=== PATIENT | male | born 1950 ===

== ENCOUNTER → 2020-07-03 10:21 | Outpatient (BNVA) | payer OTHER, SELFPAY | PROVIDERS: PCP Internal Medicine; Visit Provider Nurse Practitioner Gerontology | DX: E11.65 Type 2 diabetes mellitus with hyperglycemia (principal); I10 Essential (primary) hypertension | CPT/HCPCS: 82947; 99212 ==

== ENCOUNTER → 2020-07-17 09:11 | Outpatient (BNVA) | payer OTHER, SELFPAY | PROVIDERS: PCP Internal Medicine; Referring Provider Internal Medicine; Visit Provider Internal Medicine Endocrinology, Diabetes & Metabolism | DX: E11.65 Type 2 diabetes mellitus with hyperglycemia (principal); E11.42 Type 2 diabetes mellitus with diabetic polyneuropathy; E11.21 Type 2 diabetes mellitus with diabetic nephropathy; E11.3599 Type 2 diabetes mellitus with proliferative diabetic retinopathy without macular edema, unspecified eye; Z79.4 Long term (current) use of insulin; I10 Essential (primary) hypertension; E78.5 Hyperlipidemia, unspecified | CPT/HCPCS: 82947; 99212 ==

== ENCOUNTER 2021-03-12 10:03 | Outpatient (REF) | payer MEDICARE, SELFPAY ==
--- NOTE | ~2021-03-12 | XR_ITS ---
EXAMINATION: XR FOOT, LEFT CLINICAL INFORMATION: Pain in left foot. COMPARISON: None TECHNIQUE: AP, lateral, and oblique views of the left foot. FINDINGS: The ankle mortise and subtalar joints are normal. No acute fracture or dislocation seen. There is a moderate-sized retrocalcaneal enthesophyte. The soft tissues are normal. XR/XR foot LT min 3V IMPRESSION: Moderate-sized retrocalcaneal enthesophyte. No visible acute fracture or dislocation seen.
--- NOTE | ~2021-03-12 | XR_ITS ---
EXAMINATION: XR FOOT, RIGHT CLINICAL INFORMATION: Pain COMPARISON: None TECHNIQUE: AP, lateral, and oblique views of the right foot. FINDINGS: Bone alignment is normal. No fracture or dislocation is seen. There is mild arthritis at the IP joint of the great toe. There is flattening of the head of the second metatarsal bone. There is cortical thickening of the shaft of the second metatarsal bone and increased sclerosis. 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 There are large calcaneal spurs. There is soft tissue arterial calcification. XR/XR foot RT min 3V IMPRESSION: Mild arthritis at the IP joint of the great toe. 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 Large calcaneal spurs.
== END 2021-03-12 10:04 | disposition home or self-care (01) ==
LOC: HO.XRAY 10:03
PROVIDERS: PCP Internal Medicine; Referring Provider Internal Medicine; Visit Provider Nurse Practitioner Family
DX: M79.671 Pain in right foot (principal); M79.672 Pain in left foot
CPT/HCPCS: 73630

== ENCOUNTER → 2021-10-27 08:17 | Outpatient (BNVA) | payer MEDICARE, SELFPAY | PROVIDERS: PCP Internal Medicine; Visit Provider Internal Medicine Endocrinology, Diabetes & Metabolism | DX: E11.65 Type 2 diabetes mellitus with hyperglycemia (principal); Z79.4 Long term (current) use of insulin | CPT/HCPCS: 82947; 99212 ==

== ENCOUNTER 2021-10-27 09:07 | Outpatient (REF) | payer MEDICARE, SELFPAY ==
[2021-10-27 10:53] LABS: Anion Gap 13 (12-20); Blood Urea Nitrogen 16 mg/dL (9-16); Calcium 9.8 mg/dL (8.4-10.2); Carbon Dioxide 30 mmol/L (22-29); Chloride 102 mmol/L (96-108); Cholesterol 133 mg/dL; Estimated Glomerular Filt Rate > 60; Glucose Random 135 mg/dL (60-115); HDL Cholesterol 40 mg/dL; LDL Cholesterol Calculated 68 mg/dl; Potassium 4.9 mmol/L (3.3-5.1); Sodium 140 mmol/L (135-145); Triglycerides 125 mg/dL
== END 2021-10-27 09:08 | disposition home or self-care (01) ==
LOC: HO.10HDL 09:07
PROVIDERS: Visit Provider Internal Medicine Endocrinology, Diabetes & Metabolism
DX: E11.65 Type 2 diabetes mellitus with hyperglycemia (principal); Z79.4 Long term (current) use of insulin
CPT/HCPCS: 36415; 80048; 80061; 82043

== ENCOUNTER → 2021-11-11 08:18 | Outpatient (BNVA) | payer OTHER, SELFPAY | PROVIDERS: PCP Internal Medicine; Visit Provider Registered Nurse Diabetes Educator | DX: E11.3599 Type 2 diabetes mellitus with proliferative diabetic retinopathy without macular edema, unspecified eye (principal); Z71.89 Other specified counseling; Z71.3 Dietary counseling and surveillance | CPT/HCPCS: 99211 ==

== ENCOUNTER → 2021-11-19 09:11 | Outpatient (BNVA) | payer MEDICARE, SELFPAY | PROVIDERS: PCP Internal Medicine; Visit Provider Dietitian, Registered | DX: E11.42 Type 2 diabetes mellitus with diabetic polyneuropathy (principal); E11.21 Type 2 diabetes mellitus with diabetic nephropathy; E11.3599 Type 2 diabetes mellitus with proliferative diabetic retinopathy without macular edema, unspecified eye; Z71.3 Dietary counseling and surveillance | CPT/HCPCS: 97802 ==

== ENCOUNTER → 2021-12-01 10:15 | Outpatient (BNVA) | payer OTHER, SELFPAY | PROVIDERS: PCP Internal Medicine; Visit Provider Registered Nurse Diabetes Educator | DX: E11.65 Type 2 diabetes mellitus with hyperglycemia (principal); Z79.4 Long term (current) use of insulin | CPT/HCPCS: 99211 ==

== ENCOUNTER → 2022-03-02 09:49 | Outpatient (BNVA) | payer OTHER, SELFPAY | PROVIDERS: PCP Internal Medicine; Visit Provider Internal Medicine Endocrinology, Diabetes & Metabolism | DX: E11.65 Type 2 diabetes mellitus with hyperglycemia (principal); E11.21 Type 2 diabetes mellitus with diabetic nephropathy; E11.40 Type 2 diabetes mellitus with diabetic neuropathy, unspecified; E11.319 Type 2 diabetes mellitus with unspecified diabetic retinopathy without macular edema; Z79.4 Long term (current) use of insulin | CPT/HCPCS: 82947; 83036; 99212 ==

== ENCOUNTER → 2022-04-11 10:02 | Outpatient (BNVA) | payer OTHER, SELFPAY | PROVIDERS: PCP Internal Medicine; Visit Provider Dietitian, Registered | DX: E11.42 Type 2 diabetes mellitus with diabetic polyneuropathy (principal); K59.00 Constipation, unspecified; Z71.3 Dietary counseling and surveillance | CPT/HCPCS: 97803 ==

== ENCOUNTER → 2022-04-29 10:10 | Outpatient (BNVA) | payer OTHER, SELFPAY | PROVIDERS: PCP Internal Medicine; Visit Provider Registered Nurse Diabetes Educator | DX: E11.3599 Type 2 diabetes mellitus with proliferative diabetic retinopathy without macular edema, unspecified eye (principal) | CPT/HCPCS: 99211 ==

== ENCOUNTER 2022-05-04 10:12 | Outpatient (REF) | payer OTHER, SELFPAY ==
[2022-05-04 12:51] LABS: Free T4 (Free Thyroxine) 0.92 ng/dL (0.71-1.85); Thyroid Stimulating Hormone 3.55 uIU/mL (0.32-4.0)
[2022-05-05 20:51] LABS: Thyroid Peroxidase Antibodies 10 IU/mL (<9)
== END 2022-05-04 10:13 | disposition home or self-care (01) ==
LOC: HO.LAB 10:12
PROVIDERS: PCP Internal Medicine; Visit Provider Internal Medicine Endocrinology, Diabetes & Metabolism
DX: E03.9 Hypothyroidism, unspecified (principal)
CPT/HCPCS: 36415; 84439; 84443; 86376

== ENCOUNTER → 2022-05-26 10:38 | Outpatient (BNVA) | payer OTHER, SELFPAY | PROVIDERS: PCP Internal Medicine; Referring Provider Internal Medicine; Visit Provider Surgery | DX: Z12.11 Encounter for screening for malignant neoplasm of colon (principal) | CPT/HCPCS: 99202 ==

== ENCOUNTER → 2022-05-27 09:44 | Outpatient (BNVA) | payer OTHER, SELFPAY | PROVIDERS: PCP Internal Medicine; Visit Provider Registered Nurse Diabetes Educator | DX: E11.65 Type 2 diabetes mellitus with hyperglycemia (principal); Z79.4 Long term (current) use of insulin | CPT/HCPCS: 95250; 99211 ==

== ENCOUNTER → 2022-06-10 11:20 | Outpatient (BNVA) | payer OTHER, SELFPAY | PROVIDERS: PCP Internal Medicine; Visit Provider Registered Nurse Diabetes Educator | DX: E11.3599 Type 2 diabetes mellitus with proliferative diabetic retinopathy without macular edema, unspecified eye (principal) | CPT/HCPCS: 99211 ==

== ENCOUNTER → 2022-07-05 08:41 | Outpatient (REF) | payer OTHER, SELFPAY ==
--- NOTE | 2022-07-05 08:44 | CA_ITS ---
Transthoracic Echocardiogram Patient (Last, First, Middle): Matthew Teixeira A Gender: Male Date of : 1950 Age: 72 Procedure Date: 07/05/2022 Procedure Type: Transthoracic Echocardiogram Location: OP Height: 167.64 cm Weight: 76.2 kg BSA: 1.86 m2 Heart Rate: 54 bpm BP: 120 / 60 mmHg Hyperion Administrator: APRYL Eddy MD: Jeanine Jimenez MD Stylist Assistant: Fiil Allen MD Symptoms: HYPOTENSION UNSPECIFIED Study Quality: Fair/Contrast ECG Rhythm: Sinus bradycardia Conclusions: - 1. Lchn-ty-srrjdskb LV systolic dysfunction with impaired relaxation filling pattern 2. Normal cardiac valvular Doppler 3. Normal RV systolic pressure 4. No gross pericardial effusion Findings Procedure Information Contrast agent, definity, is being given per protocol without apparent complications. Left Ventricle Normal left ventricular cavity size. There is normal left ventricular wall thickness. The left ventricular systolic function is mild to moderately decreased. The visually estimated ejection fraction is between 40-45%. Spectral Doppler is indicative of an impaired relaxation filling pattern. E/E prime ratio is between 8 and 15 consistent with indeterminate filling pressures. Right Ventricle Normal right ventricular cavity size and systolic function. Atria The left atrium is normal in size. There is lipomatous hypertrophy of the interatrial septum. There is no evidence of interatrial shunt. The right atrium was not well visualized. Aortic Valve Normal aortic valve structure and function. There is no aortic valve stenosis. There is no aortic valve regurgitation. Mitral Valve Normal mitral valve structure and function. There is trace mitral valve regurgitation. There is no mitral valve stenosis. Pulmonic Valve The pulmonic valve was not well visualized. Tricuspid Valve Likely normal tricuspid valve structure and function. There is trace tricuspid valve regurgitation. The right ventricular systolic pressure is normal. The right ventricular systolic pressure is 22 mmHg. Normal right atrial pressure. There is no evidence of pulmonary hypertension. Great Vessels All visible segments of the aorta are normal in size. The pulmonary artery was not well visualized. Venous The inferior vena cava is normal in size and collapses greater than 50% with inspiration. Pericardium/Pleural There is no evidence of pericardial effusion. Prior Study Comparison No prior study available for comparison. Measurements 2D Linear Measurements IVSd: 0.90 0.6-0.9/0.6-1.0 cm LVIDd: 4.13 3.9-5.3/4.2-5.9 cm LVIDd Index: 2.22 2.4-3.2/2.2-3.1 cm/m2 LVIDs: 3.13 2.0-3.6 cm LVPWd: 0.90 0.7-1.1 cm LA Diam: 3.50 2.7-3.8/3.0-4.0 cm LAIDs Index: 1.88 1.5-2.3 cm/m2 LV Mass: 142.51 67-162/88-224 g LV Mass Index: 76.62 43-95/49-115 g/m2 LVOT Diam: 2.00 3.0+(-)1.3 cm 2D Systolic Function EF 4C: 47.70 >55% EF 2C: 43.40 >55% EF BiP: 43.30 >55% Mitral Valve MV Pk E: 0.76 MV PK A: 0.81 MV Decel Time: 248.00 E/A: 0.90 E'Lateral: 8.92 E'Medial: 5.98 E/E' Med: 12.80 E/E' Lat: 8.60 PHT: 73.00 MVA PHT: 3.01 Decel Marin: 3.08 Aortic Valve AoV Pk Kuldeep: 0.98 AoV Mn Kuldeep: 0.74 AoV VTI: 0.26 AoV Pk Grad: 4.00 Aov Mn Grad: 2.00 KODAK Cont.VTI: 3.00 LVOT LVOT Pk Kuldeep: 0.98 LVOT Mn Kuldeep: 0.65 LVOT VTI: 0.25 LVOT Pk Grad: 4.00 LVOT Mn Grad: 2.00 LVOT Diam: 2.00 LVOT Area: 3.14 Diastolic Function MV Pk E: 0.76 MV Pk A: 0.81 E/A: 0.90 E'Medial: 5.98 E/E' Med: 12.80 E' Laterial: 8.92 E/E' Lat: 8.60 Right Ventricle TAPSE (mm): 20.80 TVS' Kuldeep: 10.10 Tricuspid Valve TR Pk Kuldeep: 2.19 TR Pk Grad: 19.00 RA Press: 3.00 RVSP: 22.00 Great Vessels Aorta Sinus of Valsalva: 3.80 2.0-3.5 cm Ao Asc: 3.30 2.1-3.4 cm Pulmonary Valve PV Pk Kuldeep: 0.92 Peak PV Grad: 3.00 Updated in Other Vendor System with Status of Final Fili Allen MD electronically signed on 07/06/2022 4:01:26 PM with status of Final
== END ==
LOC: HO.CARD 08:41
PROVIDERS: PCP Internal Medicine; Visit Provider Family Medicine
DX: I95.9 Hypotension, unspecified (principal); R09.89 Other specified symptoms and signs involving the circulatory and respiratory systems; R42 Dizziness and giddiness; E11.65 Type 2 diabetes mellitus with hyperglycemia; Z79.4 Long term (current) use of insulin
CPT/HCPCS: 82947; 83036; 93306; 99212; Q9957

== ENCOUNTER 2022-08-17 13:31 | Outpatient (REF) | payer OTHER, SELFPAY ==
--- NOTE | 2022-08-17 | EMG_ITS ---
Please see scanned EMG / Nerve Conduction Report. MTDD
== END 2022-08-17 13:32 | disposition home or self-care (01) ==
LOC: HO.NEURO 13:31
PROVIDERS: PCP Internal Medicine; Visit Provider Family Medicine
DX: R20.0 Anesthesia of skin (principal); E11.42 Type 2 diabetes mellitus with diabetic polyneuropathy
CPT/HCPCS: 95885; 95913

== ENCOUNTER → 2022-08-19 09:29 | Outpatient (BNVA) | payer OTHER, SELFPAY | PROVIDERS: PCP Internal Medicine; Visit Provider Registered Nurse Diabetes Educator | DX: E11.65 Type 2 diabetes mellitus with hyperglycemia (principal); E11.42 Type 2 diabetes mellitus with diabetic polyneuropathy; E11.21 Type 2 diabetes mellitus with diabetic nephropathy; E11.3599 Type 2 diabetes mellitus with proliferative diabetic retinopathy without macular edema, unspecified eye; G62.89 Other specified polyneuropathies; N52.1 Erectile dysfunction due to diseases classified elsewhere; I10 Essential (primary) hypertension; Z79.4 Long term (current) use of insulin | CPT/HCPCS: 99211 ==

== ENCOUNTER → 2022-10-12 10:00 | Outpatient (BNVA) | payer OTHER, SELFPAY | PROVIDERS: PCP Internal Medicine; Visit Provider Dietitian, Registered | DX: E11.65 Type 2 diabetes mellitus with hyperglycemia (principal); E11.42 Type 2 diabetes mellitus with diabetic polyneuropathy; E11.21 Type 2 diabetes mellitus with diabetic nephropathy; E11.3599 Type 2 diabetes mellitus with proliferative diabetic retinopathy without macular edema, unspecified eye; I10 Essential (primary) hypertension; Z79.4 Long term (current) use of insulin; E78.5 Hyperlipidemia, unspecified; Z71.3 Dietary counseling and surveillance | CPT/HCPCS: 97803 ==

== ENCOUNTER → 2022-12-27 10:00 | Outpatient (BNVA) | payer OTHER, SELFPAY | PROVIDERS: PCP Internal Medicine; Visit Provider Registered Nurse Diabetes Educator | DX: E11.65 Type 2 diabetes mellitus with hyperglycemia (principal); Z79.4 Long term (current) use of insulin | CPT/HCPCS: 99211 ==

== ENCOUNTER 2022-12-28 10:22 | Outpatient (REF) | payer OTHER, SELFPAY ==
[2022-12-28 11:55] LABS: Cholesterol 129 mg/dL; HDL Cholesterol 39 mg/dL; LDL Cholesterol Calculated 74 mg/dl; Triglycerides 81 mg/dL
[2022-12-28 12:16] LABS: Creatinine Urine 73.18 mg/dL; Microalbum/Creatinine Ratio Ur 13.6 ug/mg cr
== END 2022-12-28 10:23 | disposition home or self-care (01) ==
LOC: HO.LAB 10:22
PROVIDERS: PCP Internal Medicine; Visit Provider Internal Medicine Endocrinology, Diabetes & Metabolism
DX: E11.65 Type 2 diabetes mellitus with hyperglycemia (principal); Z79.4 Long term (current) use of insulin
CPT/HCPCS: 36415; 80061; 82043

== ENCOUNTER → 2023-01-04 09:42 | Outpatient (BNVA) | payer OTHER, SELFPAY | PROVIDERS: PCP Internal Medicine; Visit Provider Internal Medicine Endocrinology, Diabetes & Metabolism | DX: E11.65 Type 2 diabetes mellitus with hyperglycemia (principal); Z79.4 Long term (current) use of insulin | CPT/HCPCS: 82947; 83036; 99212 ==

== ENCOUNTER → 2023-02-02 11:05 | Outpatient (BNVA) | payer OTHER, SELFPAY | PROVIDERS: PCP Internal Medicine; Visit Provider Registered Nurse Diabetes Educator | DX: E11.65 Type 2 diabetes mellitus with hyperglycemia (principal); Z79.4 Long term (current) use of insulin | CPT/HCPCS: 99211 ==

== ENCOUNTER → 2023-03-01 14:31 | Outpatient (BNVA) | payer OTHER, SELFPAY | PROVIDERS: PCP Internal Medicine; Visit Provider Registered Nurse Diabetes Educator | DX: E11.3599 Type 2 diabetes mellitus with proliferative diabetic retinopathy without macular edema, unspecified eye (principal) | CPT/HCPCS: 99211 ==

== ENCOUNTER 2023-04-12 09:37 | Outpatient (AMB) | payer OTHER, SELFPAY ==
--- NOTE | 2023-04-12 09:46 | A.OFFVIS_ITS ---
Intake VS Expanded 04/12/23 09:49 Height 5 ft 5 in Weight 161 lb 2.526 oz BMI 26.8 Intake Visit Reasons: T2DM Allergies No Known Allergies Allergy (Verified 01/04/23 09:57) HPI Nutrition Presentation Details Pt presents for MNT for T2DM. Pt reports eating well. He presents with his TURNING MACHINE SET UP OPERATOR Reports meals as follow: B: coffee with diet sugar with oatmeal with milk/cinnamon/diet daily 9-10snack ham/cheese /eggs sandw on white or wheat bread and milk 3pm: soup shrimp with rice/potato/noodles or rice/hager/porkchop , water 6-7 pm: same as 3 pm meal or sand 8-9 pm : cheese/crackers, piece of cake or corn muffin non starchy vegetables: not including fruits: 0-1/d dairy> 3 serving/d protein foods: 10-15 oz/d starches > 15 serving/d fluids: water, juice light /diet, coffee 2 times/d physical activity: sedentary Most Recent Diabetes Results: Microalb/Creat Ratio 13.6 ug/mg cr 12/28/22 Cholesterol 129 mg/dL 12/28/22 HDL Cholesterol 39 mg/dL 12/28/22 Triglycerides 81 mg/dL 12/28/22 Creatinine 0.98 mg/dL (0.5-1.4) 11/04/22 Blood Urea Nitrogen 22 mg/dL (9-16) H 11/04/22 Sodium 141 mmol/L (135-145) 11/04/22 Potassium 4.4 mmol/L (3.3-5.1) 11/04/22 Chloride 104 mmol/L (96-108) 11/04/22 Carbon Dioxide 29 mmol/L (22-29) 11/04/22 Calcium 9.2 mg/dL (8.4-10.2) 11/04/22 AST 18 U/L (5-37) 11/04/22 ALT 17 U/L (0-40) 11/04/22 Total Protein 6.9 g/dL (6.5-8.0) 11/04/22 Albumin 4.2 g/dL (3.5-5.0) 11/04/22 [facility] Medical History Colon cancer screening Diabetic nephropathy associated with type 2 diabetes mellitus Diabetic polyneuropathy associated with type 2 diabetes mellitus Dyslipidemia Erectile dysfunction Essential hypertension Hx of lymphoma Hypothyroidism Peripheral axonal neuropathy Proliferative diabetic retinopathy associated with type 2 diabetes mellitus Type 2 diabetes mellitus with hyperglycemia, with long-term current use of insulin Surgical History Hx of colonoscopy Hx of local excision of skin lesion Family History Father Cancer Mother Diabetes Social History Household Members: None Housing: Apartment Housing Other:: Has TURNING MACHINE SET UP OPERATOR: Mabel Nelsonoa Are you a primary care services manager to a significant other at home: No Do you presently have visiting nurse or other home services: Yes (set o type operator) Alcohol intake: never Patient Tobacco Use Status: Never used Tobacco service: No Current occupational status: disabled Assessment & Plan Assessment & Plan (1) Diabetic polyneuropathy associated with type 2 diabetes mellitus: Code(s): E11.42 - Type 2 diabetes mellitus with diabetic polyneuropathy Plan: Review healthy plate method, reinforce including a variety of nutrient n diet from non starchy vegs , reinforcing including protein sources of foods Used wt : 73 kg (04/12/23) Est kcal as per 25 kcal/kg bw: 1775 (40% carb, 30% fat/prot) Est fluid needs: 1775 ml/d (25 ml/kg bw) Rec fiber: increase to 8-10 g per day and gradually increase to 35 g as tolerated Rec Na: < 1500 mg /d Educate patient on: (R= Reviewed, V = verbalizes understanding N/R= Needs review N/A= not applicable) * Food sources of carbohydrates and serving adequate serving sizes : R V * Difference between complex carbohydrates and simple carbohydrates, role of fiber: R * Differences between fats (MUFA/PUFA/saturated fats, trans fats) and food sources of various fats: R * Food sources of sodium and salt and healthy modifications for heart health and kidney health: R, V * Vitamins and minerals: R * How to interpret food labels: N/R * Healthy Plate method concept: R V * Physical activity: benefits and precaution: R,V * Prevention and treatment of hypoglycemia : R, Pt verbalized Patient Instructions: Include spinach or green beans or asparagus in your sandwiches or soups HAve a bedtime snack consisting of fruit or 1/2 sandwich Continue including a variety of protein foods /lean protein food sin your meals 3-4 oz Keep physically active as able Have 1/2 cup of juice if developing low blood sugar ,re test 15 minutes after , repeat treatment if sugar continues below 70 Coding Level of Care Code Nutr Indiv Subseq (18022) Diagnoses Diabetic polyneuropathy associated with type 2 diabetes mellitus E11.42
[2023-04-12 09:49] VITALS: BMI 26.8
== END 2023-04-12 10:27 | disposition home or self-care (01) ==
PROVIDERS: PCP Internal Medicine; Visit Provider Dietitian, Registered
DX: E11.42 Type 2 diabetes mellitus with diabetic polyneuropathy (principal)

== ENCOUNTER → 2023-04-12 09:37 | Outpatient (BNVA) | payer OTHER, SELFPAY | PROVIDERS: Visit Provider Dietitian, Registered | DX: E11.42 Type 2 diabetes mellitus with diabetic polyneuropathy (principal) | CPT/HCPCS: 97803 ==

== ENCOUNTER 2023-05-11 14:01 | Outpatient (AMB) | payer OTHER, SELFPAY ==
[2023-05-11 14:03] VITALS: BP 124/46; PULSE 68; BMI 26.7
--- NOTE | 2023-05-11 14:03 | MHC.OFFVIS ---
Intake Vital Signs 05/11/23 14:03 Height 5 ft 5 in Weight 160 lb 7.944 oz BMI 26.7 BP 124/46 L Blood Pressure Location Rt brachial Position Sitting Pulse 68 Pulse Source Pulse Oximeter Intake Visit Reasons: f/u Type 2 DM/Confirmed Intake Note: Patient presents today to follow up on Type 2 Diabetes Mellitus. Patient receives DME supplies through: Last Diabetic Eye exam: 2021 Last Podiatry Visit: 01/2023 Random Glucose: 181 mg/dl HgA1C: 7.9% Slate Cutter Operator Required: Yes Slate Cutter Operator Language: Setswana Accompanied by: Other Relationship Allergies No Known Allergies Allergy (Verified 05/11/23 14:09) Medication List - Last Reconciled 05/11/23 by Chemo Hernandez MD alcohol swabs 0 pad topical NEEDED aspirin 81 mg PO BEDTIME atorvastatin 40 mg PO DAILY 30 days blood sugar diagnostic (FreeStyle Lite Strips) 4 times a day blood-glucose meter (FreeStyle [place] Lite kit) As directed cetirizine 10 mg PO DAILY cyanocobalamin (vitamin B-12) 1,000 mcg PO QAM 90 days dulaglutide (Trulicity) 3 mg (0.5 mL) subcut QWEEK empagliflozin-metformin 12.5-1,000 mg ER (Synjardy XR) 1 tab PO BID famotidine 20 mg PO BID gabapentin 600 mg PO BEDTIME 30 days insulin glargine (Lantus Solostar U-100 Insulin) 20 units subcut DAILY lancets (TRUEplus Lancets) TEST BLOOD SUGAR FOUR TIMES DAILY lisinopril 10 mg PO DAILY multivitamin 1 tab PO DAILY omeprazole 20 mg PO BEDTIME pen needle, diabetic As directed twice daily repaglinide 0.5 mg PO TID trazodone 100 mg PO BEDTIME HPI HPI Comments History of Present Illness Details 73 yo male , today for follow-up visit, for diabetes management . . Dexcom download shows he is using the sensor 100% of the time per average glucose is 184 with standard deviation of 70 and G mi of 7.7%. 59% range with 41% hyperglycemia and no hypoglycemia. Patent shows elevation and post-breakfast hyperglycemia He has with DM type 2 diagnosed 01/17/2003. He has past medical history of GERD, hypertension, hyperlipidemia. He has nephropathy, neuropathy and diabetic retinopathy. The patient does not have macrovascular disease. He sees a musical instrument maker or repairer on a regular basis and has diabetic shoes He is currently on 16 units of Lantus, Synjardy 12.12/999 mg BID , and Trulicity 3 mg weekly,Prandin 0.5 mg mg before each meal. He is tolerating medication well. Reports rare hypoglycemia . Does not feel hypoglycemia Last ophthalmology evaluation 1 yr ago :, he has proliferative retinopathy, he reports he had laser treatment. Denies nocturia , positive polydipsia, + numbness, tingling, denies polyuria. He reports his losing weight. Laboratory Tests 09/11/18 09/11/18 09/11/18 00:00 12:00 12:00 Hgb Hct Sodium Potassium Creatinine Estimated Creat Cl ear POC Glucose Hgb A1c (Clinic) Hgb A1c Fingerstic k Calcium AST ALT Alkaline Phosphata se Albumin Triglycerides 80 Cholesterol 117 LDL Cholesterol Di rect 64 LDL Cholesterol, C alc 64 HDL Cholesterol 37 25-OH Vitamin D To champ 32.5 TSH 3rd Generation Microalb/Creat Rat io 8.4 09/28/18 05/14/19 04/14/20 10:00 10:23 08:56 Hgb Hct Sodium Potassium Creatinine Estimated Creat Cl ear POC Glucose 159 H Hgb A1c (Clinic) Hgb A1c Fingerstic k 7.3 Calcium AST ALT Alkaline Phosphata se Albumin Triglycerides Cholesterol LDL Cholesterol Di rect LDL Cholesterol, C alc HDL Cholesterol 25-OH Vitamin D To champ TSH 3rd Generation 3.87 Microalb/Creat Rat io 04/14/20 04/14/20 07/03/20 09:40 09:40 11:13 Hgb 11.7 L Hct 35.1 L Sodium 139 Potassium 3.8 Creatinine 0.79 Estimated Creat Cl ear 77.3 POC Glucose Hgb A1c (Clinic) 7.3 H Hgb A1c Fingerstic k Calcium 9.3 AST 21 ALT 25 Alkaline Phosphata se 49 D Albumin 4.5 Triglycerides Cholesterol LDL Cholesterol Di rect LDL Cholesterol, C alc HDL Cholesterol 25-OH Vitamin D To champ TSH 3rd Generation Microalb/Creat Rat io PFSH Medical History Colon cancer screening Diabetic nephropathy associated with type 2 diabetes mellitus Diabetic polyneuropathy associated with type 2 diabetes mellitus Dyslipidemia Erectile dysfunction Essential hypertension Hx of lymphoma Hypothyroidism Peripheral axonal neuropathy Proliferative diabetic retinopathy associated with type 2 diabetes mellitus Type 2 diabetes mellitus with hyperglycemia, with long-term current use of insulin Surgical History Hx of local excision of skin lesion Hx of colonoscopy Family History Father Cancer Mother Diabetes Social History Household Members: None Housing: Apartment Housing Other:: Has MANAGER BRAND: Mabel Nelsonoa Are you a primary respiratory care specialist to a significant other at home: No Do you presently have visiting nurse or other home services: Yes (facilities maintenance assistant) Alcohol intake: never Patient Tobacco Use Status: Never used Tobacco service: No Current occupational status: disabled Physical Exam Vital Signs: Last Vital Signs Pulse 68 05/11/23 14:03 BP 124/46 L 05/11/23 14:03 BMI result Body Mass Index 26.7 Absence of Cushingoid features. Absence of acromegalic features. Neck exam reveals nl size thyroid about 15 gms. No thyroid nodules palpable. No carotid bruits present. Lungs CTA. Heart S1 S2, Reg R/R. No M/R/ G. Skin exam reveals absence of vitiligo or acanthosis nigricans. Abdominal exam reveals Soft NT/ND with NA BS. No organomegaly present. Neck Other: . Extrem Other: Visual exam of foot performed. No ulcerations or open lesions. onchomycosis 1st toe R foot , R foot callous.Pulses 2 + distally Sensation decreased to monofilament exam. Vibratory sensation is decreased with 128 Hz tuning fork Results AMB Hemoglobin A1c AMB Hemoglobin A1c 7.9 % Last Edit by Maria T Lacy on 05/11/23 14:41 Results Reviewed Results Reviewed: 05/11/23 14:12 Glucose, Whole Blood Routine Laboratory Last Values Glucose (Clinic) 181 mg/dL (60-115) H 05/11/23 14:12 Hgb A1c (Clinic) 7.9 % (4.0-6.0) H 05/11/23 14:25 Assessment & Plan Assessment & Plan (1) Type 2 diabetes mellitus with hyperglycemia, with long-term current use of insulin: Code(s): E11.65 - Type 2 diabetes mellitus with hyperglycemia; Z79.4 - keno terminal operator (current) use of insulin Plan: This is a 72-year-old male with a history of type 2 diabetes being treated with metformin, Jardiance, Trulicity and basal insulin with good glycemic control and known microvascular complications namely retinopathy, nephropathy and neuropathy. Plan is to stop the Prandin and to initiate 6 units of NovoLog insulin prior to breakfast and titrate to keep point care < 180 after breakfast. Patient should follow up with certified lactation educator Orders: Orders AMB Hemoglobin A1c Today E11.65 - Type 2 diabetes mellitus with hyperglycemia, Z79.4 - shelter (current) use of insulin Medications: New insulin aspart U-100 (Novolog FlexPen U-100 Insulin aspart) 6 units (0.06 mL) subcut QAM 15 mL 5RF Discontinued repaglinide Discontinued Reason: Doctor's Order 0.5 mg PO TID 90 tabs 6RF E11.65 - Type 2 diabetes mellitus with hyperglycemia, Z79.4 - shelter (current) use of insulin Coding Level of Care Code Est Pt Level 4 (90487) Diagnoses Type 2 diabetes mellitus with hyperglycemia, with long-term current use of insulin E11.65; Z79.4
[2023-05-11 14:17] LABS: Glucose, Whole Blood 181 mg/dL (60-115)
--- NOTE | 2023-05-11 14:41 | AM.OFFVISNUR ---
Intake Vital Signs 05/11/23 14:03 Height 5 ft 5 in Weight 160 lb 7.944 oz BMI 26.7 BP 124/46 L Blood Pressure Location Rt brachial Position Sitting Pulse 68 Pulse Source Pulse Oximeter Intake Visit Reasons: f/u Type 2 DM/Confirmed Allergies No Known Allergies Allergy (Verified 05/11/23 14:09) Medication List - Last Reconciled 05/11/23 by Chemo Hernandez MD alcohol swabs 0 pad topical NEEDED aspirin 81 mg PO BEDTIME atorvastatin 40 mg PO DAILY 30 days blood sugar diagnostic (FreeStyle Lite Strips) 4 times a day blood-glucose meter (FreeStyle [place] Lite kit) As directed cetirizine 10 mg PO DAILY cyanocobalamin (vitamin B-12) 1,000 mcg PO QAM 90 days dulaglutide (Trulicity) 3 mg (0.5 mL) subcut QWEEK empagliflozin-metformin 12.5-1,000 mg ER (Synjardy XR) 1 tab PO BID famotidine 20 mg PO BID gabapentin 600 mg PO BEDTIME 30 days insulin glargine (Lantus Solostar U-100 Insulin) 20 units subcut DAILY lancets (TRUEplus Lancets) TEST BLOOD SUGAR FOUR TIMES DAILY lisinopril 10 mg PO DAILY multivitamin 1 tab PO DAILY omeprazole 20 mg PO BEDTIME pen needle, diabetic As directed twice daily repaglinide 0.5 mg PO TID trazodone 100 mg PO BEDTIME Nursing Note Explained to the patient, with the help of his aide for interpretation, how to use a Novolog pen injection. I demonstrated cleansing of the skin with an alcohol prep pad, how to attach the pen needle, how to dial the pen to the correct dose, and administration. I also discussed the proper disposal of sharps. Patient verbalizes understanding. Results AMB Hemoglobin A1c AMB Hemoglobin A1c 7.9 % Last Edit by Maria T Lacy on 05/11/23 14:41 Coding Diagnoses Type 2 diabetes mellitus with hyperglycemia, with long-term current use of insulin E11.65; Z79.4 Assessment & Plan Assessment & Plan (1) Type 2 diabetes mellitus with hyperglycemia, with long-term current use of insulin: Code(s): E11.65 - Type 2 diabetes mellitus with hyperglycemia; Z79.4 - retirement (current) use of insulin Orders: Orders AMB Hemoglobin A1c Today E11.65 - Type 2 diabetes mellitus with hyperglycemia, Z79.4 - retirement (current) use of insulin Medications: New insulin aspart U-100 (Novolog FlexPen U-100 Insulin aspart) 6 units (0.06 mL) subcut QAM 15 mL 5RF Discontinued repaglinide Discontinued Reason: Doctor's Order 0.5 mg PO TID 90 tabs 6RF E11.65 - Type 2 diabetes mellitus with hyperglycemia, Z79.4 - retirement (current) use of insulin
== END 2023-05-11 14:41 | disposition home or self-care (01) ==
PROVIDERS: PCP Internal Medicine; Visit Provider Internal Medicine Endocrinology, Diabetes & Metabolism
DX: E11.65 Type 2 diabetes mellitus with hyperglycemia (principal); Z79.4 Long term (current) use of insulin
CPT/HCPCS: 99214

== ENCOUNTER → 2023-05-11 14:01 | Outpatient (BNVA) | payer OTHER, SELFPAY | PROVIDERS: PCP Internal Medicine; Visit Provider Internal Medicine Endocrinology, Diabetes & Metabolism | DX: E11.65 Type 2 diabetes mellitus with hyperglycemia (principal); Z79.4 Long term (current) use of insulin | CPT/HCPCS: 82947; 83036; 99212 ==

== ENCOUNTER → 2023-05-30 09:38 | Outpatient (BNVA) | payer OTHER, SELFPAY | PROVIDERS: PCP Internal Medicine; Visit Provider Registered Nurse Diabetes Educator ==

== ENCOUNTER 2023-07-12 13:50 | Outpatient (REF) | payer OTHER, SELFPAY | END 2023-07-12 13:51 | disposition home or self-care (01) | LOC: HO.HHCL 13:50 | PROVIDERS: Visit Provider Nurse Practitioner Primary Care | DX: R10.13 Epigastric pain (principal) | CPT/HCPCS: 87338; 87507 ==

== ENCOUNTER 2023-09-19 11:04 | Outpatient (REF) | payer OTHER, SELFPAY ==
[2023-09-19 13:34] LABS: MANUAL DIFF FLAG NO
[2023-09-19 13:39] LABS: Basophils Percent Auto 0.5 % (0-2); Eosinophils Absolute Auto 0.4 X10*3/uL (0.0-0.4); Eosinophils Percent Auto 9.4 % (0-4); Hematocrit 37.5 % (42.0-52.0); Hemoglobin 12.1 g/dl (14.0-18.0); Imm Gran Abs Auto 0.04 X10*3/uL (0.00-0.03); Imm Gran Pct Auto 0.9 % (0.0-0.4); Lymphocytes Absolute Auto 1.4 X10*3/uL (1.2-4.9); Lymphocytes Percent Auto 32.1 % (20-40); Mean Corpuscular HGB Conc 32.3 g/dl (31.0-36.0); Mean Corpuscular Hemoglobin 29.3 pg (27.0-33.0); Mean Corpuscular Volume 90.8 fL (80.0-98.0); Mean Platelet Volume 12.2 fL (9.4-12.4); Monocytes Absolute Auto 0.4 X10*3/uL (0.1-1.2); Monocytes Percent Auto 9.1 % (2-11); Neutrophils Absolute Auto 2.1 x10*3/uL (2.0-8.3); Platelet Count 153 X10*3/uL (160-400); Red Blood Count 4.13 X10*6/uL (4.60-5.80); Red Cell Distribution Width 14.7 % (11.0-16.0); White Blood Count 4.3 X10*3/uL (4.8-10.8)
[2023-09-19 14:00] LABS: Appearance Urine Clear; Color Urine Yellow; Glucose Urine UA >=1000 mg/dL (Negative); Leukocyte Esterase Urine Negative (Negative); Nitrite Urine Negative (Negative); PH 5.5 (5.0-9.0); Specific Gravity - Urine >= 1.030 (1.005-1.025); UMIC TRIGGER UACC YES; Urine Blood Negative (Negative); Urine Ketones Trace mg/dL (Negative); Urine Protein Negative (Neg-Trace)
[2023-09-19 14:10] LABS: Bacteria Urine None Seen (None Seen); Hyaline Casts Urine 0-2 /LPF (0-2); RBC Urine 0-2 /HPF (0-2); Squamous Epithelial Cell Urine 0-2 /HPF (0-2); WBC Urine 0-5 /HPF (0-5)
[2023-09-19 14:48] LABS: Prostate Specific Antigen 0.31 ng/mL (<0.05-4.0)
[2023-09-19 15:01] LABS: Alanine Aminotransferase 29 U/L (0-40); Albumin Level 4.2 g/dL (3.5-5.0); Alkaline Phosphatase 72 U/L (39-117); Anion Gap 17 (12-20); Aspartate Amino Transferase 19 U/L (5-37); Bilirubin Direct < 0.2 mg/dL (0.0-0.5); Bilirubin Total 0.2 mg/dL (0.0-1.0); Blood Urea Nitrogen 24 mg/dL (9-16); Calcium 9.9 mg/dL (8.4-10.2); Carbon Dioxide 27 mmol/L (22-29); Chloride 99 mmol/L (96-108); Cholesterol 133 mg/dL (<200); Estimated Glomerular Filt Rate > 60; Glucose Random 280 mg/dL (60-115); HDL Cholesterol 40 mg/dL (>40); LDL Cholesterol Calculated 43 mg/dL (<100); Potassium 4.9 mmol/L (3.3-5.1); Sodium 138 mmol/L (135-145); TSH reflex Free T4 5.16 uIU/mL (0.32-4.0); Total Protein 7.8 g/dL (6.5-8.0); Triglycerides 253 mg/dL (<150)
[2023-09-19 16:05] LABS: Reflex LDLD? No
[2023-09-19 16:09] LABS: Free T4 (Free Thyroxine) 0.75 ng/dL (0.71-1.85)
[2023-09-20 09:02] LABS: HIV AB/AG Nonreactive (Nonreactive); HIV Num 1 0.09 S/CO (0.00-0.99)
== END 2023-09-19 11:05 | disposition home or self-care (01) ==
LOC: HO.HHCL 11:04
PROVIDERS: Visit Provider Internal Medicine
DX: Z00.00 Encounter for general adult medical examination without abnormal findings (principal); E11.42 Type 2 diabetes mellitus with diabetic polyneuropathy; I10 Essential (primary) hypertension; E78.2 Mixed hyperlipidemia; Z12.5 Encounter for screening for malignant neoplasm of prostate
CPT/HCPCS: 36415; 80048; 80061; 80076; 81001; 81003; 84153; 84439; 84443; 85025; 87389

== ENCOUNTER 2023-10-26 08:25 | Outpatient (AMB) | payer OTHER, SELFPAY ==
--- NOTE | 2023-10-26 08:26 | A.OFFVIS_ITS ---
Intake Vital Signs 10/26/23 08:27 Height 5 ft 5 in Weight 152 lb 12.485 oz BMI 25.4 BP 136/60 Blood Pressure Location Lt brachial Position Sitting Pulse 69 Pulse Source Pulse Oximeter Intake Visit Reasons: DM-confirmed Intake Note: Patient presents today to follow up on D2MT. Last Diabetic Eye exam:09/2022 Last Podiatry Visit: 06/2023 Random Glucose: 161 mg/dl HgA1c: 9.7% Data Systems Manager Required: Yes Data Systems Manager Language: Granulating Blender Name: Mabel ROMAN Information Interpreted: non-clinical & clinical Accompanied by: Other Relationship Allergies No Known Allergies Allergy (Verified 10/26/23 08:43) Medication List - Last Reconciled 10/26/23 by Chemo Hernandez MD alcohol swabs 0 pad topical NEEDED aspirin 81 mg PO BEDTIME atorvastatin 40 mg PO DAILY 30 days blood sugar diagnostic (FreeStyle Lite Strips) 4 times a day blood-glucose meter (FreeStyle [place] Lite kit) As directed cetirizine 10 mg PO DAILY cyanocobalamin (vitamin B-12) 1,000 mcg PO QAM 90 days dulaglutide (Trulicity) 3 mg (0.5 mL) subcut QWEEK empagliflozin-metformin 12.5-1,000 mg ER (Synjardy XR) 1 tab PO BID famotidine 20 mg PO BID gabapentin 600 mg PO BEDTIME 30 days insulin aspart U-100 (Novolog FlexPen U-100 Insulin aspart) 6 units (0.06 mL) subcut QAM lancets (TRUEplus Lancets) TEST BLOOD SUGAR FOUR TIMES DAILY Lantus Solostar U-100 Insulin (insulin glargine) 20 units (0.2 mL) subcut DAILY NS lisinopril 10 mg PO DAILY multivitamin 1 tab PO DAILY omeprazole 20 mg PO BEDTIME pen needle, diabetic As directed twice daily trazodone 100 mg PO BEDTIME HPI HPI Comments History of Present Illness Details 73 yo male , today for follow-up visit, for diabetes management . . . He has using a glucometer and chec ga his point of cares once a day. Average glucose is 154 with range 125-193. 86% range with 14% hyperglycemia no hypoglycemia He has with DM type 2 diagnosed 01/17/2003. He has past medical history of GERD, hypertension, hyperlipidemia. He has nephropathy, neuropathy and diabetic retinopathy. The patient does not have macrovascular disease. He sees a steno typist on a regular basis and has diabetic shoes He is currently on 10 units of Lantus was not taking , Humalog 6 units premeals. Takes only before meals Synjardy 12.12/999 mg BID , and Trulicity 3 mg weekly, He is tolerating medication well. Reports rare hypoglycemia . Does not feel hypoglycemia Last ophthalmology evaluation needs to make appt :, he has proliferative retinopathy, he reports he had laser treatment. Denies nocturia , positive polydipsia, + numbness, tingling, denies polyuria. He reports his losing weight. Laboratory Tests 09/11/18 09/11/18 09/11/18 00:00 12:00 12:00 Hgb Hct Sodium Potassium Creatinine Estimated Creat Cl ear POC Glucose Hgb A1c (Clinic) Hgb A1c Fingerstic k Calcium AST ALT Alkaline Phosphata se Albumin Triglycerides 80 Cholesterol 117 LDL Cholesterol Di rect 64 LDL Cholesterol, C alc 64 HDL Cholesterol 37 25-OH Vitamin D To champ 32.5 TSH 3rd Generation Microalb/Creat Rat io 8.4 09/28/18 05/14/19 04/14/20 10:00 10:23 08:56 Hgb Hct Sodium Potassium Creatinine Estimated Creat Cl ear POC Glucose 159 H Hgb A1c (Clinic) Hgb A1c Fingerstic k 7.3 Calcium AST ALT Alkaline Phosphata se Albumin Triglycerides Cholesterol LDL Cholesterol Di rect LDL Cholesterol, C alc HDL Cholesterol 25-OH Vitamin D To champ TSH 3rd Generation 3.87 Microalb/Creat Rat io 04/14/20 04/14/20 07/03/20 09:40 09:40 11:13 Hgb 11.7 L Hct 35.1 L Sodium 139 Potassium 3.8 Creatinine 0.79 Estimated Creat Cl ear 77.3 POC Glucose Hgb A1c (Clinic) 7.3 H Hgb A1c Fingerstic k Calcium 9.3 AST 21 ALT 25 Alkaline Phosphata se 49 D Albumin 4.5 Triglycerides Cholesterol LDL Cholesterol Di rect LDL Cholesterol, C alc HDL Cholesterol 25-OH Vitamin D To champ TSH 3rd Generation Microalb/Creat Rat io [facility] Medical History Colon cancer screening Diabetic nephropathy associated with type 2 diabetes mellitus Diabetic polyneuropathy associated with type 2 diabetes mellitus Dyslipidemia Erectile dysfunction Essential hypertension Hx of lymphoma Hypothyroidism Peripheral axonal neuropathy Proliferative diabetic retinopathy associated with type 2 diabetes mellitus Type 2 diabetes mellitus with hyperglycemia, with long-term current use of insulin Surgical History Hx of local excision of skin lesion Hx of colonoscopy Family History Father Cancer Mother Diabetes Social History Household Members: None Housing: Apartment Housing Other:: Has WATER PLANT OPERATOR: Mabel Peres Are you a primary home health care physician to a significant other at home: No Do you presently have visiting nurse or other home services: Yes (pilates coordinator) Alcohol intake: never Patient Tobacco Use Status: Never used Tobacco service: No Current occupational status: disabled Physical Exam Vital Signs: Last Vital Signs Pulse 69 10/26/23 08:27 BP 136/60 10/26/23 08:27 BMI result Body Mass Index 25.4 Absence of Cushingoid features. Absence of acromegalic features. Neck exam reveals nl size thyroid about 15 gms. No thyroid nodules palpable. No carotid bruits present. Lungs CTA. Heart S1 S2, Reg R/R. No M/R/ G. Skin exam reveals absence of vitiligo or acanthosis nigricans. Abdominal exam reveals Soft NT/ND with NA BS. No organomegaly present. Neck Other: . Extrem Other: Visual exam of foot performed. No ulcerations or open lesions. onchomycosis 1st toe R foot , R foot callous.Pulses 2 + distally Sensation decreased to monofilament exam. Vibratory sensation is decreased with 128 Hz tuning fork Results AMB Hemoglobin A1c AMB Hemoglobin A1c 9.7 % Last Edit by CRISTOBAL Jason on 10/26/23 08:53 Results Reviewed Results Reviewed: Laboratory Last Values Glucose (Clinic) 161 mg/dL (60-115) H 10/26/23 08:41 Assessment & Plan Assessment & Plan (1) Type 2 diabetes mellitus with hyperglycemia, with long-term current use of insulin: Code(s): E11.65 - Type 2 diabetes mellitus with hyperglycemia; Z79.4 - half-way (curren t) use of insulin Plan: This is a 73-year-old male with a history of type 2 diabetes being treated with metformin, Jardiance, Trulicity and basal insulin with poor deteriorated glycemic control and known microvascular complications namely retinopathy, nephropathy and neuropathy. Plan is reinitiate the Lantus and Humalog as well as a Dexcom. Could not make any changes to the insulin regimen because of lack of data today for Patient should follow up with senior health educator Orders: Orders AMB Hemoglobin A1c Today E11.65 - Type 2 diabetes mellitus with hyperglycemia, Z13.9 - Encounter for screening, unspecified, Z79.4 - terminal superintendent (current) use of insulin Coding Level of Care Code Est Pt Level 4 (17605) Diagnoses Type 2 diabetes mellitus with hyperglycemia, with long-term current use of insulin E11.65; Z79.4
[2023-10-26 08:27] VITALS: BP 136/60; PULSE 69; BMI 25.4
[2023-10-26 08:45] LABS: Glucose, Whole Blood 161 mg/dL (60-115)
== END 2023-10-26 09:06 | disposition home or self-care (01) ==
PROVIDERS: PCP Internal Medicine; Visit Provider Internal Medicine Endocrinology, Diabetes & Metabolism
DX: E11.65 Type 2 diabetes mellitus with hyperglycemia (principal); Z79.4 Long term (current) use of insulin
CPT/HCPCS: 99214

== ENCOUNTER → 2023-10-26 08:25 | Outpatient (BNVA) | payer OTHER, SELFPAY | PROVIDERS: PCP Internal Medicine; Visit Provider Internal Medicine Endocrinology, Diabetes & Metabolism | DX: E11.65 Type 2 diabetes mellitus with hyperglycemia (principal); Z79.4 Long term (current) use of insulin | CPT/HCPCS: 82947; 83036; 99212 ==

== ENCOUNTER 2023-10-30 08:13 | Outpatient (AMB) | payer OTHER, SELFPAY ==
--- NOTE | 2023-10-30 08:30 | MHC.AMDMED ---
Intake Intake Visit Reasons: f/u Type 2 DM-lvm Snow Removal Supervisor Required: Yes Snow Removal Supervisor Language: Developer Support Engineer Name: Pt's TRAFFIC INCIDENT MANAGEMENT MANAGER Information Interpreted: non-clinical & clinical Accompanied by: Other Relationship Allergies No Known Allergies Allergy (Verified 10/26/23 08:43) HPI Comprehensive Diabetes Asmnt Most Recent Diabetes Results: Microalb/Creat Ratio 13.6 ug/mg cr 12/28/22 Cholesterol 133 mg/dL (<200) 09/19/23 HDL Cholesterol 40 mg/dL (>40) L 09/19/23 Triglycerides 253 mg/dL (<150) H 09/19/23 Creatinine 1.04 mg/dL (0.5-1.4) 09/19/23 Blood Urea Nitrogen 24 mg/dL (9-16) H 09/19/23 Sodium 138 mmol/L (135-145) 09/19/23 Potassium 4.9 mmol/L (3.3-5.1) 09/19/23 Chloride 99 mmol/L (96-108) 09/19/23 Carbon Dioxide 27 mmol/L (22-29) 09/19/23 Calcium 9.9 mg/dL (8.4-10.2) 09/19/23 AST 19 U/L (5-37) 09/19/23 ALT 29 U/L (0-40) 09/19/23 Total Protein 7.8 g/dL (6.5-8.0) 09/19/23 Albumin 4.2 g/dL (3.5-5.0) 09/19/23 [facility] Medical History Colon cancer screening Diabetic nephropathy associated with type 2 diabetes mellitus Diabetic polyneuropathy associated with type 2 diabetes mellitus Dyslipidemia Erectile dysfunction Essential hypertension Hx of lymphoma Hypothyroidism Peripheral axonal neuropathy Proliferative diabetic retinopathy associated with type 2 diabetes mellitus Type 2 diabetes mellitus with hyperglycemia, with long-term current use of insulin Surgical History Hx of local excision of skin lesion Hx of colonoscopy Family History Father Cancer Mother Diabetes Social History Household Members: None Housing: Apartment Housing Other:: Has TRAFFIC INCIDENT MANAGEMENT MANAGER: Mabel Peres Are you a primary geriatric personal care aide to a significant other at home: No Do you presently have visiting nurse or other home services: Yes (vacuum cleaner operator) Alcohol intake: never Patient Tobacco Use Status: Never used Tobacco service: No Current occupational status: disabled Assessment & Plan Assessment & Plan (1) Type 2 diabetes mellitus with hyperglycemia, with long-term current use of insulin: Code(s): E11.65 - Type 2 diabetes mellitus with hyperglycemia; Z79.4 - prison (current) use of insulin Plan: Personal Continuous Glucose Monitor: Patients CGM information reviewed Reviewed patient's sensor data: Hypoglycemia: ?0% Hyperglycemia:? 50% Time in Range:? 50% Average glucose for the last 2 weeks? mg/dL Patient restarted Lantus 10 units, and NovoLog 6 units before each meal Patient having postprandial hyperglycemia after lunch, recommended to increase NovoLog dose before lunch to 8 units. Reviewed with patient he should be carrying glucose tabs with to treat any episodes of hypoglycemia or glucose under 75 mg/dL Also recommended patient increase Trulicity dose from 3 mg to 4.5 mg, message sent to Dr. Hernandez to increase Trulicity dose if appropriate and requested prescription for glucose tabs Patient has been switched from [employer] to [employer] for Dexcom CGM supplies, patient given additional CGM sample sensor Reviewed how to interpret trend arrows Reminded patient that to check finger sticks if symptoms do not match sensor reading. Discussed lag time between finger stick and sensor data.? Patient able to insert sensor independently at home without issue.? Patient Instructions: Instrucciones para el paciente: CGM proporciona informaci?n sobre el control de la glucosa en dianne a lo carmella del d?a, incluidas la hiperglucemia y la hipoglucemia. Contin?e controlando la glucosa en dianne seg?n las instrucciones. Siga las pautas de nutrici?n proporcionadas. Informe cualquier molestia de inmediato al proveedor de atenci?n m?dica. Mantente wandy hidratado. Puede ba?arse, ducharse, nadar y hacer ejercicio mientras usa el sensor de glucosa. No sumerja el sensor de glucosa en agua cinthia m?s de 30 minutos. Retire el sensor para scotty resonancia magn?kenneth o scotty tomograf?a computarizada. Evite la m?quina de teresa X en los aeropuertos: retire el sensor o solicite la varita Aumente Novolog en el almuerzo a 8 unidades. Aumente Trulicity a 4,5 mg Lleve consigo pastillas de glucosa para tratar cualquier nivel de glucosa inferior a 70 mg/dL. Informar m?ltiples eventos de niveles bajos de glucosa al m?dico o a la enfermera DM Seguimiento con Educador en Diabetes en 2 meses Coding Level of Care Code Est Pt Level 1 (50209) Diagnoses Type 2 diabetes mellitus with hyperglycemia, with long-term current use of insulin E11.65; Z79.4
== END 2023-10-30 08:40 | disposition home or self-care (01) ==
PROVIDERS: PCP Internal Medicine; Visit Provider Registered Nurse Diabetes Educator
DX: E11.65 Type 2 diabetes mellitus with hyperglycemia (principal); Z79.4 Long term (current) use of insulin

== ENCOUNTER → 2023-10-30 08:13 | Outpatient (BNVA) | payer OTHER, SELFPAY | PROVIDERS: PCP Internal Medicine; Visit Provider Registered Nurse Diabetes Educator | DX: E11.65 Type 2 diabetes mellitus with hyperglycemia (principal); Z79.4 Long term (current) use of insulin | CPT/HCPCS: 99211 ==

== ENCOUNTER 2024-01-10 09:11 | Outpatient (AMB) | payer OTHER, SELFPAY ==
--- NOTE | 2024-01-10 09:32 | MHC.AMDMED ---
Intake Intake Visit Reasons: T2DM Manufacturing Team Leader Required: Yes Manufacturing Team Leader Language: Apprentice Instrument Technician Name: Mabel- Pt's FAIRING MAN Information Interpreted: non-clinical & clinical Accompanied by: Other Relationship Allergies No Known Allergies Allergy (Verified 10/26/23 08:43) HPI Comprehensive Diabetes Asmnt Most Recent Diabetes Results: Microalb/Creat Ratio 13.6 ug/mg cr 12/28/22 Cholesterol 133 mg/dL (<200) 09/19/23 HDL Cholesterol 40 mg/dL (>40) L 09/19/23 Triglycerides 253 mg/dL (<150) H 09/19/23 Creatinine 1.04 mg/dL (0.5-1.4) 09/19/23 Blood Urea Nitrogen 24 mg/dL (9-16) H 09/19/23 Sodium 138 mmol/L (135-145) 09/19/23 Potassium 4.9 mmol/L (3.3-5.1) 09/19/23 Chloride 99 mmol/L (96-108) 09/19/23 Carbon Dioxide 27 mmol/L (22-29) 09/19/23 Calcium 9.9 mg/dL (8.4-10.2) 09/19/23 AST 19 U/L (5-37) 09/19/23 ALT 29 U/L (0-40) 09/19/23 Total Protein 7.8 g/dL (6.5-8.0) 09/19/23 Albumin 4.2 g/dL (3.5-5.0) 09/19/23 PFSH Medical History Colon cancer screening Diabetic nephropathy associated with type 2 diabetes mellitus Diabetic polyneuropathy associated with type 2 diabetes mellitus Dyslipidemia Erectile dysfunction Essential hypertension Hx of lymphoma Hypothyroidism Peripheral axonal neuropathy Proliferative diabetic retinopathy associated with type 2 diabetes mellitus Type 2 diabetes mellitus with hyperglycemia, with long-term current use of insulin Surgical History Hx of local excision of skin lesion Hx of colonoscopy Family History Father Cancer Mother Diabetes Social History Household Members: None Housing: Apartment Housing Other:: Has FAIRING MAN: Mabel Peres Are you a primary health care / medical job titles to a significant other at home: No Do you presently have visiting nurse or other home services: Yes (technical support specialist) Alcohol intake: never Patient Tobacco Use Status: Never used Tobacco service: No Current occupational status: disabled Assessment & Plan Assessment & Plan (1) Type 2 diabetes mellitus with hyperglycemia, with long-term current use of insulin: Code(s): E11.65 - Type 2 diabetes mellitus with hyperglycemia; Z79.4 - alf (current) use of insulin Plan: Personal Continuous Glucose Monitor: Patients CGM information reviewed Reviewed patient's sensor data: Hypoglycemia: ? 0% Hyperglycemia:? 31% Time in Range:?69% Average glucose for the last 2 weeks 162? mg/dL Patient's glucose have improved, since last visit October 2023 Patient's FAIRING MAN reports that they have been unable to get Trulicity 4.5 mg, for the past week. Discussed with FAIRING MAN if they do not have it by next week to contact clinic for alternative medications such as Ozempic. Although patient has some postprandial hyperglycemia in the a.m., because he spends his afternoons walking around [place], I do not feel comfortable increasing insulin dose at this time. Reinforced the importance of carrying glucose tabs at all times, in the event of hypoglycemia Reminded patient that to check finger sticks if symptoms do not match sensor reading. Discussed lag time between finger stick and sensor data.? Patient's FAIRING MAN able to insert sensor independently at home without issue.? Patient Instructions: Patient will follow-up with Diabetes Education nurse 3 months Coding Level of Care Code Est Pt Level 1 (12712) Diagnoses Type 2 diabetes mellitus with hyperglycemia, with long-term current use of insulin E11.65; Z79.4
== END 2024-01-10 09:38 | disposition home or self-care (01) ==
PROVIDERS: PCP Internal Medicine; Visit Provider Registered Nurse Diabetes Educator
DX: E11.65 Type 2 diabetes mellitus with hyperglycemia (principal); Z79.4 Long term (current) use of insulin

== ENCOUNTER → 2024-01-10 09:11 | Outpatient (BNVA) | payer OTHER, SELFPAY | PROVIDERS: PCP Internal Medicine; Visit Provider Registered Nurse Diabetes Educator | DX: E11.65 Type 2 diabetes mellitus with hyperglycemia (principal); Z79.4 Long term (current) use of insulin | CPT/HCPCS: 99211 ==

== ENCOUNTER 2024-02-27 09:00 | Outpatient (AMB) | payer OTHER, SELFPAY ==
--- NOTE | 2024-02-27 09:04 | A.OFFVIS_ITS ---
Vital Signs 02/27/24 09:07 02/27/24 09:58 Height 5 ft 5 in Weight 149 lb 14.629 oz BMI 24.9 BP 132/42 L 102/62 Blood Pressure Location Rt brachial Position Sitting Standing Pulse 76 Pulse Source Pulse Oximeter Intake Visit Reasons: Type 2 DM-confirmed Intake Note: Patient present today to follow up on Type 2 Diabetes Mellitus. Last seen by Dr. Hernandez 10/26/2023. Patient receives DME supplies through: [employer] Last Diabetic Eye exam: 02/26/2024 Last Podiatry Visit: DUE Random Glucose: 172 mg/dL, Today HgA1C: 6.7% 02/26/2024 Behavioral Science Chair Required: Yes Behavioral Science Chair Language: Management Associate Services: Behavioral Science Chair Present Behavioral Science Chair Name: CRISTOBAL Tyson/LUCINA MUÑOZ Information Interpreted: non-clinical & clinical Accompanied by: Other Relationship Allergies No Known Allergies Allergy (Verified 10/26/23 08:43) HPI Comments Details: 73 yo male , today for follow-up visit for diabetes management. He was last seen by 10/26/2023 and by Susan HILTON 10/30/23. A1C in the office today is 6.7% with no recent lows. He has with DM type 2 diagnosed 01/17/2003. He has past medical history of GERD, hypertension, hyperlipidemia. He has nephropathy, neuropathy and diabetic retinopathy. The patient does not have macrovascular disease. He was seeing a drapery supervisor on a regular basis and has diabetic shoes. He stopped because the drapery supervisor was cutting his nails too short. He is tolerating medication well. He was recently changed from Trulicity to Mounjaro. He reports some itching on his flanks which has been going on for q uite some time. He was hospitalized in [facility] for feeling weak. According to family member he was not started on new medications or given any new diagnoses. Current meds Lantus 10 units daily Humalog 8 units before breakfast Synjardy 12.12/999 mg b.i.d. Mounjaro 2.5 mg weekly No recent hypoglycemia, he does not carry sugar tablets Glucometer: average glucose: [ 159] TIme in range: [ 6] % very high (above 250) [ 20] % high (181-250) [ 73] % in range (70-180] [ less than 1] % low (69-55) [ 0] % very low (below 54) Details [ Last week numbers in good range. ] Last ophthalmology evaluation 02/26/24 , he has proliferative retinopathy, he reports he had laser treatment. Denies nocturia , - polydipsia, + numbness, tingling, denies polyuria. He reports decreased appetite on Mounjaro (baseline weight 160->149. He feels well. [facility] Medical History Colon cancer screening Hypothyroidism Proliferative diabetic retinopathy associated with type 2 diabetes mellitus Hx of lymphoma Peripheral axonal neuropathy Erectile dysfunction Type 2 diabetes mellitus with hyperglycemia, with long-term current use of insulin Dyslipidemia Essential hypertension Diabetic nephropathy associated with type 2 diabetes mellitus Diabetic polyneuropathy associated with type 2 diabetes mellitus Surgical History Hx of local excision of skin lesion Hx of colonoscopy Family History Father Cancer Mother Diabetes Social History Household Members: None Housing: Apartment Housing Other:: Has LIGHTER: Mable Nelsonoa Are you a primary rn acute care to a significant other at home: No Do you presently have visiting nurse or other home services: Yes (stock controller) Alcohol intake: never Patient Tobacco Use Status: Never used Tobacco service: No Current occupational status: disabled Physical Exam Vital Signs: Last Vital Signs Pulse 76 02/27/24 09:07 BP 102/62 02/27/24 09:58 BMI result Body Mass Index 24.9 Const General: cooperative, healthy appearing and no acute distress Nutritional Appearance: average body habitus Orientation/consciousness: oriented to person Limitations: no limitations Neck Neck: Yes normal visual inspection Thyroid: Thyroid normal Resp Effort & Inspection: normal respiratory effort and able to speak in complete sentences Auscultation: clear to auscultation bilaterally Cardio Jugular venous distension: no JVD Rate: regular rate Rhythm: regular rhythm Heart sounds: S1 normal heart sound present and S2 normal heart sound present Skin General skin exam: no rashes or lesions noted Neuro General: oriented to person Extrem Other: Visual exam of foot performed. No ulcerations or open lesions. No onchomycosis, no callouses. Sensation intact to monofilament exam. Vibratory sensation is normal with 128 Hz tuning fork. 1mm scabbed area on toe no redness Results AMB Hemoglobin A1c AMB Hemoglobin A1c 6.7 % Last Edit by CRISTOBAL Tyson on 02/27/24 09:24 Results Reviewed Results Reviewed: Laboratory Last Values Glucose (Clinic) 172 mg/dL (60-115) H 02/27/24 09:15 Hgb A1c (Clinic) 6.7 % (4.0-6.0) H 02/27/24 09:06 Laboratory Tests 05/04/22 12/28/22 05/11/23 10:20 10:40 14:25 BUN Creatinine Estimated GFR Hgb A1c (Clinic) 7.9 H AST ALT Triglycerides Cholesterol LDL Cholesterol, Calc HDL Cholesterol TSH 3.55 Free T4 0.92 Urine Creatinine 73.18 Urine Microalbumin 10.0 Microalb/Creat Ratio 13.6 09/19/23 10/26/23 11:16 08:44 BUN 24 H Creatinine 1.04 Estimated GFR > 60 Hgb A1c (Clinic) 9.7 H AST 19 ALT 29 Triglycerides 253 H Cholesterol 133 LDL Cholesterol, Calc 43 HDL Cholesterol 40 L TSH 5.16 H Free T4 Urine Creatinine Urine Microalbumin Microalb/Creat Ratio Assessment & Plan Assessment & Plan (1) Type 2 diabetes mellitus with hyperglycemia, with long-term current use of insulin: Code(s): E11.65 - Type 2 diabetes mellitus with hyperglycemia; Z79.4 - vermin exterminator (current) use of insulin Category: Medical Plan: Continue current diabetes medications Lantus 10 units daily Humalog 8 units before breakfast Synjardy 12.12/999 mg b.i.d. Mounjaro 2.5 mg weekly The patient was counseled to always carry a source of sugar and on the rule of 15's: Take 3 glucose tablets and repeat again in 15 minutes if blood sugar is not in normal range. Continue to repeat every 15 minutes until blood sugar is normal. He has glucose tablets at home. The patient was counseled to regularly space meals and snacks. We will refer to new drapery supervisor. (2) Essential hypertension: Code(s): I10 - Essential (primary) hypertension Category: Medical Plan: Blood pressure low in the office. He is not orthostatic. In reviewing his chart he tends to run a low blood pressure. We will have the patient hold his lisinopril 10 mg until he is able to have a BP check next Monday with Susan HILTON. A prescription for lisinopril to 5 mg will be sent. I will arrange to schedule f.u DM appt after review of his MR from [facility]. (3) Chronic pruritus: Code(s): L29.9 - Pruritus, unspecified Category: Medical Plan: He has had some itching on his flanks for quite some time. It started well before starting Mounjaro. I do not see any new medications that he is taking. Was advised to continue to use a gentle soap (uses dove) and to not rub or scratch as this can perpetuate itching. I suggested we test liver blood work which he declined. He had a full workup last month at [facility]. And I will request those medical records. Plan Will review records from [facility] in particular would like to look at lft's. He was advised to stop rubbing area as this may be perpetuating. Orders: Orders AMB Hemoglobin A1c Today E11.9 - Type 2 diabetes mellitus without complications Medications: New lisinopril 5 mg PO DAILY 30 tabs 0RF 30 days E11.65 - Type 2 diabetes mellitus with hyperglycemia, Z79.4 - vermin exterminator (current) use of insulin Coding Level of Care Code Est Pt Level 5 (40016) Complex EM visit Add On G2211 Diagnoses Type 2 diabetes mellitus with hyperglycemia, with long-term current use of i nsulin E11.65; Z79.4 Essential hypertension I10 Chronic pruritus L29.9
[2024-02-27 09:07] VITALS: BP 132/42; PULSE 76; BMI 24.9
[2024-02-27 09:20] LABS: Glucose, Whole Blood 172 mg/dL (60-115)
[2024-02-27 09:58] VITALS: BP 102/62
== END 2024-02-27 09:50 | disposition home or self-care (01) ==
PROVIDERS: PCP Internal Medicine; Visit Provider Nurse Practitioner Adult Health
DX: E11.65 Type 2 diabetes mellitus with hyperglycemia (principal); Z79.4 Long term (current) use of insulin; I10 Essential (primary) hypertension; L29.9 Pruritus, unspecified
CPT/HCPCS: 99214; G2211

== ENCOUNTER → 2024-02-27 09:00 | Outpatient (BNVA) | payer OTHER, SELFPAY | PROVIDERS: PCP Internal Medicine; Visit Provider Nurse Practitioner Adult Health | DX: E11.65 Type 2 diabetes mellitus with hyperglycemia (principal); I10 Essential (primary) hypertension; L29.9 Pruritus, unspecified; Z79.4 Long term (current) use of insulin | CPT/HCPCS: 82947; 83036; 99212 ==

== ENCOUNTER → 2024-03-04 07:59 | Outpatient (BNVA) | payer OTHER, SELFPAY | PROVIDERS: PCP Internal Medicine; Visit Provider Nurse Practitioner Adult Health | DX: Z01.30 Encounter for examination of blood pressure without abnormal findings (principal); E11.65 Type 2 diabetes mellitus with hyperglycemia; Z79.4 Long term (current) use of insulin | CPT/HCPCS: 99211 ==

== ENCOUNTER 2024-04-11 09:12 | Outpatient (AMB) | payer OTHER, SELFPAY ==
--- NOTE | 2024-04-11 10:31 | MHC.AMDMED ---
Intake Intake Visit Reasons: 60 min, CGM review/CONFIRMED Almond Blancher Hand Required: Yes Almond Blancher Hand Language: Fitness Supervisor Name: Bernardo LETTY/ Mabel ROMAN Accompanied by: Other Relationship Allergies No Known Allergies Allergy (Verified 10/26/23 08:43) HPI Comprehensive Diabetes Asmnt Most Recent Diabetes Results: Microalb/Creat Ratio 13.6 ug/mg cr 12/28/22 Cholesterol 133 mg/dL (<200) 09/19/23 HDL Cholesterol 40 mg/dL (>40) L 09/19/23 Triglycerides 253 mg/dL (<150) H 09/19/23 Creatinine 1.04 mg/dL (0.5-1.4) 09/19/23 Blood Urea Nitrogen 24 mg/dL (9-16) H 09/19/23 Sodium 138 mmol/L (135-145) 09/19/23 Potassium 4.9 mmol/L (3.3-5.1) 09/19/23 Chloride 99 mmol/L (96-108) 09/19/23 Carbon Dioxide 27 mmol/L (22-29) 09/19/23 Calcium 9.9 mg/dL (8.4-10.2) 09/19/23 AST 19 U/L (5-37) 09/19/23 ALT 29 U/L (0-40) 09/19/23 Total Protein 7.8 g/dL (6.5-8.0) 09/19/23 Albumin 4.2 g/dL (3.5-5.0) 09/19/23 PFSH Medical History Colon cancer screening Hypothyroidism Proliferative diabetic retinopathy associated with type 2 diabetes mellitus Hx of lymphoma Peripheral axonal neuropathy Erectile dysfunction Type 2 diabetes mellitus with hyperglycemia, with long-term current use of insulin Dyslipidemia Essential hypertension Diabetic nephropathy associated with type 2 diabetes mellitus Diabetic polyneuropathy associated with type 2 diabetes mellitus Surgical History Hx of local excision of skin lesion Hx of colonoscopy Family History Father Cancer Mother Diabetes Social History Household Members: None Housing: Apartment Housing Other:: Has CART ATTENDANT: Mabel Peres Are you a primary child day care teacher to a significant other at home: No Do you presently have visiting nurse or other home services: Yes (rivet thrower) Alcohol intake: never Patient Tobacco Use Status: Never used Tobacco service: No Current occupational status: disabled Assessment & Plan Assessment & Plan (1) Type 2 diabetes mellitus with hyperglycemia, with long-term current use of insulin: Code(s): E11.65 - Type 2 diabetes mellitus with hyperglycemia; Z79.4 - local intermodal truck driver (current) use of insulin Plan: Personal Continuous Glucose Monitor: Patients CGM information reviewed Reviewed patient's sensor data: Hypoglycemia: ? 0% Hyperglycemia:34%? Time in Range:? 65% Average glucose for the last 2 weeks?177 mg/dL Patient's last A1c on 02/27/2024 6.7% Reviewed with patient how to treat hypoglycemia with rule of 15s instructed patient to carry glucose tabs when he leaves the house in the event of any glucose under 75 mg/dL Changed patient low alert to 75 mg/dL in Dexcom G7 sterile technician Also discussed with patient how to treat hyperglycemia, with non carbohydrate fluids in physical activity, if he is not sick Patient will follow-up chief arson division in 4 months Patient's CART ATTENDANT able to insert sensor independently at home without issue.? Portions of this note were created using voice recognition software, please excuse any words or phrases that may have been misinterpreted. Patient Instructions: Cuando la glucosa sea 75, tome 4 tabletas Cuando la glucosa sea mas 200, tati agua. Coding Level of Care Code Est Pt Level 1 (47016) Diagnoses Type 2 diabetes mellitus with hyperglycemia, with long-term current use of insulin E11.65; Z79.4
== END 2024-04-11 10:39 | disposition home or self-care (01) ==
PROVIDERS: PCP Internal Medicine; Visit Provider Registered Nurse Diabetes Educator
DX: E11.65 Type 2 diabetes mellitus with hyperglycemia (principal); Z79.4 Long term (current) use of insulin

== ENCOUNTER → 2024-04-11 09:12 | Outpatient (BNVA) | payer OTHER, SELFPAY | PROVIDERS: PCP Internal Medicine; Visit Provider Registered Nurse Diabetes Educator | DX: E11.65 Type 2 diabetes mellitus with hyperglycemia (principal); Z79.4 Long term (current) use of insulin | CPT/HCPCS: 99211 ==

== ENCOUNTER 2024-05-28 09:57 | Outpatient (AMB) | payer OTHER, SELFPAY ==
--- NOTE | 2024-05-28 09:58 | A.OFFVIS_ITS ---
Vital Signs 05/28/24 09:59 Height 5 ft 5 in Weight 154 lb 5.177 oz BMI 25.7 BP 118/60 Blood Pressure Location Rt brachial Position Sitting Pulse 72 Pulse Source Pulse Oximeter Intake Visit Reasons: T2DM/CONFIRMED Intake Note: Patient present today to follow up on Type 2 Diabetes Mellitus. Patient receives DME supplies through: [facility] Last Diabetic Eye exam: 02/26/2024 Last Podiatry Visit: DUE HgA1C: 7.7%, 05/28/2024 Random Glucose: 179 mg/dL, Today Rn Radiology Required: Yes Rn Radiology Language: Produce Service Team Member Services: Rn Radiology Offered & Declined Information Interpreted: non-clinical & clinical Accompanied by: Other Relationship Allergies No Known Allergies Allergy (Verified 05/28/24 09:59) HPI Comments Details: 73 yo male , today for follow-up visit for diabetes management. He was last seen by myself 02/27/24 and by Susan HILTON 04/11/24. A1C 7.7% 05/29/24, 02/27/24 was 6.7% He has DM type 2 diagnosed 01/17/2003. He has past medical history of GERD, hypertension, hyperlipidemia. He has nephropathy, neuropathy and diabetic retinopathy. The patient does not have macrovascular disease. He was seeing a medical insurance coder on a regular basis and has diabetic shoes. He is tolerating medication well. He was recently changed from Trulicity to Mounjaro. Current meds Lantus 10 units daily Humalog 6 units before breakfast Synjardy 12.12/999 mg b.i.d. Mounjaro 2.5 mg weekly No recent hypoglycemia,he has been instructed to carry glucose tablets Last ophthalmology evaluation 02/26/24 , he has proliferative retinopathy, he reports he had laser treatment. Denies nocturia , - polydipsia, + numbness, tingling, denies polyuria. He reports decreased appetite on Mounjaro (baseline weight 160->149. He feels well. [facility] Medical History Colon cancer screening Hypothyroidism Proliferative diabetic retinopathy associated with type 2 diabetes mellitus Hx of lymphoma Peripheral axonal neuropathy Erectile dysfunction Type 2 diabetes mellitus with hyperglycemia, with long-term current use of insulin Dyslipidemia Essential hypertension Diabetic nephropathy associated with type 2 diabetes mellitus Diabetic polyneuropathy associated with type 2 diabetes mellitus Surgical History Hx of local excision of skin lesion Hx of colonoscopy Family History Father Cancer Mother Diabetes Social History Household Members: None Housing: Apartment Housing Other:: Has EQUAL OPPORTUNITY ASSISTANT: Mabel Peres Are you a primary workforce investment act career manager to a significant other at home: No Do you presently have visiting nurse or other home services: Yes (communications department chairperson) Alcohol intake: never Patient Tobacco Use Status: Never used Tobacco service: No Current occupational status: disabled Physical Exam Vital Signs: Last Vital Signs Pulse 72 05/28/24 09:59 BP 118/60 05/28/24 09:59 BMI result Body Mass Index 25.7 Const Other: Absence of Cushingoid features. Absence of acromegalic features. Neck exam r eveals nl size thyroid about 15 gms. No thyroid nodules palpable. No carotid bruits present. Lungs CTA. Heart S1 S2, Reg R/R. No M/R G. Skin exam reveals absence of vitiligo or acanthosis nigricans. No edema Results AMB Hemoglobin A1c AMB Hemoglobin A1c 7.7 % Last Edit by CRISTOBAL Tyson on 05/28/24 10:18 Results Reviewed Results Reviewed: Laboratory Last Values Glucose (Clinic) 279 mg/dL (60-115) H 05/28/24 10:06 Hgb A1c (Clinic) 7.7 % (4.0-6.0) H 05/28/24 10:09 Assessment & Plan Assessment & Plan (1) Type 2 diabetes mellitus with hyperglycemia, with long-term current use of insulin: Code(s): E11.65 - Type 2 diabetes mellitus with hyperglycemia; Z79.4 - intermodal customer service (current) use of insulin Category: Medical Plan: See below Plan 74-year-old type 2 diabetic with increasing A1c. We will increase Mounjaro to 5 mg The patient had an opportunity to ask questions regarding treatment plan. The patient expressed understanding and agreement with the above treatment plan. The patient is aware they should contact our office by phone for worsening glucose readings or for any low blood sugars which may warrant a change in diabetes medication. Compliance is encouraged with medications and any followup testing/consults which may have been ordered. Orders: Orders AMB Hemoglobin A1c 05/28/24 E11.21 - Type 2 diabetes mellitus with diabetic nephropathy Medications: New insulin aspart U-100 (Novolog FlexPen U-100 Insulin aspart) 8 units (0.08 mL) subcut DAILY 3 mL 11RF 30 days E11.65 - Type 2 diabetes mellitus with hyperglycemia, Z79.4 - intermodal customer service (current) use of insulin tirzepatide (Mounjaro) 5 mg (0.5 mL) subcut QWEEK 2 mL 6RF 28 days E11.65 - Type 2 diabetes mellitus with hyperglycemia, Z79.4 - intermodal customer service (current) use of insulin Patient Instructions: The patient was counseled to achieve a target A1C of 7% (154 avg). Fasting blood sugars should be 90-130 in the morning and less than 180 two hours after meals. Reviewed the relationship between poor diabetic control and the development of complications. Coding Level of Care Code Est Pt Level 4 (92455) Complex EM visit Add On G2211 Diagnoses Type 2 diabetes mellitus with hyperglycemia, with long-term current use of insulin E11.65; Z79.4 Time Spent (min) 30 Comment Time spent reviewing labs/provider notes, face to face, chart doc
[2024-05-28 09:59] VITALS: BP 118/60; PULSE 72; BMI 25.7
[2024-05-28 10:10] LABS: Glucose, Whole Blood 279 mg/dL (60-115)
== END 2024-05-28 10:33 | disposition home or self-care (01) ==
PROVIDERS: PCP Internal Medicine; Visit Provider Nurse Practitioner Adult Health
DX: E11.65 Type 2 diabetes mellitus with hyperglycemia (principal); Z79.4 Long term (current) use of insulin
CPT/HCPCS: 99214; G2211

== ENCOUNTER → 2024-05-28 09:57 | Outpatient (BNVA) | payer OTHER, SELFPAY | PROVIDERS: PCP Internal Medicine; Visit Provider Nurse Practitioner Adult Health | DX: E11.65 Type 2 diabetes mellitus with hyperglycemia (principal); E11.3599 Type 2 diabetes mellitus with proliferative diabetic retinopathy without macular edema, unspecified eye; E11.21 Type 2 diabetes mellitus with diabetic nephropathy; E11.42 Type 2 diabetes mellitus with diabetic polyneuropathy; Z79.4 Long term (current) use of insulin | CPT/HCPCS: 82947; 83036; 99212 ==

== ENCOUNTER 2024-07-05 12:28 | Outpatient (AMB) | payer OTHER, SELFPAY ==
--- NOTE | 2024-07-05 12:34 | A.OFFVIS_ITS ---
Vital Signs 07/05/24 12:37 Height 5 ft 5 in Weight 152 lb 1.903 oz BMI 25.3 BP 124/76 Blood Pressure Location Rt brachial Position Sitting Pulse 65 Pulse Source Pulse Oximeter Intake Visit Reasons: T2DM/CONFIRMED Intake Note: Patient present today to follow up on Type 2 Diabetes Mellitus. Patient receives DME supplies through: [facility] Last Diabetic Eye exam: 02/26/2024 Last Podiatry Visit: DUE HgA1C: 7.7%, 05/28/2024 Random Glucose: 135 mg/dL, Today Deep Fryer Assembler Required: Yes Deep Fryer Assembler Language: Wet Crown Blocking Operator Services: Deep Fryer Assembler Offered & Declined Information Interpreted: non-clinical & clinical Accompanied by: Other Relationship Allergies No Known Allergies Allergy (Verified 05/28/24 09:59) HPI Comments Details: 73 yo male , today for follow-up visit for diabetes management. He was last seen by myself 02/27/24 at which time Mounjaro was increased to 5mg weekly and by Susan HILTON 04/11/24. A1C 7.7% 05/29/24, 02/27/24 was 6.7% He has DM type 2 diagnosed 01/17/2003. He has nephropathy, neuropathy and diabetic retinopathy. T He was seeing a obstetrician and gynaecologist on a regular basis and has diabetic shoes. He is tolerating medication well. He was changed from Trulicity to Mounjaro. Current meds Lantus 10 units daily Humalog 6 units before breakfast, lunch and dinner 15 min before food Synjardy 12.12/999 mg b.i.d. Mounjaro 5.0 mg weekly No recent hypoglycemia,he has been instructed to carry glucose tablets Freestyle harmeet sensor 3 average glucose: 194 14 day continuous glucose sensor report reviewed Glucose Management indicator 7.9 % Time CGM active 80.8 % TIme in ranges: 17 % very high (above 250) 34 % high (181-250) 49 % in range (70-180] 0 % low (69-55) 0 % very low (below 54) Interpretation of CGMS: Glucose readings overall about 35 points higher than desired with some post prandial with lunch and supper I Last ophthalmology evaluation 02/26/24, April 2024 he has proliferative retinopathy, he reports he had laser treatment. Denies nocturia , - polydipsia, + numbness, tingling, denies polyuria. He reports decreased appetite on Mounjaro (baseline weight 160->149. He feels well. [facility] Medical History Colon cancer screening Hypothyroidism Proliferative diabetic retinopathy associated with type 2 diabetes mellitus Hx of lymphoma Peripheral axonal neuropathy Erectile dysfunction Type 2 diabetes mellitus with hyperglycemia, with long-term current use of insulin Dyslipidemia Essential hypertension Diabetic nephropathy associated with type 2 diabetes mellitus Diabetic polyneuropathy associated with type 2 diabetes mellitus Surgical History Hx of local excision of skin lesion Hx of colonoscopy Family History Father Cancer Mother Diabetes Social History Household Members: None Housing: Apartment Housing Other:: Has SPRAY DRY OPERATOR: Mabel Peres Are you a primary skin care therapist to a significant other at home: No Do you presently have visiting nurse or other home services: Yes (rn med surg) Alcohol intake: never Patient Tobacco Use Status: Never used Tobacco service: No Current occupational status: disabled Physical Exam Const Other: Absence of Cushingoid features. Absence of acromegalic features. Neck exam reveals nl size thyroid about 15 gms. No thyroid nodules palpable. No carotid bruits present. Lungs CTA. Heart S1 S2, Reg R/R. No M/R G. Skin exam reveals absence of vitiligo or acanthosis nigricans. No edema Assessment & Plan Assessment & Plan (1) Type 2 diabetes mellitus with hyperglycemia, with long-term current use of insulin: Code(s): E11.65 - Type 2 diabetes mellitus with hyperglycemia; Z79.4 - detention (current) use of insulin Category: Medical Plan 74-year-old type 2 diabetic with retinopathy, nephropathy and neuropathy with improving glucose numbers with most recent A1c of 7.7% 05/28/24 with improving numbers however still about 30-35 points higher than target. We will continue current doses of insulin and increase Mounjaro to 7.5 mg. We will also check C-peptide, rosana antibodies and insulin antibodies to rule out MARIANNE The patient had an opportunity to ask questions regarding treatment plan. The patient expressed understanding and agreement with the above treatment plan. The patient is aware they should contact our office by phone for worsening glucose readings or for any low blood sugars which may warrant a change in diabetes medication. Compliance is encouraged with medications and any followup testing/consults which may have been ordered. Orders: Orders Free T4 (Free Thyroxine) Today E11.65 - Type 2 diabetes mellitus with hyperglycemia, Z79.4 - detention (current) use of insulin Complete Blood Count Auto Diff Today E11.65 - Type 2 diabetes mellitus with hyperglycemia, Z79.4 - rodent exterminator (current) use of insulin Comprehensive Met. Panel Today E11.65 - Type 2 diabetes mellitus with hyperglycemia, Z79.4 - rodent exterminator (current) use of insulin Islet Cell Antibody Scrn/Titer Today E11.65 - Type 2 diabetes mellitus with hyperglycemia, Z79.4 - detention (current) use of insulin Lipid Panel Today E11.65 - Type 2 diabetes mellitus with hyperglycemia, Z79.4 - detention (current) use of insulin Microalbumin, Random (w Creat) Today E11.65 - Type 2 diabetes mellitus with hyperglycemia, Z79.4 - rodent exterminator (current) use of insulin C Peptide Today E11.65 - Type 2 diabetes mellitus with hyperglycemia, Z79.4 - detention (current) use of insulin Glutamic acid decarboxylase Ab Today E11.65 - Type 2 diabetes mellitus with hyperglycemia, Z79.4 - rodent exterminator (current) use of insulin TSH reflex Free T4 Today E11.65 - Type 2 diabetes mellitus with hyperglycemia, Z79.4 - rodent exterminator (current) use of insulin Patient Instructions: The patient was counseled to achieve a target A1C of 7% (154 avg). Fasting blood sugars should be 90-130 in the morning and less than 180 two hours after meals. Reviewed the relationship between poor diabetic control and the development of complications. The patient was counseled to always carry a source of sugar and on the rule of 15's: Take 3 glucose tablets and repeat again in 15 minutes if blood sugar is not in normal range. Continue to repeat every 15 minutes until blood sugar is normal. Wear closed toe shoes, never walk barefooted and inspect the feet daily. For any signs of infection or open wound patient you should notify your PCP or go to urgent care/ER. Coding Level of Care Code Est Pt Level 4 (10448) Complex EM visit Add On G2211 Diagnoses Type 2 diabetes mellitus with hyperglycemia, with long-term current use of insulin E11.65; Z79.4 Time Spent (min) 30 Comment Time spent reviewing labs/provider notes, face to face, chart doc
[2024-07-05 12:37] VITALS: BP 124/76; PULSE 65; BMI 25.3
[2024-07-05 12:45] LABS: Glucose, Whole Blood 135 mg/dL (60-115)
== END 2024-07-05 13:07 | disposition home or self-care (01) ==
PROVIDERS: PCP Internal Medicine; Visit Provider Nurse Practitioner Adult Health
DX: E11.65 Type 2 diabetes mellitus with hyperglycemia (principal); Z79.4 Long term (current) use of insulin
CPT/HCPCS: 99214; G2211

== ENCOUNTER → 2024-07-05 12:28 | Outpatient (BNVA) | payer OTHER, SELFPAY | PROVIDERS: PCP Internal Medicine; Visit Provider Nurse Practitioner Adult Health | DX: E11.65 Type 2 diabetes mellitus with hyperglycemia (principal); Z79.4 Long term (current) use of insulin | CPT/HCPCS: 82947; 99212 ==

== ENCOUNTER 2024-08-12 10:52 | Outpatient (AMB) | payer OTHER, SELFPAY ==
--- NOTE | 2024-08-12 11:14 | MHC.AMDMED ---
Intake Intake Visit Reasons: 60 min Berry Planter Required: Yes Berry Planter Language: Bi Data Modeler Services: Berry Planter Offered & Declined Berry Planter Name: Pt's AUTOMOTIVE INTERNET SALES CONSULTANT Information Interpreted: non-clinical & clinical Accompanied by: Other Relationship Allergies No Known Allergies Allergy (Verified 05/28/24 09:59) HPI Comprehensive Diabetes Asmnt Most Recent Diabetes Results: No Data to Display PFS Medical History Colon cancer screening Hypothyroidism Proliferative diabetic retinopathy associated with type 2 diabetes mellitus Hx of lymphoma Peripheral axonal neuropathy Erectile dysfunction Type 2 diabetes mellitus with hyperglycemia, with long-term current use of insulin Dyslipidemia Essential hypertension Diabetic nephropathy associated with type 2 diabetes mellitus Diabetic polyneuropathy associated with type 2 diabetes mellitus Surgical History Hx of local excision of skin lesion Hx of colonoscopy Family History Father Cancer Mother Diabetes Social History Household Members: None Housing: Apartment Housing Other:: Has AUTOMOTIVE INTERNET SALES CONSULTANT: Mabel Nelsonoa Are you a primary daycare director to a significant other at home: No Do you presently have visiting nurse or other home services: Yes (server programmer) Alcohol intake: never Patient Tobacco Use Status: Never used Tobacco service: No Current occupational status: disabled Assessment & Plan Assessment & Plan (1) Diabetic polyneuropathy associated with type 2 diabetes mellitus: Code(s): E11.42 - Type 2 diabetes mellitus with diabetic polyneuropathy Plan: Personal Continuous Glucose Monitor: Patients CGM information reviewed, Pt uses Dexcom G7, with content strategist Sensor data: Hypoglycemia: ? 0% Hyperglycemia:? 36% Time in Range:? 64% Average glucose for the last 2 weeks?172 mg/dL Patient's last A1c on 05/28/2024 7.7% Patient had no episodes of hypoglycemia on last 2 weeks' worth of Dexcom data. There were some mid morning drops in glucose, this could be related to patient taking NovoLog up to an hour before he eats breakfast, at today's visit we discussed the importance of taking mealtime insulin 15 minutes before meals, patient agreed to wait until senior network administrator cooking, then he will take his 1st dose of NovoLog Reviewed with patient how to use the rule of 15s to treat hypoglycemia. Patient is spends his day collecting cans, instructed patient and AUTOMOTIVE INTERNET SALES CONSULTANT to put glucose tabs in small bag and have patient carry in his pocket in case he needs to treat hypoglycemia while not at home. Patient's AUTOMOTIVE INTERNET SALES CONSULTANT able to insert sensor independently at home without issue.? Patient has upcoming appointment on 09/04/2024 with WAREHOUSER. Patient will follow-up with primary special educator in 4 months Portions of this note were created using voice recognition software, please excuse any words or phrases that may have been misinterpreted. Patient Instructions: Gomez 4 pastillas de glucosa en scotty bolsa para s?ndwiches y gu?rdalas en el bolsillo de tu abrigo. ?selo para tratar la glucosa inferior a 75 mg/dL Seguimiento con enfermera de Educaci?n en Diabetes en 4 meses. Instrucciones para el paciente: CGM proporciona informaci?n sobre el control de la glucosa en dianne a lo carmella del d?a, incluidas la hiperglucemia y la hipoglucemia. Contin?e controlando la glucosa en dianne seg?n las instrucciones. Siga las pautas de nutrici?n proporcionadas. Informe cualquier molestia de inmediato al proveedor de atenci?n m?dica. Mantente wandy hidratado. Puede ba?arse, ducharse, nadar y hacer ejercicio mientras usa el sensor de glucosa. No sumerja el sensor de glucosa en agua cinthia m?s de 30 minutos. Retire el sensor para scotty resonancia magn?kenneth o scotty tomograf?a computarizada. Evite la m?quina de teresa X en los aeropuertos: retire el sensor o solicite la varita Coding Level of Care Code Est Pt Level 1 (82125) Diagnoses Diabetic polyneuropathy associated with type 2 diabetes mellitus E11.42
== END 2024-08-12 11:25 | disposition home or self-care (01) ==
LOC: HO.ENCR 10:52
PROVIDERS: PCP Internal Medicine; Visit Provider Registered Nurse Diabetes Educator
DX: E11.42 Type 2 diabetes mellitus with diabetic polyneuropathy (principal)

== ENCOUNTER → 2024-08-12 10:52 | Outpatient (BNVA) | payer OTHER, SELFPAY | PROVIDERS: PCP Internal Medicine; Visit Provider Registered Nurse Diabetes Educator | DX: E11.42 Type 2 diabetes mellitus with diabetic polyneuropathy (principal) | CPT/HCPCS: 99211 ==

== ENCOUNTER 2024-09-04 09:58 | Outpatient (AMB) | payer OTHER, SELFPAY ==
--- NOTE | 2024-09-04 07:30 | A.OFFVIS_ITS ---
Vital Signs 09/04/24 10:16 Height 5 ft 5 in Weight 147 lb 11.355 oz BMI 24.6 BP 118/58 L Blood Pressure Location Rt brachial Position Sitting Pulse 58 Pulse Source Pulse Oximeter Intake Visit Reasons: T2DM Intake Note: Patient present today to follow up on Type 2 Diabetes Mellitus. Patient receives DME supplies through: [employer] Last Diabetic Eye exam: 02/26/2024 Last Podiatry Visit: DUE Most Recent HgA1C: 7.6%, 09/04/2024 Random Glucose: 251 mg/dL, Today Research Environmental Engineer Required: Yes Research Environmental Engineer Language: Lumber Piler Services: Research Environmental Engineer Offered & Declined Information Interpreted: non-clinical & clinical Accompanied by: Other Relationship Allergies No Known Allergies Allergy (Verified 05/28/24 09:59) HPI Comments Details: 74 yo male , today for follow-up visit for diabetes management. He was last seen by myself 07/05/24 and by Susan HILTON 08/12/24. A1C 09/04/24: % 7.7% 05/29/24, 02/27/24 was 6.7% He has DM type 2 diagnosed 01/17/2003. He has nephropathy, neuropathy and diabetic retinopathy. T He is seeing a move coordinator on a regular basis and has diabetic shoes. He is tolerating medication well. He was changed from Trulicity to Mounjaro. Current meds Lantus 10 units daily Humalog 6 units before breakfast, lunch and dinner 15 min before food Synjardy 12.12/999 mg b.i.d. Mounjaro 5.0 mg weekly No recent hypoglycemia,he has been instructed to carry glucose tablets Freestyle harmeet sensor 3 average glucose: [167 ] 14 day continuous glucose sensor report reviewed Glucose Management indicator 7.3 % Time CGM active 88.7 % TIme in ranges: 7 % very high (above 250) 27 % high (181-250) 66 % in range (70-180] 0 % low (69-55) 0 % very low (below 54) 30% Glucose variability (target <36%) Interpretation of CGMS readings in good control with slight elevation postprandial lunch which return to baseline Last ophthalmology evaluation 02/26/24, 2023 he has proliferative retinopathy, he reports he had laser treatment in the past, no recet laser Denies nocturia , - polydipsia, + numbness, tingling, denies polyuria. He reports decreased appetite on Mounjaro (baseline weight 160->149. He feels well. [facility] Medical History Colon cancer screening Hypothyroidism Proliferative diabetic retinopathy associated with type 2 diabetes mellitus Hx of lymphoma Peripheral axonal neuropathy Erectile dysfunction Type 2 diabetes mellitus with hyperglycemia, with long-term current use of insulin Dyslipidemia Essential hypertension Diabetic nephropathy associated with type 2 diabetes mellitus Diabetic polyneuropathy associated with type 2 diabetes mellitus Surgical History Hx of local excision of skin lesion Hx of colonoscopy Family History Father Cancer Mother Diabetes Social History Household Members: None Housing: Apartment Housing Other:: Has COMPRESSOR OPERATOR PORTABLE: Mabel Peres Are you a primary primary care sales representative to a significant other at home: No Do you presently have visiting nurse or other home services: Yes (caustics loader) Alcohol intake: never Patient Tobacco Use Status: Never used Tobacco service: No Current occupational status: disabled Physical Exam Vital Signs: Last Vital Signs Pulse 58 09/04/24 10:16 BP 118/58 L 09/04/24 10:16 BMI result Body Mass Index 24.6 Const Other: Absence of Cushingoid features. Absence of acromegalic features. Neck exam reveals nl size thyroid about 15 gms. No thyroid nodules palpable. Heart S1 S2, Reg R/R. No M/R G. Skin exam reveals absence of vitiligo or acanthosis nigricans. Visual exam of foot performed. No ulcerations or open lesions. No inter digit maceration or fissuring. No onychomycosis, no callouses. Sensation intact to monofilament exam. Vibratory sensation is normal with 128 Hz tuning fork. Office Procedures Glucose Monitoring Details 89846 - Glucose monitoring, continuous-physician I&R Procedure code (CPT) selection complete Results AMB Hemoglobin A1c AMB Hemoglobin A1c 7.6 % Last Edit by CRISTOBAL Tyson on 09/04/24 10:33 Results Reviewed Results Reviewed: Laboratory Last Values Glucose (Clinic) 251 mg/dL (60-115) H 09/04/24 10:23 Hgb A1c (Clinic) 7.6 % (4.0-6.0) H 09/04/24 10:28 Assessment & Plan Assessment & Plan (1) Type 2 diabetes mellitus with hyperglycemia, with long-term current use of insulin: Code(s): E11.65 - Type 2 diabetes mellitus with hyperglycemia; Z79.4 - assisted (current) use of insulin Category: Medical Plan: 74-year-old type 2 diabetic with retinopathy, nephropathy and neuropathy with most recent A1C of 7.6% on 09/04/24. Given patient's age will continue current treatment without adjustment The patient had an opportunity to ask questions regarding treatment plan. The patient expressed understanding and agreement with the above treatment plan. The patient is aware they should contact our office by phone for worsening glucose readings or for any low blood sugars which may warrant a change in diabetes medication. Compliance is encouraged with medications and any followup testing/consults which may have been ordered. SATHISH ordered lab slip for [facility] to be mailed to patient per request recommended COVID and RSV immunization has had flu Orders: Orders AMB Hemoglobin A1c Today E11.65 - Type 2 diabetes mellitus with hyperglycemia, Z79.4 - assisted (current) use of insulin Lipid Panel Today E11.42 - Type 2 diabetes mellitus with diabetic polyneuropathy Creatinine Urine Today E11.42 - Type 2 diabetes mellitus with diabetic polyneuropathy AMB Glucose Monitoring Today E11.65 - Type 2 diabetes mellitus with hyperglycemia, Z79.4 - assisted (current) use of insulin Comprehensive Met. Panel Today E11.42 - Type 2 diabetes mellitus with diabetic polyneuropathy Microalbumin, Random (w Creat) Today E11.42 - Type 2 diabetes mellitus with diabetic polyneuropathy Thyroid Stimulating Hormone Today E11.42 - Type 2 diabetes mellitus with diabetic polyneuropathy Patient Instructions: The patient was counseled to always carry a source of sugar and on the rule of 15's: Take 3 glucose tablets and repeat again in 15 minutes if blood sugar is not in normal range. Continue to repeat every 15 minutes until blood sugar is normal. Check your feet daily looking for any signs of infection, ulceration and seek medical attention if this occurs. Break in shoes gradually and do not wear open-toed shoes or walk barefooted. The patient was counseled to achieve a target A1C of 7% (154 avg). Fasting blood sugars should be 90-130 in the morning and less than 180 two hours after meals. Reviewed the relationship between poor diabetic control and the development of complications. Coding Level of Care Code Est Pt Level 4 (20826) Diagnoses Type 2 diabetes mellitus with hyperglycemia, with long-term current use of insulin E11.65; Z79.4 CPT Codes Details - CPT: 67272 - Glucose monitoring, continuous-physician I&R ([id number]) Time Spent (min) 35 Comment Time spent reviewing labs/provider notes, glucose,sensor reports, face to face, chart doc
[2024-09-04 10:16] VITALS: BP 118/58; PULSE 58; BMI 24.6
[2024-09-04 10:27] LABS: Glucose, Whole Blood 251 mg/dL (60-115)
== END 2024-09-04 10:57 | disposition home or self-care (01) ==
PROVIDERS: PCP Internal Medicine; Visit Provider Nurse Practitioner Adult Health
DX: E11.65 Type 2 diabetes mellitus with hyperglycemia (principal); Z79.4 Long term (current) use of insulin
CPT/HCPCS: 95251; 99214

== ENCOUNTER → 2024-09-04 09:58 | Outpatient (BNVA) | payer OTHER, SELFPAY | PROVIDERS: PCP Internal Medicine; Visit Provider Nurse Practitioner Adult Health | DX: E11.65 Type 2 diabetes mellitus with hyperglycemia (principal); Z79.4 Long term (current) use of insulin | CPT/HCPCS: 82947; 83036; 99212 ==

== ENCOUNTER 2024-12-04 10:19 | Outpatient (AMB) | payer OTHER, SELFPAY ==
--- NOTE | 2024-12-04 08:10 | A.OFFVIS_ITS ---
Vital Signs 12/04/24 10:23 Height 5 ft 5 in Weight 149 lb 14.629 oz BMI 24.9 BP 116/60 Blood Pressure Location Rt brachial Position Sitting Pulse 64 Pulse Source Pulse Oximeter Pulse Oximetry (%) 99 Oxygen Delivery Method Room Air Intake Visit Reasons: T2DM Intake Note: Patient present today to follow up on Type 2 Diabetes Mellitus. Patient receives DME supplies through: [employer] Last Diabetic Eye exam: 02/26/2024 Last Podiatry Visit: DUE Most Recent HgA1C: 7.5%, 12/04/2024 Random Glucose: 173 mg/dL, Today He declined plate gauger. His MVA OPERATOR provided interpretation. Veterinary Bacteriologist Required: Yes Veterinary Bacteriologist Language: Automobile Leasing Supervisor Services: Veterinary Bacteriologist Offered & Declined Information Interpreted: non-clinical & clinical Accompanied by: Other Relationship Allergies No Known Allergies Allergy (Verified 12/04/24 10:24) Medication List - Last Reconciled 12/04/24 by Osiris Mcfarland NP alcohol swabs 0 pad topical NEEDED aspirin 81 mg PO BEDTIME atorvastatin 40 mg PO DAILY 30 days blood sugar diagnostic (FreeStyle Lite Strips) 4 times a day blood-glucose meter (FreeStyle [place] Lite kit) As directed cetirizine 10 mg PO DAILY cyanocobalamin (vitamin B-12) 1,000 mcg PO QAM 90 days empagliflozin-metformin 12.5-1,000 mg ER (Synjardy XR) 1 tab PO DAILY famotidine 20 mg PO BID gabapentin 600 mg PO BEDTIME 30 days glucose (Dex4 Glucose) 4 grams PO Q15M PRN glucose (Dex4 Glucose) 16 grams (4 x 4 gram) PO Q15M PRN 30 days MDD 16 tablets insulin aspart U-100 (Novolog FlexPen U-100 Insulin aspart) 8 units (0.08 mL) subcut DAILY 30 days lancets (TRUEplus Lancets) TEST BLOOD SUGAR FOUR TIMES DAILY Lantus Solostar U-100 Insulin (insulin glargine) 20 units (0.2 mL) subcut DAILY NS lisinopril 5 mg PO DAILY 30 days multivitamin 1 tab PO DAILY omeprazole 20 mg PO BEDTIME pen needle, diabetic As directed twice daily tirzepatide (Mounjaro) 5 mg (0.5 mL) subcut QWEEK 28 days trazodone 100 mg PO BEDTIME HPI Comments Details: He has DM type 2 diagnosed 01/17/2003. He is tolerating medication well. He was changed from Trulicity to Mounjaro due to ineffectiveness Current meds Lantus 10 units daily Humalog 6 units before breakfast, lunch and dinner 15 min before food Synjardy 12.12/999 mg b.i.d. Mounjaro 5.0 mg weekly No recent hypoglycemia,he has been instructed to carry glucose tablets Freestyle harmeet sensor 3 average glucose: 163 14 day continuous glucose sensor report reviewed Glucose Management indicator 7.2 % TIme in ranges: 4 % very high (above 250) 24 % high (181-250) 72 % in range (70-180] 0 % low (69-55) 0 % very low (below 54) Interpretation of CGMS: Glucose in good range with no lows or postprandial increases. Has retinopathy: Last ophthalmology evaluation 10/2024 has stable retinopathy, sees opth every 6 monhs, he has proliferative retinopathy, he reports he had laser treatment in the past, no recent laser Has neuropathy: He sees a manager creative regularly and has diabetic shoes, he has a podiatry appointment scheduled Has nephropathy: We have no recent labs and he was asked to go to the lab to have fasting blood work. He has had chest pain once weekly substernal without radiation to jaw or arm lasting a few minutes. This is happened when he has been walking. Relieved after sitting down for 2-3 minutes. Started 3 weeks ago and he has had a weekly episode. Last occurred 1 week ago No dyspnea Denies nocturia , - polydipsia, + numbness, tingling, denies polyuria. He reports decreased appetite on Mounjaro (baseline weight 160->149. He feels well. [facility] Medical History Colon cancer screening Hypothyroidism Proliferative diabetic retinopathy associated with type 2 diabetes mellitus Hx of lymphoma Peripheral axonal neuropathy Erectile dysfunction Type 2 diabetes mellitus with hyperglycemia, with long-term current use of insulin Dyslipidemia Essential hypertension Diabetic nephropathy associated with type 2 diabetes mellitus Diabetic polyneuropathy associated with type 2 diabetes mellitus Surgical History Hx of local excision of skin lesion Hx of colonoscopy Family History Father Cancer Mother Diabetes Social History Household Members: None Housing: Apartment Housing Other:: Has MVA OPERATOR: Mabel Nelsonoa Are you a primary medical care evaluation specialist to a significant other at home: No Do you presently have visiting nurse or other home services: Yes (psychiatrist) Alcohol intake: never Patient Tobacco Use Status: Never used Tobacco service: No Current occupational status: disabled Physical Exam Vital Signs: Last Vital Signs Pulse 64 12/04/24 10:23 BP 116/60 12/04/24 10:23 Pulse Ox 99 12/04/24 10:23 Oxygen Delivery Method Room Air 12/04/24 10:23 BMI result Body Mass Index 24.9 Const Other: Absence of Cushingoid features. Absence of acromegalic features. Neck exam reveals nl size thyroid about 15 gms. No thyroid nodules palpable. No carotid bruits present. Lungs CTA. Normal respiratory effort. Heart S1 S2, Reg R/R. No M/R G. No JVD. Skin exam reveals absence of vitiligo or acanthosis nigricans. No edema Visual exam of foot performed. No ulcerations or open lesions. No inter digit maceration or fissuring. No onychomycosis, no callouses. Sensation diminished to monofilament exam. Vibratory sensation is normal with 128 Hz tuning fork. Results AMB Hemoglobin A1c AMB Hemoglobin A1c 7.5 % Last Edit by RCISTOBAL Tyson on 12/04/24 10:41 Results Reviewed Results Reviewed: Laboratory Last Values Glucose (Clinic) 173 mg/dL (60-115) H 12/04/24 10:31 Hgb A1c (Clinic) 7.5 % (4.0-6.0) H 12/04/24 10:33 Assessment & Plan Assessment & Plan (1) Type 2 diabetes mellitus with hyperglycemia, with long-term current use of insulin: Code(s): E11.65 - Type 2 diabetes mellitus with hyperglycemia; Z79.4 - snf (current) use of insulin Category: Medical Plan: 74-year-old type 2 diabetic with nephropathy, retinopathy and neuropathy with the an A1c of 7.5%. Continue current medication. The patient's MVA OPERATOR we will bring him to the lab for fasting blood work He will keep his scheduled podiatry appointment. JOSEPH was ordered. He will follow up in 3 months. The patient had an opportunity to ask questions regarding treatment plan. The patient expressed understanding and agreement with the above treatment plan. The patient is aware they should contact our office by phone for worsening glucose readings or for any low blood sugars which may warrant a change in diabetes medication. Compliance is encouraged with medications and any followup testing/consults which may have been ordered. (2) Chest pain: Code(s): R07.9 - Chest pain, unspecified Category: Medical Plan: The patient today reports he has had chest pain once per week substernal without radiation to jaw or arm while he has been walking. He sits down in his relieved within 3 minutes. This has occurred weekly the last 3 weeks the last occurring 1 week ago. I contacted [facility] through the abnormal lab phone number and this information was taken down and they advised me they would communicate this to the patient's PCP. The patient's MVA OPERATOR was in clinic with him today and she was going to call the clinic for an appointment this week for evaluation. The patient was advised if he has a recurrence of the chest pain to sit down if it does not go away within 3 minutes to call 911. (3) Peripheral Vascular Disease: Code(s): I73.9 - Peripheral vascular disease, unspecified Plan joseph ordered Orders: Orders AMB Hemoglobin A1c Today E11.65 - Type 2 diabetes mellitus with hyperglycemia, Z79.4 - exterminator helper termite (current) use of insulin US JOSEPH complete Today I73.9 - Peripheral vascular disease, unspecified Medications: New glucose (Dex4 Glucose) every 15 minutes until symptoms of low blood sugar are controlled 16 grams (4 x 4 gram) PO Q15M 30 days PRN 30 tabs 3RF hypoglycemia MDD 16 tablets E11.65 - Type 2 diabetes mellitus with hyperglycemia, Z79.4 - exterminator helper termite (current) use of insulin Patient Instructions: Take 15 carb carbohydrate grams to treat a low sugar (3-4 glucose tablets, half a glass of juice or 15 carbohydrate grams of soft candy such as gummie snacks). Recheck your sugar in 15 minutes and re-treat again with 15 carbohydrate grams if low or still with symptoms. Do not drive a car or operate machinery if you do not know what your blood sugar is, if it is low or in excess of 300. Check your feet daily looking for any signs of infection, drainage, redness, ulceration and seek medical attention if this occurs. Break in shoes gradually and do not wear open-toed shoes or walk stocking footed or barefooted. . Coding Level of Care Code Est Pt Level 4 (60513) Complex EM visit Add On G2211 Diagnoses Type 2 diabetes mellitus with hyperglycemia, with long-term current use of insulin E11.65; Z79.4 Chest pain R07.9 Peripheral Vascular Disease I73.9 Time Spent (min) 30 Comment Time spent reviewing labs/provider notes, face to face, chart doc
[2024-12-04 10:23] VITALS: BP 116/60; PULSE 64; O2SAT 99; BMI 24.9
[2024-12-04 10:36] LABS: Glucose, Whole Blood 173 mg/dL (60-115)
--- OUTSIDE RECORDS SUMMARY | 2024-12-04 11:40 | XMS_ITS | Encounter Summary ---
Author Organization [employer] [facility] Address [address] [place] [address] Care Team Providers Care Client Relations Representative Name Role Phone Marv Ramirez MD Primary Care Provide r Reason for Visit * Reason Comments Med Refill Encounter Details Date Type Department Care Team ([facility] st Contact Info) Description 08/01/2024 Refill [facility] MEDICINE [address] [place], [place] [phone] Marv Ramirez MD [address] [place], [place] [phone] Social History Tobacco Use Types Packs/Day Years Used Date Smoking Tobacco: Never Passive Smoke Exposure: Never Smokeless Tobacco: Never Alcohol Use Standard Drinks/Week Comments Never 0 (1 standard drink = 0.6 oz pur e alcohol) Depression Answer Date Recorded Patient Health Questionnaire-9 Score 0 11/24/2022 Housing Stability Answer Date Recorded What is your housing situation today? I have housing today, but I am worried about losing housing in the future 06/12/[address] you li ve. Do you have problems with any of the following? None of the above 06/12/2023 Food Insecurity Answer Date Recorded Within the past 12 months, y ou worried that your food would run out before you got money to buy more: Never True 06/12/2023 Within the past 12 months,th e food you bought just didn't last and you didn't have enough money to get more: Never True Transportation Answer Date Recorded In the past 12 months, has l ack of transportation kept you from medical appts, meetings, work or from getting things needed for daily living? No 06/12/2023 Utilities Answer Date Recorded In the past 12 months, has t he electric, gas, oil or water company threatened to shut off services in your home? No 06/12/2023 Depression Answer Date Recorded Patient Health Questionnaire-2 Score 0 02/23/2024 Sex and Gender Information Value Date Recorded Sex Assigned at Male 06/27/2022 10:16 AM EDT Legal Sex Male 10:16 AM EDT Gender Identity Male 06/27/2022 10:16 AM EDT Sexual Orientation Straight 06/27/2022 10 :16 AM EDT documented as of this encounter Plan of Treatment Not on file documented as of this encounter Visit Diagnoses Not on filedocumented in this encounter Additional Health Concerns Assessment Noted Time PHQ-9 Depression Total Score: 0 11/25/19 23 10:31 AM EDT documented as of this encounter Care Teams Client Relations Representative Relationship Specialty Start Date End Date Marv Ramirez MD [address] [place] [id number] PCP - General Internal Medicine 04/09/14 documented as of this encounter
--- OUTSIDE RECORDS SUMMARY | 2024-12-04 11:40 | XMS_ITS | Encounter Summary ---
Author Organization [employer] [facility] Address [address] [place] [address] Care Team Providers Care It Service Manager Name Role Phone Marv Ramirez MD Primary Care Provide r Reason for Visit * Reason Comments Med Refill Encounter Details Date Type Department Care Team ([facility] st Contact Info) Description 02/01/2024 Refill [facility] MEDICINE [address] [place], [place] [phone] Marv Ramirez MD [address] [place], [place] [phone] Social History Tobacco Use Types Packs/Day Years [...] Date Recorded Patient Health Questionnaire-2 Score 0 11/24/2022 Sex and Gender Information Value Date Recorded [...] documented as of this encounter Care Teams It Service Manager Relationship Specialty Start Date End Date Marv Ramirez MD [address] [place] [id number] PCP - General Internal Medicine 04/09/14 documented as of this encounter
--- OUTSIDE RECORDS SUMMARY | 2024-12-04 11:40 | XMS_ITS | Encounter Summary ---
Author Organization [employer] [facility] Address [address] [place] [address] Care Team Providers Care Animal Control Supervisor Name Role Phone Marv Ramirez MD Primary Care Provide r Encounter Details Date Type Department Care Team (Late st Contact Info) Description 04/24/2023 Orders Only [facility] [address] [place], [place] [phone] Lulu Escobar LPN Social History Tobacco Use Types Packs/Day Years Used Date Smoking Tobacco: Never Smokeless Tobacco: Never Depression Answer Date Recorded Patient Health Questionnaire-9 Score 0 11/24/2022 Depression Answer Date Recorded Patient Health Questionnaire-2 [...] documented as of this encounter Care Teams Animal Control Supervisor Relationship Specialty Start Date End Date Marv Ramirez MD [address] [place] [id number] PCP - General Internal Medicine 04/09/14 documented as of this encounter
--- OUTSIDE RECORDS SUMMARY | 2024-12-04 11:40 | XMS_ITS | Encounter Summary ---
Author Organization [employer] [facility] Address [address] [place] [address] Care Team Providers Care Publicist Name Role Phone Marv Ramirez MD Primary Care Provide r Encounter Details Date Type Department Care Team (Late st Contact Info) Description 12/04/2024 Orders Only GENERIC EXTERNAL DATA DEPARTMENT Provider, Generic External Data Social History Tobacco Use Types Packs/Day Years Used Date Smoking Tobacco: Never Passive Smoke Exposure: Never Smokeless Tobacco: Never Alcohol Use Standard Drinks/Week Comments Never 0 (1 standard drink = 0.6 oz pur e alcohol) Depression Answer Date Recorded Patient Health Questionnaire-9 Score 0 11/24/2022 Housing Stability Answer Date Recorded What is your housing situation today? I have duane turcios 09/19/[address] you li ve. Do you have problems with any of the following? None of the above 09/19/2024 Food Insecurity Answer Date Recorded Within the past 12 months, y ou worried that your food would run out before you got money to buy more: Never True 09/19/2024 Within the past 12 months,th e food you bought just didn't last and you didn't have enough money to get more: Never True Transportation Answer Date Recorded In the past 12 months, has l ack of transportation kept you from medical appts, meetings, work or from getting things needed for daily living? No 09/19/2024 Utilities Answer Date Recorded In the past 12 months, has t he electric, gas, oil or water company threatened to shut off services in your home? No 09/19/2024 Depression Answer Date Recorded Patient Health Questionnaire-2 Score 0 02/23/2024 Internet Access Answer Date Recorded Internet Access Q1 Yes 09/19/2024 Internet Access Q2 Not on file 09/19/2024 Sex and Gender Information Value Date Recorded Sex Assigned at Male 06/27/2022 10:16 AM EDT Legal Sex Male 10:16 AM EDT Gender Identity Male 06/27/2022 10:16 AM EDT Sexual Orientation Straight 06/27/2022 10 :16 AM EDT documented as of this encounter Plan of Treatment Not on file documented as of this encounter Procedures Procedure Name Priority Date/Time Associated Diagnosis Comments GLUCOSE, WHOLE BLOOD Routine 12/04/2024 10:31 AM EDT documented in this encounter Results * (ABNORMAL) Glucose, Whole Blood (12/04/2024 10:31 AM EDT) Glucose, Whole Blood 173(H) 60 - 115 mg/dL [facility] Comment:METER #: [id number] Testing performed in the Endocrinology Department [address] , [address], [facility]. 12/04/2024 10:3 1 AM EDT 12/04/2024 10:35 AM EDT us Generic External Data Provider LAB BLOOD ORDERAB LES Final Result [facility] [address] [place] [address] [phone] documented in this encounter Visit Diagnoses Not on filedocumented in this encounter Additional Health Concerns Assessment Noted Time PHQ-9 Depression Total Score: 0 11/25/19 23 10:31 AM EDT documented as of this encounter Care Teams Publicist Relationship Specialty Start Date End Date Marv Ramirez MD [address] [place] [phone] PCP - General Internal Medicine 04/09/14 documented as of this encounter
--- OUTSIDE RECORDS SUMMARY | 2024-12-04 11:40 | XMS_ITS | Encounter Summary ---
Author Organization [employer] Address [address] [facility] 7t [place] [address] Care Team Providers Care Airframe Technician Name Role Phone Marv Ramirez MD Primary Care Provide r Reason for Visit * Reason Comments Med Refill Encounter Details Date Type Department Care Team ([facility] st Contact Info) Description 07/16/2023 Refill [facility] MEDICINE [address] [place], [place] [phone] Bonita Yousif MD [address] [place], [place] [phone] Social History Tobacco Use Types Packs/Day Years Used Date Smoking Tobacco: Never Passive Smoke Exposure: Never Smokeless Tobacco: Never Depression Answer Date [...] documented as of this encounter Care Teams Airframe Technician Relationship Specialty Start Date End Date Marv Ramirez MD [address] [place] [address] PCP - General Internal Medicine 04/09/14 documented as of this encounter
--- OUTSIDE RECORDS SUMMARY | 2024-12-04 11:40 | XMS_ITS | Clinical Summary ---
Author Organization [address] [place] [address] Address [address] [place] [address] Phone Care Team Providers Care Bushing And Broach Operator Name Role Phone Marv Pérez MD Primary Care Provi ben Allergies No known active allergies Medications clotrimazole (LOTRIMIN) 1 % cream Apply to skin and toenails daily for 12 weeks Active empagliflozin-m etformin 12.5-1,000 mg tablet Take 12.5 mg by mouth 2 times daily. - Oral Active insulin glargine (LANTUS) 100 unit/mL injection Inject into the skin at bedtime. - Subcutaneous Active insulin lispro (HUMALOG U-100 INSULIN SUBQ) Inject into the skin. - Subcutaneous Active lisinopriL (PRINIVIL,ZESTR IL) 5 mg tablet Take 1 Tablet by mouth daily. - Oral Active tirzepatide (MOUNJARO) 2.5 mg/0.5 mL injection Inject 2.5 mg into the skin once a week. 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 T2DM (type 2 diabetes mellitus) 07/05/2024 Social History Tobacco Use Types Packs/Day Years Used Date Smoking Tobacco: Never Tobacco Cessation:Counseling Given: Not Answered Alcohol Use Standard Drinks/Week Comments Not Currently 0 (1 standard drink = 0.6 oz pur e alcohol) Sex and Gender Information Value Date Recorded Sex Assigned at Not on file Legal Sex Male 4:47 AM EST Gender Identity Not on file Sexual Orientation Not on file Obstetrics History Last Filed Vital Signs Vital Sign Reading Time Taken Comments Blood Pressure 149/66 08/08/2024 2:04 PM EST Pulse 65 08/08/2024 2:04 PM EST Temperature 36.5 ??C (97.7 ??F) 08/08/2024 2:04 PM ES T Respiratory Rate - - Oxygen Saturation - - Inhaled Oxygen Concentration - - Weight 69.2 kg (152 lb 8 oz) 08/08/2024 2:04 PM EST Height 167.6 cm (5' 6 ) 08/08/2024 2:04 PM EST Body Mass Index 24.61 08/08/2024 2:04 PM EST Plan of Treatment Upcoming Encounters Date Type Department Care Team (Late st Contact Info) Description 01/08/2025 10:00 AM EDT Office Visit Orthopedic Surgery - [place] [id number] [address] Ezequiel Mattson, DPM [address] [address] Health Maintenance Due Date Last Done Comments Diabetes: Annual GFR (Glomerular Filtration Rate) 1949 Diabetes: Annual Foot Exam 1959 Diabetes: Annual Retina Eye Exam 1959 Zoster Vaccines (1 of 2) 02/23/2015 12/29/2014 Pneumococcal Vaccine: 50+ Years (3 of 3 - PPSV23, PCV20 or PCV21) 09/02/2018 06/25/2015, 09/02/2013 Cholesterol Screening (Lipid Panel) 07/31/2022 Colorectal Cancer Screening: Colonoscopy 07/31/2022 Falls Risk Assessment 07/31/2022 Hepatitis C Screening 07/31/2022 Social Influencers of Health Screening 07/31/2022 Depression Screening 11/25/2023 11/24/2022 RSV Immunization Adult Patients (1 - 1-dose 75+ series) 2024 COVID-19 Vaccine ( season) 2024 07/26/2021, 01/01/2021, 12/04/2020 Diabetes: Annual Urine Albumin-Creatinine Ratio (uACR) 07/05/2024 Hypertension/CHF/CAD Annual BMP Blood Test 07/05/2024 Diabetes: Blood Sugar Control Test (HGBA1C) 11/20/2024 05/23/2024 DTaP,Tdap,and Td Vaccines (3 - Td or Tdap) 04/16/2034 04/16/2024, 12/05/2007 Influenza Vaccine Completed 05/23/2024, , 08/02/2018, Additional history exists HIB Vaccines Aged Out No longer eligi ble based on patient's age to complete this topic HPV Vaccines Aged Out No longer eligi ble based on patient's age to complete this topic Hepatitis A Vaccines Aged Out No long er eligible based on patient's age to complete this topic Hepatitis B Vaccines Aged Out No long er eligible based on patient's age to complete this topic IPV Vaccines Aged Out No longer eligi ble based on patient's age to complete this topic MMR Vaccines Aged Out No longer eligi ble based on patient's age to complete this topic Meningococcal ACWY Vaccine Aged Out N o longer eligible based on patient's age to complete this topic Meningococcal B Vaccine Aged Out No l onger eligible based on patient's age to complete this topic RSV Immunization Patients Under 20 months Aged Out No longer eligible based on patient's age to complete this topic Varicella Vaccines Aged Out No longer eligible based on patient's age to complete this topic [place] [address] [place] [address] Member Subscriber Plan / Payer (Ef fective 2018-Present) Name:Matthew Armstrong Relation to Subscriber:Self Name:Matthew Armstrong Payer ID:[id number] Group ID:[id number] Type:Not on file Address: [facility] [place] [address] Care Teams Bushing And Broach Operator Relationship Specialty Start Date End Date Marv Pérez MD [address] [place] [id number] PCP - General Internal Medicine 07/05/24
--- OUTSIDE RECORDS SUMMARY | 2024-12-04 11:40 | XMS_ITS | Encounter Summary ---
Author Organization [employer] [facility] Address [address] [facility] 7t [place] [address] Care Team Providers Care Museum Or Zoo Director Name Role Phone Marv Ramirez MD Primary Care Provide r Reason for Visit * Reason Comments Med Refill Encounter Details Date Type Department Care Team ([facility] st Contact Info) Description 01/31/2024 Refill [facility] MEDICINE [address] [place], [place] [phone] Marv Ramirez MD [address] [place], [place] [phone] Social History Tobacco Use Types Packs/Day Years [...] documented as of this encounter Care Teams Museum Or Zoo Director Relationship Specialty Start Date End Date Marv Ramirez MD [address] [place] [phone] PCP - General Internal Medicine 04/09/14 documented as of this encounter
--- OUTSIDE RECORDS SUMMARY | 2024-12-04 11:40 | XMS_ITS | Encounter Summary ---
Author Organization [employer] [facility] Address [address] [facility] 7t [place] [address] Care Team Providers Care [employer] Law Clerk Name Role Phone Marv Ramirez MD Primary Care Provide r Encounter Details Date Type Department Care Team (Late st Contact Info) Description 07/20/2022 Abstract [facility] MEDICINE [address] [place], [place] [phone] Marv Ramirez MD [address] [place] [address] Social History Tobacco Use Types Packs/Day Years Used Date Smoking Tobacco: Never Assessed Sex and Gender Information Value Date Recorded Sex Assigned at Male 06/27/2022 10:16 AM EDT Legal Sex Male 10:16 AM EDT Gender Identity Male 06/27/2022 10:16 AM EDT Sexual Orientation Straight 06/27/2022 10 :16 AM EDT documented as of this encounter Plan of Treatment Not on file documented as of this encounter Procedures Procedure Name Priority Date/Time Associated Diagnosis Comments COLONOSCOPY Routine 04/25/2016 documented in this encounter Results * Colonoscopy (04/25/2016) Colonoscopy Tubular Adenoma/Hem orrhoids Comment:Dr Royal Jasso us Historical Provider HEALTH MAINTENANCE Edited Result - Final documented in this encounter Visit Diagnoses Not on filedocumented in this encounter Care Teams [employer] Law Clerk Relationship Specialty Start Date End Date Marv Ramirez MD [address] [place] [address] PCP - General Internal Medicine 04/09/14 documented as of this encounter
--- OUTSIDE RECORDS SUMMARY | 2024-12-04 11:40 | XMS_ITS | Encounter Summary ---
Author Organization [employer] [facility] Address [address] [facility] 7t [place] [address] Care Team Providers Care Manager Human Resources Name Role Phone Marv Ramirez MD Primary Care Provide r Reason for Visit * Reason Onset Date Comments Nurse Triage 12/13/2023 Encounter Details Date Type Department Care Team ([facility] st Contact Info) Description 12/13/2023 Telephone [facility] MEDICINE [address] [place], [place] [phone] Marv Ramirez MD [address] [place], [place] [phone] Nurse Triage Social History Tobacco Use Types Packs/Day Years [...] AM EDT documented as of this encounter Miscellaneous Notes * Telephone Encounter - Rebeca Maldonado RN - 12/13/2023 10:51 AM EDT Triage call with [employer] Director Of Enterprise [employer] [place] [id number] Pt reports glass in the right eye. Pt was working with a glass bottle and a small shard of glass flew into right eye. Pt is able to feel the piece of glass which is painful . Pt is advised to seek evaluation in closest Ed. Pt agrees with disposition. Protocol Used: Eye - Foreign Body (Adult) Protocol-Based Disposition: Go to ED/UCC Now (or to Office with PCP Approval) Positive Triage Question: * Sharp FB (even if FB was removed) and any pain present now * All higher-acuity triage questions were negative Care Advice Discussed: * Reassurance and Education * Reasons To Call Back - Pain or blurred vision persists over 1 hour after treatment - You still feel a foreign body in your eye more than 30 minutes after treatment - You become worse * Telephone Encounter - Pablo Wayne - 12/13/2023 9:48 AM EDT Symptom: Eye Pain - Not From Injury Outcome: Transfer to a nurse or provider NOW! Reason: Chemical or something in the eye documented in this encounter Plan of Treatment Not on file documented as of this encounter Visit Diagnoses Not on filedocumented in this encounter Additional Health Concerns Assessment Noted Time PHQ-9 Depression Total Score: 0 11/25/19 23 10:31 AM EDT documented as of this encounter Care Teams Manager Human Resources Relationship Specialty Start Date End Date Marv Ramirez MD [address] [place] [address] PCP - General Internal Medicine 04/09/14 documented as of this encounter
--- OUTSIDE RECORDS SUMMARY | 2024-12-04 11:40 | XMS_ITS | Clinical Summary ---
Author Organization [employer] Address [address] [facility] [place] [address] Care Team Providers Care Flour Worker Name Role Phone Marv Ramirez MD Primary Care Provide r Allergies No known active allergies Medications glucose 4 g chewable tablet if needed. 12/30/19 15 Active insulin glargine (Lantus SoloStar) 100 UNIT/ML pen Inject 20 Units under the skin at bedtime. 10/05/19 22 Active FREESTYLE LITE test stripIndications:T ype 2 diabetes mellitus with diabetic polyneuropathy, without long-term current use of insulin ([facility]) TEST BLOOD SUGAR THREE TIMES DAILY 100 strip 11 09/19/19 23 Active Synjardy XR 12.5-1000 MG 24 hr tablet Take 1 tablet by mouth every 12 (twelve) hours. 10/04/19 24 Active aspirin 81 MG EC tablet TAKE 1 TABLET BY MOUTH EVERY MORNING 90 tablet 1 02/05/20 24 Active cetirizine (ZyrTEC) 10 MG tabletIndications: Viral URI TAKE 1 TABLET BY MOUTH EVERY MORNING 30 tablet 2 03/18/20 24 Active ciprofloxacin (Ciloxan) 0.3 % ophthalmic solution INSSTILL 1 DROP IN RIGHT EYE 4 TIMES A DAY 12/13/19 24 Active NovoLOG FLEXPEN 100 UNIT/ML pen INJECT 6 UNITS SUBCUTANEOUSLY EVERY MORNING 01/26/20 24 Active TRUEplus Lancets 33G misc 04/25/20 23 Active lisinopril 5 MG tablet Take 5 mg by mouth in the morning. 02/27/20 24 Active Mounjaro 2.5 MG/0.5ML solution pen-injector 03/22/20 24 Active omeprazole (PriLOSEC) [address] capsule TAKE 1 CAPSULE BY MOUTH EVERY MORNING 90 capsule 1 06/13/20 24 Active Sure Comfort Pen [place] 31G X 5 MM misc USE DIRECTED FOR INSULIN THREE TIMES DAILY 100 each 5 06/18/20 24 Active gabapentin (Neurontin) 600 MG tablet TAKE 1 TABLET BY MOUTH AT BEDTIME 30 tablet 6 08/06/20 24 Active atorvastatin (Lipitor) 40 MG tabletIndications: Mixed hyperlipidemia TAKE 1 TABLET BY MOUTH AT BEDTIME 90 tablet 3 08/14/20 24 Active Multiple Vitamin (Multivitamin) tabletIndications: Insomnia, unspecified type TAKE 1 TABLET BY MOUTH EVERY MORNING WITH FOOD 90 tablet 3 08/14/20 24 Active traZODone (Desyrel) 100 MG tabletIndications: Insomnia, unspecified type TAKE 1 TABLET BY MOUTH EVERY EVENING AFTER MEALS 90 tablet 1 08/14/20 24 Active Alcohol Swabs (Alcohol Prep) 70 % padsIndications:Ty pe 2 diabetes mellitus without complication, with long-term current use of insulin (CMS/HCC) USE THREE TIMES DAILY DIRECTED 100 each 11 10/01/19 25 Active Active Problems Problem Noted Date Diagnosed Date 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 Patient here for a short term follow up Previously presented with a skin lesion right upper back. Seen by Dr Connors Dermatology for biopsy, confirmed Dx of CA Who then referred to general surgeon for excision underwent excision 08/08/2024. Pt will continue to follow with Dr. Connors. Every 3 months, phone number of Dr Connors provided to his during last visit HOUSEKEEPING STAFF The stitches were removed prior to last visit I provided a triple ointment Abx for topical use Assessment & Plan (08/20/2024 11:03 AM EST): Images from the original note were not included. Patient with a skin lesion right upper back. Pt reported he had it for approximately 6 months but recently started to grow rapidly and bleed intermittently Seen by Dr Connors Dermatology for biopsy, confirmed Dx of CA Who then referred to general surgeon for excision underwent excision 08/08/2024. Pt will need to continue to follow with Dr. Connors. Every 3 months, phone number of Dr Connors provided to his HOUSEKEEPING STAFF The stitches were removed today I provided a triple ointment Abx for topical use Follow up in 1 month Assessment & Plan (05/23/2024 12:45 PM EDT): Patient with a rapidly enlarging skin lesion right upper back. Pt reports he has had it for approximately 6 months but recently started to grow rapidly and bleeds intermittently Etiology? Will refer to Dermatology for excision and pathology evaluation to rule out Skin CA Pt and senior care provider agreable with plan Cellulitis of right hand 04/26/2024 Assessment & Plan (04/26/2024 2:35 PM EDT): Resolved, S/P antibiotics. No need for additional follow up, Pt will schedule appointment with PCP in 1-2 months. Td is UTD 2023. Actinic keratoses 02/23/2024 Assessment & Plan (02/23/2024 3:22 PM EDT): Around left ear lobe, its uncomfortable for patient, prone to bleeding. Refer to dermatology Gait disturbance 02/23/2024 Assessment & Plan (02/23/2024 3:25 PM EDT): Patient has neuropathy but also has some enlargement of the ventricles of the brain + subcortical atrophy, it could be related to normal pressure hydrocephalus? Patient more clinically stable now, fu with PCP to consider neurology referral. Arm wound, right, initial encounter 01/10/2023 Overview (01/10/2023): No evidence of infection. No evidence of fracture. Keep wound clean and dry. Wound clean and dressed today. Assessment & Plan (01/10/2023 11:17 AM EDT): No evidence of infection. No evidence of fracture. Keep wound clean and dry. Wound clean and dressed today. Preventative health care 11/24/2022 Assessment & Plan (08/20/2024 10:51 AM EST): PSA 09/19/2023 Normal Colonoscopy: 04/25/2016 showed a Tubular Adenoma, Pt seen in [address] Royal Duckworth who recommended to repeat the Colonoscopy in 10 years instead of 5. So he will be due in [address] Duckworth. Vaccines: Pneumovax: 09/02/2013 Td: 12/05/2007 Zoster: 12/29/2014 Assessment & Plan (11/24/2022 9:27 AM EDT): Colonoscopy: 04/25/2016 showed a Tubular Adenoma, Pt seen in [address] Royal Duckworth who recommended to repeat the Colonoscopy in 10 years instead of 5. So he will be due in [address] Duckworth. Vaccines: Pneumovax: 09/02/2013 Td: 12/05/2007 Zoster: 12/29/2014 Primary insomnia 11/24/2022 Assessment & Plan (11/24/2022 9:27 AM EDT): On trazodone History of lymphoma 07/20/2022 Assessment & Plan (11/24/2022 9:22 AM EDT): Pt has a Hx. of lymphoma s/p completion of CHOP plus Rituxan based chemotherapy back in 2001. he was last seen by Oncology (Dr Fontaine) in 11/04/2022. She encountered no evidence of recurrence. He will continue to follow with her Assessment & Plan (08/09/2022 12:44 PM EST): Pt has a Hx. of lymphoma s/p completion of CHOP plus Rituxan based chemotherapy back in 2001. he was last seen by Oncology (Dr Fontaine) in 01/10/2007. Back then she encountered no evidence of recurrence and since he was already 5 years out from completion of his therapy and doing well, she recommended to f/u with us and return to her only on a PRN basis. Pt's Most recent CBC showed pancytopenia and eosinophilia. He is back under the care of Hematology, last seen 04/27/2021 Tubular adenoma of colon 05/19/2016 Assessment & Plan (11/24/2022 9:28 AM EDT): Colonoscopy 04/25/2016 showed that, Referred back on previous visit, I reviewed Dr Royal Duckworth note from 05/26/2022 he reviewed the pathology showing fragments of Tubular adenoma and in his professional opinion he recommended to repeat the Colonoscopy in 10 years instead of 5 years unless patient had symptoms. Will follow that recommendation Assessment & Plan (08/09/2022 11:05 AM EST): Recent Colonoscopy 04/25/2016 showed that, Referred back on previous visit, I reviewed Dr Royal Duckworth note from 05/26/2022 he reviewed the pathology showing fragments of Tubular adenoma and in his professional opinion he recommended to repeat the Colonoscopy in 10 years instead of 5 years unless patient had symptoms Type 2 diabetes mellitus 06/25/2015 Overview (03/25/2024): Pharmacotherapy: updated 03/25/24 - Mounjaro 2.5mg weekly - Lantus 20 units daily - Novolog 6 units daily - Synjardy XR 12.5-1000mg daily History: Updated 03/25/24 CDTM Dm visit on 03/25. At this time, patient is being followed by endocrinology and is at goal. - On ASA: Y - On Statin: Y atorvastatin 40mg daily - Last Eye Exam: 02/26/2024 - Last Dental Exam: Unknown Assessment & Plan (08/20/2024 10:48 AM EST): Patient is here for a f/u Back in the care of Endocrinology (Dr Hernandez) . He is back on a regimen of: Lantus 10 units sc q pm, Novolog Flex pen 6 units in AM Synyardiy XR 12.12/999 BID, and Mounjaro 2.5 mg once a week. He follows with Diabetes and [employer] Operator educator Hgb A1c 08/20/2024 : 7.8 from 7.5 from 10.3 Plan: Continue to follow with Endocrinology Follow up with me in 4 months Eye exam on record was [facility] 02/26/2024 Pt has diabetic retinopathy. Microalbumin checked on: 12/28/2022 Pt on an TRISTAN inhibitor. Foot check risk of one Pt reports compliance with Asa 81 mg po daily Assessment & Plan (05/23/2024 11:35 AM EDT): Patient is here for a f/u Back in the care of Endocrinology He is back on a regimen of: Lantus 10 units sc q pm, Novolog Flex pen 6 units in AM Synyardiy XR 12.12/999 BID, and Mounjaro 2.5 mg once a week. I contacted the Pharmacy and they confirmed he is picking up his med boxes regularly Pt isunder the care of Endocrinology (Dr Hernandez) . He follows with Diabetes and [facility] Operator educator Hgb A1c 05/23/2024 : 7.5 from 10.3 Plan: Continue to follow with Endocrinology Follow up with me in 4 months Eye exam on record was last note [facility] 08/31/2022 Pt has diabetic retinopathy. Microalbumin checked on: 12/28/2022 Pt on an TRISTAN inhibitor. Foot check risk of one Pt reports compliance with Asa 81 mg po daily Assessment & Plan (03/25/2024 5:50 PM EDT): Assessment: - At goal of A1c less than 7% or fasting BG between 70-130 mg/dL per ADA guidelines. Plan/ Recommendations: - No further follow-up in CDTM. [place] [facility] [place] - Medlist updated Monitoring: Hemoglobin A1c (% of total Hgb) Date Value 04/09/2020 8.1 (H) 04/09/2020 8.1 (H) Hemoglobin A1C (%) Date Value 02/23/2024 6.4 (A) 09/19/2023 10.2 (A) LDL Cholesterol (mg/dL (calc)) Date Value 06/14/2021 84 HDL Cholesterol (mg/dL) Date Value 06/14/2021 39 (L) No results found for: B12 Assessment & Plan (02/23/2024 3:14 PM EDT): A1c is at goal, he is more compliant with meds and uf with endocrinology. FU with PCP as scheduled, no change in meds. Check fgstk tid + prn hypoglycemia sxs, he has a CGM device Assessment & Plan (10/31/2023 11:20 AM EST): Patient is here for a f/u Glucose today down to 161 Back in the care of Endocrinology He is back on a regimen of: Lantus 10 units sc q pm, Novolog Flex pen 8 units in AM Synyardiy XR 12.12/999 BID, and Trulicity 4.5 mg once a week (recently increased by Endocrinology ) I contacted the Pharmacy and they confirmed he is picking up his med boxes regularly Pt isunder the care of Endocrinology (Dr Hernandez) . He follows with Diabetes and [facility] [employer] educator Hgb A1c 09/19/2023 : 10.3 Plan: Continue to follow with Endocrinology Follow up with me in 12 weeks with glucometer Eye exam on record was last done by [facility] 07/12/2018 Pt tells me he saw retinal specialist Dr. Song, no records available. Pt has diabetic retinopathy. Microalbumin checked on: 06/14/2021 was: 0.6 Pt on an TRISTAN inhibitor. Foot check risk of one Pt reports compliance with Asa 81 mg po daily Assessment & Plan (10/19/2023 11:23 AM EST): Patient is here for a f/u Again pt did not bring his glucometer Blood glucose today 342 He is supposed to be on a regimen of: Lantus 20 units sc q pm, ( Today his HOUSEKEEPING STAFF tells me he is not injecting Lantus anymore) Novolog Flex pen 6 units in AM Synyardiy XR 12.12/999 BID, and Trulicity 3 mg /0.5 ml once a week. I contacted the Pharmacy and they confirmed he is picking up his med boxes regularly Pt isunder the care of Endocrinology (Dr Hernandez) . He follows with Diabetes and Retread Operator educator Hgb A1c 09/19/2023 : 10.3 Plan: Restart Lantus 10 units subcutaneous q pm Continue to follow with Endocrinology Follow up with me in 2 weeks with glucometer Eye exam on record was last done by [facility] 07/12/2018 Pt tells me he saw retinal specialist Dr. Song, no records available. Pt has diabetic retinopathy. Microalbumin checked on: 06/14/2021 was: 0.6 Pt on an TRISTAN inhibitor. Foot check risk of one Pt reports compliance with Asa 81 mg po daily f/u in 2 weeks with glucometer Assessment & Plan (09/19/2023 11:18 AM EST): Patient is here for a f/u Pt did not bring his glucometer Blood glucose today 377 Pt admits that while he was away in [place] for over a month he was not adhering to a diabetic diet. He is also drinking orange juice by the [facility]. Pr counseled and educated about diabetic diet and the need to stop drinking such large amounts of orange juice right away. He is supposed to be on a regimen of: Lantus 20 units sc q pm, Novolog Flex pen 6 units in AM Synyardiy XR 12.12/999 BID, and Trulicity 3 mg /0.5 ml once a week. I contacted the Pharmacy and they confirmed he is picking up his med boxes regularly Pt was under the care of Endocrinology (Dr Hernandez) . last note from 02/2023, but it appears he has now been lost for follow up. He used to follow with Diabetes and [facility] [employer] educator Hgb A1c 09/19/2023 : 10.3 Plan: Continue to follow with Endocrinology Humalog 8 units now. Follow up with me in 1 to 2 weeks with glucometer Eye exam on record was last done by [facility] 07/12/2018 Pt tells me he saw retinal specialist Dr. Song, no records available. Pt has diabetic retinopathy. Microalbumin checked on: 06/14/2021 was: 0.6 Pt on an TRISTAN inhibitor. Foot check risk of one Pt reports compliance with Asa 81 mg po daily f/u in 2 weeks with glucometer Assessment & Plan (11/24/2022 10:37 AM EDT): Patient is here for a f/u Glucometer shows average of 121 He is on a regimen of: Lantus 20 units sc q pm , Synyardiy XR 12.12/999 BID, and Trulicity 1.5 mg /0.5 ml once a week Pt remains under the care of Endocrinology (Dr Hernandez) . last note from 07/05/2022 He also follows with Diabetes and Retread Operator educator Hgb A1c 11/24/2022: 7.0 Plan: continue to follow with Endocrinology Eye exam on record was last done by [facility] 07/12/2018 Pt tells me he saw retinal specialist Dr. Song, no records available. Pt has diabetic retinopathy. Microalbumin checked on: 06/14/2021 was: 0.6 Pt on an TRISTAN inhibitor. Foot check risk of one Pt reports compliance with Asa 81 mg po daily f/u in 4 months Assessment & Plan (08/09/2022 11:06 AM EST): pt here for a f/u Glucometer shows average of 113 He is on a regimen of: Lantus 20 units sc q pm , Synyardiy XR 12.12/999 BID, and Trulicity 1.5 mg /0.5 ml once a week Pt is under the care of Endocrinology (Dr Hernandez) . last note from 07/05/2022 He also follows with Diabetes and Retread Operator educator Hgb A1c 08/09/2022 was 7.6 today I have recommended to continue to follow Endocrinology recommendations Eye exam on record was last done by [facility] 07/12/2018 Pt tells me he saw retinal specialist Dr. Song recently, no records available. Pt had diabetic retinopathy. Microalbumin checked on: 06/14/2021 was: 0.6 Pt on an TRISTAN inhibitor. Foot check risk of one Pt reports compliance with Asa 81 mg po daily f/u in 4 months Essential hypertension 06/25/2015 Assessment & Plan (05/23/2024 11:11 AM EDT): Patient here for a follow up He is on a regimen of: Lisinopril 5 mg po daily (Off Amlodipine, pt was not taking and BP was controlled) Most recent electrolytes, Bun and Creatinine done on: 09/19/2023 were wnl. Today will repeat BP remains controlled patient advised to adhere to a low sodium diet, encouraged about medication compliance, counseled about weight loss. f/u 4 months Assessment & Plan (09/19/2023 9:55 AM EST): Patient here for a follow up He is on a regimen of: Lisinopril 10 mg po daily (Off Amlodipine, pt was not taking and BP was controlled) Most recent electrolytes, Bun and Creatinine done on: 04/28/2022 were wnl. Today will repeat BP remains controlled patient advised to adhere to a low sodium diet, encouraged about medication compliance, counseled about weight loss. f/u 4 months Assessment & Plan (11/24/2022 9:19 AM EDT): Patient here for a follow up He is on a regimen of: Lisinopril 10 mg po daily (Off Amlodipine, pt was not taking and BP was controlled) Most recent electrolytes, Bun and Creatinine done on: 04/28/2022 were wnl. BP remains controlled patient advised to adhere to a low sodium diet, encouraged about medication compliance, counseled about weight loss. f/u 4 months Assessment & Plan (08/09/2022 11:03 AM EST): Patient with Hypertension Here for a f/u, seen here 4 weeks ago Previous visit Pt's HOUSEKEEPING STAFF told me that she had been taking the Lisinopril and the mlodipine out of the boxes Not giving it to him ) Given adequate blood pressure control, I had recommended to DC Amlodipine completely And restarted Lisinopril 10 mg po daily Most recent electrolytes, Bun and Creatinine done on: 04/28/2022 were wnl. BP today controlled patient advised to adhere to a low sodium diet, encouraged about medication compliance, counseled about weight loss. f/u 4 months Hyperlipidemia 05/09/2012 Assessment & Plan (05/23/2024 11:16 AM EDT): Here for a f/u Patient with elevated lipids. Most recent lipid profile from: 01/18/2024 Lab Results Component Value Date TRIG 253 (H) 09/19/2023 TRIG 81 12/28/2022 CHOL 133 09/19/2023 CHOL 129 12/28/2022 LDLCHOLCAL 43 09/19/2023 LDLCHOLCAL 74 12/28/2022 HDL 40 (L) 09/19/2023 HDL 39 12/28/2022 Currently on a regimen of: Simvastatin 40mg po qhs . Plan: Repeat Lipid profile Continue with current regimen Assessment & Plan (09/19/2023 9:59 AM EST): Here for a f/u Patient with elevated lipids. Most recent lipid profile from: 12/28/2022 Triglycerides mg/dL 81 109 R 93 R Comment: Desirable Triglyceride: ? less than 150 mg/dLBorderline High Triglyceride ??150-199 mg/dLHigh Triglyceride: ?200-499 mg/dLVery High Triglyceride: ? greater than or equal to ?5OO mg/dL Cholesterol mg/dL 129 Comment: Desirable Cholesterol: ?less than 200 mg/dLBorderline High Cholesterol: ??200-239 mg/dLHigh Cholesterol: ? greater than 239 mg/dL LDL Cholesterol Calculated mg/dl 74 Comment: Desirable LDL: ? less than 100 mg/dLNear Optimal/Above Optimal LDL: ??110-129 mg/dLBorderline High LDL: ? 130-159 mg/dLHigh LDL: ?160-189 mg/dLVery High LDL: ? greater than or equal to ? 190 mg/dL HDL Cholesterol mg/dL 39 39??Low?? R 40 R Currently on a regimen of: Simvastatin 40mg po qhs . Plan: Repeat Lipid profile Continue with current regimen Assessment & Plan (11/24/2022 9:21 AM EDT): Here for a f/u Patient with elevated lipids. Most recent lipid profile from: 10/27/2021 showed a total cholesterol of: 133 triglycerides of: 125 HDL of: 40 and LDL of: 68 Currently on a regimen of: Simvastatin 40mg po qhs . Plan: Repeat Lipid profile Continue with current regimen Assessment & Plan (08/09/2022 9:16 AM EST): Here for a f/u Patient with elevated lipids. Most recent lipid profile from: 10/27/2021 showed a total cholesterol of: 133 triglycerides of: 125 HDL of: 40 and LDL of: 68 Currently on a regimen of: Simvastatin 40mg po qhs . 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 Continue gabapentin 600mg and fu with PCP We discussed re tight control of DM Assessment & Plan (11/24/2022 9:28 AM EDT): Due to many years of uncontrolled DM, ot has difficulty ambulating as a result, uses Gabapentin for pain relief Erectile dysfunction 05/09/2012 Encounters Date Type Department Care Team Description 12/04/2024 Orders Only GENERIC EXTERNAL DATA DEPARTMENT Provider, Generic External Data 10/11/2024 Telephone [facility] [address] [place] [address] Marv Ramirez MD November Recall 09/28/2024 Refill [facility] [address] [place] [address] Heaven Saxena FNP Type 2 diabetes mellitus without complication, with long-term current use of insulin ([facility]) 09/19/2024 10:15 AM EST Office Visit [facility] [address] [place] [address] Marv Ramirez MD Squamous cell carcinoma of back (Primary Dx); Type 2 diabetes mellitus with diabetic polyneuropathy, without long-term current use of insulin ([facility]/HCC) 09/19/2024 Travel 09/12/2024 Telephone [facility] [address] [place] [address] Marv Ramirez MD Chart Prep 09/10/2024 Telephone [facility] [address], [place] [id number] Lesly Sr, flight physician from Last 3 Months Immunizations Name Administration Dates Next Due Influenza High-dose Quadrivalent Preservative Fr ee 05/25/2021 Influenza injectable quadriv alent IIV4 with preservative 09/12/2017,05/19/2016 Influenza injectable quadrivalent preservative f ree 08/02/2018 Influenza, High Dose Seasonal, Preservative Free 05/23/2024 Influenza, IIV3, injectable 06/22/2011 Influenza, Split (incl. purified surface antigen ) 05/08/2013,05/09/2012 Moderna Covid-19 Vaccine 12+ 01/01/2021,12/05/19 21 Pneumococcal Conjugate PCV 13 06/25/2015 Pneumococcal Polysaccharide PPSV23 09/02/2013 TD (adult), 2 Lf tetanus tox oid, preservative free, adsorbed 12/05/2007 Tdap 04/16/2024 Zoster, live 12/29/2014 Social History Tobacco Use Types Packs/Day Years Used Date Smoking Tobacco: Never Passive Smoke Exposure: Never Smokeless Tobacco: Never Tobacco Cessation:Counseling Given: Not Answered Alcohol Use Standard Drinks/Week Comments Never 0 [...] Orientation Straight 06/27/2022 10 :16 AM EDT Last Filed Vital Signs Vital Sign Reading Time Taken Comments Blood Pressure 122/59 09/19/2024 10:15 AM EST Pulse 65 09/19/2024 10:15 AM EST Temperature 36.4 ??C (97.6 ??F) 09/19/2024 1 0:15 AM EST Respiratory Rate 14 09/19/2024 10:1 5 AM EST Oxygen Saturation 97% 09/19/2024 10: 15 AM EST Inhaled Oxygen Concentration - - Weight 68.9 kg (151 lb 12.8 oz) 025 10:15 AM EST Height 167.6 cm (5' 6 ) 09/19/2024 10:1 5 AM EST Body Mass Index 24.5 09/19/2024 10:15 AM EST Plan of Treatment Health Maintenance Due Date Last Done Comments CT Colonography 1949 FIT DNA/Cologuard 1949 FIT 1949 FOBT 1949 Sigmoidoscopy 1949 Derm Melanoma Skin Check 1949 Eye Exam 1959 Alcohol/Substance Use Screening 1961 Zoster Vaccines (2 of 3) 02/23/2015 12/29/2014 Pneumococcal Vaccine: 50+ Years (3 of 3 - PCV20 or PCV21) 06/25/2020 06/25/2015, 09/02/2013 Diabetes: Urine Protein Screening 12/29/2023 12/28/2022, 10/27/2021, 06/14/2021, Additional history exists RSV Patients and Patients Aged 60 years or older (1 - 1-dose 75+ series) 2024 COVID-19 Vaccine ( season) 2024 07/26/2021, 01/01/2021, 12/04/2020 Lipid Panel 09/19/2024 09/19/2023, 05/0 10/2022, 06/14/2021, Additional history exists Diabetes: Hemoglobin A1C 11/18/2024 024, 05/23/2024, 02/23/2024, Additional history exists Depression Screening 02/22/2025 02/23/2024, 11/25/19 Diabetes: Foot Exam 02/22/2025 02/23/2024, 02/23/2024, 02/23/2024, Additional history exists SDOH Screening 09/19/2025 09/19/2024 Tobacco Screening 09/19/2025 09/19/2024 Colonoscopy 04/25/2026 04/25/2016 Colorectal Cancer Screening 04/25/2026 DTaP/Tdap/Td Vaccines (2 - Td or Tdap) 04/16/2034 04/16/2024, 12/05/2007 Hepatitis C Screening Completed 02/01/2022 Influenza Vaccine Completed 05/23/2024, , 08/02/2018, Additional [...] patient's age to complete this topic Meningococcal Vaccine Aged Out No mine alexis eligible based on patient's age to complete this topic RSV under 20 months Aged Out No longe r eligible based on patient's age to complete this topic Rotavirus Vaccines Aged Out No longer eligible based on patient's age to complete this topic Procedures Procedure Name Priority Date/Time Associated Diagnosis Comments GLUCOSE, WHOLE BLOOD Routine 12/04/2024 10:31 AM EDT POCT GLUCOSE Routine 09/19/2024 10:17 AM EST Type 2 diabetes mellitus with diabetic polyneuropathy, without long-term current use of insulin (CMS/HCC) POCT GLYCATED HEMOGLOBIN, TOTAL Routine 08/20/2024 10:43 AM EST Type 2 diabetes mellitus with diabetic polyneuropathy, without long-term current use of insulin (CMS/HCC) LIPID PANEL WITH REFLEX TO DIRECT LDL Routine 09/19/2023 11:16 AM EST Mixed hyperlipidemia ALBUMIN, RANDOM URINE W/CREATININE Routine 12/28/2022 10:40 AM EDT ZZZ HISTORICAL HEPATITIS C AB W/REFL TO HCV RNA, QN, PCR Routine 02/01/2022 11:29 AM EDT HM COLONOSCOPY Routine 04/25/2016 from Last 3 Months or Most Recently Relevant to Health Maintenance Results * (ABNORMAL) Glucose, Whole Blood (12/04/2024 10:31 AM EDT) Glucose, Whole Blood 173(H) 60 - 115 mg/dL [facility] Comment:METER #: [id number] Testing performed in the Endocrinology Department [address] , [address], [facility]. 12/04/2024 10:3 1 AM EDT 12/04/2024 10:35 AM EDT us Generic External Data Provider LAB BLOOD ORDERAB LES Final Result [facility] [address] [place] [address] [phone] * (ABNORMAL) POCT Glucose (09/19/2024 10:17 AM EST) Glucose Blood, POC 285(A) 60 - 200 mg/dL QC Media Lot # [id number] Lot# Expiration Date Blood Capillary blood specimen / Unknown 09/19/2024 10:17 AM EST us Marv Lacy MD POINT OF CARE TEST EN TER/EDIT ORDERABLES Final Result * (ABNORMAL) POCT HGB A1C (08/20/2024 10:43 AM EST) Hemoglobin A1C 7.8(A) 4.0 - 6.0 % QC Media Lot # [id number] Lot# Expiration Date , Blood 08/20/2024 10:4 3 AM EST Marv Lacy MD POINT OF CARE TEST EN TER/EDIT ORDERABLES Final Result * (ABNORMAL) Lipid Panel with Reflex to Direct LDL (09/19/2023 11:16 AM EST) Triglycerides 253(H) <150 mg/dL [facility] Comment:Desirable Triglyceri de: less than 150 mg/dLBorderline High Triglyceride 150-199 mg/dLHigh Triglyceride: 200-499 mg/dLVery High Triglyceride: greater than or equal to 5OO mg/dL Cholesterol 133 <200 mg/dL [facility] Comment:Desirable Cholestero l: less than 200 mg/dLBorderline High Cholesterol: 200-239 mg/dLHigh Cholesterol: greater than 239 mg/dL LDL Cholesterol Calculated 43 <100 mg/dL [facility] Comment:Desirable LDL: less than 100 mg/dLNear Optimal/Above Optimal LDL: 110- 129 mg/dLBorderline High LDL: 130-159 mg/dLHigh LDL: 160-189 mg/dLVery High LDL: greater than or equal to 190 mg/dL HDL Cholesterol 40(L) >40 mg/dL [facility] Comment:Desirable HDL: great er than 40 mg/dL Note: This HDL assay may give artificially low results in patients with liver disease. Blood 09/19/2023 11:1 6 AM EST 09/19/2023 1:43 PM EST Marv Lacy MD LAB BLOOD ORDERABLES Final Result [facility] [address] [place], [place] [phone] * Albumin, Random Urine W/Creatinine (12/28/2022 10:40 AM EDT) Creatinine, Urine 73.18 mg/dL [facility] Microalbumin Urine 10.0 mg/L [facility] Microalbum Creatinine Ratio Ur 13.6 ug/mg cr [facility] Comment:Albumin/Creatinine R atio Reference Ranges: Normal: < 30 ug/mg creatinine Microalbuminuria: 30 - 300 ug/mg creatinineClinical Albuminuria: > 300 ug/mg creatinine 12/28/2022 10:4 0 AM EDT 12/28/2022 11:12 AM EDT [facility] External Provider LAB URI NE ORDERABLES Final Result Performing Organization Address City/[facility]/ZIP Co de Phone Number [facility] [address] [place] [address] [phone] * HEPATITIS C AB W/REFL TO HCV RNA, QN, PCR (02/01/2022 11:29 AM EDT) HEPATITIS C ANTIBODY NON-REACT [facility] NON-[facility]ACT [facility] INDEX <0.02 <1.00 [facility] Comment: ?? HCV antibody was non-reactive. There is no laboratory ?? evidence of HCV infection. ?? In most cases, no further action is required. However, if recent HCV exposure is suspected, a test for HCV RNA (test code 90966) is suggested. ?? For additional information please refer to http://education.Finomial/faq/NNO96h8 (This link is being provided for informational/ educational purposes only.) ?? 02/01/2022 11:2 9 AM EDT Marv Lacy MD HISTORICAL/NON ORDERA BLE LABS Final Result Performing Organization Address City/[facility]/ZIP Co de Phone Number [facility] [address] [place] [address], * Colonoscopy (04/25/2016) Colonoscopy Tubular Adenoma/Hem orrhoids Comment:Dr Royal Jasso Historical Provider HEALTH MAINTENANCE Edited Result - Final from Last 3 Months or Most Recently Relevant to Health Maintenance Insurance [facility] Care Teams Flour Worker Relationship Specialty Start Date End Date Marv Ramirez MD [address] [place] [phone] PCP - General Internal Medicine 04/09/14
--- OUTSIDE RECORDS SUMMARY | 2024-12-04 11:40 | XMS_ITS | Data Portability ---
Author Organization [facility] [email or web address] [facility] Address [address] [place] [phone] Care Team Providers Care Technician Support Association Name Role Phone HIM CCA OTHER DASIA MARS Primary Care Provider Assessment Encounter Date Assessment Date Assessment LastModified by Organization Details LastModified Time 05/03/2024 05/03/2024 I provided real -time medical direction via phone for this encounter, and was available for additional phone based assistance as needed. I have reviewed and agree with the Assessment and Plan as documented by the Flat Optical Element Maker. We discussed the diagnostic uncertainty of home visits and the risk associated with this. In this case the patient and I felt this to be an acceptable and reasonable amount of risk given the benefit of avoiding an ED visit. The patient given the opportunity to ask questions. Advised if develops CP/severe SOB/turning blue/uncontrolle d n/v/d /cold BLUE leg or severe redness or severe pain in the leg /hi fever unresponsive to APAP to call 911- verbalized understanding of instruction [email or web address] Not available 05/03/2024 15:29:17 Plan of Treatment Reminders Order Date Submit Date Provider Last Modified By Organization Details Last Modified Time Details Appointments None recorde d. Lab glucose , fingers tick, blood 024 05/03/20 24 [email or web address] [facility], [address] [place] [address], [phone] 15:30:30 Referral None recorde d. Procedures None recorde d. Surgeries None recorde d. Imaging None recorde d. Medication Orders None recorde d. Patient TargetsNo targets recorded. Patient InstructionsNo instructions recorded. Reason for Referral None Reported. Results Created Date Observation Date Name Description Value Unit Range Abnormal Flag Note LastModifiedBy Organization Detail LastModifiedTime 05/03/20 24 05/03/2024 gluco se, finge rstic k, blood Blood Glucose: mg/dl 249 Not Available [facility] [address] [place] [address], [phone] 05/03/2024 15:30:07 Result Notes None recorded. Medical Equipment None Reported. Allergies No known drug allergies Medications Name Sig Start Date Stop Date Status Note LastModified by Organization Details LastModified Time medbox status USE DIRECTED active Not Available Not Available No t Available multivitamin tablet TAKE 1 TABLET BY MOUTH EVERY MORNING WITH FOOD active Not Available Not Available No t Available atorvastatin 40 mg tablet TAKE 1 TABLET BY MOUTH AT BEDTIME active Not Available Not Available No t Available gabapentin 600 mg tablet TAKE 1 TABLET BY MOUTH AT BEDTIME active Not Available Not Available No t Available doxycycline hyclate 100 mg capsule TAKE 1 CAPSULE BY MOUTH TWICE A DAY active Not Available Not Available No t Available cetirizine 10 mg tablet TAKE 1 TABLET BY MOUTH EVERY MORNING active Not Available Not Available No t Available sulfamethoxa zole 800 mg-trimethop rim 160 mg tablet TAKE 1 TABLET BY MOUTH TWICE A DAY active Not Available Not Available No t Available aspirin 81 mg tablet,delay ed release TAKE 1 TABLET BY MOUTH EVERY MORNING active Not Available Not Available No t Available trazodone 100 mg tablet TAKE 1 TABLET BY MOUTH EVERY EVENING AFTER MEALS active Not Available Not Available Not Available ciprofloxaci n 0.3 % eye drops INSSTILL 1 DROP IN RIGHT EYE 4 TIMES A DAY active Not Available Not Available Not Available lisinopril 10 mg tablet TAKE 1 TABLET BY MOUTH EVERY MORNING active Not Available Not Available No t Available omeprazole 20 mg capsule,dar yed release TAKE 1 CAPSULE BY MOUTH EVERY MORNING active Not Available Not Available No t Available lisinopril 5 mg tablet TAKE 1 TABLET BY MOUTH EVERY MORNING active Not Available Not Available No t Available amoxicillin 875 mg-potassium clavulanate 125 mg tablet TAKE 1 TABLET BY MOUTH TWICE A DAY active Not Available Not Available No t Available Novolog FlexPen U-100 Insulin aspart 100 unit/mL (3 mL) subcutaneous INJECT 6 UNITS SUBCUTANEOU SLY EVERY MORNING active Not Available Not Available No t Available Alcohol Prep Pads USE THREE TIMES DAILY DIRECTED active Not Available Not Available Not Available Sure Comfort Pen Needle 31 gauge x 3/16 USE DIRECTED FOR INSULIN THREE TIMES DAILY active Not Available Not Available No t Available Lantus Solostar U-100 Insulin 100 unit/mL (3 mL) subcutaneous pen INJECT 20 UNITS SUBCUTANEOU SLY ONCE DAILY active Not Available Not Available No t Available TRUEplus Lancets 33 gauge TEST BLOOD SUGAR FOUR TIMES DAILY active Not Available Not Available Not Available Synjardy XR 12.5 mg-1,000 mg tablet, extended release TAKE 1 TABLET BY MOUTH EVERY MORNING active Not Available Not Available No t Available Trulicity 3 mg/0.5 mL subcutaneous pen injector INJECT ONE PEN (= 3MG) SUBCUTANEOU SLY ONCE A WEEK DIRECTED active Not Available Not Available No t Available Trulicity 4.5 mg/0.5 mL subcutaneous pen injector INJECT ONE PEN (= 4.5MG) SUBCUTANEOU SLY ONCE A WEEK DIRECTED active Not Available Not Available No t Available Mounjaro 2.5 mg/0.5 mL subcutaneous pen injector INJECT ONE PEN (=2.5MG) SUBCUTANEOU SLY ONCE A WEEK DIRECTED active Not Available Not Available No t Available Vitals Date Recorded Respiratory rate Body temperature Oxygen saturation Oxygen saturation in Arterial blood by Pulse oximetry Heart rate Body weight Systolic blood pressure Diastolic blood pressure Provider Name and Address Organization Details Last Updated DateTime 4 16 /min 98.1 [degF] 97 % 97 % 62 /min 74959.7 2 g 124 mm[Hg] 68 mm[Hg] Not Available [facility] - production 4 14:58:06 Social History None recorded. Functional Status None recorded. Mental Status None recorded. Family History Nothing Reported. Medical History No medical history recorded. Past Encounters Encounter ID Performer Location Encounter Start Date Encounter Closed Date Diagnosis/Indication Diagnosis SNOMED-CT Code Diagnosis ICD10 Code Diagnosis Note [id number] Deloris Borrero MD Main - [facility] [address] [place] [phone] 05/03/2024 14:58:01 05/06/2024 22:20:04 Cellulitis of right lower limb [id number] L03.115 Improving on doxycyclin e. Advised to elevate, finish the doxycyclin e, follow-up with PCP to discuss improving blood sugar control-pa tient does not monitor self well Health Concerns Section Related Observation LastModified by Organization Detai ls LastModified Time None Recorded Concern Status LastModified by Organization Details LastModified Time None Recorded [place] Directives Directive None Recorded Payers Encounter Date Sequence Insurance Name Policy Number Policy Juarez Covered Member ID Juarez Member ID Guarantor Name 05/03/2024 1 [facility] - DOS ON OR AFTER 2022 - DUAL ELIGIBLE - CARE HOME OPTIONS AND ONE CARE (MEDICARE REPLACEMENT/ADV ANTAGE - HMO) Matthew Armstrong [id number] Matthew Armstrong Notes Date Note Type Note Provider Name and Address Organization Details Recorded Time 05/03/2024 text/html [facility] Nurse Triage Notes (Jolly Muniz): Reason For Request: Patient has a leg wound, and it doesn't look good, swollen. Chief Complaints: Cellulitis PMH: Diabetes Allergies: No Known Comments: CP and CHANNEL INSTALLER on a 3-way call requesting a referral for member, member identified via name and . PMHx- DM. NKDA. Member with on/off ?cellulitis to his right ankle for about a month. Per CHANNEL INSTALLER he went to the ED 04/30 and was prescribed Doxycycline, ankle improved, but now is becoming swollen (+pitting) and discolored again, with associated pain, no open areas. Member agreeable to a visit. .................. .................. .................. .................. .................. .................. .................. ............... Flat Optical Element Maker Note From Conor Burnett: Pt co ankle pain right side interior. Pt seen in ED 04/30 and RX for doxycycline. Pt on day. Pt sts has had improvement from 3 days ago. Pt CHANNEL INSTALLER was still concerned and requested a visit. Pt denies fever , edema, weeping, cp, sob, NVD. Photo of ankle uploaded. Area not hot to touch , mild discoloration. Not painful upon palpation. No pitting edema. Afebrile. Baseline vitals assessed. Vitals WNL BG 249 . [facility] contacted and advised pt to follow up with pcp in regards to getting BS under better control. Pt advised to finish course of antibiotics. Pt education on signs indicating the ER. ................. .................. .................. .................. .................. .................. .................. ................ Disposition: Fulfilled SEGMD: As above-patient denies fever, chills, shortness of breath, calf pain. Patient is only on day 3 of the 7-day course of doxycycline. Originally had a cut over 3 weeks ago was treated then it got infected leading him to the ER on 04/30. Deloris Borrero MD [address] [facility],[address], [place], [phone], [employer] 05/03/2024 15:30:40
--- OUTSIDE RECORDS SUMMARY | 2024-12-04 11:40 | XMS_ITS | Encounter Summary ---
Author Organization [facility] Address [address] [facility] [address] 7[address] [place] [address] Care Team Providers Care System Consultant Name Role Phone Marv Ramirez MD Primary Care Provide r Reason for Visit * Reason Comments Med Refill Encounter Details Date Type Department Care Team ([facility] st Contact Info) Description 01/26/2024 Refill [facility] [address] [place], [place] [phone] Marv Ramirez MD [address] [place], [place] [phone] Social History Tobacco Use Types Packs/Day Years [...] documented as of this encounter Care Teams System Consultant Relationship Specialty Start Date End Date Marv Ramirez MD [address] [place] [phone] PCP - General Internal Medicine 04/09/14 documented as of this encounter
== END 2024-12-04 10:54 | disposition home or self-care (01) ==
LOC: HO.ENCR 10:19
PROVIDERS: PCP Internal Medicine; Visit Provider Nurse Practitioner Adult Health
DX: E11.65 Type 2 diabetes mellitus with hyperglycemia (principal); Z79.4 Long term (current) use of insulin; R07.9 Chest pain, unspecified; I73.9 Peripheral vascular disease, unspecified
CPT/HCPCS: 99214; G2211

== ENCOUNTER → 2024-12-04 10:19 | Outpatient (BNVA) | payer OTHER, SELFPAY | PROVIDERS: PCP Internal Medicine; Visit Provider Nurse Practitioner Adult Health | DX: E11.65 Type 2 diabetes mellitus with hyperglycemia (principal); E11.51 Type 2 diabetes mellitus with diabetic peripheral angiopathy without gangrene; R07.9 Chest pain, unspecified; Z79.4 Long term (current) use of insulin | CPT/HCPCS: 82947; 83036; 99212 ==

== ENCOUNTER 2024-12-09 10:48 | Outpatient (AMB) | payer OTHER, SELFPAY ==
--- NOTE | 2024-12-09 10:53 | A.OFFVIS_ITS ---
Intake Intake Visit Reasons: 60 min Register Of Wills Required: Yes Register Of Wills Language: Home Care Manager Rn Services: Register Of Wills Offered & Declined Register Of Wills Name: Pt's ORDER ENTRY SPECIALIST Accompanied by: Other Relationship Allergies No Known Allergies Allergy (Verified 12/04/24 10:24) HPI Comprehensive Diabetes Asmnt Most Recent Diabetes Results: Microalb/Creat Ratio 13.6 ug/mg cr 12/28/22 Cholesterol 133 mg/dL (<200) 09/19/23 HDL Cholesterol 40 mg/dL (>40) L 09/19/23 Triglycerides 253 mg/dL (<150) H 09/19/23 Creatinine 1.04 mg/dL (0.5-1.4) 09/19/23 Blood Urea Nitrogen 24 mg/dL (9-16) H 09/19/23 Sodium 138 mmol/L (135-145) 09/19/23 Potassium 4.9 mmol/L (3.3-5.1) 09/19/23 Chloride 99 mmol/L (96-108) 09/19/23 Carbon Dioxide 27 mmol/L (22-29) 09/19/23 Calcium 9.9 mg/dL (8.4-10.2) 09/19/23 AST 19 U/L (5-37) 09/19/23 ALT 29 U/L (0-40) 09/19/23 Total Protein 7.8 g/dL (6.5-8.0) 09/19/23 Albumin 4.2 g/dL (3.5-5.0) 09/19/23 PFSH Medical History Colon cancer screening Hypothyroidism Proliferative diabetic retinopathy associated with type 2 diabetes mellitus Hx of lymphoma Peripheral axonal neuropathy Erectile dysfunction Type 2 diabetes mellitus with hyperglycemia, with long-term current use of insulin Dyslipidemia Essential hypertension Diabetic nephropathy associated with type 2 diabetes mellitus Diabetic polyneuropathy associated with type 2 diabetes mellitus Surgical History Hx of local excision of skin lesion Hx of colonoscopy Family History Father Cancer Mother Diabetes Social History Household Members: None Housing: Apartment Housing Other:: Has ORDER ENTRY SPECIALIST: Mabel Peres Are you a primary clinical care manager to a significant other at home: No Do you presently have 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 0% Hyperglycemia:? 22% Time in Range:? 78% Average glucose for the last 2 weeks? 155 mg/dL At last visit with DITCH TENDER patient complained of chest pain Patient's ORDER ENTRY SPECIALIST reports Pt had follow-up appointment with PCP on 12/06/24 for CP Patient denies having CP since visit with DITCH TENDER on 12/04/24 Patient's last A1c on 12/04/24 7.5% No episodes of hypoglycemia reported or observed on glucose data Patient's ORDER ENTRY SPECIALIST reports they have not picked up glucose tabs from pharmacy but will follow-up pharmacy today. Reviewed how to treat hypoglycemia with rule of 15s Instructed patient to always carry 3-4 glucose tabs with him in case of hypoglycemia At today's visit patient's glucose elevated because patient reports he drank 20 oz of regular soda with a sandwich proximally 60 minutes before visit with Diabetes Education nurse Reviewed how to treat hyperglycemia How to lower your blood sugar level. ? Take medications as directed by physician. ? Drink extra water or noncaffeinated, nonsugared drinks to prevented hydration. ? Exercise if you are not sick Patient denies symptoms of hyperglycemia, hyperglycemia Romanian handout given at today's visit Patient able to insert sensor independently at home without issue.? Portions of this note were created using voice recognition software, please excuse any words or phrases that may have been misinterpreted. Coding Level of Care Code Est Pt Level 1 (70015) Diagnoses Type 2 diabetes mellitus with hyperglycemia, with long-term current use of insulin E11.65; Z79.4
--- OUTSIDE RECORDS SUMMARY | 2024-12-09 12:36 | XMS_ITS | Encounter Summary ---
Author Organization [employer] Address [address] [facility] 7t [place] [address] Care Team Providers Care Inside Steward/Stewardess Name Role Phone Marv Ramirez MD Primary Care Provide r Reason for Visit * Reason Onset Date Comments Chest Pain 12/04/2024 Encounter Details Date Type Department Care Team ([facility] st Contact Info) Description 12/04/2024 Telephone [facility] [address] [place], [place] [phone] Marv Ramirez MD [address] [place], [place] [phone] Chest Pain Social History Tobacco Use Types Packs/Day Years [...] encounter Miscellaneous Notes * Telephone Encounter - Lesly Sr RN - 12/04/2024 5:04 PM EDT Telephone call placed to main number on file. PERSONAL LINES APPRAISER Estephania on file answered. She stated sees pt daily and was at endo appt so can discuss this with me. She reports x3 weeks pt has had, thumping in chest intermittently. Has happened approx 3 times in the past 3 weeks. Not worsened with anything, doesn't notice if doing certain activity when it happens. Improves and resolves with rest after a few minutes. No recent illness, has never happened before. Unsure if related to blood pressure. Wouldn't describe as pain, it is thumping . Not happening currently and didn't happen today. She reports thatall of pt's cardiac testing in the past has been normal. Last episode a few days ago. They were advised by endo to call us for evaluation. Booked for 12/06 but advised if it happens again in the meantime, go to the ED. Estephania verbalized understanding and denied having any further questions or concerns at this time. * Telephone Encounter - Lesly Sr RN - 12/04/2024 3:08 PM EDT Telephone call placed to pt to triage as below. No answer, left v/m. Will retask. * Telephone Encounter - Mariama Agudelo RN - 12/04/2024 2:45 PM EDT TC incoming on critical line from Endo nurse. States pt expresses that he has been experiencing chest pain. No chest pain currently. Pt states that he has been having chest pain for 3 weeks. Occurs once a week, substernal chest pain, does not radiate to jaw or arm. This is new for pt, typically lasts 3-4 mins at a time and is relieved with rest. Symptoms discussed with Lesly COLEMAN, nurse to route to PCP team nurses to contact pt. documented in this encounter Plan of Treatment Upcoming Encounters Date Type Department Care Team (Late st Contact Info) Description 03/06/2025 10:00 AM EDT Office Visit [facility] [address] [place] [address] Marv Ramirez MD [address] [place] [phone] documented as of this encounter Visit Diagnoses Not on filedocumented in this encounter Additional Health Concerns Assessment Noted Time PHQ-9 Depression Total Score: 0 11/25/19 23 10:31 AM EDT documented as of this encounter Care Teams Inside Steward/Stewardess Relationship Specialty Start Date End Date Marv Ramirez MD [address] [place] [phone] PCP - General Internal Medicine 04/09/14 documented as of this encounter
--- OUTSIDE RECORDS SUMMARY | 2024-12-09 12:36 | XMS_ITS | Encounter Summary ---
Author Organization [facility] Address [address] [facility] [address] [place] [address] Care Team Providers Care Information Resources Director Name Role Phone Marv Ramirez MD Primary Care Provide r Reason for Visit * Reason Comments Med Refill Encounter Details Date Type Department Care Team ([facility] st Contact Info) Description 01/26/2024 Refill [facility] MED[facility] [address] [place], [place] [phone] Marv Ramirez MD [address] [place], [place] [phone] Social History Tobacco Use Types Packs/Day Years [...] as of this encounter Plan of Treatment Upcoming Encounters Date Type Department Care Team (Late st Contact Info) Description 03/06/2025 10:00 AM EDT Office Visit [facility] MED[facility] [address] [place] [address] Marv Ramirez MD [address] [place] [phone] documented as of this encounter Visit Diagnoses Not on filedocumented in this encounter Additional Health Concerns Assessment Noted Time PHQ-9 Depression Total Score: 0 11/25/19 23 10:31 AM EDT documented as of this encounter Care Teams Information Resources Director Relationship Specialty Start Date End Date Marv Ramirez MD [address] [place] [address] PCP - General Internal Medicine 04/09/14 documented as of this encounter
--- OUTSIDE RECORDS SUMMARY | 2024-12-09 12:36 | XMS_ITS | Encounter Summary ---
Author Organization [employer] Address [address] [place] [address] Care Team Providers Care E Business Consultant Name Role Phone Marv Ramirez MD Primary Care Provide r Encounter Details Date Type Department Care Team (Latest Contact Info) Description 12/06/2024 Travel Social History Tobacco Use Types Packs/Day Years Used Date Smoking Tobacco: Never Passive Smoke Exposure: Never Smokeless Tobacco: Never Alcohol Use Standard Drinks/Week Comments Never 0 (1 standard drink = 0.6 oz pur e alcohol) Depression Answer Date Recorded Patient Health Questionnaire-9 Score 0 11/24/2022 Housing Stability Answer Date Recorded What is your housing situation today? I have duane sing 09/19/[address] you li [...] Description 03/06/2025 10:00 AM EDT Office Visit [facility] MED[facility] [address] [place] [address] Marv Ramirez MD [address] [place] [phone] documented as of this encounter Visit Diagnoses Not on filedocumented in this encounter Additional Health Concerns Assessment Noted Time PHQ-9 Depression Total Score: 0 11/25/19 23 10:31 AM EDT documented as of this encounter Care Teams E Business Consultant Relationship Specialty Start Date End Date Marv Ramirez MD [address] [place] [address] PCP - General Internal Medicine 04/09/14 documented as of this encounter
--- OUTSIDE RECORDS SUMMARY | 2024-12-09 12:36 | XMS_ITS | Encounter Summary ---
Author Organization [employer] [facility] Address [address] [facility] 7t [place] [address] Care Team Providers Care Director Fixed Income Name Role Phone Marv Ramirez MD Primary Care Provide r Encounter Details Date Type Department Care Team (Late st Contact Info) Description 07/20/2022 Abstract [facility] [address] [place] [address] [phone] Marv Ramirez MD [address] [place] [address] [phone] Social History Tobacco Use Types Packs/Day Years [...] Description 03/06/2025 10:00 AM EDT Office Visit [facility] [address] [place] [address] [phone] Marv Ramirez MD [address] [place] [address] [phone] documented as of this encounter Procedures Procedure Name Priority Date/Time Associated Diagnosis Comments COLONOSCOPY Routine 04/25/2016 documented in this encounter Results * Colonoscopy (04/25/2016) Colonoscopy Tubular Adenoma/Hem orrhoids Comment:Dr Royal Jasso us Historical Provider [facility] Edited Result - Final documented in this encounter Visit Diagnoses Not on filedocumented in this encounter Care Teams Director Fixed Income Relationship Specialty Start Date End Date Marv Ramirez MD [address] [place] [phone] PCP - General Internal Medicine 04/09/14 documented as of this encounter
--- OUTSIDE RECORDS SUMMARY | 2024-12-09 12:36 | XMS_ITS | Encounter Summary ---
Author Organization [employer] Address [address] [facility] [address] 7t [place] [address] Care Team Providers Care House Parent Name Role Phone Marv Ramirez MD Primary Care Provide r Encounter Details Date Type Department Care Team ([facility] st Contact Info) Description 12/06/2024 9:15 AM EDT Office Visit [facility] [address] [place], [place] [phone] Lulu Fofana DO [address] [place], [place] [phone] Chest pain, unspecified type (Primary Dx); Type 2 diabetes mellitus with diabetic polyneuropathy, without long-term current use of insulin ([facility]) Social History Tobacco Use Types Packs/Day Years Used Date Smoking Tobacco: Never Passive Smoke Exposure: Never Smokeless Tobacco: Never Tobacco Cessation:Counseling Given: Not Answered Alcohol Use Standard Drinks/Week Comments Never 0 (1 standard drink = 0.6 oz pur e alcohol) Depression Answer Date Recorded Patient Health Questionnaire-9 Score 0 11/24/2022 Housing Stability Answer Date Recorded What is your housing situation today? I have duanemakayla turcios 09/19/[address] you [...] AM EDT documented as of this encounter Last Filed Vital Signs Vital Sign Reading Time Taken Comments Blood Pressure 128/60 12/06/2024 9:40 AM EDT Pulse 62 12/06/2024 9:40 AM EDT Temperature 36.3 ??C (97.3 ??F) 12/06/2024 9:40 AM ED T Respiratory Rate 20 12/06/2024 9:40 AM EDT Oxygen Saturation 98% 12/06/2024 9:40 AM EDT Inhaled Oxygen Concentration - - Weight 69 kg (152 lb 2 oz) 12/06/2024 9:40 AM ED T Height 167.6 cm (5' 6 ) 12/06/2024 9:40 AM EDT Body Mass Index 24.55 12/06/2024 9:40 AM EDT documented in this encounter Plan of Treatment Upcoming Encounters Date Type Department Care Team (Late st Contact Info) Description 03/06/2025 10:00 AM EDT Office Visit [facility] MED[facility] [address] [place] [address] Marv Ramirez MD 230 [place] [address] documented as of this encounter Procedures Procedure Name Priority Date/Time Associated Diagnosis Comments POCT GLYCATED HEMOGLOBIN, TOTAL Routine 12/06/2024 9:49 AM EDT Type 2 diabetes mellitus with diabetic polyneuropathy, without long-term current use of insulin ([facility]) POCT GLUCOSE Routine 12/06/2024 9:48 AM EDT Type 2 diabetes mellitus with diabetic polyneuropathy, without long-term current use of insulin ([facility]) documented in this encounter Results * (ABNORMAL) POCT HGB A1C (12/06/2024 9:49 AM EDT) Hemoglobin A1C 7.0(A) 4.0 - 6.0 % QC Media Lot # [id number] Lot# Expiration Date Blood 12/06/2024 9:49 AM EDT Lulu Fofana DO POINT OF CARE TEST ENTER/MARI T ORDERABLES Final Result * POCT Glucose (12/06/2024 9:48 AM EDT) Glucose Blood, POC 145 60 - 200 mg/dL QC Media Lot # [id number] Lot# Expiration Date Blood Capillary blood specimen / Unknown 12/06/2024 9:48 AM EDT Lulu Brigido DO POINT OF CARE TEST ENTER/MARI T ORDERABLES Final Result documented in this encounter Visit Diagnoses Diagnosis Chest pain, unspecified type- Primary Type 2 diabetes mellitus with diabetic polyneuropathy, without long-term current use of insulin ([facility]) documented in this encounter Additional Health Concerns Assessment Noted Time PHQ-9 Depression Total Score: 0 11/25/19 23 10:31 AM EDT documented as of this encounter Care Teams House Parent Relationship Specialty Start Date End Date Marv Ramirez MD [address] [place] [phone] PCP - General Internal Medicine 04/09/14 documented as of this encounter
--- OUTSIDE RECORDS SUMMARY | 2024-12-09 12:36 | XMS_ITS | Clinical Summary ---
Author Organization [employer] Address [address] [facility] 7t [place] [address] Care Team Providers Care Education Sales Consultant Name Role Phone Marv Ramirez MD Primary Care Provide r Allergies No known active allergies Medications glucose 4 g chewable tablet if needed. 12/30/19 15 Active insulin glargine (Lantus SoloStar) 100 UNIT/ML pen Inject 20 Units under the skin at bedtime. 10/05/19 22 Active FREESTYLE LITE test stripIndications:T ype 2 diabetes mellitus with diabetic polyneuropathy, without long-term current use of insulin ([facility]) TEST BLOOD SUGAR THREE TIMES DAILY 100 [...] 1 06/13/20 24 Active Sure Comfort Pen [place] 31G X 5 MM misc USE DIRECTED [...] Connors provided to his during last visit SECURITY SYSTEM ENGINEER The stitches were removed prior to last [...] number of Dr Connors provided to his SECURITY SYSTEM ENGINEER The stitches were removed today I provided [...] to rule out Skin CA Pt and physician assistant primary care agreable with plan Cellulitis of right hand [...] a week. He follows with Diabetes and Signals Collector/Analyst educator Hgb A1c 08/20/2024 : 7.8 from [...] Hernandez) . He follows with Diabetes and Signals Collector/Analyst educator Hgb A1c 05/23/2024 : 7.5 from [...] further follow-up in CDTM. Continue care with [facility] Endocr[facility]ology office - Medlist updated Monitoring: Hemoglobin [...] Hernandez) . He follows with Diabetes and Signals Collector/Analyst educator Hgb A1c 09/19/2023 : 10.3 Plan: [...] units sc q pm, ( Today his SECURITY SYSTEM ENGINEER tells me he is not injecting Lantus anymore) Novolog Flex pen 6 units in AM Synyardiy XR 12.12/999 BID, and Trulicity 3 mg /0.5 ml once a week. I contacted the Pharmacy and they confirmed he is picking up his med boxes regularly Pt isunder the care of Endocrinology (Dr Hernandez) . He follows with Diabetes and Signals Collector/Analyst educator Hgb A1c 09/19/2023 : 10.3 Plan: [...] admits that while he was away in [place] for over a month he was not adhering to a diabetic diet. He is also drinking orange juice by the [facility]. Pr counseled and educated about diabetic diet [...] He used to follow with Diabetes and Signals Collector/Analyst educator Hgb A1c 09/19/2023 : 10.3 Plan: [...] 07/05/2022 He also follows with Diabetes and Signals Collector/Analyst educator Hgb A1c 11/24/2022: 7.0 Plan: continue [...] 07/05/2022 He also follows with Diabetes and Signals Collector/Analyst educator Hgb A1c 08/09/2022 was 7.6 today [...] here 4 weeks ago Previous visit Pt's SECURITY SYSTEM ENGINEER told me that she had been taking [...] Encounters Date Type Department Care Team Description 12/06/2024 9:15 AM EDT Office Visit [facility] MED[facility]INE [address] [place] [phone] Lulu Fofana DO Chest pain, unspecified type (Primary Dx); Type 2 diabetes mellitus with diabetic polyneuropathy, without long-term current use of insulin ([facility]) 12/06/2024 Travel 12/04/2024 Telephone [facility] P[facility]IAT[facility] [address] [place] [phone] Marv Ramirez MD Chest Pain 12/04/2024 Orders Only GENERIC EXTERNAL DATA DEPARTMENT Provider, Generic External Data 10/11/2024 Telephone [facility] [address] [place] [phone] Marv Ramirez MD November09/28/2024 Refill [facility] [address] [place] [phone] Heaven Saxena FNP Type 2 diabetes mellitus without complication, with long-term current use of insulin (CMS/HCC) 09/19/2024 10:15 AM EST Office Visit [facility] [address] [place] [phone] Marv Ramirez MD Squamous cell carcinoma of back (Primary Dx); Type 2 diabetes mellitus with diabetic polyneuropathy, without long-term current use of insulin (CMS/HCC) 09/19/2024 Travel 09/12/2024 Telephone [facility] [address] [place], [place] [phone] Marv Ramirez MD Chart Prep 09/10/2024 Telephone [facility] [address] [place], [place] [phone] Lesly Sr, drop count associate from Last 3 Months Immunizations Name Administration [...] Mass Index 24.55 12/06/2024 9:40 AM EDT Plan of Treatment Upcoming Encounters Date Type Department Care Team (Late st Contact Info) Description 03/06/2025 10:00 AM EDT Office Visit [facility] [address] [place] [address] Marv Ramirez MD 230 [place] [address] Health Maintenance Due Date Last Done Comments [...] 1-dose 75+ series) 2024 COVID-19 Vaccine ( - season) 2024 07/26/2021, 01/01/2021, 12/04/2020 Lipid Panel 09/19/2024 09/19/2023, 05/0 10/2022, 06/14/2021, Additional history exists Depression Screening 02/22/2025 02/23/2024, 11/25/19 Diabetes: Foot Exam 02/22/2025 02/23/2024, 02/23/2024, 02/23/2024, Additional history exists Diabetes: Hemoglobin A1C 03/07/2025 025, 08/20/2024, 05/23/2024, Additional history exists SDOH Screening 09/19/2025 09/19/2024 Tobacco Screening 12/06/2025 12/06/2024 Colonoscopy 04/25/2026 04/25/2016 Colorectal Cancer Screening 04/25/2026 [...] polyneuropathy, without long-term current use of insulin ([facility]) POCT GLUCOSE Routine 12/06/2024 9:48 AM EDT Type 2 diabetes mellitus with diabetic polyneuropathy, without long-term current use of insulin ([facility]) GLUCOSE, WHOLE BLOOD Routine 12/04/2024 10:31 AM EDT POCT GLUCOSE Routine 09/19/2024 10:17 AM EST Type 2 diabetes mellitus with diabetic polyneuropathy, without long-term current use of insulin ([facility]) LIPID PANEL WITH REFLEX TO DIRECT LDL Routine 09/19/2023 11:16 AM EST Mixed hyperlipidemia ALBUMIN, RANDOM URINE W/CREATININE Routine 12/28/2022 10:40 AM EDT ZZZ HISTORICAL HEPATITIS C AB W/REFL TO HCV RNA, QN, PCR Routine 02/01/2022 11:29 AM EDT HM COLONOSCOPY Routine 04/25/2016 from Last 3 Months or Most Recently Relevant to Health Maintenance Results * (ABNORMAL) POCT HGB A1C (12/06/2024 9:49 AM EDT) Hemoglobin A1C 7.0(A) 4.0 - 6.0 % QC Media Lot # [id number] Lot# Expiration Date ,010,273 Blood 12/06/2024 9:49 AM EDT Lulu Fofana DO POINT OF CARE TEST ENTER/MARI T ORDERABLES Final Result * POCT Glucose (12/06/2024 9:48 AM EDT) Only the most recent of2 resultswithin the time period is included. Glucose Blood, POC 145 60 - 200 mg/dL QC Media Lot # [id number] Lot# Expiration Date Blood Capillary blood specimen / Unknown 12/06/2024 9:48 AM EDT Lulu Fofana DO POINT OF CARE TEST ENTER/MARI T ORDERABLES Final Result * (ABNORMAL) Glucose, Whole Blood (12/04/2024 10:31 AM EDT) Pathologist [facility] Glucose, Whole Blood 173(H) 60 - 115 mg/dL [facility] Comment:METER #: [id number] Testing performed in the Endocrinology Department [address] , [address], [facility]. 12/04/2024 10:3 1 AM EDT 12/04/2024 10:35 AM EDT us Generic External Data Provider LAB BLOOD ORDERAB LES Final Result [facility] [address] [place] [phone] * (ABNORMAL) Lipid Panel with Reflex to Direct LDL (09/19/2023 11:16 AM EST) Triglycerides 253(H) <150 mg/dL [facility] Comment:Desirable Triglyceri de: less than 150 mg/dLBorderline High Triglyceride 150-199 mg/dLHigh Triglyceride: 200-499 mg/dLVery High Triglyceride: greater than or equal to 5OO mg/dL Cholesterol 133 <200 mg/dL [facility] Comment:Desirable Cholestero l: less than 200 mg/dLBorderline High Cholesterol: 200-239 mg/dLHigh Cholesterol: greater than 239 mg/dL LDL Cholesterol Calculated 43 <100 mg/dL [facility] Comment:Desirable LDL: less than 100 mg/dLNear Optimal/Above Optimal LDL: 110- 129 mg/dLBorderline High LDL: 130-159 mg/dLHigh LDL: 160-189 mg/dLVery High LDL: greater than or equal to 190 mg/dL HDL Cholesterol 40(L) >40 mg/dL [facility] Comment:Desirable HDL: great er than 40 mg/dL Note: This HDL assay may give artificially low results in patients with liver disease. Blood 09/19/2023 11:1 6 AM EST 09/19/2023 1:43 PM EST Marv Lacy MD LAB BLOOD ORDERABLES Final Result Performing Organization Address [facility] Co de Phone Number [facility] [address] [place] [phone] * Albumin, Random Urine W/Creatinine (12/28/2022 10:40 AM EDT) Creatinine, Urine 73.18 mg/dL [facility] Microalbumin Urine 10.0 mg/L [facility] Microalbum Creatinine Ratio Ur 13.6 ug/mg cr [facility] Comment:Albumin/Creatinine R atio Reference Ranges: Normal: < 30 ug/mg creatinine Microalbuminuria: 30 - 300 ug/mg creatinineClinical Albuminuria: > 300 ug/mg creatinine 12/28/2022 10:4 0 AM EDT 12/28/2022 11:12 AM EDT us [facility] External Provider LAB URI NE ORDERABLES Final Result Performing Organization Address [facility]/ZIP Co de Phone Number [facility] [address] [place] [phone] * HEPATITIS C AB W/REFL TO HCV RNA, QN, PCR (02/01/2022 11:29 AM EDT) HEPATITIS C ANTIBODY NON-REACT ZOE NON-REACT [facility] INDEX <0.02 <1.00 [facility] Comment: ?? HCV antibody was non-reactive. There is no laboratory ?? evidence of HCV infection. ?? In most cases, no further action is required. However, if recent HCV exposure is suspected, a test for HCV RNA (test code 89532) is suggested. ?? For additional information please refer to [email or web address]/faq/XQP25g0 (This link is being provided for informational/ educational purposes only.) ?? 02/01/2022 11:2 9 AM EDT Marv Lacy MD HISTORICAL/NON ORDERA BLE LABS Final Result [facility] [address] * Colonoscopy (04/25/2016) Colonoscopy Tubular Adenoma/Hem orrhoids Comment:Dr Royal Jasso Historical Provider HEALTH MAINTENANCE Edited Result - Final from Last 3 Months or Most Recently Relevant to Health Maintenance Insurance [facility] STANDARD [facility] LONGTERM OPTIONS (HMO D-SNP) Care Teams Education Sales Consultant Relationship Specialty Start Date End Date Marv Ramirez MD [address] [place] [phone] PCP - General Internal Medicine 04/09/14
--- OUTSIDE RECORDS SUMMARY | 2024-12-09 12:36 | XMS_ITS | Encounter Summary ---
Author Organization [employer] Address [address] [facility] 7t [place] [address] Care Team Providers Care Tester Regulator Name Role Phone Marv Ramirez MD Primary Care Provide r Reason for Visit * Reason Comments Med Refill Encounter Details Date Type Department Care Team ([facility] st Contact Info) Description 07/16/2023 Refill [facility] [address] [place], [place] [phone] Bonita Yousif MD [address] [place], [place] [phone] Social History Tobacco Use Types Packs/Day Years [...] Description 03/06/2025 10:00 AM EDT Office Visit [facility] [address] [place] [address] Marv Ramirez MD [address] [place] [phone] documented as of this encounter Visit Diagnoses Not on filedocumented in this encounter Additional Health Concerns Assessment Noted Time PHQ-9 Depression Total Score: 0 11/25/19 23 10:31 AM EDT documented as of this encounter Care Teams Tester Regulator Relationship Specialty Start Date End Date Marv Ramirez MD [address] [place] [address] [phone] PCP - General Internal Medicine 04/09/14 documented as of this encounter
--- OUTSIDE RECORDS SUMMARY | 2024-12-09 12:36 | XMS_ITS | Encounter Summary ---
Author Organization [employer] [facility] Address [address] [facility] [address] 7t [place] [address] Care Team Providers Care Regional Operations Director Name Role Phone Marv Ramirez MD [...] Office Visit [facility] [address] [place] [address] Marv Ramirez MD [address] [place] [address] documented as of this encounter Procedures Procedure Name Priority Date/Time Associated Diagnosis Comments GLUCOSE, WHOLE BLOOD Routine 12/04/2024 10:31 AM EDT documented in this encounter Results * (ABNORMAL) Glucose, Whole Blood (12/04/2024 10:31 AM EDT) Glucose, Whole Blood 173(H) 60 - 115 mg/dL [facility] Comment:METER #: [id number] Testing performed in the Endocrinology Department [address] , [address], [facility]. 12/04/2024 10:3 1 AM EDT 12/04/2024 10:35 AM EDT us Generic External Data Provider LAB BLOOD ORDERAB LES Final Result [facility] [address] [place] [phone] documented in this encounter Visit Diagnoses Not on filedocumented in this encounter Additional Health Concerns Assessment Noted Time PHQ-9 Depression Total Score: 0 11/25/19 23 10:31 AM EDT documented as of this encounter Care Teams Regional Operations Director Relationship Specialty Start Date End Date Marv Ramirez MD [address] [place] [address] PCP - General Internal Medicine 04/09/14 documented as of this encounter
--- OUTSIDE RECORDS SUMMARY | 2024-12-09 12:36 | XMS_ITS | Encounter Summary ---
Author Organization [employer] [facility] Address [address] [facility] 7t [place] [address] Care Team Providers Care Lower In Supervisor Name Role Phone Marv Ramirez MD Primary Care Provide r Reason for Visit * Reason Comments Med Refill Encounter Details Date Type Department Care Team ([facility] st Contact Info) Description 08/01/2024 Refill [facility] [address] [place], [place] [phone] Marv Ramirez MD 230 [place], [place] [phone] Social History Tobacco Use Types Packs/Day Years [...] Description 03/06/2025 10:00 AM EDT Office Visit [facility] [address] [place] [address] Marv Ramirez MD [address] [place] [address] documented as of this encounter Visit Diagnoses Not on filedocumented in this encounter Additional Health Concerns Assessment Noted Time PHQ-9 Depression Total Score: 0 11/25/19 23 10:31 AM EDT documented as of this encounter Care Teams Lower In Supervisor Relationship Specialty Start Date End Date Marv Ramirez MD [address] [place] [phone] PCP - General Internal Medicine 04/09/14 documented as of this encounter
--- OUTSIDE RECORDS SUMMARY | 2024-12-09 12:36 | XMS_ITS | Encounter Summary ---
Author Organization [employer] [facility] Address [address] [facility] 7t [place] [address] Care Team Providers Care Clerical Methods Analyst Name Role Phone Marv Ramirez MD Primary Care Provide r Encounter Details Date Type Department Care Team (Late st Contact Info) Description 04/24/2023 Orders Only [facility] [address] [place], [place] [phone] Lulu Escobar LPN Social History Tobacco Use [...] Description 03/06/2025 10:00 AM EDT Office Visit [facility] [address] [place] [address] Marv Ramirez MD 230 [place], [place] [phone] documented as of this encounter Visit Diagnoses Not on filedocumented in this encounter Additional Health Concerns Assessment Noted Time PHQ-9 Depression Total Score: 0 11/25/19 23 10:31 AM EDT documented as of this encounter Care Teams Clerical Methods Analyst Relationship Specialty Start Date End Date Marv Ramirez MD [address] [place] [address] PCP - General Internal Medicine 04/09/14 documented as of this encounter
--- OUTSIDE RECORDS SUMMARY | 2024-12-09 12:36 | XMS_ITS | Clinical Summary ---
Author Organization [address] [place] [address] Address [address] [place] [phone] Phone Care Team Providers Care Digital Court Reporter Name Role Phone Marv Pérez MD Primary [...] neuropathy 07/05/2024 T2DM (type 2 diabetes mellitus) (CMS/HCC V24, CM S/HCC V28) 07/05/2024 Social History Tobacco Use Types Packs/Day [...] AM EDT Office Visit [facility] [place] [address] [phone] Ezequiel Mattson, DPM [address] [address] Health Maintenance Due Date Last Done Comments [...] patient's age to complete this topic Insurance [facility] Member Subscriber Plan / Payer (Ef fective 2018-Present) Name:Matthew Armstrong Relation to Subscriber:Self Name:Matthew Armstrong Payer ID:[id number] Group ID:[id number] Type:Not on file Address: [place] [address] [place] [phone] [address] Reporter Relationship Specialty Start Date End Date Marv Pérez MD [address] [place] [phone] PCP - General Internal Medicine 07/05/24
--- OUTSIDE RECORDS SUMMARY | 2024-12-09 12:36 | XMS_ITS | Encounter Summary ---
Author Organization [facility] Address [address] [facility] 7t [place] [address] Care Team Providers Care Hr Administrative Assistant Name Role Phone Marv Ramirez MD Primary Care Provide r Reason for Visit * Reason Comments Med Refill Encounter Details Date Type Department Care Team ([facility] st Contact Info) Description 02/01/2024 Refill [facility] [address] [place], [place] [phone] Marv Ramirez MD [address] [place], [place] [phone] Social History Tobacco Use Types Packs/Day Years [...] Description 03/06/2025 10:00 AM EDT Office Visit [facility] [address] [place] [address] Marv Ramirez MD [address] [place] [address] documented as of this encounter Visit Diagnoses Not on filedocumented in this encounter Additional Health Concerns Assessment Noted Time PHQ-9 Depression Total Score: 0 11/25/19 23 10:31 AM EDT documented as of this encounter Care Teams Hr Administrative Assistant Relationship Specialty Start Date End Date Marv Ramirez MD [address] [place] [address] PCP - General Internal Medicine 04/09/14 documented as of this encounter
--- OUTSIDE RECORDS SUMMARY | 2024-12-09 12:36 | XMS_ITS | Data Portability ---
Author Organization [place] [facility] Address [address] [place] [phone] Care Team Providers Care Airconditioning Drafting Officer Name Role Phone HIM CCA OTHER DASIA MARS Primary Care Provider Assessment Encounter Date Assessment Date Assessment LastModified by Organization Details LastModified Time 05/03/2024 05/03/2024 I provided real -time medical direction via phone for this encounter, and was available for additional phone based assistance as needed. I have reviewed and agree with the Assessment and Plan as documented by the Marking Stitcher. We discussed the diagnostic uncertainty of home [...] to call 911- verbalized understanding of instruction [email or web address] Not available 05/03/2024 15:29:17 Plan of Treatment Reminders Order Date Submit Date Provider Last Modified By Organization Details Last Modified Time Details Appointments None recorde d. Lab glucose , fingers tick, blood 024 05/03/20 24 [email or web address] [facility], [address] [place] [address], [phone] 15:30:30 Referral None recorde d. Procedures None [...] Glucose: mg/dl 249 Not Available [facility] [place] [address] [place] [address], [phone] 05/03/2024 15:30:07 Result Notes None recorded. Medical [...] [degF] 97 % 97 % 62 /min 02205.7 2 g 124 mm[Hg] 68 mm[Hg] Not Available [facility] - production 4 14:58:06 Social History None recorded. Functional Status None recorded. Mental Status None recorded. Family History Nothing Reported. Medical History No medical history recorded. Past Encounters Encounter ID Performer Location Encounter Start Date Encounter Closed Date Diagnosis/Indication Diagnosis SNOMED-CT Code Diagnosis ICD10 Code Diagnosis Note [id number] Deloris Borrero MD Main - [facility] [address] [place] [phone] 05/03/2024 14:58:01 05/06/2024 22:20:04 Cellulitis of right lower limb [id number] L03.115 Improving on doxycyclin e. Advised to [...] Juarez Member ID Guarantor Name 05/03/2024 1 [facility] - DOS ON OR AFTER 2022 - DUAL ELIGIBLE - LONG-TERM OPTIONS AND ONE CARE (MEDICARE REPLACEMENT/ADV ANTAGE - HMO) Matthew Armstrong [id number] Matthew Armstrong Notes Date Note Type Note Provider Name and Address Organization Details Recorded Time 05/03/2024 text/html CRC Nurse Triage Notes (Jolly Muniz): Reason For Request: Patient has a leg wound, and it doesn't look good, swollen. Chief Complaints: Cellulitis PMH: Diabetes Allergies: No Known Comments: CP and ENERGY CONSERVATION SPECIALIST on a 3-way call requesting a referral for member, member identified via name and . PMHx- DM. NKDA. Member with on/off ?cellulitis to his right ankle for about a month. Per ENERGY CONSERVATION SPECIALIST he went to the ED 04/30 and was prescribed Doxycycline, ankle improved, but now is becoming swollen (+pitting) and discolored again, with associated pain, no open areas. Member agreeable to a visit. .................. .................. .................. .................. .................. .................. .................. ............... Marking Stitcher Note From Conor Burnett: Pt co ankle pain right side interior. Pt seen in ED 04/30 and RX for doxycycline. Pt on day. Pt sts has had improvement from 3 days ago. Pt ENERGY CONSERVATION SPECIALIST was still concerned and requested a visit. [...] ER on 04/30. Deloris Borrero MD [address] [facility],[address], [place], [phone], opinions.h - MtoV 05/03/2024 15:30:40
--- OUTSIDE RECORDS SUMMARY | 2024-12-09 12:36 | XMS_ITS | Encounter Summary ---
Author Organization [facility] Address [address] [facility] 7t [place] [address] Care Team Providers Care Project Finance Analyst Name Role Phone Marv Ramirez MD Primary Care Provide r Reason for Visit * Reason Onset Date Comments Nurse Triage 12/13/2023 Encounter Details Date Type Department Care Team ([facility] st Contact Info) Description 12/13/2023 Telephone [facility] [address] [place], [place] [phone] Marv Ramirez MD [address] [place], [place] [phone] Nurse Triage Social History Tobacco Use Types [...] 12/13/2023 10:51 AM EDT Triage call with [employer] Research Clerk ID [id number] Pt reports glass in the right eye. [...] Upcoming Encounters Date Type Department Care Team ([facility] st Contact Info) Description 03/06/2025 10:00 AM EDT Office Visit [facility] [address] [place] [address] Marv Ramirez MD [address] [place] [address] documented as of this encounter Visit Diagnoses Not on filedocumented in this encounter Additional Health Concerns Assessment Noted Time PHQ-9 Depression Total Score: 0 11/25/19 23 10:31 AM EDT documented as of this encounter Care Teams Project Finance Analyst Relationship Specialty Start Date End Date Marv Ramirez MD [address] [facility] [place] [address] PCP - General Internal Medicine 04/09/14 documented as of this encounter
--- OUTSIDE RECORDS SUMMARY | 2024-12-09 12:36 | XMS_ITS | Encounter Summary ---
Author Organization [facility] Address [address] [facility] 7t [place] [address] Care Team Providers Care Tower Erector Name Role Phone Marv Ramirez MD Primary Care Provide r Reason for Visit * Reason Comments Med Refill Encounter Details Date Type Department Care Team ([facility] st Contact Info) Description 01/31/2024 Refill [facility] [address] [place], [place] [phone] Marv Ramirez MD [address] [place], [place] [phone] Social History Tobacco Use Types Packs/Day Years [...] Description 03/06/2025 10:00 AM EDT Office Visit [facility] [address] [place] [address] Marv Ramirez MD [address] [place] [address] documented as of this encounter Visit Diagnoses Not on filedocumented in this encounter Additional Health Concerns Assessment Noted Time PHQ-9 Depression Total Score: 0 11/25/19 23 10:31 AM EDT documented as of this encounter Care Teams Tower Erector Relationship Specialty Start Date End Date Marv Ramirez MD [address] [place] [address] PCP - General Internal Medicine 04/09/14 documented as of this encounter
== END 2024-12-09 11:10 | disposition home or self-care (01) ==
PROVIDERS: PCP Internal Medicine; Visit Provider Registered Nurse Diabetes Educator
DX: E11.65 Type 2 diabetes mellitus with hyperglycemia (principal); Z79.4 Long term (current) use of insulin

== ENCOUNTER → 2024-12-09 10:48 | Outpatient (BNVA) | payer OTHER, SELFPAY | PROVIDERS: PCP Internal Medicine; Visit Provider Registered Nurse Diabetes Educator | DX: E11.65 Type 2 diabetes mellitus with hyperglycemia (principal); E11.21 Type 2 diabetes mellitus with diabetic nephropathy; E11.42 Type 2 diabetes mellitus with diabetic polyneuropathy; Z79.4 Long term (current) use of insulin | CPT/HCPCS: 99211 ==

== ENCOUNTER 2025-01-27 09:01 | Outpatient (REF) | payer OTHER, SELFPAY ==
--- NOTE | ~2025-01-27 | US_ITS ---
CLINICAL HISTORY: I73.9 - Peripheral vascular disease, unspecified Ankle-brachial index Comparison: None Findings: Right arm: 136 mmHg Right posterior tibial: 145 mmHg Right dorsalis pedal: 150 mmHg SATHISH: 1.1 Left arm: 138 mmHg Left posterior tibial: 140 mmHg Left dorsalis pedal: 170 mmHg SATHISH: 1.2 Impression: 1. Right SATHISH normal 2. Left SATHISH normal This document has been electronically signed by: Leon Marino MD on 01/28/2025 06:46:31
--- OUTSIDE RECORDS SUMMARY | 2025-01-27 09:32 | XMS_ITS | Encounter Summary ---
Author Organization [employer] Address [address] [facility] 7t [place] [address] Care Team Providers Care Make Ready Mechanic Name Role Phone Marv Ramirez MD Primary Care Provide r Reason for Visit * Reason Onset Date Comments Nurse Triage 12/13/2023 Encounter Details Date Type Department Care Team ([facility] st Contact Info) Description 12/13/2023 Telephone [facility] [address] [place], [place] [phone] Marv Ramirez MD [address] [place], [place] [phone] Nurse Triage Social History Tobacco Use Types [...] 12/13/2023 10:51 AM EDT Triage call with [employer] Dewatering Filtering Supervisor ID [id number] Pt reports glass in the right eye. [...] Description 03/06/2025 10:00 AM EDT Office Visit [facility] [address] [place] [address] Marv Ramirez MD [address] [place] [address] documented as of this encounter Visit Diagnoses Not on filedocumented in this encounter Additional Health Concerns Assessment Noted Time PHQ-9 Depression Total Score: 0 11/25/19 23 10:31 AM EDT documented as of this encounter Care Teams Make Ready Mechanic Relationship Specialty Start Date End Date Marv Ramirez MD [address] [place] [address] PCP - General Internal Medicine 04/09/14 documented as of this encounter
== END 2025-01-27 09:02 | disposition home or self-care (01) ==
LOC: HO.US 09:01
PROVIDERS: PCP Internal Medicine; Visit Provider Nurse Practitioner Adult Health
DX: I73.9 Peripheral vascular disease, unspecified (principal)
CPT/HCPCS: 93923

== ENCOUNTER → 2025-01-27 09:03 | Outpatient (BNV) | payer OTHER, SELFPAY | PROVIDERS: PCP Internal Medicine; Visit Provider Radiology Vascular & Interventional Radiology | DX: I73.9 Peripheral vascular disease, unspecified (principal) | CPT/HCPCS: 93923 ==

== ENCOUNTER 2025-03-07 08:39 | Outpatient (REF) | payer OTHER, SELFPAY ==
--- OUTSIDE RECORDS SUMMARY | 2025-03-07 08:45 | XMS_ITS | Clinical Summary ---
Author Organization [facility] Address [address] [place] [address] Phone Care Team Providers Care Cell Operation Supervisor Name Role Phone Marv Pérez MD Primary [...] mellitus) (CMS/HCC V24, CM S/HCC V28) 07/05/2024 Encounters Date Type Department Care Team Description 01/30/2025 9:30 AM EDT Ancillary Procedure [facility] [address] [place] [address] Chest pain, unspecified type 01/08/2025 10:00 AM EDT Office Visit [facility] [place] [address] [place] [address] [place] [phone] Ezequiel Mattson, GLENNYM Primary osteoarthritis of both feet (Primary Dx); Dermatophytosis of nail; Pain in toe of right foot; Pain in toe of left foot; Corns and callosities; Metatarsalgia of both feet; Diabetic mononeuropathy simplex ([facility] V24, [facility] V28); Type II diabetes mellitus with peripheral circulatory disorder ([facility] V24, [facility] V28); Acquired hammer toe of right foot; Hammer toe of left foot from Last 3 Months Social History Tobacco Use Types Packs/Day Years [...] Sign Reading Time Taken Comments Blood Pressure 114/60 01/30/2025 9:39 AM EDT Pulse 65 08/08/2024 2:04 PM EST Temperature 36.5 C (97.7 F) 08/08/2024 2:04 PM EST Respiratory Rate - - Oxygen Saturation - - Inhaled Oxygen Concentration - - Weight 66.7 kg (147 lb) 01/30/2025 9:39 AM EDT Height 167.6 cm (5' 6 ) 01/30/2025 9:39 AM EDT Body Mass Index 23.73 01/30/2025 9:39 AM EDT Plan of Treatment Health Maintenance Due Date [...] - 1-dose 75+ series) 2024 COVID-19 Vaccine (4 - season) 2024 07/26/2021, 01/01/2021, 12/04/2020 Diabetes: Annual Urine Albumin-Creatinine Ratio (uACR) 07/05/2024 Hypertension/CHF/CAD Annual BMP Blood Test 07/05/2024 Influenza Vaccine (#1) 2025 , 05/25/2021, 08/02/2018, Additional history exists Diabetes: Blood Sugar Control Test (HGBA1C) 06/07/2025 12/06/2024, 05/23/2024 DTaP,Tdap,and Td Vaccines (3 - Td or Tdap) 04/16/2034 04/16/2024, 12/05/2007 HIB Vaccines Aged Out No longer eligi [...] Procedure Name Priority Date/Time Associated Diagnosis Comments TRANSTHORACIC ECHOCARDIOGRAM (TTE) COMPLETE W/ CONTRAST Routine 01/30/2025 10:17 AM EDT Chest pain, unspecified type from Last 3 Months Results * (ABNORMAL) TRANSTHORACIC ECHOCARDIOGRAM (TTE) COMPLETE W/ CONTRAST (01/30/2025 10:17 AM EDT) LV EDV (A2C) 138 mL CV PACS LV EDV (A4C) 117 mL CV PACS LV Diastolic Volume (BP) 132 62 - 150 mL CV PACS LV ESV (A2C) 74 mL CV PACS LV ESV (A4C) 60 mL CV PACS LV Systolic Volume (BP) 67(A) 21 - 61 mL CV PACS IVSD 0.8 0.6 - 1.0 cm CV PACS LVIDD 4.8 4.2 - 5.8 cm CV PACS LVIDS 3.5 2.5 - 4.0 cm CV PACS LVOT Diameter 2.0 cm CV PACS LVPWD 0.9 0.6 - 1.0 cm CV PACS MV E' Tissue Velocity Lateral 7 cm/s CV PACS MV E' Tissue Velocity Septal 5 cm/s CV PACS Ejection Fraction (A2C) 46 % CV PACS Ejection Fraction (A4C) 48 % CV PACS Ejection Fraction (BP) 47 % CV PACS LVOT Area 3.1 cm2 CV PACS Left Atrium Minor Johnston 5.3 cm CV PACS Left Atrium Major Johnston 5.5 cm CV PACS LA Area Sys (A2C) 21 cm2 CV PACS LA Area Sys (A4C) 16 cm2 CV PACS LA Volume (BP) 50 mL CV PACS RA Area 16.6 cm2 CV PACS RA 2D Volume 43 mL CV PACS Aortic Sinus Valsalva 4.1 cm CV PACS Ascending Aorta 4.0 cm CV PACS MV Deceleration Kittson 2.7 m/s2 CV PACS E Wave Deceleration Time 261(A) 119 - 242 ms CV PACS MV PHT 76 ms CV PACS MV Peak A Kuldeep 0.80 m/s CV PACS MV Peak E Kuldeep 0.70 m/s CV PACS MV Area PHT 2.9 cm2 CV PACS PV Acceleration Time 123 ms CV PACS RV Diastolic Basal Dimension 3.9 2.5 - 4.1 cm CV PACS RV S' 10 cm/s CV PACS TAPSE 21 mm CV PACS TR Peak Velocity 2.40 m/s CV PACS TR Peak Gradient 23 mmHg CV PACS LV ESV Index (A4C) 34 mL/m2 CV PACS LV EDV Index (A4C) 67 mL/m2 CV PACS E/E' Ratio Septal 14 CV PACS E/E' Ratio Averaged 12 CV PACS Relative Wall Thickness ratio 0.36 0.24 - 0.42 CV PACS FS 27 % CV PACS LV Mass 2D 129 96 - 200 g CV PACS Ascending Aorta Index 2.29 cm/m2 CV PACS RA 2D Volume Index 25 18 - 32 mL/m2 CV PACS LVIDD Index 2.74 cm/m2 CV PACS LVIDS Index 2.00 cm/m2 CV PACS E/A Ratio 0.9 0.8 - 2.0 CV PACS E/E' Ratio Lateral 10 CV PACS LV Systolic Volume Index (BP) 0(A) 11 - 31 mL/m2 CV PACS LV Diastolic Volume Index (BP) 0(A) 34 - 74 mL/m2 CV PACS LA Volume Index (BP) 28 mL/m2 CV PACS LV Mass Index 2D 78 50 - 102 g/m2 CV PACS LV EDV Index (A2C) 79 mL/m2 CV PACS LV ESV Index (A2C) 42 mL/m2 CV PACS BSA 1.76 m2 CV PACS Right Ventricular Peak Systolic Pressure 26 mmHg CV PACS Est. RA Pressure 3 mmHg CV PACS LA Volume (A-L) 61 mL CV PACS LA Volume Index (A-L) 35 mL/m2 CV PACS RV Free Wall Peak S' 10 cm/s CV PACS RA Major Johnston 5.2 cm CV PACS RA Major Johnston Index 3.0(A) 2.1 - 2.7 cm/m2 CV PACS LV EF MOD 2C 46 % CV PACS LV EF 4C A-L 49 % CV PACS LV EDV 4C A-L 120 mL CV PACS LV Length Sys (A4C) 7.1 cm CV PACS LV Length Sommer (A4C) 9.2 cm CV PACS Left Ventricular Stroke Volume by 2-D Biplane-MOD 65 mL CV PACS Anatomical Region Laterality Modality Ultrasound Narrative 02/21/2025 9:16 AM EDT Left ventricle cavity size is normal. There is normal left ventricular wall thickness. There is mild, global LV systolic dysfunction with ejection fraction of 45 to 50%. Right ventricle cavity is normal. Right ventricular systolic function is normal. There is grade 1 diastolic dysfunction consistent with normal left atrial pressure. There is normal pulmonary artery systolic pressure as below. There is no hemodynamically significant valve disease. 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 No prior echocardiograms in our system for comparison. Left Ventricle Left ventricle cavity size is normal. Wall thickness is normal. Systolic function is mildly decreased with an ejection fraction of 45-50%. Calculated ejection fraction by Yi's biplane method is 47%. Mild global LV hypokinesis is present with more prominence in the septum and inferior wall. There is grade I (mild) diastolic dysfunction and normal left atrial pressure. Right Ventricle Right ventricle cavity appears normal. Systolic function is normal. Left Atrium Left atrium cavity size is normal. Right Atrium Right atrium cavity is normal. IVC/SVC Inferior vena cava structure is normal. RA pressures is estimated to be 3 mmHg (IVC diameter <21 mm and decreases >50% during inspiration). Mitral Valve The leaflets are mildly thickened. There is trace regurgitation. There is no evidence of mitral valve stenosis. Tricuspid Valve The leaflets exhibit normal excursion. There is mild regurgitation. The RVSP is estimated at 26 mmHg. Aortic Valve The aortic valve is trileaflet. The leaflets are mildly thickened. There is trace regurgitation. There is no evidence of aortic valve stenosis. Pulmonic Valve Pulmonic valve structure is normal. There is no pulmonic valve regurgitation. Ascending Aorta The Sinus of Valsalva is (4.1 cm). The ascending aorta is (4.0 cm). Pericardium There is no pericardial effusion. Study Details Overall the study quality was adequate. Definity contrast was given to enhance imaging. Study was difficult due to: poor endocardial visualization. us Lulu Fofana DO CV ECHO PROCEDURES Final R esult from Last 3 Months Insurance [facility] Member Subscriber Plan / Payer (Ef fective 2018-Present) Name:Matthew Armstrong Relation to Subscriber:Self Name:Matthew Armstrong Payer ID:[id number] Group ID:[id number] Type:Not on file Address: [place] [address] [place] [address] Care Teams Cell Operation Supervisor Relationship Specialty Start Date End Date Marv Pérez MD [address] [place] [id number] PCP - General Internal Medicine 07/05/24
--- OUTSIDE RECORDS SUMMARY | 2025-03-07 08:45 | XMS_ITS | Encounter Summary ---
Author Organization [employer] Address [address] [facility] 7t [place] [address] Care Team Providers Care Proof Plate Maker Name Role Phone Marv Ramirez MD Primary Care Provide r Reason for Visit * Reason Onset Date Comments Nurse Triage 12/13/2023 Encounter Details Date Type Department Care Team ([facility] st Contact Info) Description 12/13/2023 Telephone [facility] [address] [place], [place] [phone] Marv Ramirez MD [address] [place], [place] [phone] Nurse Triage Social History Tobacco Use Types [...] 12/13/2023 10:51 AM EDT Triage call with [employer] Casino Supervisor ID [id number] Pt reports glass in the right eye. [...] Care Team (Late st Contact Info) Description 06/05/2025 9:15 AM EDT Office Visit [facility] [address] [place] [address] Marv Ramirez MD [address] [place] [address] documented as of this encounter Visit Diagnoses Not on filedocumented in this encounter Additional Health Concerns Assessment Noted Time PHQ-9 Depression Total Score: 0 11/25/19 23 10:31 AM EDT documented as of this encounter Care Teams Proof Plate Maker Relationship Specialty Start Date End Date Marv Ramirez MD [address] [place] [address] PCP - General Internal Medicine 04/09/14 documented as of this encounter
--- OUTSIDE RECORDS SUMMARY | 2025-03-07 08:45 | XMS_ITS | Data Portability ---
Author Organization [facility], [facility] Address [address] [place] [phone] Care Team Providers Care Powder Blender And Pourer Name Role Phone HIM CCA OTHER DASIA MARS Primary Care Provider Assessment Encounter Date Assessment Date Assessment LastModified by Organization Details LastModified Time 05/03/2024 05/03/2024 I provided real -time medical direction via phone for this encounter, and was available for additional phone based assistance as needed. I have reviewed and agree with the Assessment and Plan as documented by the Nuclear Plant Operator. We discussed the diagnostic uncertainty of home [...] to call 911- verbalized understanding of instruction [email or web address] Not available 05/03/2024 15:29:17 Plan of Treatment Reminders Order Date Submit Date Provider Last Modified By Organization Details Last Modified Time Details Appointments None recorde d. Lab glucose , fingers tick, blood 024 05/03/20 24 [email or web address] [facility], [address] [place] [address], [phone] 15:30:30 Referral None recorde d. Procedures None [...] Glucose: mg/dl 249 Not Available Main - [address], [phone] 05/03/2024 15:30:07 Result Notes None recorded. Medical [...] Pulse oximetry Heart rate Body weight Systolic And Diastolic Provider Name and Address Organization Details Last Updated DateTime 4 16 /min 98.1 [degF] 97 % 97 % 62 /min 48885.7 2 g 124/68 mm[Hg] Not Available [facility] - production 4 14:58:06 Social History None recorded. Functional Status None recorded. Mental Status None recorded. Family History Nothing Reported. Medical History No medical history recorded. Past Encounters Encounter ID Performer Location Encounter Start Date Encounter Closed Date Diagnosis/Indication Diagnosis SNOMED-CT Code Diagnosis ICD10 Code Diagnosis Note [id number] Deloris Borrero MD Main - [facility] [address] [place] [phone] 05/03/2024 14:58:01 05/06/2024 22:20:04 Cellulitis of right lower limb [id number] L03.115 Improving on doxycyclin e. Advised to elevate, finish the doxycyclin e, follow-up with PCP to discuss improving blood sugar control-pa tient does not monitor self well Health Concerns Section Related Observation LastModified by Organization Detai ls LastModified Time None Recorded Concern Status LastModified by Organization Details LastModified Time None Recorded Advance Directives Directive None Recorded Payers Insurance Date Sequence Insurance Name Policy Number Policy Juarez Covered Member ID Juarez Member ID Guarantor Name 05/03/2024 1 [facility] - DOS ON OR AFTER 2022 - DUAL ELIGIBLE - FPC OPTIONS AND ONE CARE (MEDICARE REPLACEMENT/ADV ANTAGE - HMO) Matthew Armstrong [id number] Matthew Armstrong Notes Date Note Type Note Provider Name and Address Organization Details Recorded Time 05/03/2024 text/html CRC Nurse Triage Notes (Jolly Muniz): Reason For Request: Patient has a leg wound, and it doesn't look good, swollen. Chief Complaints: Cellulitis PMH: Diabetes Allergies: No Known Comments: CP and MARKETING PROGRAM MANAGER on a 3-way call requesting a referral for member, member identified via name and . PMHx- DM. NKDA. Member with on/off ?cellulitis to his right ankle for about a month. Per MARKETING PROGRAM MANAGER he went to the ED 04/30 and was prescribed Doxycycline, ankle improved, but now is becoming swollen (+pitting) and discolored again, with associated pain, no open areas. Member agreeable to a visit. .................. .................. .................. .................. .................. .................. .................. ............... Nuclear Plant Operator Note From Conor Burnett: Pt co ankle pain right side interior. Pt seen in ED 04/30 and RX for doxycycline. Pt on day. Pt sts has had improvement from 3 days ago. Pt MARKETING PROGRAM MANAGER was still concerned and requested a visit. Pt denies fever , edema, weeping, cp, sob, NVD. Photo of ankle uploaded. Area not hot to touch , mild discoloration. Not painful upon palpation. No pitting edema. Afebrile. Baseline vitals assessed. Vitals WNL BG 249 . [facility] contacted and advised pt to follow up with pcp in regards to getting BS under better control. Pt advised to finish course of antibiotics. Pt education on signs indicating the ER. .................. .................. .................. .................. .................. .................. .................. ............... Disposition: Fulfilled SEGMD: As above-patient denies fever, chills, shortness of breath, calf pain. Patient is only on day 3 of the 7-day course of doxycycline. Originally had a cut over 3 weeks ago was treated then it got infected leading him to the ER on 04/30. Deloris Borrero MD [address] [place] [address],[address], [place], [phone], [employer] 05/03/2024 15:30:40
--- OUTSIDE RECORDS SUMMARY | 2025-03-07 08:45 | XMS_ITS | Patient Health Record ---
Author Organization [facility] Address [address] [place] [address] Care Team Providers Care Criminal Records Technician Name Role Phone Benedict Metz Jr Reason For Referral No Information Plan Of Treatment No Information
[2025-03-07 11:31] LABS: MANUAL DIFF FLAG NO
[2025-03-07 11:50] LABS: Hematocrit 36.0 % (42.0-52.0); Hemoglobin 11.6 g/dl (14.0-18.0); Imm Gran Abs Auto 0.02 X10*3/uL (0.00-0.03); Imm Gran Pct Auto 0.5 % (0.0-0.4); Lymphocytes Absolute Auto 1.2 X10*3/uL (1.2-4.9); Mean Corpuscular HGB Conc 32.2 g/dl (31.0-36.0); Mean Corpuscular Hemoglobin 28.2 pg (27.0-33.0); Mean Corpuscular Volume 87.6 fL (80.0-98.0); NRBC Abs Auto 0.000 X10*3/uL (0.0-0.012); NRBC Pct Auto 0.0 /100WBC (0.0-0.2); Platelet Count 118 X10*3/uL (160-400); Red Blood Count 4.11 X10*6/uL (4.60-5.80); White Blood Count 3.8 X10*3/uL (4.8-10.8)
[2025-03-07 11:55] LABS: Alanine Aminotransferase 30 U/L (0-40); Albumin Level 4.1 g/dL (3.5-5.0); Alkaline Phosphatase 79 U/L (39-117); Anion Gap 9 (12-20); Aspartate Amino Transferase 29 U/L (5-37); Blood Urea Nitrogen 19 mg/dL (9-16); Calcium 8.7 mg/dL (8.4-10.2); Carbon Dioxide 31 mmol/L (22-29); Chloride 104 mmol/L (96-108); Cholesterol 125 mg/dL (<200); Estimated Glomerular Filt Rate > 60; HDL Cholesterol 36 mg/dL (>40); Potassium 4.0 mmol/L (3.3-5.1); Sodium 140 mmol/L (135-145); Total Protein 6.8 g/dL (6.5-8.0); Triglycerides 121 mg/dL (<150)
[2025-03-07 11:59] LABS: Alanine Aminotransferase 31 U/L (0-40); Albumin Level 4.1 g/dL (3.5-5.0); Alkaline Phosphatase 81 U/L (39-117); Anion Gap 10 (12-20); Aspartate Amino Transferase 30 U/L (5-37); Blood Urea Nitrogen 19 mg/dL (9-16); Calcium 8.8 mg/dL (8.4-10.2); Carbon Dioxide 30 mmol/L (22-29); Chloride 104 mmol/L (96-108); Cholesterol 128 mg/dL (<200); Estimated Glomerular Filt Rate > 60; HDL Cholesterol 36 mg/dL (>40); Potassium 4.2 mmol/L (3.3-5.1); Sodium 140 mmol/L (135-145); Total Protein 7.1 g/dL (6.5-8.0); Triglycerides 126 mg/dL (<150)
[2025-03-07 12:08] LABS: Microalbum/Creatinine Ratio Ur 6.5 ug/mg cr (<30)
[2025-03-07 12:11] LABS: Thyroid Stimulating Hormone 6.59 uIU/mL (0.32-4.0)
[2025-03-07 12:14] LABS: Free T4 (Free Thyroxine) 0.74 ng/dL (0.71-1.85)
== END 2025-03-07 08:40 | disposition home or self-care (01) ==
LOC: HO.HHCL 08:39
PROVIDERS: Nurse Practitioner Adult Health; PCP Internal Medicine; Visit Provider Internal Medicine
DX: E11.42 Type 2 diabetes mellitus with diabetic polyneuropathy (principal); E78.2 Mixed hyperlipidemia; E11.65 Type 2 diabetes mellitus with hyperglycemia; Z79.4 Long term (current) use of insulin; E03.8 Other specified hypothyroidism; I10 Essential (primary) hypertension
CPT/HCPCS: 36415; 80053; 80061; 82043; 82570; 84439; 84443; 84681; 85025; 86341; 86376

== ENCOUNTER 2025-04-02 10:09 | Outpatient (AMB) | payer OTHER, SELFPAY ==
[2025-04-02 10:17] VITALS: BP 112/62; PULSE 72; O2SAT 98; BMI 25.3
--- NOTE | 2025-04-02 10:17 | A.OFFVIS_ITS ---
Vital Signs 04/02/25 10:17 Height 5 ft 5 in Weight 152 lb 1.903 oz BMI 25.3 BP 112/62 Blood Pressure Location Rt brachial Position Sitting Pulse 72 Pulse Source Pulse Oximeter Pulse Oximetry (%) 98 Oxygen Delivery Method Room Air Intake Visit Reasons: T2DM Intake Note: Patient present today to follow up on Type 2 Diabetes Mellitus. Last Diabetic Eye exam: 02/26/2024 Last Podiatry Visit: Patient saw the senior sales executive a few months ago, does not recall when. Most Recent HgA1C: 8.3%, 04/02/2025 Random Glucose: 261 mg/dL, Today Radio Message Router Required: Yes Radio Message Router Language: Production Underwriter Services: Radio Message Router Offered & Declined Information Interpreted: non-clinical & clinical Accompanied by: Other Relationship Allergies No Known Allergies Allergy (Verified 04/02/25 10:18) HPI Comments Details: The patient is a 75 year old male presenting for diabetic follow up He has DM type 2 diagnosed 01/17/2003. He is tolerating medication well. He was changed from Trulicity to Mounjaro due to ineffectiveness Current meds Lantus 20 units daily-he was in [place] without this medication for the past few weeks Humalog 6 units before breakfast, lunch and dinner 15 min before food Synjardy 12.12/999 mg b.i.d. Mounjaro 5.0 mg weekly No recent hypoglycemia,he has been instructed to carry glucose tablets Freestyle harmeet sensor 3 average glucose: 163 14 day continuous glucose sensor report reviewed POC A1C today 8.3 GMI 9.4% from 7.2 % TIme in ranges: 49 % very high (above 250) 42% high (181-250) 9% in range (70-180] 0 % low (69-55) 0 % very low (below 54) Has retinopathy: Last ophthalmology evaluation 10/2024 has stable retinopathy, sees opth every 6 monhs, he has proliferative retinopathy, he reports he had laser treatment in the past, no recent laser Has neuropathy: He sees a senior sales executive regularly and has diabetic shoes, he has a podiatry appointment scheduled Has nephropathy: He has had chest pain once weekly substernal without radiation to jaw or arm lasting a few minutes. This is happened when he has been walking. Relieved after sitting down for 2-3 minutes. Started 3 weeks ago and he has had a weekly episode. Last occurred 1 week ago No dyspnea Denies nocturia , - polydipsia, + numbness, tingling, denies polyuria. ROS CONSTITUTIONAL: Denies weight loss, fever and chills. HEENT: Denies changes in vision and hearing. RESPIRATORY: Denies SOB and cough. CV: Denies palpitations and CP GI: Denies abdominal pain, nausea, vomiting and diarrhea. : Denies dysuria and urinary frequency. MSK: Denies new myalgia and joint pain. SKIN: Denies rash and pruritus. NEUROLOGICAL: Denies headache PSYCHIATRIC: Denies recent changes in mood. PHYSICAL EXAM: GENERAL: Alert and oriented x 3. NAD EYES: EOMI. Anicteric. HENT: Moist mucous membranes. No scleral icterus. No cervical lymphadenopathy. LUNGS: Clear to auscultation bilaterally. CARDIOVASCULAR: Regular rate and rhythm. No murmur. No JVD. ABDOMEN: Soft, non-tender +bs EXTREMITIES: No edema. Non-tender. SKIN: No rashes or lesions. Warm. NEUROLOGIC: No focal neurological deficits. CN II-XII grossly intact PSYCHIATRIC: Cooperative. Appropriate mood and affect. [facility] Medical History (Updated 03/07/25 @ 13:13 by Osiris Mcfarland NP) TSH (thyroid-stimulating hormone deficiency) Colon cancer screening Hypothyroidism Proliferative diabetic retinopathy associated with type 2 diabetes mellitus Hx of lymphoma Peripheral axonal neuropathy Erectile dysfunction Type 2 diabetes mellitus with hyperglycemia, with long-term current use of insulin Dyslipidemia Essential hypertension Diabetic nephropathy associated with type 2 diabetes mellitus Diabetic polyneuropathy associated with type 2 diabetes mellitus Surgical History Hx of local excision of skin lesion Hx of colonoscopy Family History Father Cancer Mother Diabetes Social History Household Members: None Housing: Apartment Housing Other:: Has DISEASE CASE MANAGER: Mabel Peres Are you a primary care program director to a significant other at home: No Do you presently have visiting nurse or other home services: Yes (livery car driver) Alcohol intake: never Patient Tobacco Use Status: Never used Tobacco service: No Current occupational status: disabled Physical Exam Vital Signs: Last Vital Signs Pulse 72 04/02/25 10:17 BP 112/62 04/02/25 10:17 Pulse Ox 98 04/02/25 10:17 Oxygen Delivery Method Room Air 04/02/25 10:17 BMI result Body Mass Index 25.3 Results AMB Hemoglobin A1c AMB Hemoglobin A1c 8.3 % Last Edit by CRISTOBAL Tyson on 04/02/25 10:33 Results Reviewed Results Reviewed: Laboratory Last Values Glucose (Clinic) 261 mg/dL (60-115) H 04/02/25 10:22 Assessment & Plan Assessment & Plan (1) Type 2 diabetes mellitus with hyperglycemia, with long-term current use of insulin: Code(s): E11.65 - Type 2 diabetes mellitus with hyperglycemia; Z79.4 - senior care (current) use of insulin Category: Medical (2) Diabetic nephropathy associated with type 2 diabetes mellitus: Code(s): E11.21 - Type 2 diabetes mellitus with diabetic nephropathy Category: Medical (3) Diabetic polyneuropathy associated with type 2 diabetes mellitus: Code(s): E11.42 - Type 2 diabetes mellitus with diabetic polyneuropathy Category: Medical Plan 75 year old for diabetic follow up He has been in [place]-less dietary discretion and without Lantus for weeks. He just restarted the medication today. As such A1C is suboptimal Will have him return in one month for BG review. Advised to bring meter. Orders: Orders AMB Hemoglobin A1c Today E11.65 - Type 2 diabetes mellitus with hyperglycemia, Z79.4 - ocean transportation intermediary (current) use of insulin Coding Level of Care Code Est Pt Level 4 (72634) Diagnoses Type 2 diabetes mellitus with hyperglycemia, with long-term current use of insulin E11.65; Z79.4 Diabetic nephropathy associated with type 2 diabetes mellitus E11.21 Diabetic polyneuropathy associated with type 2 diabetes mellitus E11.42
[2025-04-02 10:29] LABS: Glucose, Whole Blood 261 mg/dL (60-115)
--- OUTSIDE RECORDS SUMMARY | 2025-04-02 10:44 | XMS_ITS | Encounter Summary ---
Author Organization [employer] Address [address] [facility] 7t [place] [address] Care Team Providers Care Block Greaser Name Role Phone Marv Ramirez MD Primary Care Provide r Reason for Visit * Reason Onset Date Comments Nurse Triage 12/13/2023 Encounter Details Date Type Department Care Team ([facility] st Contact Info) Description 12/13/2023 Telephone [facility] MEDICINE [address] [place], [place] [phone] Marv Ramirez MD [address] [place], [place] [phone] Nurse Triage Social History Tobacco Use Types [...] 12/13/2023 10:51 AM EDT Triage call with [email or web address] Environmental Conservation Officer [place] [id number] Pt reports glass in the right eye. [...] Description 06/05/2025 9:15 AM EDT Office Visit [facility] MEDICINE [address] [place] [address] Marv Ramirez MD [address] [place] [address] documented as of this encounter Visit Diagnoses Not on filedocumented in this encounter Additional Health Concerns Assessment Noted Time PHQ-9 Depression Total Score: 0 11/25/19 23 10:31 AM EDT documented as of this encounter Care Teams Block Greaser Relationship Specialty Start Date End Date Marv Ramirez MD [address] [place] [address] PCP - General Internal Medicine 04/09/14 documented as of this encounter
--- OUTSIDE RECORDS SUMMARY | 2025-04-02 10:45 | XMS_ITS | Patient Health Record ---
Author Organization [facility] Address [address] [place] [address] Care Team Providers Care Car Body Designer Name Role Phone Benedict Metz Jr Reason For Referral No Information Plan Of Treatment No Information
--- OUTSIDE RECORDS SUMMARY | 2025-04-02 10:45 | XMS_ITS | Clinical Summary ---
Author Organization [facility] Address [address] [place] [address] Phone Care Team Providers Care Separations Scientist Name Role Phone Marv Pérez MD Primary [...] Description 01/30/2025 9:30 AM EDT Ancillary Procedure [facility] [address] [place] [address] Chest pain, unspecified type 01/08/2025 10:00 AM EDT Office Visit [facility] - [place] [address] [place] [phone] Ezequiel Mattson, GLENNYM Primary osteoarthritis of both feet (Primary Dx); Dermatophytosis of nail; Pain in toe of right foot; Pain in toe of left foot; Corns and callosities; Metatarsalgia of both feet; Diabetic mononeuropathy simplex ([facility] V24, [facility] V28); Type II diabetes mellitus with peripheral circulatory disorder ([facility] V24, [facility] V28); Acquired hammer toe of right [...] - PCV20 or PCV21) 06/25/2020 06/25/2015, 09/02/2013 Cholesterol Screening (Lipid Panel) 07/31/2022 Falls Risk Assessment 07/31/2022 Hepatitis C Screening 07/31/2022 Medicare Annual Wellness Visit 07/31/2022 Social Influencers of Health Screening 07/31/2022 RSV Immunization Adult Patients (1 - 1-dose 75+ series) 2024 COVID-19 Vaccine (4 - season) 2024 07/26/2021, 01/01/2021, 12/04/2020 Diabetes: Annual Urine Albumin-Creatinine Ratio (uACR) 07/05/2024 Hypertension/CHF/CAD Annual BMP Blood Test 07/05/2024 Depression Screening 08/28/2024 Influenza Vaccine (#1) 2025 , 05/25/2021, 08/02/2018, [...] 3.1 cm2 CV PACS Left Atrium Minor Sterling 5.3 cm CV PACS Left Atrium Major Sterling 5.5 cm CV PACS LA Area Sys (A2C) 21 cm2 CV PACS LA Area Sys (A4C) 16 cm2 CV PACS LA Volume (BP) 50 mL CV PACS RA Area 16.6 cm2 CV PACS RA 2D Volume 43 mL CV PACS Aortic Sinus Valsalva 4.1 cm CV PACS Ascending Aorta 4.0 cm CV PACS MV Deceleration [place] 2.7 m/s2 CV PACS E Wave Deceleration [...] S' 10 cm/s CV PACS RA Major Sterling 5.2 cm CV PACS RA Major [place] Index 3.0(A) 2.1 - 2.7 cm/m2 CV [...] was difficult due to: poor endocardial visualization. Lulu Fofana DO CV ECHO PROCEDURES Final R esult from Last 3 Months Insurance [facility] Member Subscriber Plan / Payer (Ef fective 2018-Present) Name:[place] Armstrong Relation to Subscriber:Self Name:[place] Armstrong Payer ID:[id number] Group ID:[id number] Type:Not on file Address: [address] [place] [address] [employer] MEDICARE Member Subscriber Plan / Payer (Ef fective 2023-Present) Name:[place] Armstrong Relation to Subscriber:Self Name:Matthew Armstrong Payer ID:[id number] Group ID:Not on file Type:Not on file Address: [address] [place] [address] Care Teams Separations Scientist Relationship Specialty Start Date End Date Marv Pérez MD [address] [place] [id number] PCP - General Internal Medicine 07/05/24
== END 2025-04-02 10:42 | disposition home or self-care (01) ==
LOC: HO.ENCR 10:10
PROVIDERS: PCP Internal Medicine; Visit Provider Internal Medicine
DX: E11.65 Type 2 diabetes mellitus with hyperglycemia (principal); Z79.4 Long term (current) use of insulin; E11.21 Type 2 diabetes mellitus with diabetic nephropathy; E11.42 Type 2 diabetes mellitus with diabetic polyneuropathy

== ENCOUNTER → 2025-04-02 10:09 | Outpatient (BNVA) | payer OTHER, SELFPAY | PROVIDERS: PCP Internal Medicine; Visit Provider Internal Medicine | DX: E11.65 Type 2 diabetes mellitus with hyperglycemia (principal); E11.3559 Type 2 diabetes mellitus with stable proliferative diabetic retinopathy, unspecified eye; E11.21 Type 2 diabetes mellitus with diabetic nephropathy; E11.42 Type 2 diabetes mellitus with diabetic polyneuropathy; Z79.4 Long term (current) use of insulin | CPT/HCPCS: 82947; 83036; 99212 ==

== ENCOUNTER 2025-05-15 09:35 | Outpatient (AMB) | payer OTHER, SELFPAY ==
--- NOTE | 2025-05-15 09:37 | MHC.OFFVIS ---
Vital Signs 05/15/25 09:42 Height 5 ft 5 in Weight 151 lb 7.321 oz BMI 25.2 BP 110/60 Blood Pressure Location Rt brachial Position Sitting Pulse 57 Pulse Source Pulse Oximeter Pulse Oximetry (%) 98 Oxygen Delivery Method Room Air Intake Visit Reasons: DM Intake Note: Patient present today to follow up on Type 2 Diabetes Mellitus.? Last Diabetic Eye exam: 02/26/2024? Last Podiatry Visit: DUE? 2 months ago, at [address] [place] [address] in [place]. Most Recent HgA1C: 8.3%, 04/02/2025 Random Glucose:?276 ? mg/dL, Today Adjunct Professor Of Law Required: Yes Adjunct Professor Of Law Language: Cull Grader Services: Adjunct Professor Of Law Offered & Declined Information Interpreted: non-clinical & clinical Accompanied by: TOBACCO STRIPPER Allergies No Known Allergies Allergy (Verified 05/15/25 09:47) Medication List - Last Reconciled 05/15/25 by Deloris Busch MD alcohol swabs 0 pad topical NEEDED aspirin 81 mg PO BEDTIME atorvastatin 40 mg PO DAILY 30 days blood sugar diagnostic (FreeStyle Lite Strips) 4 times a day blood-glucose meter (FreeStyle Pavo Lite kit) As directed cetirizine 10 mg PO DAILY cyanocobalamin (vitamin B-12) 1,000 mcg PO QAM 90 days famotidine 20 mg PO BID gabapentin 600 mg PO BEDTIME 30 days glucose (Dex4 Glucose) 4 grams PO Q15M PRN glucose (Dex4 Glucose) 16 grams (4 x 4 gram) PO Q15M PRN 30 days MDD 16 tablets insulin aspart U-100 (Novolog FlexPen U-100 Insulin aspart) 6 units (0.06 mL) subcut TID 90 days lancets (TRUEplus Lancets) TEST BLOOD SUGAR FOUR TIMES DAILY Lantus Solostar U-100 Insulin (insulin glargine) 16 units (0.16 mL) subcut DAILY NS lisinopril 5 mg PO DAILY 30 days multivitamin 1 tab PO DAILY omeprazole 20 mg PO BEDTIME pen needle, diabetic As directed twice daily Synjardy XR 12.5-1,000 mg (empagliflozin-metformin) 1 tab PO BID NS tirzepatide (Mounjaro) 5 mg (0.5 mL) subcut QWEEK 28 days trazodone 100 mg PO BEDTIME HPI Comments Details: The patient is a 75 year old male presenting for diabetic follow up Medical history: lymphoma, pancytopenia, insomnia He has DM type 2 diagnosed 01/17/2003. Current meds Lantus 10 units daily Humalog 6 units before breakfast, lunch and dinner Synjardy 12.12/999 mg b.i.d. (he may only be taking this once daily) Mounjaro 5.0 mg weekly Previous cjxu-htkumbfio-ejezscapiho No recent hypoglycemia,he has been instructed to carry glucose tablets Freestyle harmeet sensor 3 average glucose: 163 14 day continuous glucose sensor report reviewed POC A1C 03/30/25 --8.3% GMI 8.9% from 7.2 % Time in ranges: 79 % high (181-250) 21 % in range (70-180] 0 % low (69-55) 0 % very low (below 54) Has retinopathy: Last ophthalmology evaluation 10/2024 has stable retinopathy, sees opth every 6 monhs, he has proliferative retinopathy, he reports he had laser treatment in the past, no recent laser Has neuropathy: He sees a world travel counselor regularly and has diabetic shoes, he has a podiatry appointment scheduled Has nephropathy: Denies nocturia , - polydipsia, + numbness, tingling, denies polyuria. ROS CONSTITUTIONAL: Denies weight loss, fever and chills. HEENT: Denies changes in vision and hearing. RESPIRATORY: Denies SOB and cough. CV: Denies palpitations and CP GI: Denies abdominal pain, nausea, vomiting and diarrhea. : Denies dysuria and urinary frequency. MSK: Denies new myalgia and joint pain. SKIN: Denies rash and pruritus. NEUROLOGICAL: Denies headache PSYCHIATRIC: Denies recent changes in mood. PHYSICAL EXAM: GENERAL: Alert and oriented x 3. NAD EYES: EOMI. Anicteric. HENT: Moist mucous membranes. No scleral icterus. No cervical lymphadenopathy. LUNGS: Clear to auscultation bilaterally. CARDIOVASCULAR: Regular rate and rhythm. No murmur. No JVD. ABDOMEN: Soft, non-tender +bs EXTREMITIES: No edema. Non-tender. SKIN: No rashes or lesions. Warm. NEUROLOGIC: No focal neurological deficits. CN II-XII grossly intact PSYCHIATRIC: Cooperative. Appropriate mood and affect. [facility] Medical History (Updated 03/07/25 @ 13:13 by Osiris Mcfarland NP) TSH (thyroid-stimulating hormone deficiency) Colon cancer screening Hypothyroidism Proliferative diabetic retinopathy associated with type 2 diabetes mellitus Hx of lymphoma Peripheral axonal neuropathy Erectile dysfunction Type 2 diabetes mellitus with hyperglycemia, with long-term current use of insulin Dyslipidemia Essential hypertension Diabetic nephropathy associated with type 2 diabetes mellitus Diabetic polyneuropathy associated with type 2 diabetes mellitus Surgical History Hx of local excision of skin lesion Hx of colonoscopy Family History Father Cancer Mother Diabetes Social History Household Members: None Housing: Apartment Housing Other:: Has TOBACCO STRIPPER: Mabel Peres Are you a primary vision care associate to a significant other at home: No Do you presently have visiting nurse or other home services: Yes (piano regulator) Alcohol intake: never Patient Tobacco Use Status: Never used Tobacco service: No Current occupational status: disabled Physical Exam Vital Signs: Last Vital Signs Pulse 57 05/15/25 09:42 BP 110/60 05/15/25 09:42 Pulse Ox 98 05/15/25 09:42 Oxygen Delivery Method Room Air 05/15/25 09:42 BMI result Body Mass Index 25.2 Assessment & Plan Assessment & Plan (1) Type 2 diabetes mellitus with hyperglycemia, with long-term current use of insulin: Code(s): E11.65 - Type 2 diabetes mellitus with hyperglycemia; Z79.4 - MCFP (current) use of insulin Category: Medical Plan Type 2 diabetes, uncontrolled Resent synjardy to ensure it is being packed for twice daily. Increase lantus to 16 units (he had only been taking 10u) Continue novolog 6units with meals Continue mounjaro Treat hypoglycemia by rules of 15s Diabetic eye exams are up to date He can return in 3 months for A1C however he is advised to call sooner if his blood glucose is running high Medications: Changed From insulin aspart U-100 (Novolog FlexPen U-100 Insulin aspart) 8 units (0.08 mL) subcut DAILY 30 days 3 mL 11RF E11.65 - Type 2 diabetes mellitus with hyperglycemia, Z79.4 - technician terminal and repeater (current) use of insulin To insulin aspart U-100 (Novolog FlexPen U-100 Insulin aspart) 15 minutes before meal 8 units (0.08 mL) subcut TID 90 days 24 mL 11RF E11.65 - Type 2 diabetes mellitus with hyperglycemia, Z79.4 - MCFP (current) use of insulin From empagliflozin-metformin 12.5-1,000 mg ER (Synjardy XR) 1 tab PO DAILY 60 tabs 6RF E11.65 - Type 2 diabetes mellitus with hyperglycemia, Z79.4 - technician terminal and repeater (current) use of insulin To Synjardy XR 12.5-1,000 mg (empagliflozin-metformin) 1 tab oral TWICE daily 1 tab PO BID 60 tabs 11RF NS E11.65 - Type 2 diabetes mellitus with hyperglycemia, Z79.4 - technician terminal and repeater (current) use of insulin From Lantus Solostar U-100 Insulin (insulin glargine) 20 units (0.2 mL) subcut DAILY 15 mL 2RF NS E11.65 - Type 2 diabetes mellitus with hyperglycemia, Z79.4 - MCFP (current) use of insulin To Lantus Solostar U-100 Insulin (insulin glargine) once daily 16 units (0.16 mL) subcut DAILY 15 mL 2RF NS E11.65 - Type 2 diabetes mellitus with hyperglycemia, Z79.4 - MCFP (current) use of insulin From insulin aspart U-100 (Novolog FlexPen U-100 Insulin aspart) 15 minutes before meal 8 units (0.08 mL) subcut TID 90 days 24 mL 11RF E11.65 - Type 2 diabetes mellitus with hyperglycemia, Z79.4 - technician terminal and repeater (current) use of insulin To insulin aspart U-100 (Novolog FlexPen U-100 Insulin aspart) 15 minutes before meal 6 units (0.06 mL) subcut TID 16.2 mL 11RF 90 days E11.65 - Type 2 diabetes mellitus with hyperglycemia, Z79.4 - technician terminal and repeater (current) use of insulin Coding Level of Care Code Est Pt Level 5 (71160) Diagnoses Type 2 diabetes mellitus with hyperglycemia, with long-term current use of insulin E11.65; Z79.4 Time Spent (min) 47
[2025-05-15 09:42] VITALS: BP 110/60; PULSE 57; O2SAT 98; BMI 25.2
[2025-05-15 10:13] LABS: Glucose, Whole Blood 276 mg/dL (60-115)
--- OUTSIDE RECORDS SUMMARY | 2025-05-15 11:14 | XMS_ITS | Encounter Summary ---
Author Organization [employer] Address [address] [facility] 7t [place] [address] Care Team Providers Care Manager Of Data Name Role Phone Marv Ramirez MD Primary Care Provide r Encounter Details Date Type Department Care Team (Late st Contact Info) Description 04/24/2023 Orders Only [facility] [address] [place], [place] [phone] Lulu Escobar LPN Social History Tobacco Use [...] Description 06/05/2025 9:15 AM EDT Office Visit [facility] MEDICINE [address] [place], [place] [phone] Marv Ramirez MD [address] [place] [address] documented as of this encounter Visit Diagnoses Not on filedocumented in this encounter Additional Health Concerns Assessment Noted Time PHQ-9 Depression Total Score: 0 11/25/19 23 10:31 AM EDT documented as of this encounter Care Teams Manager Of Data Relationship Specialty Start Date End Date Marv Ramirez MD [address] [place] [address] PCP - General Internal Medicine 04/09/14 documented as of this encounter
--- OUTSIDE RECORDS SUMMARY | 2025-05-15 11:14 | XMS_ITS | Encounter Summary ---
Author Organization [employer] Address [address] [facility] 7t [place] [address] Care Team Providers Care Felt Hanger Name Role Phone Marv Ramirez MD Primary Care Provide r Reason for Visit * Reason Comments Med Refill Encounter Details Date Type Department Care Team ([facility] Contact Info) Description 07/16/2023 Refill [facility] MEDICINE [address] [place], [place] [phone] Bonita Yousif MD [address] [place], [place] [phone] Social History Tobacco Use Types Packs/Day Years [...] Description 06/05/2025 9:15 AM EDT Office Visit [facility] [address] [place] [address] Marv Ramirez MD [address] [place] [address] documented as of this encounter Visit Diagnoses Not on filedocumented in this encounter Additional Health Concerns Assessment Noted Time PHQ-9 Depression Total Score: 0 11/25/19 23 10:31 AM EDT documented as of this encounter Care Teams Felt Hanger Relationship Specialty Start Date End Date Marv Ramirez MD [address] [place] [address] PCP - General Internal Medicine 04/09/14 documented as of this encounter
--- OUTSIDE RECORDS SUMMARY | 2025-05-15 11:14 | XMS_ITS | Encounter Summary ---
Author Organization [employer] Address [address] [facility] [address] [place] [address] Care Team Providers Care Scientific Editor Name Role Phone Marv Ramirez MD Primary Care Provide r Reason for Visit * Reason Onset Date Comments Nurse Triage 12/13/2023 Encounter Details Date Type Department Care Team ([facility] st Contact Info) Description 12/13/2023 Telephone [facility] MEDICINE [address] [place], [place] [phone] Marv Ramirez MD [address] [place], [place] [phone] Nurse Triage Social History Tobacco Use Types [...] 12/13/2023 10:51 AM EDT Triage call with [employer] [place] [id number] Pt reports glass in the right eye. [...] Description 06/05/2025 9:15 AM EDT Office Visit [facility] MEDICINE [address] [place] [address] Marv Ramirez MD [address] [place] [address] documented as of this encounter Visit Diagnoses Not on filedocumented in this encounter Additional Health Concerns Assessment Noted Time PHQ-9 Depression Total Score: 0 11/25/19 23 10:31 AM EDT documented as of this encounter Care Teams Scientific Editor Relationship Specialty Start Date End Date Marv Ramirez MD [address] [place] [address] PCP - General Internal Medicine 04/09/14 documented as of this encounter
--- OUTSIDE RECORDS SUMMARY | 2025-05-15 11:14 | XMS_ITS | Encounter Summary ---
Author Organization [employer] Address [address] [facility] [address]t [place] [address] Care Team Providers Care Associate Editor Name Role Phone Marv Ramirez MD Primary Care Provide r Encounter Details Date Type Department Care Team (Latest Contact Info) Description 03/12/2025 Results Follow-Up [facility] MEDICINE [address] [place], [place] [phone] Marv Ramirez MD [address] [place], [place] [phone] CBC auto differential, Comprehensive Metabolic Panel, Lipid Panel, Standard, Additional followed-up results: 4 Social History Tobacco Use Types Packs/Day Years Used Date Smoking Tobacco: Never Passive Smoke Exposure: Never Smokeless Tobacco: Never Alcohol Use Standard Drinks/Week Comments Never 0 (1 standard drink = 0.6 oz pur e alcohol) Depression Answer Date Recorded Patient Health Questionnaire-9 Score 0 03/06/2025 Patient Health Questionnaire-9 Score 0 03/06/2025 Last PHQ-9: Questionnaire Data Not on file 0 03/06/2025 Housing Stability Answer Date Recorded What is [...] Date Recorded Patient Health Questionnaire-2 Score 0 03/06/2025 Internet Access Answer Date Recorded Internet Access [...] Description 06/05/2025 9:15 AM EDT Office Visit [facility] [address] [place] [address] Marv Ramirez MD [address] [place] [address] documented as of this encounter Visit Diagnoses Diagnosis Hypothyroidism, unspecified type- Primary documented in this encounter Additional Health Concerns Assessment Noted Time PHQ-9 Depression Total Score: 0 03/06/20 25 10:24 AM EDT documented as of this encounter Care Teams Associate Editor Relationship Specialty Start Date End Date Marv Ramirez MD [address] [place] [address] PCP - General Internal Medicine 04/09/14 documented as of this encounter
--- OUTSIDE RECORDS SUMMARY | 2025-05-15 11:14 | XMS_ITS | Encounter Summary ---
Author Organization [employer] Address [address] [facility] 7t [place] [address] Care Team Providers Care Chief Guard Name Role Phone Marv Ramirez MD Primary Care Provide r Reason for Visit * Reason Comments Med Refill Encounter Details Date Type Department Care Team ([facility] Contact Info) Description 08/01/2024 Refill [facility] [address] [place], [place] [phone] Marv Ramirez MD [address] [place] [address] Social History Tobacco Use Types Packs/Day Years [...] Description 06/05/2025 9:15 AM EDT Office Visit [facility] [address] [place] [address] Marv Ramirez MD [address] [place] [address] documented as of this encounter Visit Diagnoses Not on filedocumented in this encounter Additional Health Concerns Assessment Noted Time PHQ-9 Depression Total Score: 0 11/25/19 23 10:31 AM EDT documented as of this encounter Care Teams Chief Guard Relationship Specialty Start Date End Date Marv Ramirez MD [address] [place] [address] PCP - General Internal Medicine 04/09/14 documented as of this encounter
--- OUTSIDE RECORDS SUMMARY | 2025-05-15 11:15 | XMS_ITS | Encounter Summary ---
Author Organization [employer] Address [address] [facility] 7t [place] [address] Care Team Providers Care Vp Global Marketing [employer] Name Role Phone Marv Ramirez MD Primary Care Provide r Encounter Details Date Type Department Care Team (Late st Contact Info) Description 05/15/2025 Orders Only GENERIC EXTERNAL DATA DEPARTMENT Provider, [...] Office Visit [facility] [address] [place] [address] Marv Ramirez MD [address] [place] [address] documented as of this encounter Procedures Procedure Name Priority Date/Time Associated Diagnosis Comments GLUCOSE, WHOLE BLOOD Routine 05/15/2025 10:05 AM EDT documented in this encounter Results * (ABNORMAL) Glucose, Whole Blood (05/15/2025 10:05 AM EDT) Glucose, Whole Blood 276(H) 60 - 115 mg/dL [facility] Comment:METER #: [id number] 0Testing performed in the Endocrinology Department [address] , [address], [facility]. 05/15/2025 10:0 5 AM EDT 05/15/2025 10:13 AM EDT us Generic External Data Provider LAB BLOOD ORDERAB LES Final Result [facility] [address] [place] [address] [phone] documented in this encounter Visit Diagnoses Not on filedocumented in this encounter Additional Health Concerns Assessment Noted Time PHQ-9 Depression Total Score: 0 03/06/20 25 10:24 AM EDT documented as of this encounter Care Teams Vp Global Marketing [employer] Relationship Specialty Start Date End Date Marv Ramirez MD [address] [place] [address] PCP - General Internal Medicine 04/09/14 documented as of this encounter
--- OUTSIDE RECORDS SUMMARY | 2025-05-15 11:15 | XMS_ITS | Encounter Summary ---
Author Organization [employer] Address [address] [facility] 7t [place] [address] Care Team Providers Care Technician Helper Instrument Name Role Phone Marv Ramirez MD Primary Care Provide r Reason for Visit * Reason Comments Med Refill Encounter Details Date Type Department Care Team ([facility] Contact Info) Description 02/01/2024 Refill [facility] [address] [place], [place] [phone] Marv Ramirez MD [address] [place] [address] Social History Tobacco Use Types Packs/Day Years [...] Office Visit [facility] [address] [place] [address] Marv Ramirez MD [address] [place] [address] documented as of this encounter Visit Diagnoses Not on filedocumented in this encounter Additional Health Concerns Assessment Noted Time PHQ-9 Depression Total Score: 0 11/25/19 23 10:31 AM EDT documented as of this encounter Care Teams Technician Helper Instrument Relationship Specialty Start Date End Date Marv Ramirez MD [address] [place] [address] PCP - General Internal Medicine 04/09/14 documented as of this encounter
--- OUTSIDE RECORDS SUMMARY | 2025-05-15 11:15 | XMS_ITS | Patient Health Record ---
Author Organization [facility] Address [address] [place] [address] Care Team Providers Care News Correspondent Name Role Phone Benedict Metz Jr Reason For Referral No Information Plan Of Treatment No Information
--- OUTSIDE RECORDS SUMMARY | 2025-05-15 11:15 | XMS_ITS | Encounter Summary ---
Author Organization [employer] Address [address] [facility] 7t [place] [address] Care Team Providers Care Neonatal Icu Coordinator Name Role Phone Marv Ramirez MD Primary Care Provide r Reason for Visit * Reason Comments Med Refill Encounter Details Date Type Department Care Team ([facility] st Contact Info) Description 03/04/2025 Refill [facility] [address] [place], [place] [phone] Marv Ramirez MD [address] [place], [place] [phone] Insomnia, unspecified type Social History Tobacco Use Types Packs/Day Years [...] AM EDT documented as of this encounter Functional Status * Over the past 2 weeks, how often have you been bothered by any of the following problems? Question Answer Date of Assessment Author Patient Health Questionnaire-2 Score 0 02/25 10:24 AM EDT Suma Hernandez MA * Little interest or pleasure in doing things Answer Date of Assessment Author Not at all 03/06/2025 10:24 AM EDT Suma Hernandez MA * Feeling down, depressed, or hopeless Answer Date of Assessment Author Not at all 03/06/2025 10:24 AM EDT Suma Hernandez MA * Trouble falling or staying asleep, or sleeping too much Answer Date of Assessment Author Not at all 03/06/2025 10:24 AM EDT Suma Hernandez MA * Feeling tired or having little energy Answer Date of Assessment Author Not at all 03/06/2025 10:24 AM EDT Suma Hernandez MA * Poor appetite or overeating Answer Date of Assessment Author Not at all 03/06/2025 10:24 AM EDT Suma Hernandez MA * Feeling bad about yourself - or that you are a failure or have let yourself or your family down Answer Date of Assessment Author Not at all 03/06/2025 10:24 AM EDT Suma Hernandez MA * Trouble concentrating on things, such as reading the newspaper or watching television Answer Date of Assessment Author Not at all 03/06/2025 10:24 AM EDT Suma Hernandez MA * Moving or speaking so slowly that other people could have noticed? Or the opposite - being so fidgety or restless that you have been moving around a lot more than usual. Answer Date of Assessment Author Not at all 03/06/2025 10:24 AM EDT Suma Hernandez MA * Thoughts that you would be better off or hurting yourself in some way Answer Date of Assessment Author Not at all 03/06/2025 10:24 AM EDT Suma Hernandez MA * Patient Health Questionnaire-9 Score Answer Date of Assessment Author 0 03/06/2025 10:24 AM EDT Suma Hernandez MA * Over the last 2 weeks, how often have you been bothered by any of the following problems? Question Answer Date of Assessment Author Feeling nervous, anxious, or on edge 0 02/25 10:24 AM EDT Suma Hernandez MA Not being able to stop or co ntrol worrying 0 03/06/2025 10:24 AM EDT Suma Hernandez MA Worrying too much about diff erent things 0 03/06/2025 10:24 AM EDT Suma Hernandez MA Trouble relaxing 0 03/06/2025 10:24 AM EDT Suma Hernandez MA Being so restless that it is hard to sit still 0 03/06/2025 10:24 AM EDT Suma Hernandez MA Becoming easily annoyed or irritable 0 02/25 10:24 AM EDT Suma Hernandez MA Feeling afraid as if somethi ng awful might happen 0 03/06/2025 10:24 AM EDT Suma Hernandez MA DANIELE-7 Total Score 0 03/06/2025 10:24 AM EDT Suma Hernandez MA documented as of this encounter Plan of Treatment Upcoming Encounters Date Type Department Care Team (Late st Contact Info) Description 06/05/2025 9:15 AM EDT Office Visit [facility] [address] [place] [address] Marv Ramirez MD [address] [place] [address] documented as of this encounter Visit Diagnoses Diagnosis Insomnia, unspecified type documented in this encounter Additional Health Concerns Assessment Noted Time PHQ-9 Depression Total Score: 0 11/25/19 23 10:31 AM EDT documented as of this encounter Care Teams Neonatal Icu Coordinator Relationship Specialty Start Date End Date Marv Ramirez MD [address] [place] [address] PCP - General Internal Medicine 04/09/14 documented as of this encounter
--- OUTSIDE RECORDS SUMMARY | 2025-05-15 11:15 | XMS_ITS | Encounter Summary ---
Author Organization [employer] [facility] Address [address] [place] [address] [address] [place] [address] Care Team Providers Care Broaching Machine Set Up Operator Name Role Phone Marv Ramirez MD Primary Care Provide r Encounter Details Date Type Department Care Team (Late st Contact Info) Description 07/20/2022 Abstract [facility]INE [address] [place] [address] [phone] Marv Ramirez MD [address] [place] [phone] Social History Tobacco Use Types Packs/Day Years [...] Description 06/05/2025 9:15 AM EDT Office Visit [facility] [address] [place] [phone] Marv Ramirez MD [address] [place] [address] [phone] documented as of this encounter Procedures Procedure Name Priority Date/Time Associated Diagnosis Comments COLONOSCOPY Routine 04/25/2016 documented in this encounter Results * Colonoscopy (04/25/2016) Colonoscopy Tubular Adenoma/Hem orrhoids Comment:Dr Royal Jasso us Historical Provider [facility] Edited Result - Final documented in this encounter Visit Diagnoses Not on filedocumented in this encounter Care Teams Broaching Machine Set Up Operator Relationship Specialty Start Date End Date Marv Ramirez MD [address] [place] [id number] PCP - General Internal Medicine 04/09/14 documented as of this encounter
--- OUTSIDE RECORDS SUMMARY | 2025-05-15 11:15 | XMS_ITS | Encounter Summary ---
Author Organization [employer] Address [address] [facility] 7t [place] [address] Care Team Providers Care Sole Molder Name Role Phone Marv Ramirez MD Primary Care Provide r Reason for Visit * Reason Comments Med Refill Encounter Details Date Type Department Care Team ([facility] Contact Info) Description 01/31/2024 Refill [facility] [address] [place], [place] [phone] Marv Ramirez MD [address] [place] [address] Social History Tobacco Use Types Packs/Day Years [...] Description 06/05/2025 9:15 AM EDT Office Visit [facility] [address] [place] [address] Marv Ramirez MD [address] [place] [address] documented as of this encounter Visit Diagnoses Not on filedocumented in this encounter Additional Health Concerns Assessment Noted Time PHQ-9 Depression Total Score: 0 11/25/19 23 10:31 AM EDT documented as of this encounter Care Teams Sole Molder Relationship Specialty Start Date End Date Marv Ramirez MD [address] [place] [address] PCP - General Internal Medicine 04/09/14 documented as of this encounter
--- OUTSIDE RECORDS SUMMARY | 2025-05-15 11:15 | XMS_ITS | Encounter Summary ---
Author Organization [employer] Address [address] [facility] 7t [place] [address] Care Team Providers Care Electrical And Radio Aircraft Mechanic Name Role Phone Marv Ramirez MD Primary Care Provide r Reason for Visit * Reason Comments Med Refill Encounter Details Date Type Department Care Team ([facility] Contact Info) Description 01/26/2024 Refill [facility] [address] [place], [place] [phone] Marv Ramirez MD [address] [place] [address] Social History Tobacco Use Types Packs/Day Years [...] 9:15 AM EDT Office Visit [facility] [address] [place] [address] Marv Ramirez MD [address] [place] [address] documented as of this encounter Visit Diagnoses Not on filedocumented in this encounter Additional Health Concerns Assessment Noted Time PHQ-9 Depression Total Score: 0 11/25/19 23 10:31 AM EDT documented as of this encounter Care Teams Electrical And Radio Aircraft Mechanic Relationship Specialty Start Date End Date Marv Ramirez MD [address] [place] [address] PCP - General Internal Medicine 04/09/14 documented as of this encounter
--- OUTSIDE RECORDS SUMMARY | 2025-05-15 11:15 | XMS_ITS | Clinical Summary ---
Author Organization [employer] Address [address] [place] [address] [address] [place] [address] Care Team Providers Care Roll Edge Stitcher Hand Name Role Phone Marv Ramirez MD Primary Care Provide r Allergies No known active allergies Medications glucose 4 g chewable tablet if needed. 12/30/19 15 Active insulin glargine (Lantus SoloStar) 100 UNIT/ML pen Inject 20 Units under the skin at bedtime. 10/05/19 22 Active FREESTYLE LITE test stripIndications:T ype 2 diabetes mellitus with diabetic polyneuropathy, without long-term current use of insulin ([facility]) TEST BLOOD SUGAR THREE TIMES DAILY 100 strip 11 09/19/19 23 Active Synjardy XR 12.5-1000 MG 24 hr tablet Take 1 tablet by mouth every 12 (twelve) hours. 10/04/19 24 Active ciprofloxacin (Ciloxan) 0.3 % ophthalmic [...] 2.5 MG/0.5ML solution pen-injector 03/22/20 24 Active atorvastatin (Lipitor) 40 MG tabletIndications: Mixed hyperlipidemia TAKE 1 TABLET BY MOUTH AT BEDTIME 90 tablet 3 08/14/20 24 Active Multiple Vitamin (Multivitamin) tabletIndications: Insomnia, unspecified type TAKE 1 TABLET BY MOUTH EVERY MORNING WITH FOOD 90 tablet 3 08/14/20 24 Active Alcohol Swabs (Alcohol Prep) 70 % padsIndications:Ty pe 2 diabetes mellitus without complication, with long-term current use of insulin ([facility]) USE THREE TIMES DAILY DIRECTED 100 each 11 10/01/19 25 Active omeprazole (PriLOSEC) [address] capsule TAKE 1 CAPSULE BY MOUTH EVERY MORNING 90 capsule 1 12/31/19 25 Active B-D UF III MINI PEN NEEDLES 31G X 5 MM miscIndications:Ty pe 2 diabetes mellitus with diabetic polyneuropathy, without long-term current use of insulin (CMS/HCC) USE DIRECTED FOR INSULIN THREE TIMES DAILY 100 each 5 01/10/20 25 Active Aspirin Low Dose 81 MG EC tablet TAKE 1 TABLET BY MOUTH EVERY MORNING 90 tablet 1 02/05/20 25 Active gabapentin (Neurontin) 600 MG tablet Take 1 tablet (600 mg) by mouth at bedtime. 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 Assessment & Plan (03/06/2025 10:42 AM EDT): Images from the original note were not [...] Connors provided to his during last visit BOT[employer] TEACHER The stitches were removed prior to last visit Here for a follow up Has a follow up with Derm Assessment & Plan (09/19/2024 10:24 AM EST): [...] Connors provided to his during last visit [employer] TE[employer]ER The stitches were removed prior to last [...] number of Dr Connors provided to his BOTANY TEACHER The stitches were removed today I provided [...] to rule out Skin CA Pt and point of care specialist agreable with plan Cellulitis of right hand [...] Last Dental Exam: Unknown Assessment & Plan (03/06/2025 10:38 AM EDT): Patient is here for a f/u Under the care of Endocrinology (Dr Hernandez) . He is back on a regimen of: Lantus 10 units sc q pm, Novolog Flex pen 6 units in AM Synyardiy XR 12.12/999 BID, and Mounjaro 2.5 mg once a week. He follows with Diabetes and [employer] educator Hgb A1c 03/06/2025: 7.5 from : 7.8 Plan: Continue to follow with Endocrinology, last seen 12/04/2024 Eye exam on record was [facility] 02/26/2024 Pt has diabetic retinopathy. Microalbumin checked on: 12/28/2022 Pt on an TRISTAN inhibitor. Foot check risk of one Pt reports compliance with Asa 81 mg po daily Follow up with me in 4 months Assessment & Plan (08/20/2024 10:48 AM EST): Patient is here for a f/u Back in the care of Endocrinology (Dr Hernandez) . He is back on a regimen of: Lantus 10 units sc q pm, Novolog Flex pen 6 units in AM Synyardiy XR 12.12/999 BID, and Mounjaro 2.5 mg once a week. He follows with Diabetes and [employer] educator Hgb A1c 08/20/2024 : 7.8 from [...] Hernandez) . He follows with Diabetes and [employer] educator Hgb A1c 05/23/2024 : 7.5 from [...] further follow-up in CDTM. Continue care with [facility] Endocrinology office - Medlist [...] Hernandez) . He follows with Diabetes and [employer] educator Hgb A1c 09/19/2023 : 10.3 Plan: [...] units sc q pm, ( Today his BOTANY TEACHER tells me he is not injecting Lantus anymore) Novolog Flex pen 6 units in AM Synyardiy XR 12.12/999 BID, and Trulicity 3 mg /0.5 ml once a week. I contacted the Pharmacy and they confirmed he is picking up his med boxes regularly Pt isunder the care of Endocrinology (Dr Hernandez) . He follows with Diabetes and [employer] educator Hgb A1c 09/19/2023 : 10.3 Plan: [...] admits that while he was away in [place] for over a month he was not adhering to a diabetic diet. He is also drinking orange juice by the [employer]. Pr counseled and educated about diabetic diet [...] He used to follow with Diabetes and [employer] educator Hgb A1c 09/19/2023 : 10.3 Plan: [...] 07/05/2022 He also follows with Diabetes and [employer] educator Hgb A1c 11/24/2022: 7.0 Plan: continue [...] 07/05/2022 He also follows with Diabetes and [employer] educator Hgb A1c 08/09/2022 was 7.6 today [...] months Essential hypertension 06/25/2015 Assessment & Plan (03/06/2025 10:19 AM EDT): Patient here for a follow up He is on a regimen of: Lisinopril 5 mg po daily (Off Amlodipine, pt was not taking and BP was controlled) Most recent electrolytes, Bun and Creatinine done on: Lab Results Component Value Date NA 138 09/19/2023 NA 140 10/27/2021 K 4.9 09/19/2023 K 4.9 10/27/2021 CL 99 09/19/2023 CL 102 10/27/2021 BUN 24 (H) 09/19/2023 BUN 22 04/28/2022 CREATININE 1.04 09/19/2023 CREATININE 0.80 10/27/2021 were wnl. Today will repeat BP remains controlled patient advised to adhere to a low sodium diet, encouraged about medication compliance, counseled about weight loss. f/u 4 months Assessment & Plan (05/23/2024 11:11 AM EDT): [...] here 4 weeks ago Previous visit Pt's BOTANY TEACHER told me that she had been taking [...] 4 months Hyperlipidemia 05/09/2012 Assessment & Plan (03/06/2025 10:19 AM EDT): Here for a f/u Patient with elevated lipids. Most recent lipid profile from: Lab Results Component Value Date TRIG 253 (H) 09/19/2023 TRIG 81 12/28/2022 CHOL 133 09/19/2023 CHOL 129 12/28/2022 LDLCHOLCAL 43 09/19/2023 LDLCHOLCAL 74 12/28/2022 HDL 40 (L) 09/19/2023 HDL 39 12/28/2022 Currently on a regimen of: Simvastatin 40mg po qhs . Plan: Repeat Lipid profile Continue with current regimen Assessment & Plan (05/23/2024 11:16 AM EDT): [...] 109 R 93 R Comment: Desirable Triglyceride: less than 150 mg/dLBorderline High Triglyceride 150-199 mg/dLHigh Triglyceride: 200-499 mg/dLVery High Triglyceride: greater than or equal to 5OO mg/dL Cholesterol mg/dL 129 Comment: Desirable Cholesterol: less than 200 mg/dLBorderline High Cholesterol: 200-239 mg/dLHigh Cholesterol: greater than 239 mg/dL LDL Cholesterol Calculated mg/dl 74 Comment: Desirable LDL: less than 100 mg/dLNear Optimal/Above Optimal LDL: 110-129 mg/dLBorderline High LDL: 130-159 mg/dLHigh LDL: 160-189 mg/dLVery High LDL: greater than or equal to 190 mg/dL HDL Cholesterol mg/dL 39 39 Low R 40 R Currently on a regimen [...] Encounters Date Type Department Care Team Description 05/15/2025 Orders Only GENERIC EXTERNAL DATA DEPARTMENT Provider, Generic External Data 04/02/2025 Orders Only GENERIC EXTERNAL DATA DEPARTMENT Provider, Generic External Data 03/27/2025 Refill [facility] [address] [place] [address] Marv Ramirez MD Viral URI 03/12/2025 Results Follow-Up [facility] [address] [place] [address] Marv Ramirez MD CBC auto differential, Comprehensive Metabolic Panel, Lipid Panel, Standard, Additional followed-up results: 4 03/07/2025 Orders Only GENERIC EXTERNAL DATA DEPARTMENT Provider, Generic External Data 03/06/2025 10:00 AM EDT Office Visit [facility] [address] [place] [address] Marv Ramirez MD Type 2 diabetes mellitus with diabetic polyneuropathy, without long-term current use of insulin ([facility]) (Primary Dx); Essential hypertension; Mixed hyperlipidemia; Precordial pain; Squamous cell carcinoma of back 03/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 Travel 03/05/2025 Telephone [facility] [address] [place] [address] Kimmy James MA chart prep 03/04/2025 Refill [facility] [address] [place] [address] Marv Ramirez MD Insomnia, unspecified type 03/04/2025 Refill [facility] [address] [place] [address] Marv Ramirez MD Insomnia, unspecified type 02/25/2025 Patient Outreach [facility] [address] [place], [place] [phone] Marv Ramirez MD Pre-visit Planning (SDOH unable to reach [facility] ) from Last 3 Months Immunizations Immunization Administration Dates Next Due Influenza High-dose Quadrivalent [...] Sign Reading Time Taken Comments Blood Pressure 130/54 03/06/2025 10:27 AM EDT Pulse 60 03/06/2025 10:27 AM EDT Temperature 36.3 C (97.4 F) 03/06/2025 10:27 AM EDT Respiratory Rate 20 03/06/2025 10:2 7 AM EDT Oxygen Saturation 98% 03/06/2025 10: 27 AM EDT Inhaled Oxygen Concentration - - Weight 68.4 kg (150 lb 12.8 oz) 025 10:27 AM EDT Height 167.6 cm (5' 6 ) 03/06/2025 10:2 7 AM EDT Body Mass Index 24.34 03/06/2025 10:27 AM EDT Plan of Treatment Upcoming Encounters Date Type Department Care Team (Late st Contact Info) Description 06/05/2025 9:15 AM EDT Office Visit [facility] [address] [place] [address] Marv Ramirez MD [address] [place] [address] Health Maintenance Due Date Last Done Comments Derm Melanoma Skin Check 1949 Eye Exam 1959 Alcohol/Substance Use Screening 1961 Zoster Vaccines (2 of 3) 02/23/2015 12/29/2014 Pneumococcal Vaccine: 50+ Years (3 of 3 - PCV20 or PCV21) 06/25/2020 06/25/2015, 09/02/2013 RSV Patients and Patients Aged 60 years or older (1 - 1-dose 75+ series) 2024 Diabetes: Foot Exam 02/22/2025 02/23/2024, 02/23/2024, 02/23/2024, Additional history exists COVID-19 Vaccine ( - season) 2025 07/26/2021, 01/01/2021, 12/04/2020 Influenza Vaccine (#1) 2025 , 05/25/2021, 08/02/2018, Additional history exists Diabetes: Hemoglobin A1C 06/06/2025 025, 12/06/2024, 08/20/2024, Additional history exists SDOH Screening 09/19/2025 09/19/2024 Depression Screening 03/06/2026 03/06/2025, 03/06/20 25 Tobacco Screening 03/06/2026 03/06/2025 Diabetes: Urine Protein Screening 03/07/2026 03/07/2025, 12/28/2022, 10/27/2021, Additional history exists Lipid Panel 03/07/2026 03/07/2025, 02/25, 09/19/2023, Additional history exists DTaP/Tdap/Td Vaccines (2 - Td or Tdap) 04/16/2034 04/16/2024, 12/05/2007 Colonoscopy Discontinued 04/25/2016 Colorectal Cancer Screening Discontinued Hepatitis C Screening Completed 02/01/2022 CT Colonography Discontinued FIT DNA/Cologuard Discontinued FIT Discontinued FOBT Discontinued HIB Vaccines Aged Out No longer eligi [...] on patient's age to complete this topic Sigmoidoscopy Discontinued Procedures Procedure Name Priority Date/Time Associated Diagnosis Comments GLUCOSE, WHOLE BLOOD Routine 05/15/2025 10:05 AM EDT GLUCOSE, WHOLE BLOOD Routine 04/02/2025 10:22 AM EDT GLUTAMIC ACID DECARBOXYLASE 65 AB Routine 03/07/2025 8:44 AM EDT ISLET CELL AB SCREEN W/REFL TITER Routine 03/07/2025 8:44 AM EDT THYROID PEROXIDASE ANTIBODIES Routine 03/07/2025 8:44 AM EDT C-PEPTIDE Routine 03/07/2025 8:44 AM EDT TSH W/REFLEX TO FT4 Routine 03/07/2025 8 :44 AM EDT T4, FREE Routine 03/07/2025 8:44 AM EDT TSH Routine 03/07/2025 8:44 AM EDT LIPID PANEL, STANDARD Routine 03/07/2025 8:44 AM EDT COMPREHENSIVE METABOLIC PANEL Routine 03/07/2025 8:44 AM EDT CBC WITH AUTO DIFFERENTIAL Routine 03/07/2025 8:44 AM EDT LIPID PANEL, STANDARD Routine 03/07/2025 8:44 AM EDT Mixed hyperlipidemia COMPREHENSIVE METABOLIC PANEL Routine 03/07/2025 8:44 AM EDT Type 2 diabetes mellitus with diabetic polyneuropathy, without long-term current use of insulin ([facility]/HCC) Essential hypertension ALBUMIN, RANDOM URINE W/CREATININE Routine 03/07/2025 8:44 AM EDT Type 2 diabetes mellitus with diabetic polyneuropathy, without long-term current use of insulin (CMS/HCC) POCT GLYCATED HEMOGLOBIN, TOTAL Routine 03/06/2025 10:38 AM EDT Type 2 diabetes mellitus with diabetic polyneuropathy, without long-term current use of insulin (CMS/HCC) POCT GLUCOSE Routine 03/06/2025 10:34 AM EDT Type 2 diabetes mellitus with diabetic polyneuropathy, without long-term current use of insulin ([facility]/HCC) ZZZ HISTORICAL HEPATITIS C AB W/REFL TO HCV RNA, QN, PCR Routine 02/01/2022 11:29 AM EDT HM COLONOSCOPY Routine 04/25/2016 from Last 3 Months or Most Recently Relevant to Health Maintenance Results * (ABNORMAL) Glucose, Whole Blood (05/15/2025 10:05 AM EDT) Only the most recent of2 resultswithin the time period is included. Glucose, Whole Blood 276(H) 60 - 115 mg/dL [facility] Comment:METER #: [id number] 0Testing performed in the Endocrinology Department [address] , [address], [facility]. 05/15/2025 10:0 5 AM EDT 05/15/2025 10:13 AM EDT us Generic External Data Provider LAB BLOOD ORDERAB LES Final Result Performing Organization Address [facility] Co de Phone Number [facility] [address] [place] [phone] * (ABNORMAL) TSH with Reflex to Free T4 (03/07/2025 8:44 AM EDT) TSH reflex Free T4 6.60(H) 0.32 - 4.0 uIU/mL [facility] 03/07/2025 8:44 AM EDT 03/07/2025 11:19 AM EDT us Generic External Data Provider LAB BLOOD ORDERAB LES Final Result Performing Organization Address [facility] Phone Number [facility] [address] [place] [phone] * Albumin, Random Urine W/Creatinine (03/07/2025 8:44 AM EDT) Creatinine, Urine 76.34 mg/dL [facility] Microalbumin Urine 5.0 mg/L [facility] Microalbum Creatinine Ratio Ur 6.5 <30 ug/mg cr [facility] Comment:Albumin/Creatinine R atio Reference Ranges: Normal: < 30 ug/mg creatinine Microalbuminuria: 30 - 300 ug/mg creatinineClinical Albuminuria: > 300 ug/mg creatinine Urine (Urine, Random) 03/07/2025 8:44 AM EDT 03/07/2025 11:11 AM EDT us Marv Lacy MD LAB URINE ORDERABLES Final Result Performing Organization Address [facility] Co de Phone Number [facility] [address] [place] [address] [phone] * (ABNORMAL) CBC auto differential (03/07/2025 8:44 AM EDT) White Blood Count 3.8(L) 4.8 - 10.8 X10*3/uL [facility] Red Blood Count 4.11(L) 4.60 - 5.80 X10*6/uL [facility] Hemoglobin 11.6(L) 14.0 - 18.0 g/dl [facility] Hematocrit 36.0(L) 42.0 - 52.0 % [facility] Mean Corpuscular Volume 87.6 80.0 - 98.0 fL [facility] Mean Corpuscular Hemoglobin 28.2 27.0 - 33.0 pg [facility] Mean Corpuscular HGB Conc 32.2 31.0 - 36.0 g/dl [facility] Red Cell Distribution Width 16.3(H) 11.0 - 16.0 % [facility] Platelet Count 118(L) 160 - 400 X10*3/uL [facility] Mean Platelet Volume 12.4 9.4 - 12.4 fL [facility] Neutrophils Percent Auto 41.6(L) 45 - 73 % [facility] Imm Gran Pct Auto 0.5(H) 0.0 - 0.4 % [facility] Lymphocytes Percent Auto 31.3 20 - 40 % [facility] Monocytes Percent Auto 10.7 2 - 11 % [facility] Eosinophils Percent Auto 15.1(H) 0 - 4 % [facility] Basophils Percent Auto 0.8 0 - 2 % [facility] NRBC Pct Auto 0.0 0.0 - 0.2 /100WBC [facility] Neutrophils Absolute Auto 1.6(L) 2.0 - 8.3 x10*3/uL [facility] Imm Gran Abs Auto 0.02 0.00 - 0.03 X10*3/uL [facility] Lymphocytes Absolute Auto 1.2 1.2 - 4.9 X10*3/uL [facility] Monocytes Absolute Auto 0.4 0.1 - 1.2 X10*3/uL [facility] Eosinophils Absolute Auto 0.6(H) 0.0 - 0.4 X10*3/uL [facility] Basophils Absolute Auto 0.0 0.0 - 0.2 X10*3/uL [facility] NRBC Abs Auto 0.000 0.0 - 0.012 X10*3/uL [facility] 03/07/2025 8:44 AM EDT 03/07/2025 11:19 AM EDT Generic External Data Provider LAB BLOOD ORDERAB LES Final Result Performing Organization Address [facility] Co de Phone Number [facility] [address] [place] [phone] * Thyroid Peroxidase Antibodies (03/07/2025 8:44 AM EDT) Thyroid Peroxidase Antibodies 8 <9 IU/mL [facility] Comment:THIS TEST WAS PERFOR MED AT:[employer] [address] [id number] BENITES MD 03/07/2025 8:44 AM EDT 03/07/2025 1:21 PM EDT Generic External Data Provider LAB BLOOD ORDERAB LES Final Result Performing Organization Address [facility] de Phone Number [facility] [address] [place] [phone] * Glutamic Acid Decarboxylase 65 Antibody (03/07/2025 8:44 AM EDT) Glutamic acid decarboxylase Ab <5 <5 IU/mL [facility] Comment:This test was perfor med using the GAD65 LIZET method,which is standardized against the Internationalreference preparation 97/550.THIS TEST WAS PERFORMED AT:[id number] [place] [address]ABJWCVNTOMÁS TRIPP MD,PHD 03/07/2025 8:44 AM EDT 03/07/2025 11:19 AM EDT us Generic External Data Provider LAB BLOOD ORDERAB LES Final Result Performing Organization Address City/[facility]/ZIP Co de Phone Number [facility] [address] [place] [phone] * C-Peptide (03/07/2025 8:44 AM EDT) C-Peptide 1.11 0.80 - 3.85 ng/mL [facility] Comment:THIS TEST WAS PERFOR MED AT:[employer] [address] [id number] BENITES MD 03/07/2025 8:44 AM EDT 03/07/2025 11:19 AM EDT us Generic External Data Provider LAB BLOOD ORDERAB LES Final Result Performing Organization Address [facility] Co de Phone Number [facility] [address] [place] [phone] * Islet Cell Antibody Screen W/Reflex to Titer (03/07/2025 8:44 AM EDT) Pathologist [facility] Islet Cell Antibody Screen NEGATIVE NEGATIVE [facility] Comment:This test was develo ped and its analytical performancecharacteristics have been determined by [employer].It has not been cleared or approved by the FDA. This assayhas been validated pursuant to the CLIA regulations and isused for clinical purposes.THIS TEST WAS PERFORMED AT:[facility]/[employer] [id number] [place] [address]CKPJWORION HALL MD,PHD,SIMON Islet Cell Antibody Titer TNP [facility] 03/07/2025 8:44 AM EDT 03/07/2025 11:19 AM EDT us Generic External Data Provider LAB BLOOD ORDERAB LES Final Result Performing Organization Address [facility]/ZIP Co de Phone Number [facility] [address] [place] [phone] * (ABNORMAL) TSH (03/07/2025 8:44 AM EDT) Pathologist [facility] Thyroid Stimulating Hormone 6.59(H) 0.32 - 4.0 uIU/mL [facility] Comment:Note: A sustained TS H level above 2.5 uIU/mL may warrant further investigation. TSH 3rd Generation ([facility]) 03/07/2025 8:44 AM EDT 03/07/2025 11:19 AM EDT Generic External Data Provider LAB BLOOD ORDERAB LES Final Result [facility] [address] [place] [phone] * T4, Free (03/07/2025 8:44 AM EDT) Pathologist [facility] Free T4 (Free Thyroxine) 0.74 0.71 - 1.85 ng/dL [facility] 03/07/2025 8:44 AM EDT 03/07/2025 11:19 AM EDT Generic External Data Provider LAB BLOOD ORDERAB LES Final Result [facility] [address] [place] [phone] * (ABNORMAL) Lipid Panel, Standard (03/07/2025 8:44 AM EDT) Only the most recent of2 resultswithin the time period is included. Triglycerides 126 <150 mg/dL [facility] Comment:Desirable Triglyceri de: less than 150 mg/dLBorderline High Triglyceride 150-199 mg/dLHigh Triglyceride: 200-499 mg/dLVery High Triglyceride: greater than or equal to 5OO mg/dL Cholesterol 128 <200 mg/dL [facility] Comment:Desirable Cholestero l: less than 200 mg/dLBorderline High Cholesterol: 200-239 mg/dLHigh Cholesterol: greater than 239 mg/dL LDL Cholesterol Calculated 67 <100 mg/dL [facility] Comment:Desirable LDL: less than 100 mg/dLNear Optimal/Above Optimal LDL: 110- 129 mg/dLBorderline High LDL: 130-159 mg/dLHigh LDL: 160-189 mg/dLVery High LDL: greater than or equal to 190 mg/dL HDL Cholesterol 36(L) >40 mg/dL [facility] Comment:Desirable HDL: great er than 40 mg/dL Note: This HDL assay may give artificially low results in patients with liver disease. 03/07/2025 8:44 AM EDT 03/07/2025 11:19 AM EDT us Generic External Data Provider LAB BLOOD ORDERAB LES Final Result [facility] [address] [place] [phone] * (ABNORMAL) Comprehensive Metabolic Panel (03/07/2025 8:44 AM EDT) Only the most recent of2 resultswithin the time period is included. Sodium 140 135 - 145 mmol/L [facility] Potassium 4.2 3.3 - 5.1 mmol/L [facility] Chloride 104 96 - 108 mmol/L [facility] Carbon Dioxide 30(H) 22 - 29 mmol/L [facility] Anion Gap 10(L) 12 - 20 [facility] Urea Nitrogen (BUN) 19(H) 9 - 16 mg/dL [facility] Creatinine, Serum 0.75 0.5 - 1.4 mg/dL [facility] Estimated Glomerular Filt Rate >60 [facility] Comment:Chronic Kidney Disea se: Estimated GFR < 60 mL/min/1.57r8Rxmgsk Kidney Disease: Estimated GFR < 15 mL/min/1.73m2 Glucose 144(H) 60 - 115 mg/dL [facility] Calcium 8.8 8.4 - 10.2 mg/dL [facility] Bilirubin, Total 0.3 0.0 - 1.0 mg/dL [facility] Aspartate Amino Transferase 30 5 - 37 U/L [facility] Alanine Aminotransferase 31 0 - 40 U/L [facility] Total Protein 7.1 6.5 - 8.0 g/dL [facility] Albumin Level 4.1 3.5 - 5.0 g/dL [facility] Alkaline Phosphatase 81 39 - 117 U/L [facility] 03/07/2025 8:44 AM EDT 03/07/2025 11:19 AM EDT Generic External Data Provider LAB BLOOD ORDERAB LES Final Result [facility] [address] [place] [phone] * (ABNORMAL) POCT HGB A1C (03/06/2025 10:38 AM EDT) Hemoglobin A1C 7.5(A) 4.0 - 5.7 % QC Media Lot # [id number] Lot# Expiration Date [id number] Blood 03/06/2025 10:3 8 AM EDT Marv Lacy MD POINT OF CARE TEST EN TER/EDIT ORDERABLES Final Result * (ABNORMAL) POCT Glucose (03/06/2025 10:34 AM EDT) Glucose Blood, POC 281(A) 60 - 200 mg/dL QC Media Lot # [id number] Lot# Expiration Date ,527 Blood Capillary blood specimen / Unknown 03/06/2025 10:34 AM EDT Marv Lacy MD POINT OF CARE TEST EN TER/EDIT ORDERABLES Final Result * HEPATITIS C AB W/REFL TO HCV RNA, QN, PCR (02/01/2022 11:29 AM EDT) HEPATITIS C ANTIBODY NON-REACT [facility] NON-REACT [facility] INDEX <0.02 <1.00 [facility] Comment: HCV antibody was non-reactive. There is no laboratory evidence of HCV infection. In most cases, no further action is required. However, if recent HCV exposure is suspected, a test for HCV RNA (test code 23993) is suggested. For additional information please refer to http://Clipcopia.Gene Solutions/faq/FZB28l5 (This link is being provided for informational/ educational purposes only.) 02/01/2022 11:2 9 AM EDT Marv Lacy MD HISTORICAL/NON ORDERA BLE LABS Final Result [facility] [address] * Colonoscopy (04/25/2016) Pathologist [facility] Colonoscopy Tubular Adenoma/Hem orrhoids Comment:Dr Royal Jasso Historical Provider HEALTH MAINTENANCE Edited Result - Final from Last 3 Months or Most Recently Relevant to Health Maintenance Insurance [facility] GROUP HOME OPTIONS (O D-SNP) [place] [phone] Care Teams Roll Edge Stitcher Hand Relationship Specialty Start Date End Date Marv Ramirez MD [address] [place] [phone] PCP - General Internal Medicine 04/09/14
--- OUTSIDE RECORDS SUMMARY | 2025-05-15 11:15 | XMS_ITS | Clinical Summary ---
Author Organization [address] [place] [address] Address [address] [place] [address] Phone Care Team Providers Care Tumbler Tender Name Role Phone Marv Pérez MD Primary [...] Patients (1 - 1-dose 75+ series) 2024 Diabetes: Annual Urine Albumin-Creatinine Ratio (uACR) 07/05/2024 Hypertension/CHF/CAD Annual BMP Blood Test 07/05/2024 Depression Screening 08/28/2024 COVID-19 Vaccine ( season) 2025 07/26/2021, 01/01/2021, 12/04/2020 Influenza Vaccine [...] patient's age to complete this topic Insurance [facility] Member Subscriber Plan / Payer (Ef fective 2018-Present) Name:Matthew Armstrong Relation to Subscriber:Self Name:Matthew Armstrong Payer ID:[id number] Group ID:[id number] Type:Not on file Address: [address] [place] [address] [employer] MEDICARE Member Subscriber Plan / Payer (Ef fective 2023-Present) Name:Matthew Armstrong Relation to Subscriber:Self Name:Matthew Armstrong Payer ID:[id number] Group ID:Not on file Type:Not on file Address: [address] [place] [address] Care Teams Tumbler Tender Relationship Specialty Start Date End Date Marv Pérez MD [address] [place] [phone] PCP - General Internal Medicine 07/05/24
== END 2025-05-15 10:21 | disposition home or self-care (01) ==
LOC: HO.ENCR 09:36
PROVIDERS: PCP Internal Medicine; Visit Provider Internal Medicine
DX: E11.65 Type 2 diabetes mellitus with hyperglycemia (principal); Z79.4 Long term (current) use of insulin

== ENCOUNTER → 2025-05-15 09:35 | Outpatient (BNVA) | payer OTHER, SELFPAY | PROVIDERS: PCP Internal Medicine; Visit Provider Internal Medicine | DX: E11.65 Type 2 diabetes mellitus with hyperglycemia (principal); E11.21 Type 2 diabetes mellitus with diabetic nephropathy; E11.42 Type 2 diabetes mellitus with diabetic polyneuropathy; E11.3599 Type 2 diabetes mellitus with proliferative diabetic retinopathy without macular edema, unspecified eye; Z79.4 Long term (current) use of insulin | CPT/HCPCS: 82947; 99212 ==

== ENCOUNTER 2025-06-10 10:03 | Outpatient (AMB) | payer OTHER, SELFPAY ==
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
--- OUTSIDE RECORDS SUMMARY | 2025-06-10 11:31 | XMS_ITS | Clinical Summary ---
Author Organization [address] [place] [address] Address [address] [place] [address] Phone Care Team Providers Care Steel Checker Name Role Phone Marv Pérez MD Primary [...] patient's age to complete this topic Insurance [facility] Member Subscriber Plan / Payer (Ef fective 2018-Present) Name:Matthew Armstrong Relation to Subscriber:Self Name:Matthew Armstrong Payer ID:[id number] Group ID:[id number] Type:Not on file Address: [address] [place] [address] [facility] [facility] [facility] MED[employer] Member Subscriber Plan / Payer (Ef fective 2023-Present) Name:Matthew Armstrong Relation to Subscriber:Self Name:Matthew Armstrong Payer ID:[id number] Group ID:Not on file Type:Not on file Address: [address] [place] [address] Care Teams Steel Checker Relationship Specialty Start Date End Date Marv Pérez MD [address] [place] [phone] PCP - General Internal Medicine 07/05/24
--- OUTSIDE RECORDS SUMMARY | 2025-06-10 11:31 | XMS_ITS | Encounter Summary ---
Author Organization [employer] Address [address] [facility] 7t [place] [address] Care Team Providers Care Planer Offbearer Name Role Phone Marv Ramirez MD Primary Care Provide r Encounter Details Date Type Department Care Team (Late st Contact Info) Description 04/24/2023 Orders Only [facility] [address] [place], [place] [phone] Lulu Escobar LPN Social History Tobacco Use [...] documented as of this encounter Care Teams Planer Offbearer Relationship Specialty Start Date End Date Marv Ramirez MD [address] [place] [phone] PCP - General Internal Medicine 04/09/14 documented as of this encounter
--- OUTSIDE RECORDS SUMMARY | 2025-06-10 11:31 | XMS_ITS | Encounter Summary ---
Author Organization [employer] Address 75 [facility] 7t [place] [address] Care Team Providers Care Saw Repairer Name Role Phone Marv Ramirez MD Primary Care Provide r Reason for Visit * Reason Comments Med Refill Encounter Details Date Type Department Care Team ([facility] Contact Info) Description 01/26/2024 Refill [facility] MEDICINE [address] [place], [place] [phone] Marv Ramirez MD [address] [place] [address] Social History Tobacco Use Types Packs/Day Years [...] documented as of this encounter Care Teams Saw Repairer Relationship Specialty Start Date End Date Marv Ramirez MD [address] [place] [phone] PCP - General Internal Medicine 04/09/14 documented as of this encounter
--- OUTSIDE RECORDS SUMMARY | 2025-06-10 11:31 | XMS_ITS | Encounter Summary ---
Author Organization [employer] Address 75 [facility] 7t [place] [address] Care Team Providers Care Band Saw Runner Name Role Phone Marv Ramirez MD Primary Care Provide r Reason for Visit * Reason Comments Med Refill Encounter Details Date Type Department Care Team ([facility] Contact Info) Description 08/01/2024 Refill [facility] MEDICINE [address] [place], [place] [phone] Marv Ramirez MD [address] [place] [address] Social History Tobacco Use Types Packs/Day Years [...] documented as of this encounter Care Teams Band Saw Runner Relationship Specialty Start Date End Date Marv Ramirez MD [address] [place] [phone] PCP - General Internal Medicine 04/09/14 documented as of this encounter
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
--- OUTSIDE RECORDS SUMMARY | 2025-06-10 11:31 | XMS_ITS | Encounter Summary ---
Author Organization [employer] Address [address] [facility] 7t [place] [address] Care Team Providers Care Rn Cardiac Rehab Name Role Phone Marv Ramirez MD Primary Care Provide r Reason for Visit * Reason Comments Med Refill Encounter Details Date Type Department Care Team ([facility] Contact Info) Description 07/16/2023 Refill [facility] MEDICINE [address] [place], [place] [phone] Bonita Yousif MD [address] [place], [place] [phone] Social History Tobacco Use Types Packs/Day Years [...] documented as of this encounter Care Teams Rn Cardiac Rehab Relationship Specialty Start Date End Date Marv Ramirez MD [address] [place] [address] PCP - General Internal Medicine 04/09/14 documented as of this encounter
--- OUTSIDE RECORDS SUMMARY | 2025-06-10 11:31 | XMS_ITS | Encounter Summary ---
Author Organization [employer] Address 75 [facility] 7t [place] [address] Care Team Providers Care Clinical Account Manager Name Role Phone Marv Ramirez MD Primary Care Provide r Reason for Visit * Reason Comments Med Refill Encounter Details Date Type Department Care Team ([facility] st Contact Info) Description 03/04/2025 Refill [facility] [address] [place], [place] [phone] Marv Ramirez MD [address] [place], [place] [phone] Insomnia, unspecified type Social History Tobacco Use [...] documented as of this encounter Care Teams Clinical Account Manager Relationship Specialty Start Date End Date Marv Ramirez MD [address] [place] [phone] PCP - General Internal Medicine 04/09/14 documented as of this encounter
--- OUTSIDE RECORDS SUMMARY | 2025-06-10 11:31 | XMS_ITS | Encounter Summary ---
Author Organization [employer] Address [address] [facility] 7t [place] [address] Care Team Providers Care Lactation Nurse Name Role Phone Marv Ramirez MD Primary Care Provide r Reason for Visit * Reason Comments Med Refill Encounter Details Date Type Department Care Team ([facility] Contact Info) Description 01/31/2024 Refill [facility] MEDICINE 230 [place], [place] [phone] Marv Ramirez MD [address] [place] [address] Social History Tobacco Use Types Packs/Day Years [...] documented as of this encounter Care Teams Lactation Nurse Relationship Specialty Start Date End Date Marv Ramirez MD [address] [place] [phone] PCP - General Internal Medicine 04/09/14 documented as of this encounter
--- OUTSIDE RECORDS SUMMARY | 2025-06-10 11:31 | XMS_ITS | Clinical Summary ---
Author Organization [employer] Address [address] [facility] 7t [place] [address] Care Team Providers Care Automotive Machinist Apprentice Name Role Phone Marv Ramirez MD Primary Care Provide r Allergies No known active allergies Medications glucose 4 g chewable tablet if needed. 12/30/19 15 Active insulin glargine (Lantus SoloStar) 100 UNIT/ML pen Inject 20 Units under the skin at bedtime. 10/05/19 22 Active FREESTYLE LITE test stripIndications:T ype 2 diabetes mellitus with diabetic polyneuropathy, without long-term current use of insulin ([facility]) TEST BLOOD SUGAR THREE TIMES DAILY 100 [...] complication, with long-term current use of insulin (HCC) USE THREE TIMES DAILY DIRECTED 100 each 11 10/01/19 25 Active omeprazole (PriLOSEC) [address] capsule TAKE 1 CAPSULE BY MOUTH EVERY MORNING 90 capsule 1 12/31/19 25 Active B-D UF III MINI PEN NEEDLES 31G X 5 MM miscIndications:Ty pe 2 diabetes mellitus with diabetic polyneuropathy, without long-term current use of insulin (HCC) USE DIRECTED FOR INSULIN THREE TIMES DAILY [...] (03/06/2025 10:21 AM EDT): Seen at our [facility] by Dr Fofana who recommended an ECHO [...] Connors provided to his during last visit QUILT MAKER The stitches were removed prior to last [...] Connors provided to his during last visit QUILT MAKER The stitches were removed prior to last [...] number of Dr Connors provided to his QUILT MAKER The stitches were removed today I provided [...] to rule out Skin CA Pt and intensive care specialist agreable with plan Cellulitis of [...] and dry. Wound clean and dressed today. [facility] care 11/24/2022 Assessment & Plan (08/20/2024 10:51 [...] a week. He follows with Diabetes and Backup Administrator educator Hgb A1c 03/06/2025: 7.5 from : [...] a week. He follows with Diabetes and Backup Administrator educator Hgb A1c 08/20/2024 : 7.8 from [...] Pt isunder the care of Endocrinology (Dr eHrnandez) . He follows with Diabetes and Backup Administrator educator Hgb A1c 05/23/2024 : 7.5 from [...] further follow-up in CDTM. Continue care with [facility] End[facility]ology office - Medlist updated Monitoring: Hemoglobin [...] Hernandez) . He follows with Diabetes and Backup Administrator educator Hgb A1c 09/19/2023 : 10.3 Plan: [...] units sc q pm, ( Today his QUILT MAKER tells me he is not injecting Lantus anymore) Novolog Flex pen 6 units in AM Synyardiy XR 12.12/999 BID, and Trulicity 3 mg /0.5 ml once a week. I contacted the Pharmacy and they confirmed he is picking up his med boxes regularly Pt isunder the care of Endocrinology (Dr Hernandez) . He follows with Diabetes and Backup Administrator educator Hgb A1c 09/19/2023 : 10.3 Plan: [...] admits that while he was away in [place] for over a month he was not adhering to a diabetic diet. He is also drinking orange juice by the [employer]. Pr counseled and educated about diabetic diet [...] He used to follow with Diabetes and Backup Administrator educator Hgb A1c 09/19/2023 : 10.3 Plan: [...] 07/05/2022 He also follows with Diabetes and Backup Administrator educator Hgb A1c 11/24/2022: 7.0 Plan: continue [...] 07/05/2022 He also follows with Diabetes and Backup Administrator educator Hgb A1c 08/09/2022 was 7.6 today [...] here 4 weeks ago Previous visit Pt's QUILT MAKER told me that she had been taking [...] Encounters Date Type Department Care Team Description 06/04/[address] [facility] [place] [address] Marv Ramirez MD chart prep 06/04/[address] [facility] [address] [place] [address] Marv Ramirez MD chartprep 05/15/2025 Orders Only GENERIC EXTERNAL DATA DEPARTMENT Provider, Generic External Data 04/02/2025 Orders Only GENERIC EXTERNAL DATA DEPARTMENT Provider, Generic External Data 03/27/[address] [facility] [address] [place] [address] Marv Ramirez MD Viral URI 03/12/2025 Results Follow-Up [facility] [address] [facility] [place] [address] Marv Ramirez MD CBC auto differential, Comprehensive Metabolic Panel, Lipid Panel, Standard, Additional followed-up results: 4 from Last 3 Months Immunizations Immunization Administration [...] 03/06/2025 10:27 AM EDT Plan of Treatment Health Maintenance [...] Additional history exists COVID-19 Vaccine ( - 2024- season) 2025 07/26/2021, 01/01/2021, 12/04/2020 Influenza Vaccine (#1) 2025 , 05/25/2021, 08/02/2018, Additional history exists Diabetes: Hemoglobin A1C 06/06/2025 025, 12/06/2024, 08/20/2024, Additional history exists SDOH Screening 09/19/2025 09/19/2024 Depression Screening 03/06/2026 03/06/2025, 03/06/20 Tobacco Screening 03/06/2026 03/06/2025 Diabetes: Urine Protein [...] WHOLE BLOOD Routine 04/02/2025 10:22 AM EDT ALBUMIN, RANDOM URINE W/CREATININE Routine 03/07/2025 8:44 AM EDT Type 2 diabetes mellitus with diabetic polyneuropathy, without long-term current use of insulin (CMS/HCC) LIPID PANEL, STANDARD Routine 03/07/2025 8:44 AM EDT Mixed hyperlipidemia POCT GLYCATED HEMOGLOBIN, TOTAL Routine 03/06/2025 10:38 AM EDT Type 2 diabetes mellitus with diabetic polyneuropathy, without long-term current use of insulin (CMS/HCC) ZZZ HISTORICAL HEPATITIS C AB W/REFL TO HCV RNA, QN, PCR Routine 02/01/2022 11:29 AM EDT HM COLONOSCOPY Routine 04/25/2016 from Last 3 Months or Most Recently Relevant to Health Maintenance Results * (ABNORMAL) Glucose, Whole Blood (05/15/2025 10:05 AM EDT) Only the most recent of2 resultswithin the time period is included. Glucose, Whole Blood 276(H) 60 - 115 mg/dL [facility] Comment:METER #: [id number] 0Testing performed in the Endocrinology Department [address] , [address], [facility]. 05/15/2025 10:0 5 AM EDT 05/15/2025 10:13 AM EDT us Generic External Data Provider LAB BLOOD ORDERAB LES Final Result [facility] [address] [place] [phone] * Albumin, Random Urine W/Creatinine (03/07/2025 8:44 AM EDT) Creatinine, Urine 76.34 mg/dL [facility] Microalbumin Urine 5.0 mg/L [facility] Microalbum Creatinine Ratio Ur 6.5 <30 ug/mg cr [facility] Comment:Albumin/Creatinine R atio Reference Ranges: Normal: < 30 ug/mg creatinine Microalbuminuria: 30 - 300 ug/mg creatinineClinical Albuminuria: > 300 ug/mg creatinine Urine (Urine, Random) 03/07/2025 8:44 AM EDT 03/07/2025 11:11 AM EDT Marv Lacy MD LAB URINE ORDERABLES Final Result Performing Organization Address City/[facility]/ZIP Co de Phone Number [facility] [address] [place] [phone] * (ABNORMAL) Lipid Panel, Standard (03/07/2025 8:44 AM EDT) Triglycerides 121 <150 mg/dL [facility] Comment:Desirable Triglyceri de: less than 150 mg/dLBorderline High Triglyceride 150-199 mg/dLHigh Triglyceride: 200-499 mg/dLVery High Triglyceride: greater than or equal to 5OO mg/dL Cholesterol 125 <200 mg/dL [facility] Comment:Desirable Cholestero l: less than 200 mg/dLBorderline High Cholesterol: 200-239 mg/dLHigh Cholesterol: greater than 239 mg/dL LDL Cholesterol Calculated 65 <100 mg/dL [facility] Comment:Desirable LDL: less than 100 mg/dLNear Optimal/Above Optimal LDL: 110- 129 mg/dLBorderline High LDL: 130-159 mg/dLHigh LDL: 160-189 mg/dLVery High LDL: greater than or equal to 190 mg/dL HDL Cholesterol 36(L) >40 mg/dL [facility] Comment:Desirable HDL: great er than 40 mg/dL Note: This HDL assay may give artificially low results in patients with liver disease. Blood Venous blood specimen / Unknown 03/07/2025 8:44 AM EDT 03/07/2025 11:19 AM EDT Marv Lacy MD LAB BLOOD ORDERABLES Final Result Performing Organization Address City/[facility]/ZIP Co de Phone Number [facility] [address] [place] [phone] * (ABNORMAL) POCT HGB A1C (03/06/2025 10:38 AM EDT) Hemoglobin A1C 7.5(A) 4.0 - 5.7 % QC Media Lot # [id number] Lot# Expiration Date 862, Blood 03/06/2025 10:3 8 AM EDT Marv Lacy MD POINT OF CARE TEST EN TER/EDIT ORDERABLES Final Result * HEPATITIS C AB W/REFL TO HCV RNA, QN, PCR (02/01/2022 11:29 AM EDT) HEPATITIS C ANTIBODY NON-REACT ZOE NON-REACT ZOE [facility] INDEX <0.02 <1.00 [facility] Comment: HCV antibody was non-reactive. There is no laboratory evidence of HCV infection. In most cases, no further action is required. However, if recent HCV exposure is suspected, a test for HCV RNA (test code 59802) is suggested. For additional information please refer to http://education.Aneumed/faq/PNQ37y1 (This link is being provided for informational/ educational purposes only.) 02/01/2022 11:2 9 AM EDT Marv Lacy MD HISTORICAL/NON ORDERA BLE LABS Final Result [facility] [address] * Colonoscopy (04/25/2016) Colonoscopy Tubular Adenoma/Hem orrhoids Comment:Dr Royal Jasso Historical Provider HEALTH MAINTENANCE Edited Result - Final from Last 3 Months or Most Recently Relevant to Health Maintenance Insurance (O D-SNP) [place] [phone] Care Teams Automotive Machinist Apprentice Relationship Specialty Start Date End Date Marv Ramirez MD [address] [place] [address] [place] [address] PCP - General Internal Medicine 04/09/14
--- OUTSIDE RECORDS SUMMARY | 2025-06-10 11:31 | XMS_ITS | Patient Health Record ---
Author Organization [facility] Address [address] [place] [address] Care Team Providers Care Telephone Clerk Name Role Phone Benedict Metz Jr Reason For Referral No Information Plan Of Treatment No Information
--- OUTSIDE RECORDS SUMMARY | 2025-06-10 11:31 | XMS_ITS | Encounter Summary ---
Author Organization [employer] Address [address] [facility] 7t [place] [address] Care Team Providers Care Administrative Manager Name Role Phone Marv Ramirez MD Primary Care Provide r Encounter Details Date Type Department Care Team ([facility] st Contact Info) Description 07/20/2022 Abstract [facility] MEDICINE [address] [place], [place] [phone] Marv Ramirez MD [address] [place] [address] Social History Tobacco Use Types Packs/Day Years [...] on filedocumented in this encounter Care Teams Administrative Manager Relationship Specialty Start Date End Date Marv Ramirez MD 230 [place] [address] PCP - General Internal Medicine 04/09/14 documented as of this encounter
--- OUTSIDE RECORDS SUMMARY | 2025-06-10 11:31 | XMS_ITS | Encounter Summary ---
Author Organization [employer] Address [address] [facility] 7t [place] [address] Care Team Providers Care Associate Store Director Name Role Phone Marv Ramirez MD Primary Care Provide r Reason for Visit * Reason Comments Med Refill Encounter Details Date Type Department Care Team ([facility] Contact Info) Description 02/01/2024 Refill [facility] MEDICINE 230 [place], [place] [phone] Marv Ramirez MD 230 [place] [address] Social History Tobacco Use Types Packs/Day Years [...] as of this encounter Care Teams Associate Store Director Relationship Specialty Start Date End Date Marv Ramirez MD [address] [place] [address] PCP - General Internal Medicine 04/09/14 documented as of this encounter
== END 2025-06-10 10:54 | disposition home or self-care (01) ==
LOC: HO.ENCR 10:04
PROVIDERS: PCP Internal Medicine; Visit Provider Registered Nurse Diabetes Educator
DX: E11.42 Type 2 diabetes mellitus with diabetic polyneuropathy (principal)

== ENCOUNTER → 2025-06-10 10:03 | Outpatient (BNVA) | payer OTHER, SELFPAY | PROVIDERS: PCP Internal Medicine; Visit Provider Registered Nurse Diabetes Educator | DX: E11.42 Type 2 diabetes mellitus with diabetic polyneuropathy (principal) | CPT/HCPCS: 99211 ==

== ENCOUNTER 2025-06-10 13:44 | Outpatient (REF) | payer OTHER, SELFPAY ==
--- NOTE | ~2025-06-10 | XR_ITS ---
EXAMINATION: XR TOES, LEFT CLINICAL INFORMATION: left toe trauma/metatarsal pain COMPARISON: 03/12/2021. TECHNIQUE: 3 views of the left toes were obtained. FINDINGS: There are no fractures or dislocations. No joint effusion is identified. No bone, joint or soft tissue abnormality is demonstrated. XR/XR toe LT min 2V IMPRESSION: No acute bony or soft tissue abnormalities. Electronically signed by: Uriel Palomino MD 06/10/2025 02:28 PM EDT
== END 2025-06-10 13:45 | disposition home or self-care (01) ==
LOC: HO.HHCX 13:44
PROVIDERS: Visit Provider Internal Medicine
DX: S99.922A Unspecified injury of left foot, initial encounter (principal)
CPT/HCPCS: 73660

== ENCOUNTER → 2025-06-10 13:44 | Outpatient (BNV) | payer OTHER, SELFPAY | PROVIDERS: Visit Provider Radiology Diagnostic Radiology | DX: M79.675 Pain in left toe(s) (principal) | CPT/HCPCS: 73660 ==

== ENCOUNTER 2025-07-07 09:21 | Outpatient (AMB) | payer OTHER, SELFPAY ==
[2025-07-07 09:28] VITALS: BP 106/60; PULSE 57; BMI 24.2
--- NOTE | 2025-07-07 09:28 | MHC.OFFVIS ---
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 Clinical Pharmacist Required: Yes Clinical Pharmacist Services: Clinical Pharmacist Offered & Declined Accompanied by: Family/Other Allergies No Known Allergies Allergy (Verified 05/15/25 09:47) Medication List - Last Reconciled 07/07/25 by Ferdinand Maravilla MD alcohol swabs 0 pad topical NEEDED aspirin 81 mg PO BEDTIME atorvastatin 40 mg PO DAILY 30 days blood sugar diagnostic (FreeStyle Lite Strips) 4 times a day blood-glucose meter (FreeStyle [place]in[place] Lite kit) As directed cetirizine 10 mg PO DAILY cyanocobalamin (vitamin B-12) 1,000 mcg PO QAM 90 days famotidine 20 mg PO BID gabapentin 600 mg PO BEDTIME 30 days glucose (Dex4 Glucose) 4 grams PO Q15M PRN glucose (Dex4 Glucose) 16 grams (4 x 4 gram) PO Q15M PRN 30 days MDD 16 tablets insulin aspart U-100 (Novolog FlexPen U-100 Insulin aspart) 6 units (0.06 mL) subcut TID 90 days lancets (TRUEplus Lancets) TEST BLOOD SUGAR FOUR TIMES DAILY Lantus Solostar U-100 Insulin (insulin glargine) 16 units (0.16 mL) subcut DAILY NS lisinopril 5 mg PO DAILY 30 days multivitamin 1 tab PO DAILY omeprazole 20 mg PO BEDTIME pen needle, diabetic As directed twice daily Synjardy XR 12.5-1,000 mg (empagliflozin-metformin) 1 tab PO BID NS tirzepatide (Mounjaro) 5 mg (0.5 mL) subcut QWEEK 28 days trazodone 100 mg PO BEDTIME HPI Comments Details: Matthew is here for cardiac consultation. Extremely vague historian. His ACQUISITIONS ANALYST is helping with interpretation. Unclear if he actually has any history of coronary disease or not. He somehow believes that every time he takes certain pill he gets chest pain. Last episode was Monday. When I questioned him regarding exertional symptoms, again somewhat vague. Specifically when I questioned him about stairs it seems he gets pain with stairs but cannot clarify any further. There is a prior echocardiogram from 2021 that had reported LV dysfunction. [facility] Medical History (Updated 07/07/25 @ 10:07 by Ferdinand Maravilla MD) TSH (thyroid-stimulating hormone deficiency) Colon cancer screening Hypothyroidism Proliferative diabetic retinopathy associated with type 2 diabetes mellitus Hx of lymphoma Peripheral axonal neuropathy Erectile dysfunction Type 2 diabetes mellitus with hyperglycemia, with long-term current use of insulin Dyslipidemia Essential hypertension Diabetic nephropathy associated with type 2 diabetes mellitus Diabetic polyneuropathy associated with type 2 diabetes mellitus Surgical History Hx of local excision of skin lesion Hx of colonoscopy Family History Father Cancer Mother Diabetes Social History Household Members: None Housing: Apartment Housing Other:: Has ACQUISITIONS ANALYST: Mabel Peres Are you a primary senior care specialist to a significant other at home: No Do you presently have visiting nurse or other home services: Yes (station agent) Alcohol intake: never Patient Tobacco Use Status: Never used Tobacco service: No Current occupational status: disabled Review of Systems Const Denies weakness ENT Reports dizziness Card Reports chest pain, Denies chest pain with activity, Denies syncope, Denies rapid heart rate, Denies pedal edema, Denies edema, Denies leg edema, Denies lightheadedness, Denies palpitations, Denies dyspnea, Denies dyspnea on exertion and Denies orthopnea Resp Denies cough, Denies dyspnea and Denies dyspnea on exertion GI Denies hematochezia and Denies change in stool character Musc Denies abnormal gait, Reports joint swelling, Denies muscle cramps, Denies muscle weakness, Denies numbness, Denies radiating pain into limb and Denies tingling Neuro Denies abnormal gait, Reports dizziness, Denies syncope, Denies numbness, Denies tingling and Denies weakness Endo Denies palpitations Physical Exam Vital Signs: Last Vital Signs Pulse 57 07/07/25 09:28 BP 106/60 07/07/25 09:28 BMI result Body Mass Index 24.2 Const General: comfortable and no acute distress Orientation/consciousness: patient oriented x3 HEENT Other: Unremarkable Head: Yes normal to inspection Neck Neck: Yes normal visual inspection Chest Chest palpation & inspection: normal inspection of the chest Resp Auscultation: clear to auscultation bilaterally Cardio Palpation: normal PMI Heart sounds: S1 normal heart sound present, S2 normal heart sound present, no gallops, no murmurs and no rubs GI Palpation (GI): Soft to palpation Back/Spine/Pelvis Other: unremarkable Skin General skin exam: no rashes or lesions noted Neuro General: patient oriented x3 Extrem General: Yes normal to inspection Psych Mental Status: mental status grossly normal Office Procedures EKG Details: EKG with underlying sinus rhythm at 57/Min; ST-elevation in lead one/aVL; ST-depression and T inversions in inferior leads [place] lateral [place] [address]-[id number], Complete Assessment & Plan Assessment & Plan (1) Precordial chest pain: Code(s): R07.2 - Precordial pain Category: Medical (2) Abnormal ambulatory electrocardiogram: Code(s): R94.31 - Abnormal electrocardiogram [ECG] [EKG] Category: Medical (3) Type 2 diabetes mellitus with hyperglycemia, with long-term current use of insulin: Code(s): E11.65 - Type 2 diabetes mellitus with hyperglycemia; Z79.4 - ocean transportation intermediary (current) use of insulin Category: Medical (4) Dyslipidemia: Code(s): E78.5 - Hyperlipidemia, unspecified Category: Medical Plan EKGs clearly abnormal, but not clear if it truly represents a STEMI. However, he does have various risk factors including age, diabetes on insulin, dyslipidemia. Echocardiogram from 202 with LVEF of 40-45%. Overall, recommend an urgent ER evaluation for possible STEMI. He is going to need appropriate labs including troponins and if unrevealing, then an echocardiogram. Based on the above findings, may need urgent ischemic evaluation, to be decided. Discussed with Dr. Garay from ER. Discussion Notes I discussed with the patient the likelihood of a myocardial infarction given the abnormal EKG and his risk factors, including diabetes, hypertension, and hyperlipidemia. I recommended immediate evaluation in the emergency room to confirm the diagnosis and initiate treatment. We also discussed the importance of managing his chronic conditions to reduce future cardiovascular risks. Patient was informed and verbally consented to the use of an ambient scribe for clinic note documentation during this visit. Patient Instructions: - Go to the emergency room immediately for evaluation of chest pain. Coding Level of Care Code New Pt Level 5 (23692) Complex EM visit Add On G2211 Diagnoses Precordial chest pain R07.2 Abnormal ambulatory electrocardiogram R94.31 Type 2 diabetes mellitus with hyperglycemia, with long-term current use of insulin E11.65; Z79.4 Dyslipidemia E78.5 CPT Codes EKG - CPT: 59803-[id number], Complete ([id number])
--- OUTSIDE RECORDS SUMMARY | 2025-07-07 10:14 | XMS_ITS | Encounter Summary ---
Author Organization [employer] Address [address] [facility] 7t [place] [address] Care Team Providers Care Special Projects Coordinator Name Role Phone Marv Ramirez MD Primary Care Provide r Encounter Details Date Type Department Care Team (Late st Contact Info) Description 04/24/2023 Orders Only [facility] MED & PEDS [address] [place], [place] [phone] Lulu Escobar LPN Social History Tobacco Use [...] documented as of this encounter Care Teams Special Projects Coordinator Relationship Specialty Start Date End Date Marv Ramirez MD [address] [place] [address] PCP - General Internal Medicine 04/09/14 documented as of this encounter
--- OUTSIDE RECORDS SUMMARY | 2025-07-07 10:14 | XMS_ITS | Clinical Summary ---
Author Organization [facility] Address [address] [place] [address] Phone Care Team Providers Care Manager Loss Prevention Name Role Phone Marv Pérez MD Primary [...] skin once a week. - Subcutaneous Active povidone-iodine (Betadine) 10 % topical solution Apply topically 1 (one) time each day. 473 mL Active Active Problems Problem Noted Date Diagnosed Date Chronic pruritus 07/05/2024 Dyslipidemia 07/05/2024 Erectile dysfunction 07/05/2024 Essential hypertension 07/05/2024 Hypothyroidism 07/05/2024 Peripheral axonal neuropathy 07/05/2024 T2DM (type 2 diabetes mellitus) (CMS/HCC V24, CM S/HCC V28) 07/05/2024 Encounters Date Type Department Care Team Description 06/26/2025 10:15 AM EDT Office Visit Orthopedic Surgery [facility] [address] [phone] Ezeqiuel Mattson DPM Blister (Primary Dx); Dermatophytosis of nail; Diabetic mononeuropathy simplex ([facility] V24, [facility] V28); Type II diabetes mellitus with peripheral circulatory disorder ([facility] V24, [facility] V28); Pain in toe of right foot; Pain in toe of left foot 06/12/2025 2:00 PM EDT Office Visit Orthopedic [place] [address] [phone] Ezequiel Mattson DPM Blanahi (Primary Dx) from Last 3 Months Social History Tobacco [...] 01/30/2025 9:39 AM EDT Plan of Treatment Upcoming Encounters Date Type Department Care Team (Late st Contact Info) Description 09/04/2025 9:15 AM EST Office Visit Orthopedic [place] [address] [phone] Ezequiel Mattson DPM [address] [phone] Health Maintenance Due Date Last Done Comments Diabetes: Annual GFR (Glomerular Filtration Rate) 1949 Diabetes: Annual Retina Eye Exam 1959 Zoster Vaccines (1 of 2) 02/23/2015 12/29/2014 Pneumococcal Vaccine: 50+ Years (3 of 3 - PCV20 or PCV21) 06/25/2020 06/25/2015, 09/02/2013 Falls Risk Assessment 07/31/2022 Hepatitis C Screening [...] exists Diabetes: Blood Sugar Control Test (HGBA1C) 09/06/2025 03/06/2025, 12/06/2024, 05/23/2024 Diabetes: Annual Foot Exam 06/11/2026 06/11/2025 Cholesterol Screening (Lipid Panel) 03/07/2030 03/07/2025 DTaP,Tdap,and Td Vaccines (3 - Td or [...] patient's age to complete this topic Insurance [facility] Member Subscriber Plan / Payer (Ef fective 2018-Present) Name:Charly Armstrongfarhat Mirza Relation to Subscriber:Self Name:Matthew Armstrong Payer ID:[id number] Group ID:[id number] Type:Not on file Address: [address] [facility] [place] [address] [employer] MEDICARE Member Subscriber Plan / Payer (Ef fective 2018-Present) Name:Charly Armstrongfarhat Mirza Relation to Subscriber:Self Name:ArmstrongMatthew parra Payer ID:[id number] Group ID:[id number] Type:Not on file Address: [address] [place] [address] Care Teams Manager Loss Prevention Relationship Specialty Start Date End Date Marv Pérez MD [address] [place] [address] PCP - General Internal Medicine 07/05/24
--- OUTSIDE RECORDS SUMMARY | 2025-07-07 10:14 | XMS_ITS | Encounter Summary ---
Author Organization [employer] Address [address] [facility] 7t [place] [address] Care Team Providers Care Charge Manager Name Role Phone Marv Ramirez MD Primary Care Provide r Reason for Visit * Reason Comments Med Refill Encounter Details Date Type Department Care Team ([facility] st Contact Info) Description 02/01/2024 Refill [facility] MEDICINE 230 [place], [place] [phone] Marv Ramirez MD 230 [place] [address] Social History Tobacco Use Types Packs/Day Years [...] documented as of this encounter Care Teams Charge Manager Relationship Specialty Start Date End Date Marv Ramirez MD [address] [place] [address] PCP - General Internal Medicine 04/09/14 documented as of this encounter
--- OUTSIDE RECORDS SUMMARY | 2025-07-07 10:14 | XMS_ITS | Encounter Summary ---
Author Organization [employer] Address [address] [facility] 7t [place] [address] Care Team Providers Care Residential Support Specialist Name Role Phone Marv Ramirez MD Primary Care Provide r Reason for Visit * Reason Comments Med Refill Encounter Details Date Type Department Care Team ([facility] st Contact Info) Description 01/31/2024 Refill [facility] MEDICINE 230 [place], [place] [phone] Marv Ramirez MD 230 [place] [address] Social History Tobacco Use Types Packs/Day Years [...] documented as of this encounter Care Teams Residential Support Specialist Relationship Specialty Start Date End Date Marv Ramirez MD [address] [place] [address] PCP - General Internal Medicine 04/09/14 documented as of this encounter
--- OUTSIDE RECORDS SUMMARY | 2025-07-07 10:14 | XMS_ITS | Encounter Summary ---
Author Organization [employer] Address [address] [facility] 7t [place] [address] Care Team Providers Care Windows Deployment Technician Name Role Phone Marv Ramirez MD Primary Care Provide r Reason for Visit * Reason Comments Med Refill Encounter Details Date Type Department Care Team ([facility] st Contact Info) Description 03/04/2025 Refill [facility] MEDICINE 230 [place], [place] [phone] Marv Ramirez MD 230 [place], [place] [phone] Insomnia, unspecified type Social History Tobacco Use [...] documented as of this encounter Care Teams Windows Deployment Technician Relationship Specialty Start Date End Date Marv Ramirez MD [address] [place] [address] PCP - General Internal Medicine 04/09/14 documented as of this encounter
--- OUTSIDE RECORDS SUMMARY | 2025-07-07 10:14 | XMS_ITS | Encounter Summary ---
Author Organization [employer] Address [address] [facility] 7t [place] [address] Care Team Providers Care Commissions Coordinator Name Role Phone Marv Ramirez MD Primary Care Provide r Reason for Visit * Reason Onset Date Comments Nurse Triage 12/13/2023 Encounter Details Date Type Department Care Team ([facility] st Contact Info) Description 12/13/2023 Telephone [facility] MEDICINE 230 [place], [place] [phone] Marv Ramirez MD 230 [place], [place] [phone] Nurse Triage Social History Tobacco Use Types [...] 12/13/2023 10:51 AM EDT Triage call with [email or web address] [place] [id number] Pt reports glass in the right eye. [...] documented as of this encounter Care Teams Commissions Coordinator Relationship Specialty Start Date End Date Marv Ramirez MD [address] [place] [address] PCP - General Internal Medicine 04/09/14 documented as of this encounter
--- OUTSIDE RECORDS SUMMARY | 2025-07-07 10:14 | XMS_ITS | Encounter Summary ---
Author Organization [email or web address] Address [address] [facility] 7t [place] [address] Care Team Providers Care [employer] Boards Name Role Phone Marv Ramirez MD Primary Care Provide r Reason for Visit * Reason Comments Med Refill Encounter Details Date Type Department Care Team ([facility] Contact Info) Description 01/26/2024 Refill [facility] MEDICINE 230 [place], [place] [phone] Marv Ramirez MD [address] [place] [address] Social History Tobacco Use Types Packs/Day Years [...] documented as of this encounter Care Teams [employer] Bo[employer] Relationship Specialty Start Date End Date Marv Ramirez MD [address] [place] [address] PCP - General Internal Medicine 04/09/14 documented as of this encounter
--- OUTSIDE RECORDS SUMMARY | 2025-07-07 10:14 | XMS_ITS | Encounter Summary ---
Author Organization [employer] Address [address] [facility] 7t [place] [address] Care Team Providers Care Credit And Loan Collections Supervisor Name Role Phone Marv Ramirez MD Primary Care Provide r Reason for Visit * Reason Onset Date Comments Durable Medical Equipment 07/04/2025 Encounter Details Date Type Department Care Team ([facility] st Contact Info) Description 07/04/2025 Telephone [facility] MEDICINE 230 [place], [place] [phone] Marv Ramirez MD [address] [place], [place] [phone] Durable Medical Equipment Social History Tobacco Use Types Packs/Day Years [...] encounter Miscellaneous Notes * Telephone Encounter - Marilia Barron RN - 07/04/2025 2:53 PM EST TC placed to the pt and a VM was left to call back the office regarding scheduling appointment for DME request * Telephone Encounter - Lanie Hopkins - 07/04/2025 2:15 PM EST Pt requesting pull ups and wipes, however after reviewing chart I was unable to find diagnosis of incontinence. Please will need appointment to be evaluated for the need. Thank you * Telephone Encounter - Zack Gregorio - 07/04/2025 10:25 AM EST Tc from [facility] with [facility] requesting DME supplies for Pull ups size M and wipes to be faxed to [employer]. Fax number is [phone] Any questions [phone] documented in this encounter Plan of Treatment Not on file documented as of this encounter Visit Diagnoses Not on filedocumented in this encounter Additional Health Concerns Assessment Noted Time PHQ-9 Depression Total Score: 0 03/06/20 25 10:24 AM EDT documented as of this encounter Care Teams Credit And Loan Collections Supervisor Relationship Specialty Start Date End Date Marv Ramirez MD [address] [place] [address] PCP - General Internal Medicine 04/09/14 documented as of this encounter
--- OUTSIDE RECORDS SUMMARY | 2025-07-07 10:14 | XMS_ITS | Encounter Summary ---
Author Organization [employer] Address [address] [facility] 7t [place] [address] Care Team Providers Care Art Therapy Specialist Name Role Phone Marv Ramirez MD Primary Care Provide r Reason for Visit * Reason Comments Med Refill Encounter Details Date Type Department Care Team ([facility] Contact Info) Description 07/16/[address] [facility] MEDICINE 230 [place], [place] [phone] Bonita Yousif MD 230 [place], [place] [phone] Social History Tobacco Use Types Packs/Day Years [...] documented as of this encounter Care Teams Art Therapy Specialist Relationship Specialty Start Date End Date Marv Ramirez MD [address] [place] [address] PCP - General Internal Medicine 04/09/14 documented as of this encounter
--- OUTSIDE RECORDS SUMMARY | 2025-07-07 10:14 | XMS_ITS | Clinical Summary ---
Author Organization [employer] Address [address] [place] [address] 7[address] [place] [address] Care Team Providers Care Hog Trader Name Role Phone Marv Ramirez MD Primary Care Provide r Allergies No known active allergies Medications glucose 4 g chewable tablet if needed. 015 Active insulin glargine (Lantus SoloStar) 100 UNIT/ML pen Inject 20 Units under the skin at bedtime. 022 Active FREESTYLE LITE test stripIndications: Type 2 diabetes mellitus with diabetic polyneuropathy, without long-term current use of insulin ([facility]) TEST BLOOD SUGAR THREE TIMES DAILY 100 strip 11 023 Active Synjardy XR 12.5-1000 MG 24 hr tablet Take 1 tablet by mouth every 12 (twelve) hours. 024 Active ciprofloxacin (Ciloxan) 0.3 % ophthalmic solution INSSTILL 1 DROP IN RIGHT EYE 4 TIMES A DAY 024 Active NovoLOG FLEXPEN 100 UNIT/ML pen INJECT 6 UNITS SUBCUTANEOUSLY EVERY MORNING 024 Active TRUEplus Lancets 33G misc 023 Active lisinopril 5 MG tablet Take 5 mg by mouth in the morning. 024 Active Mounjaro 2.5 MG/0.5ML solution pen-injector 024 Active atorvastatin (Lipitor) 40 MG tabletIndications :Mixed hyperlipidemia TAKE 1 TABLET BY MOUTH AT BEDTIME 90 tablet 3 024 Active Multiple Vitamin (Multivitamin) tabletIndications :Insomnia, unspecified type TAKE 1 TABLET BY MOUTH EVERY MORNING WITH FOOD 90 tablet 3 024 Active Alcohol Swabs (Alcohol Prep) 70 % padsIndications:T ype 2 diabetes mellitus without complication, with long-term current use of insulin (HCC) USE THREE TIMES DAILY DIRECTED 100 each 11 025 Active B-D UF III MINI PEN NEEDLES 31G X 5 MM miscIndications:T ype 2 diabetes mellitus with diabetic polyneuropathy, without long-term current use of insulin (HCC) USE DIRECTED FOR INSULIN THREE TIMES DAILY 100 each 5 025 Active Aspirin Low Dose 81 MG EC tablet TAKE 1 TABLET BY MOUTH EVERY MORNING 90 tablet 1 025 Active gabapentin (Neurontin) 600 MG tablet Take 1 tablet (600 mg) by mouth at bedtime. 30 tablet 6 025 Active traZODone (Desyrel) 100 MG tabletIndications :Insomnia, unspecified type TAKE 1 TABLET BY MOUTH EVERY EVENING AFTER MEALS 90 tablet 1 025 Active cetirizine (ZyrTEC) 10 MG tabletIndications :Viral URI TAKE 1 TABLET BY MOUTH EVERY MORNING 30 tablet 2 025 Active omeprazole (PriLOSEC) [address] capsule TAKE 1 CAPSULE BY MOUTH EVERY MORNING 90 capsule 1 025 Active omeprazole (PriLOSEC) [address] capsule TAKE 1 CAPSULE BY MOUTH EVERY MORNING 90 capsule 1 025 2024 Discontinued Active Problems Problem Noted Date Diagnosed Date Toe trauma, left, initial encounter 06/10/2025 Assessment & Plan (06/10/2025 1:44 PM EDT): Blunt trauma to lesser toe on the left foot, Tdap is up-to-date, has a tiptoe hematoma but no ulceration at this time. Order x-ray to rule out fracture, I will bree tape the toe to improve functionality and facilitate gait Red flags sxs regarding ulceration discussed with patient as above, will go immediately to the ED or come to [facility]. I called Dr. Mattson's office to set up an appointment follow-up on potentially pre ulcerative condition of the left, OV notes will be faxed at their request and they will contact patient. Patient and ORTHOPEDIC DESIGNER are aware of POC. Precordial pain 03/06/2025 Assessment & Plan (03/06/2025 10:21 AM EDT): Seen at our [facility] by Dr Fofana who recommended an ECHO [...] Connors provided to his during last visit ORTHOPEDIC DESIGNER The stitches were removed prior to last [...] Connors provided to his during last visit ORTHOPEDIC DESIGNER The stitches were removed prior to last [...] number of Dr Connors provided to his ORTHOPEDIC DESIGNER The stitches were removed today I provided [...] to rule out Skin CA Pt and pediatric critical care nurse agreable with plan Cellulitis of right hand [...] Adenoma, Pt seen in [address] Roayl Duckworth who recommended to repeat the Colonoscopy [...] Synjardy XR 12.5-1000mg daily History: Updated 03/25/24 CD Dm visit on 03/25. At this time, patient is being followed by endocrinology and is at goal. - On ASA: Y - On Statin: Y atorvastatin 40mg daily - Last Eye Exam: 02/26/2024 - Last Dental Exam: Unknown Assessment & Plan (06/10/2025 1:39 PM EDT): Patient has neuropathy on both lower extremities, we had discussed importance of checking his feet especially left toes daily, check for ulcerations, increased swelling erythema or change in sensation, he should go immediately to ED. Discussed importance of tight control of diabetes, we will try to schedule a sooner appointment with Dr. Mattson due to high risk of toe ulceration after trauma Assessment & Plan (03/06/2025 10:38 AM EDT): Patient is here for a f/u Under the care of Endocrinology (Dr Hernandez) . He is back on a regimen of: Lantus 10 units sc q pm, Novolog Flex pen 6 units in AM Synyardiy XR 12.12/999 BID, and Mounjaro 2.5 mg once a week. He follows with Diabetes and Dairy Feed Sales Consultant educator Hgb A1c 03/06/2025: 7.5 from : [...] a week. He follows with Diabetes and Dairy Feed Sales Consultant educator Hgb A1c 08/20/2024 : 7.8 from [...] Hernandez) . He follows with Diabetes and Dairy Feed Sales Consultant educator Hgb A1c 05/23/2024 : 7.5 from [...] further follow-up in CDTM. Continue care with [facility] Endocrinology office - Medlist updated Monitoring: Hemoglobin [...] Hernandez) . He follows with Diabetes and Dairy Feed Sales Consultant educator Hgb A1c 09/19/2023 : 10.3 Plan: [...] units sc q pm, ( Today his ORTHOPEDIC DESIGNER tells me he is not injecting Lantus anymore) Novolog Flex pen 6 units in AM Synyardiy XR 12.12/999 BID, and Trulicity 3 mg /0.5 ml once a week. I contacted the Pharmacy and they confirmed he is picking up his med boxes regularly Pt isunder the care of Endocrinology (Dr Hernandez) . He follows with Diabetes and Dairy Feed Sales Consultant educator Hgb A1c 09/19/2023 : 10.3 Plan: [...] admits that while he was away in [place] for over a month he was not adhering to a diabetic diet. He is also drinking orange juice by the [facility]. Pr counseled and educated about diabetic diet [...] He used to follow with Diabetes and Dairy Feed Sales Consultant educator Hgb A1c 09/19/2023 : 10.3 Plan: [...] 07/05/2022 He also follows with Diabetes and Dairy Feed Sales Consultant educator Hgb A1c 11/24/2022: 7.0 Plan: continue [...] 07/05/2022 He also follows with Diabetes and Dairy Feed Sales Consultant educator Hgb A1c 08/09/2022 was 7.6 today [...] here 4 weeks ago Previous visit Pt's ORTHOPEDIC DESIGNER told me that she had been taking [...] Encounters Date Type Department Care Team Description 07/04/2025 Telephone [facility] [address] [place] [phone] Marv Ramirez MD Durable Medical Equipment 06/18/2025 Refill [facility] [address] [place] [phone] Marv Ramirez MD 06/11/2025 Telephone [facility] [address] [place] [phone] Marv Ramirez MD Podiatry 06/10/2025 1:00 PM EDT Office Visit [facility] [address] [place] [phone] Mary Hamm MD Toe trauma, left, initial encounter (Primary Dx); Type 2 diabetes mellitus with diabetic neuropathy, with long-term current use of insulin (HCC) 06/10/2025 Travel 06/04/2025 Telephone [facility] [address] [place] [phone] Marv Ramirez MD chart prep 06/04/[address] [address] Marv Ramirez MD chartprep 05/15/2025 Orders Only GENERIC EXTERNAL DATA DEPARTMENT Provider, Generic External Data from Last 3 Months Immunizations Immunization Administration [...] Sign Reading Time Taken Comments Blood Pressure 134/65 06/10/2025 1:06 PM EDT Pulse 65 06/10/2025 1:06 PM EDT Temperature 36.6 C (97.9 F) 06/10/2025 1:06 PM EDT Respiratory Rate 24 06/10/2025 1:06 PM EDT Oxygen Saturation 98% 03/06/2025 10: 27 AM EDT Inhaled Oxygen Concentration - - Weight 68.4 kg (150 lb 12.8 oz) 06/10/2025 1:06 PM EDT Height 167.6 cm (5' 6 ) 06/10/2025 1:06 PM EDT Body Mass Index 24.34 06/10/2025 1:06 PM EDT Plan of Treatment Health Maintenance Due [...] series) 2024 COVID-19 Vaccine ( - season) 2025 07/26/2021, 01/01/2021, 12/04/2020 Influenza Vaccine (#1) 2025 4, 05/25/2021, 08/02/2018, Additional history exists Diabetes: Hemoglobin A1C 06/06/2025 025, 12/06/2024, 08/20/2024, Additional history exists SDOH Screening 09/19/2025 09/19/2024 Depression Screening 03/06/2026 03/06/2025, 03/06/20 25 Diabetes: Urine Protein Screening 03/07/2026 03/07/2025, 12/28/2022, 10/27/2021, Additional history exists Lipid Panel 03/07/2026 03/07/2025, 0708/2024, 09/19/2023, Additional history exists Tobacco Screening 06/10/2026 06/10/2025 Diabetes: Foot Exam 06/11/2026 06/11/2025, 06/10/2025, 06/10/2025, Additional history exists DTaP/Tdap/Td Vaccines (2 - [...] Procedure Name Priority Date/Time Associated Diagnosis Comments AMB REFERRAL TO PODIATRY Urgent 06/11/2025 Toe trauma, left, initial encounter Type 2 diabetes mellitus with diabetic neuropathy, with long-term current use of insulin ([facility]) XR TOES 2+ VIEWS LEFT Routine 06/10/2025 2:07 PM EDT Toe trauma, left, initial encounter GLUCOSE, WHOLE BLOOD Routine 05/15/2025 10:05 AM EDT ALBUMIN, RANDOM URINE W/CREATININE Routine 03/07/2025 8:44 AM EDT Type 2 diabetes mellitus with diabetic polyneuropathy, without long-term current use of insulin ([facility]) LIPID PANEL, STANDARD Routine 03/07/2025 8:44 AM [...] Recently Relevant to Health Maintenance Results * Referral to Podiatry (06/11/2025) Mary Hamm MD OUTPATIENT REFERRAL ANGELARaciel VELEZ Final Result * XR Toes 2+ Left (06/10/2025 2:07 PM EDT) Anatomical Region Laterality Modality Lower Extremities, Toes Left Radiogra phic Imaging 06/10/2025 2:07 PM EDT Narrative 06/10/2025 2:31 PM EDT [address] [address] XRay Report Signed Patient: Matthew Teixeira MR#: [id number] : 1950 Acct:[id number] Age/Sex: 75 / M ADM Date: 06/10/25 Loc: HO.HHCX Attending Dr: Mary Hamm MD Ordering Physician: Mary Hamm MD Date of Service: 06/10/25 Procedure(s): XR toe LT min 2V Accession Number(s): [id number] cc: Mary Hamm MD Reason for Exam: left toe trauma/metatarsal pain EXAMINATION: XR TOES, LEFT CLINICAL INFORMATION: left toe trauma/metatarsal pain COMPARISON: 03/12/2021. TECHNIQUE: 3 views of the left toes were obtained. FINDINGS: There are no fractures or dislocations. No joint effusion is identified. No bone, joint or soft tissue abnormality is demonstrated. XR/XR toe LT min 2V IMPRESSION: No acute bony or soft tissue abnormalities. Electronically signed by: Uriel Palomino MD 06/10/2025 02:28 PM EDT RP Dictated By: Uriel Palomino MD Signed By: <Electronically signed by Uriel Palomino MD in OV> 06/10/251427 DD/ 06 TD/TT: 06/10/25 141 Field Administrator: Procedure Note Donotkennedyinterpreter, Image - 06/10/[address] [address] XRay Report Signed Patient: Matthew Teixeira AMR#: [id number] : 9Acct:[id number] Age/Sex: 75 / MADM Date: 06/10/25 Loc: HO.HHCX Attending Dr: Mary Hamm MD Ordering Physician: Mary Hamm MD Date of Service: 06/10/25 Procedure(s): XR toe LT min 2V Accession Number(s): [id number] cc: Mary Hamm MD Reason for Exam: left toe trauma/metatarsal pain EXAMINATION: XR TOES, LEFT CLINICAL INFORMATION: left toe trauma/metatarsal pain COMPARISON: 03/12/2021. TECHNIQUE: 3 views of the left toes were obtained. FINDINGS: There are no fractures or dislocations. No joint effusion is identified. No bone, joint or soft tissue abnormality is demonstrated. XR/XR toe LT min 2V IMPRESSION: No acute bony or soft tissue abnormalities. Electronically signed by: Uriel Palomino MD 06/10/2025 02:28 PM EDT RP Dictated By: Uriel Palomino MD Signed By: <Electronically signed by Uriel Palomino MD in OV> 06/10/25 1428 DD/ 06 TD/TT: 06/10/25 141 Field Administrator: Mary Hamm MD IMG XR PROCEDURES Final Result * (ABNORMAL) Glucose, Whole Blood (05/15/2025 10:05 AM EDT) Glucose, Whole Blood 276(H) 60 - 115 mg/dL [facility] Comment:METER #: [id number] 0Testing performed in the Endocrinology Department [address] , [address], [facility]. 05/15/2025 10:0 5 AM EDT 05/15/2025 10:13 AM EDT us Generic External Data Provider LAB BLOOD ORDERAB LES Final Result Performing Organization Address [facility] Co de Phone Number [facility] [address] [place] [address] [phone] * Albumin, Random Urine W/Creatinine (03/07/2025 8:44 AM EDT) Creatinine, Urine 76.34 mg/dL [facility] Microalbumin Urine 5.0 mg/L [facility] Microalbum Creatinine Ratio Ur 6.5 <30 ug/mg cr [facility] Comment:Albumin/Creatinine R atio Reference Ranges: Normal: < 30 ug/mg creatinine Microalbuminuria: 30 - 300 ug/mg creatinineClinical Albuminuria: > 300 ug/mg creatinine Urine (Urine, Random) 03/07/2025 8:44 AM EDT 03/07/2025 11:11 AM EDT us Marv Lacy MD LAB URINE ORDERABLES Final Result Performing Organization Address [facility] Co de Phone Number [facility] [address] [place] [phone] [phone] * (ABNORMAL) Lipid Panel, Standard (03/07/2025 8:44 AM EDT) Triglycerides 121 <150 mg/dL [facility] Comment:Desirable Triglyceri de: less than 150 mg/dLBorderline High Triglyceride 150-199 mg/dLHigh Triglyceride: 200-499 mg/dLVery High Triglyceride: greater than or equal to 5OO mg/dL Cholesterol 125 <200 mg/dL [facility] Comment:Desirable Cholestero l: less than 200 mg/dLBorderline High Cholesterol: 200-239 mg/dLHigh Cholesterol: greater than 239 mg/dL LDL Cholesterol Calculated 65 <100 mg/dL [facility] Comment:Desirable LDL: less than 100 mg/dLNear Optimal/Above Optimal LDL: 110- 129 mg/dLBorderline High LDL: 130-159 mg/dLHigh LDL: 160-189 mg/dLVery High LDL: greater than or equal to 190 mg/dL HDL Cholesterol 36(L) >40 mg/dL [facility] Comment:Desirable HDL: great er than 40 mg/dL Note: This HDL assay may give artificially low results in patients with liver disease. Blood Venous blood specimen / Unknown 03/07/2025 8:44 AM EDT 03/07/2025 11:19 AM EDT Marv Lacy MD LAB BLOOD ORDERABLES Final Result [facility] [address] [place] [phone] * (ABNORMAL) POCT HGB A1C (03/06/2025 10:38 AM EDT) Pathologist [facility] Hemoglobin A1C 7.5(A) 4.0 - 5.7 % QC Media Lot # [id number] Lot# Expiration Date [id number] Blood 03/06/2025 10:3 8 AM EDT Marv Lacy MD POINT OF CARE TEST EN TER/EDIT ORDERABLES Final Result * HEPATITIS C AB W/REFL TO HCV RNA, QN, PCR (02/01/2022 11:29 AM EDT) HEPATITIS C ANTIBODY NON-REACT ZOE NON-REACT [facility] INDEX <0.02 <1.00 [facility] Comment: HCV antibody was non-reactive. There is no laboratory evidence of HCV infection. In most cases, no further action is required. However, if recent HCV exposure is suspected, a test for HCV RNA (test code 70499) is suggested. For additional information please refer to http://education.[employer]on[employer]highstreet/faq/VQH17v2 (This link is being provided for informational/ educational purposes only.) 02/01/2022 11:2 9 AM EDT Marv Lacy MD HISTORICAL/NON ORDERA BLE LABS Final Result [facility] [address] * Colonoscopy (04/25/2016) Colonoscopy Tubular Adenoma/Hem orrhoids Comment:Dr Royal Jasso Historical Provider HEALTH MAINTENANCE Edited Result - Final from Last 3 Months or Most Recently Relevant to Health Maintenance Insurance [facility] RETIREMENT OPTIONS (O D-SNP) [place] [id number] Care Teams Hog Trader Relationship Specialty Start Date End Date Marv Ramirez MD [address] [place] [phone] PCP - General Internal Medicine 04/09/14
--- OUTSIDE RECORDS SUMMARY | 2025-07-07 10:14 | XMS_ITS | Encounter Summary ---
Author Organization [email or web address] Address [address] [facility] [address]t [place] [address] Care Team Providers Care Coin Machine Assembler Name Role Phone Marv Ramirez MD Primary Care Provide r Reason for Visit * Reason Comments Med Refill Encounter Details Date Type Department Care Team ([facility] Contact Info) Description 08/01/2024 Refill [facility] [address] [place], [place] [phone] Marv Ramirez MD [address] [place] [address] Social History Tobacco Use Types Packs/Day Years [...] documented as of this encounter Care Teams Coin Machine Assembler Relationship Specialty Start Date End Date Marv Ramirez MD [address] [place] [phone] PCP - General Internal Medicine 04/09/14 documented as of this encounter
--- OUTSIDE RECORDS SUMMARY | 2025-07-07 10:14 | XMS_ITS | Encounter Summary ---
Author Organization [employer] Address [address] [facility] [address] [place] [address] Care Team Providers Care Family Practitioner Name Role Phone Marv Ramirez MD Primary Care Provide r Encounter Details Date Type Department Care Team ([facility] st Contact Info) Description 07/20/2022 Abstract [facility] [address] [place], [place] [phone] Marv Ramirez MD [address] [place] [address] Social History Tobacco Use Types Packs/Day Years [...] on filedocumented in this encounter Care Teams Family Practitioner Relationship Specialty Start Date End Date Marv Ramirez MD [address] [place] [address] PCP - General Internal Medicine 04/09/14 documented as of this encounter
--- OUTSIDE RECORDS SUMMARY | 2025-07-07 10:14 | XMS_ITS | Data Portability ---
Author Organization [employer] [facility], [facility] Address [address] [place] [phone] Care Team Providers Care Asian Studies Program Chair Name Role Phone HIM CCA OTHER DASIA MARS Primary Care Provider Assessment Encounter Date Assessment Date Assessment LastModified by Organization Details LastModified Time 05/03/2024 05/03/2024 I provided real -time medical direction via phone for this encounter, and was available for additional phone based assistance as needed. I have reviewed and agree with the Assessment and Plan as documented by the Hotel Front Desk Clerk. We discussed the diagnostic uncertainty of home [...] to call [phone]- verbalized understanding of instruction Not available 05/03/2024 15:29:17 Plan of Treatment Reminders Order Date Submit Date Provider Last Modified By Organization Details Last Modified Time Details Appointments None recorde d. Lab glucose , fingers tick, blood 024 05/03/20 24 [email or web address] [facility], [address] [place] [address], [phone] 15:30:30 Referral None recorde d. Procedures None [...] Glucose: mg/dl 249 Not Available Main - [address], [phone] 05/03/2024 15:30:07 Result Notes None recorded. Medical [...] [degF] 97 % 97 % 62 /min 02553.7 2 g 124/68 mm[Hg] Not Available [facility] - production 4 14:58:06 Social History None recorded. Functional Status None recorded. Mental Status None recorded. Family History Nothing Reported. Medical History No medical history recorded. Past Encounters Encounter ID Performer Location Encounter Start Date Encounter Closed Date Diagnosis/Indication Diagnosis SNOMED-CT Code Diagnosis ICD10 Code Diagnosis IMO Codes Diagnosis Note [id number] Deloris Borrero MD Main - [facility] [address] [place] [phone] 05/03/2024 14:58:01 05/06/2024 22:20:04 Cellulitis of right lower limb [id number] L03.115 Improving on doxycyclin e. Advised to [...] Juarez Member ID Guarantor Name 05/03/[address] [facility] - DOS ON OR AFTER 2022 - DUAL ELIGIBLE - [employer] OPTIONS AND ONE CARE (MEDICARE REPLACEMENT/ADV ANTAGE - HMO) Matthew Armstrong [id number] Matthew Armstrong Notes Date Note Type Note Provider Name and Address Organization Details Recorded Time 05/03/2024 text/html ROS as noted in the HPI CRC Nurse Triage Notes (Jolly Muniz): Reason For Request: Patient has a leg wound, and it doesn't look good, swollen. Chief Complaints: Cellulitis PMH: Diabetes Allergies: No Known Comments: CP and CURING PRESS OPERATOR on a 3-way call requesting a referral for member, member identified via name and . PMHx- DM. NKDA. Member with on/off ?cellulitis to his right ankle for about a month. Per CURING PRESS OPERATOR he went to the ED 04/30 and was prescribed Doxycycline, ankle improved, but now is becoming swollen (+pitting) and discolored again, with associated pain, no open areas. Member agreeable to a visit. .................. .................. .................. .................. .................. .................. .................. ............... Hotel Front Desk Clerk Note From Conor Burnett: Pt co ankle pain right side interior. Pt seen in ED 04/30 and RX for doxycycline. Pt on day. Pt sts has had improvement from 3 days ago. Pt CURING PRESS OPERATOR was still concerned and requested a visit. Pt denies fever , edema, weeping, cp, sob, NVD. Photo of ankle uploaded. Area not hot to touch , mild discoloration. Not painful upon palpation. No pitting edema. Afebrile. Baseline vitals assessed. Vitals WNL BG 249 . [facility] contacted and advised pt to follow up [...] leading him to the ER on 04/30. Deolris Borrero MD [address] [facility],[address], [place], [phone], ALBERTO - SHARON COVARRUBIAS 05/03/2024 15:30:40
== END 2025-07-07 10:01 | disposition home or self-care (01) ==
LOC: HO.HCS 09:21
PROVIDERS: PCP Internal Medicine; Visit Provider Internal Medicine
DX: I44.0 Atrioventricular block, first degree (principal); R00.1 Bradycardia, unspecified
CPT/HCPCS: 93010

== ENCOUNTER 2025-07-07 10:01 | Emergency (ER) | payer OTHER, SELFPAY ==
--- NOTE | ~2025-07-07 | XR_ITS ---
EXAMINATION: XR CHEST CLINICAL INFORMATION: chest pain COMPARISON: 04/20/2019 TECHNIQUE: Frontal view of the chest was obtained. FINDINGS: Again seen are coarse lung markings, similar to the prior. Heart size is within normal limits. There is atherosclerotic calcification in the aortic arch. There is mild blunting of left costophrenic angle. There is no pneumothorax. Moderate degenerative changes are present in the right shoulder joint and mild degenerative change in the left. XR/XR chest 1V IMPRESSION: There is mild blunting of the left costophrenic angle that could be related to a trace pleural effusion or scarring. Moderate degenerative changes are present in the right shoulder joint and mild degenerative change in the left. Electronically signed by: Amilcar Crespo MD 07/07/2025 10:35 AM [facility]ERMIN
--- NOTE | 2025-07-07 10:02 | ECG_ITS ---
Test Reason : STEMI Blood Pressure : */* mmHG Vent. Rate : 56 BPM Atrial Rate : 56 BPM P-R Int : 214 ms QRS Dur : 110 ms QT Int : 470 ms P-R-T Axes : 14 -24 -24 degrees QTcB Int : 453 ms Sinus bradycardia with 1st degree A-V block Nonspecific T wave abnormality Abnormal ECG When compared with ECG of 28-Sep-2009 10:11, No significant changes seen Referred By: Almita Garay Electronically Signed By: MG SOSA MD
[2025-07-07 10:20] VITALS: BP 112/46; PULSE 53; RESP 12; TEMP 36.7; O2SAT 96; BMI 24.6
--- NOTE | 2025-07-07 10:34 | ED.CHESTPAIN ---
HPI - Chest Pain General Chief Complaint: Chest Pain Stated Complaint: possible heart attack Time Seen by Provider: 07/07/25 10:02 Source: patient, family, old records reviewed and supervisor pipeline Mode of arrival: ambulatory Limitations: other (Poor historian) History of Present Illness ED Provider: MARLON SEARS narrative: 75-year-old male with past medical history of hypothyroidism, diabetes, pancytopenia, hypertension, hyperlipidemia here with complaint of atypical nighttime episodes where he feels chest pain started like a poking sensation on the left chest but no other associated symptoms. His MANAGER OPERATIONS AND PROCUREMENT states this has been going on for the last few months. He blames it on taking a blue pill. They both note he has been feeling well recently he did have an episode where he felt a little bit dizzy but it passed. He had no chest pain, shortness of breath, nausea, upper respiratory symptoms. He denies any pain right now at this time. I was called by Cardiology given abnormal EKG though atypical presentation. On arrival to the ED his statin EKG was very much changed from his cardiology visit and he had no ischemia noted on exam. They deny any recent travel or procedures. The patient is smiling and states he feels fine complaint: chest pain Onset (ago): month(s) (Three months) Timing of current episode: episodic Prior episodes: Yes Onset: during rest (After taking a blue pill) Pain location: substernal Pain radiation: none Severity: mild Quality: other (Poking) Relieving factors: nothing Exacerbating factors: other (Medication) Treatment prior to arrival: none Related Data Home Medications ?Medication ?Instructions ?Recorded ?Confirmed aspirin 81 mg tablet,delayed 81 mg PO BEDTIME 07/03/20 07/07/25 release multivitamin 1 tab PO DAILY 07/03/20 07/07/25 omeprazole 20 mg capsule,delayed 20 mg PO DAILY@0630 07/03/20 07/07/25 release trazodone 100 mg tablet 100 mg PO BEDTIME 07/03/20 07/07/25 blood-glucose meter (FreeStyle 07/05/22 07/07/25 Gotebo Lite kit) cetirizine 10 mg tablet 10 mg PO DAILY 01/04/23 07/07/25 tirzepatide 5 mg/0.5 mL 5 mg subcut TU 07/07/25 07/07/25 subcutaneous pen injector (Bronson) Previous Rx's ?Medication ?Instructions ?Recorded atorvastatin 40 mg tablet 40 mg PO DAILY 30 days #30 tabs 10/19/20 blood sugar diagnostic (FreeStyle #150 ea 12/02/20 Lite Strips) gabapentin 600 mg tablet 600 mg PO BEDTIME 30 days #30 tabs 03/08/21 pen needle, diabetic 31 gauge x #50 ea 11/08/21/16 lancets 33 gauge (TRUEplus Lancets) #150 ea 11/13/24 Lantus Solostar U-100 Insulin 100 16 unit (0.16 mL) subcut DAILY #15 05/15/25 unit/mL (3 mL) subcutaneous pen mL (insulin glargine) Synjardy XR 12.5 mg-1,000 mg 1 tab PO BID #60 tabs 05/15/25 tablet, extended release (empagliflozin-metformin) insulin aspart U-100 100 unit/mL 6 unit (0.06 mL) subcut TID 90 05/15/25 (3 mL) subcutaneous pen (Novolog days #16.2 mL FlexPen U-100 Insulin aspart) Allergies Allergy/AdvReac Type Severity Reaction Status Date / Time No Known Allergies Allergy Verified 07/07/25 10:23 Review of Systems Review of Systems: Constitutional : No Fever, No Chills, No Fatigue ENT/Mouth : No sore throat, No Rhinorrhea Eyes: No Eye Pain, No Swelling, No Redness Cardiovascular : No Chest Pain, No SOB, No Dyspnea on Exertion Respiratory : No Cough, No Sputum Gastrointestinal : No Nausea, No Vomiting, No Diarrhea, No abdominal Pain Genitourinary : No Dysuria, No Urinary Frequency, No Hematuria, Musculoskeletal : No joint pain, No Myalgias, No Joint Swelling Skin : No Skin Lesions, No rash Neuro : No Weakness, No Numbness, No Dizziness, no Headache Psych : No Anxiety/Panic, No Depression Heme/Lymph: No Bruising, No Bleeding,No Lymphadenopathy Endocrine : No Polyuria, No Polydipsia All other systems reviewed and are negative PMFSH Past Medical History Attestation statement: The following information was validated with the patient. Source: old records reviewed Medical History TSH (thyroid-stimulating hormone deficiency) Colon cancer screening Hypothyroidism Proliferative diabetic retinopathy associated with type 2 diabetes mellitus Hx of lymphoma Peripheral axonal neuropathy Erectile dysfunction Type 2 diabetes mellitus with hyperglycemia, with long-term current use of insulin Dyslipidemia Essential hypertension Diabetic nephropathy associated with type 2 diabetes mellitus Diabetic polyneuropathy associated with type 2 diabetes mellitus Surgical History Hx of local excision of skin lesion Hx of colonoscopy Family History Family History Father Cancer Mother Diabetes Social History Social History Household Members: None Housing: Apartment Housing Other:: Has MANAGER OPERATIONS AND PROCUREMENT: Mabel Peres Are you a primary vision care associate to a significant other at home: No Do you presently have visiting nurse or other home services: Yes (foamite mixer) Alcohol intake: never Patient Tobacco Use Status: Never used Tobacco Advance Directives: No Advance Directives Information Provided: Yes service: No Current occupational status: disabled Physical Exam Vital Signs: Vital Signs: Last Vital Signs Temp 98.1 F 07/07/25 10:20 Pulse 54 07/07/25 11:30 Resp 17 07/07/25 11:30 BP 123/73 07/07/25 11:30 Pulse Ox 96 07/07/25 11:30 O2 Del Method Room Air 07/07/25 11:30 BMI result Body Mass Index 24.6 Appearance: Alert. Oriented X3. No acute distress. He states he is hungry has no other complaints Eyes: Pupils equal, round and reactive to light. ENT: Pharynx normal. Neck: Normal inspection. Neck supple. CVS: Normal heart rate and rhythm. Pulses normal. Respiratory: No respiratory distress. Breath sounds normal. Abdomen: Soft and nontender. Skin: Skin warm and dry. Normal skin color. Normal skin turgor. Extremities: No lower extremity edema. No calf ttp Neuro: Oriented X 3. No motor deficit. No sensory deficit. CN2-12 intact Course Course Course Narrative: 1:26 PM 07/07/2025 (MARLON LOERA): At this time cardiology recommending Lovenox injection. Patient again has no symptoms in his asking to eat food, my plan was to admit to the hospitalist but waiting on further instruction from Cardiology other than one time dose of lovenox that was recommended. [facility] is close to any transfers I did call. 1:37 PM 07/07/2025 (MARLON LOERA): Cardiology Dr. Maravilla recommends transfer to Center with cardiac pharmacy laboratory technician given EKG changes the patient remains asymptomatic. We will attempt to call [facility] patient and MANAGER OPERATIONS AND PROCUREMENT aware. Daisha Adames accepted to ED. Patient and MANAGER OPERATIONS AND PROCUREMENT aware. He has no complaints. Medications Administered Discontinued Medications Generic Name Dose Route Start Last Admin Trade Name Zenobia PRN Reason Stop Dose Admin Aspirin 162 mg 07/07/25 11:17 07/07/25 11:33 Aspirin 81 Mg Tab.Chew PO 07/07/25 11:18 162 mg ONCE ONE Administration Enoxaparin Sodium 70 mg 07/07/25 13:18 07/07/25 13:36 Enoxaparin Sodium 80 Mg/0.8 Ml Syringe 1 mg/kg (70 mg) 07/07/25 13:19 70 mg SUBCUT Administration ONCE ONE Magnesium Sulfate 2 gm in 50 mls @ 25 mls/hr 07/07/25 11:08 07/07/25 13:16 Magnesium Sulfate/H2o IV 07/07/25 13:07 Infused ONCE ONE Infusion Medical Decision Making Medical Decision Making MDM Narrative: 75-year-old male with past medical history of hypothyroidism, diabetes, pancytopenia, hypertension, hyperlipidemia who presented with his MANAGER OPERATIONS AND PROCUREMENT to Cardiology this morning after having recurrent nighttime chest pain related to taking a medication that is unclear what medication he is taking. He denies any recent cough, upper respiratory infection, travel. On initial EKG was concerns for possible lateral STEMI but there was no consistent 1 mm elevation in the lateral leads and on arrival to the ED he had no chest pain and states he felt fine. I repeated an EKG on arrival and there was no signs of acute ischemia and there was dynamic changes to a new pattern in the ED at this time I am going to obtain basic labs, troponin, chest x-ray. He has no risk factors for PE and has been having these symptoms on and off for over a month, he has distal pulses intact I do not suspect dissection either. Given the dynamic EKG changes he still should be admitted for further workup Differential Diagnosis Differential Diagnoses: The differential diagnosis associated with the presentation includes Atypical chest pain, ACS, he has no signs of DVT and it is not pleuritic this seems very atypical for PE, he has distal pulses intact I doubt dissection Admission/Observation Consideration of admission/observation: Escalation of care including admission/observation considered Will admit given dynamic EKG changes I did speak to Cardiology we will hold heparin at this time given lack of chest pain but he needs to be admitted for echo Consult Healthcare Provider Management of the patient was discussed with: Hospitalist and Retort Forker Discussed with Dr. Maravilla who actually sent the patient down from his office for abnormal EKG on arrival to the ED he had return of normal EKG findings given the dynamic EKG changes will admit for further workup including echo Lab Data [facility] Lab Attestation statement: I reviewed the patient's lab results. 07/07/25 10:32 07/07/25 10:32 Labs: Lab Results 07/07/25 07/07/25 Range/Units 10:32 12:40 WBC 3.6 L (4.8-10.8) X10*3/uL RBC 3.72 L (4.60-5.80) X10*6/uL Hgb 10.7 L (14.0-18.0) g/dl Hct 32.9 L (42.0-52.0) % MCV 88.4 (80.0-98.0) fL MCH 28.8 (27.0-33.0) pg MCHC 32.5 (31.0-36.0) g/dl RDW 15.1 (11.0-16.0) % Plt Count 143 L (160-400) X10*3/uL MPV 11.1 (9.4-12.4) fL Immature Gran % (Auto) 0.3 (0.0-0.4) % Neut % (Auto) 47.9 (45-73) % Lymph % (Auto) 26.3 (20-40) % Hall % (Auto) 10.1 (2-11) % Eos % (Auto) 14.3 H (0-4) % Baso % (Auto) 1.1 (0-2) % Lymph # (Auto) 0.9 L (1.2-4.9) X10*3/uL Hall # (Auto) 0.4 (0.1-1.2) X10*3/uL Eos # (Auto) 0.5 H (0.0-0.4) X10*3/uL Baso # (Auto) 0.0 (0.0-0.2) X10*3/uL Abs Immat Gran (auto) 0.01 (0.00-0.03) X10*3/uL Absolute Neuts (auto) 1.7 L (2.0-8.3) x10*3/uL Absolute Nucleated RBC 0.000 (0.0-0.012) X10*3/uL Nucleated RBC % (auto) 0.0 (0.0-0.2) /100WBC PT 12.6 (11.2-13.5) SEC INR 1.0 (0.9-1.1) APTT 32.2 (26.7-34.1) SEC Sodium 141 (135-145) mmol/L Potassium 3.6 (3.3-5.1) mmol/L Chloride 105 (96-108) mmol/L Carbon Dioxide 27 (22-29) mmol/L Anion Gap 13 (12-20) BUN 21 H (9-16) mg/dL Creatinine 0.73 (0.5-1.4) mg/dL Estim Creat Clear Calc 77.6 Estimated GFR > 60 Random Glucose 152 H (60-115) mg/dL Calcium 9.1 (8.4-10.2) mg/dL Magnesium 1.5 L (1.6-2.6) mg/dL Total Bilirubin 0.3 (0.0-1.0) mg/dL Direct Bilirubin 0.1 (0.0-0.5) mg/dL AST 27 (5-37) U/L ALT 15 (0-40) U/L Alkaline Phosphatase 64 (39-117) U/L Troponin I High Sens 57.7 H 55.0 H (<3.5-35.0) ng/L NT-Pro-B Natriuret Pep 349.6 H (<300) pg/mL Total Protein 7.1 (6.5-8.0) g/dL Albumin 4.1 (3.5-5.0) g/dL Lipase 10 (8-78) U/L Independent Interpretation I performed an independent interpretation of an: EKG and Plain X-Ray (No acute finding) Interpretation: Rate: 56 Rhythm: Sinus bradycardia with first-degree AV block Paterson: Left axis Normal P waves. First-degree AV block Normal QRS complex. ST T wave : Flat T-waves in the lateral leads but no ST elevation, he does have an inverted T-wave in lead 3 qTC: 453 prior studies: Change from office EKG, off his EKG had deep T-wave inversions in the inferior leads as well as T-wave inversions subtle ST depressions in the lateral leads including V4 through V6, he had start of ST-elevation in 1 aVL The study has been interpreted contemporaneously by me. EKG #2 Rate: 47 Rhythm: Sinus bradycardia Paterson: Left Normal P waves. Normal CORA. Normal QRS complex. ST T wave : No ST-elevation, inverted T-waves in 3 and AVF, as well as T-wave inversions in V4 V5 V6 qTC: 442 prior studies: New T-wave inversions in lateral leads The study has been interpreted contemporaneously by me. XR/XR chest 1V IMPRESSION: There is mild blunting of the left costophrenic angle that could be related to a trace pleural effusion or scarring. Moderate degenerative changes are present in the right shoulder joint and mild degenerative change in the left. Electronically signed by: Amilcar Crespo MD 07/07/2025 10:35 AM EST Radiology Impression Discussion of test interpretation with radiology: I have reviewed the radiologist's reading. Independent Historian Clinical information obtained from an independent historian. History obtained from or confirmed by: Other External Record Review External record reviewed: Outpatient record Discharge Plan Discharge Clinical Impression: Atypical chest pain, Hypomagnesemia, Acute electrocardiogram changes Patient Disposition: [facility] Hospital Transfer Details: [facility] Prescriptions: No Action atorvastatin 40 mg tablet 40 mg PO DAILY 30 Days Qty: 30 5RF (DME) FreeStyle Lite Strips Strip See Rx Instructions .MEDSUPPLY Qty: 150 6RF Rx Instructions: 4 times a day gabapentin 600 mg tablet 600 mg PO BEDTIME 30 Days Qty: 30 4RF (DME) pen needle, diabetic 31 gauge x 3/16 needle See Rx Instructions Not Applicable BID Qty: 50 6RF Rx Instructions: As directed twice daily (DME) lancets [TRUEplus Lancets] 33 gauge misc See Rx Instructions .ROUTE .COMPLEX Qty: 150 11RF Dose Instruction: TEST BLOOD SUGAR FOUR TIMES DAILY Rx Instructions: TEST BLOOD SUGAR FOUR TIMES DAILY Mounjaro 5 mg/0.5 mL pen injector 5 mg subcut TU omeprazole 20 mg capsule,delayed release(DR/EC) 20 mg PO DAILY@0630 trazodone 100 mg tablet 100 mg PO BEDTIME multivitamin Tablet 1 tab PO DAILY aspirin 81 mg tablet,delayed release (DR/EC) 81 mg PO BEDTIME cetirizine 10 mg tablet 10 mg PO DAILY (DME) blood-glucose meter [SignalStyle Gotebo Lite] Kit See Rx Instructions .Route Rx Instructions: As directed Synjardy XR 12.5-1,000 mg tablet, IR - ER, biphasic 24hr 1 tab PO BID Qty: 60 11RF Rx Instructions: 1 tab oral TWICE daily insulin glargine [Lantus Solostar U-100 Insulin] 100 unit/mL (3 mL) insulin pen 16 unit subcut DAILY Qty: 15 2RF Rx Instructions: once daily insulin aspart U-100 [Novolog FlexPen U-100 Insulin] 100 unit/mL (3 mL) insulin pen 6 unit subcut TID 90 Days Qty: 16.2 11RF Rx Instructions: 15 minutes before meal Discharge Date/Time: 07/07/25 14:30 Print Language: Belarusian
[2025-07-07 10:39] LABS: MANUAL DIFF FLAG NO
[2025-07-07 10:41] LABS: Hematocrit 32.9 % (42.0-52.0); Hemoglobin 10.7 g/dl (14.0-18.0); Imm Gran Abs Auto 0.01 X10*3/uL (0.00-0.03); Imm Gran Pct Auto 0.3 % (0.0-0.4); Lymphocytes Absolute Auto 0.9 X10*3/uL (1.2-4.9); Mean Corpuscular HGB Conc 32.5 g/dl (31.0-36.0); Mean Corpuscular Hemoglobin 28.8 pg (27.0-33.0); Mean Corpuscular Volume 88.4 fL (80.0-98.0); NRBC Abs Auto 0.000 X10*3/uL (0.0-0.012); NRBC Pct Auto 0.0 /100WBC (0.0-0.2); Platelet Count 143 X10*3/uL (160-400); Red Blood Count 3.72 X10*6/uL (4.60-5.80); White Blood Count 3.6 X10*3/uL (4.8-10.8)
[2025-07-07 10:49] LABS: INTERNATIONAL NORM RATIO 1.0 (0.9-1.1); Prothrombin Time 12.6 SEC (11.2-13.5)
[2025-07-07 10:52] LABS: Partial Thromboplastin Time 32.2 SEC (26.7-34.1)
[2025-07-07 11:07] LABS: Alanine Aminotransferase 15 U/L (0-40); Albumin Level 4.1 g/dL (3.5-5.0); Alkaline Phosphatase 64 U/L (39-117); Anion Gap 13 (12-20); Aspartate Amino Transferase 27 U/L (5-37); Blood Urea Nitrogen 21 mg/dL (9-16); Calcium 9.1 mg/dL (8.4-10.2); Carbon Dioxide 27 mmol/L (22-29); Chloride 105 mmol/L (96-108); Creatinine Clr Calc Pharmacy 77.6; Estimated Glomerular Filt Rate > 60; Lipase 10 U/L (8-78); Magnesium 1.5 mg/dL (1.6-2.6); Potassium 3.6 mmol/L (3.3-5.1); Sodium 141 mmol/L (135-145); Total Protein 7.1 g/dL (6.5-8.0)
[2025-07-07 11:15] LABS: Troponin-I High Sensitivity 57.7 ng/L (<3.5-35.0)
[2025-07-07 11:16] LABS: NT Pro B Type Natriuretic Pept 349.6 pg/mL (<300)
[2025-07-07 11:30] VITALS: BP 123/73; PULSE 54; RESP 17; O2SAT 96
[2025-07-07] MEDS: Magnesium Sulfate/H2O 2 GM/50 ML PIGGYBACK IV (11:42)
--- NOTE | 2025-07-07 11:58 | ECG_ITS ---
Test Reason : RESOLVED CHEST PAIN Blood Pressure : */* mmHG Vent. Rate : 47 BPM Atrial Rate : 47 BPM P-R Int : 188 ms QRS Dur : 110 ms QT Int : 500 ms P-R-T Axes : 2 -13 -35 degrees QTcB Int : 442 ms Sinus bradycardia Septal infarct , age undetermined Abnormal ECG When compared with ECG of 07-Jul-2025 10:04, Septal infarct is now Present Referred By: Almita Garay Electronically Signed By: MG SOSA MD
--- OUTSIDE RECORDS SUMMARY | 2025-07-07 12:56 | XMS_ITS | Patient Health Record ---
Author Organization [facility] Address [address] [place] [address] Care Team Providers Care Shark Biologist Name Role Phone Benedict Metz Jr Reason For Referral No Information Plan Of Treatment No Information
[2025-07-07 13:04] LABS: Troponin-I High Sensitivity 55.0 ng/L (<3.5-35.0)
--- NOTE | 2025-07-07 13:42 | PC.NURSE ---
[facility] contacted for meal tray, PO status approved by Dr. Garay.
--- NOTE | 2025-07-07 13:56 | PC.NURSE ---
Please keep pt's ANIMAL SCIENCE INSTRUCTOR aMbel updated with any updates, 2 cell numbers provided. [phone]
--- NOTE | 2025-07-07 14:23 | PC.NURSE ---
Report given to Verenice COLEMAN at [facility], questions answered. EMS given report, pt transferred via stretcher.
--- NOTE | 2025-07-07 14:38 | PHA.MEDREC ---
Addendum entered by Daniel Abdul, PharmNancy 07/07/25 15:02: MED REC CHECKED BY [facility] Original Note: Pharmacy Consult ? Medication Reconciliation Pharmacy has completed the medication reconciliation. Spoke to Patients TANKER SERVICE ATTENDANT at bedside. TANKER SERVICE ATTENDANT didn't have a list of medications. Patient Gets medBox list from [facility] pharmacy. Patient TANKER SERVICE ATTENDANT was able to confirm insulin aspart 6 units TID, Lantus SoloStar 16 units daily , and Mounjaro 5 mg every Monday, last dose 07/01/25. Lisinopril 5 mg was on med list, however last fill date was 09/15/21. took off med rec.
== END 2025-07-07 14:30 | disposition short-term general hospital (02) ==
PROVIDERS: Emergency Provider Emergency Medicine
DX: R07.89 Other chest pain (principal); I10 Essential (primary) hypertension; E83.42 Hypomagnesemia; R94.31 Abnormal electrocardiogram [ECG] [EKG]; E11.9 Type 2 diabetes mellitus without complications; Z79.899 Other long term (current) drug therapy
CPT/HCPCS: 36415; 71045; 80048; 80076; 83690; 83735; 83880; 84484; 85025; 85610; 85730; 93005; 96365; 96366; 96372; 99202; 99285; J1650; J3475; Q9957

== ENCOUNTER → 2025-07-07 10:03 | Outpatient (BNV) | payer OTHER, SELFPAY | PROVIDERS: Emergency Provider Emergency Medicine; Visit Provider Radiology Diagnostic Radiology | DX: R07.9 Chest pain, unspecified (principal) | CPT/HCPCS: 71045 ==

== ENCOUNTER 2025-08-14 09:18 | Outpatient (AMB) | payer OTHER, SELFPAY ==
--- OUTSIDE RECORDS SUMMARY | 2025-08-11 10:00 | XMS_ITS | Encounter Summary ---
Author Organization Formerly [facility] Address [address] [place] [address] Care Team Providers Care Lcac Radar Operator/Navigator Name Role Phone Marv Beltran MD Primary Care Provider Chemo Hernandez MD Unavailable Estee Fontaine MD Unavailable [phone] Arturo Copeland MD Unavailable [phone] Ferdinand Maravilla MD Unavailable [phone] Encounter Details Date Type Department Care Team (Latest Contact Info) Description 08/11/2025 10:00 AM EST Office Visit [facility] Cardiothoracic Surgery [address] [id number] Shyanne Davis, NEUROLOGY PHYSICIAN [address] [address] S/P CABG (coronary artery bypass graft) Social History Tobacco Use Types Packs/Day Years Used Date Smoking Tobacco: Never Assessed Passive Smoke Exposure: Never Smokeless Tobacco: Never Tobacco Cessation:Counseling Given: Yes Alcohol Use Standard Drinks/Week Comments Never 0 (1 standard drink = 0.6 oz pur e alcohol) AUDIT-C Answer Date Recorded Q1: How often do you have a drink containing alcohol? Never 07/08/2025 Q2: How many drinks containi ng alcohol do you have on a typical day when you are drinking? Patient does not drink Q3: How often do you have si x or more drinks on one occasion? Never 07/08/2025 Overall Financial Resource Strain (CARDIA) Answe r Date Recorded How hard is it for you to pa y for the very basics like food, housing, medical care, and heating? Not very hard 07/08/2025 Hunger Vital Sign Answer Date Recorded Within the past 12 months, y ou worried that your food would run out before you got the money to buy more. Never true 07/08/20 25 Within the past 12 months, t he food you bought just didn't last and you didn't have money to get more. Never true 07/08/2025 PRAPARE - Transportation Answer Date Re corded In the past 12 months, has l ack of transportation kept you from medical appointments or from getting medications? No 06/28 In the past 12 months, has l ack of transportation kept you from meetings, work, or from getting things needed for daily living? No 07/08/2025 Housing Stability Vital Sign Answer Evert e Recorded In the last 12 months, was t here a time when you were not able to pay the mortgage or rent on time? No 07/08/2025 In the past 12 months, how m any times have you moved where you were living? 0 07/08/2025 At any time in the past 12 m [facility], were you homeless or living in a penitentiary (including now)? No 07/08/2025 [facility] Utilities Answer Date Recorded In the past 12 months has th e electric, gas, oil, or water company threatened to shut off services in your home? No 07/08/2025 Sex and Gender Information Value Date Recorded Sex Assigned at Male 07/07/2025 5:27 PM EST Legal Sex Male 4:17 PM EDT Gender Identity Male 07/07/2025 3:54 PM EST Sexual Orientation Heterosexual (straight) 07/07 5:27 PM EST documented as of this encounter Last Filed Vital Signs Vital Sign Reading Time Taken Comments Blood Pressure 120/56 08/11/2025 10:18 AM EST Pulse 71 08/11/2025 10:18 AM EST Temperature - - Respiratory Rate 13 08/11/2025 10:18 AM EST Oxygen Saturation 98% 08/11/2025 10:18 AM EST Inhaled Oxygen Concentration - - Weight 67.4 kg (148 lb 9.6 oz) 08/11/2025 10:18 AM EST Height 172.7 cm (5' 8 ) 08/11/2025 10:18 AM EST Body Mass Index 22.59 08/11/2025 10:18 AM EST documented in this encounter Progress Notes * Shyanne Davis, VALE - 08/11/2025 10:00 AM EST Images from the original note were not included. Postoperative Visit Assessment & Plan 75-year-old male with history of hypertension, hyperlipidemia, insulin- dependent diabetes.Returns for postoperative visit status post CABG x 4. Overall doing well in his recovery from surgery. Surgical incisions are healing nicely. He is euvolemic on exam. He has transitioned out of [facility] and is now home with home care services. His aide Lorraine who knows him well from preoperative standpoint is coordinating his follow-up appointments. She reports he does have appointment with PCP this . During the visit we coordinatedwith the [facility] cardiology group to schedule his cardiology follow-up visit in August. PLAN: -Increase activity as tolerated (unlimited stairs, unlimited walking) -No lifting more than 10 lbs for 6 weeks after surgery -No dental procedures for 3 months s/p CABG -Cardiac rehab - patient can start 6 weeks postoperatively (08/12/2025); patient prefers [facility]; Referral to be placed by cardiology -Medications reviewed: - He did not receive prescriptions from rehab for clopidogrel 75 mg daily (NSTEMI) or metoprolol 12.5 mg twice daily. Prescriptions were sent to his [facility] pharmacy to be added to his prepackaged medications per Lorraine. -Remains on aspirin and high intensity statin -Pathology: n/a -Clinical filing clerk scheduled follow-up today for August 2025. -PCP Marv Beltran MD follow-up appointment scheduled for this -Return to Work: n/a Patient does not need further follow-up in this office. Patient is encouraged to call our office with any further questions or concerns. Subjective HPI: 75-year-old male with history of hypertension hyperlipidemia and type 2 diabetes presented to his cardiology office with reports of chest pain over the past month. He was referred to [facility] emergency department and ruled in for NSTEMI. He was initiated on heparin infusion and aspirinand transferred to [facility] for further care. Cardiac catheterization demonstrated multivessel CAD, TTE showed LVEF was 44% with moderately dilated RV. On July 15 he underwent CABG x 4 with ERNANDEZ to LAD, radial artery to OM, SVG to diagonal SVG to right PDA by . Postprocedure SAJI on epinephrine and norepinephrine showed normal LV function with EF of 60% normalRV function without significant valvulopathy no pericardial effusion. Hospital course was notable for agitation and delirium geriatrics consulted for suspected acute encephalopathy he was treated for acute delirium syndrome. Was diuresed with Lasix. Postoperative ECG with progressive ST elevation in precordial and lateral leads most prominent V2 V3 inferior ST depression. He was asymptomatic. Repeat ECG improving. PT OT evaluated for postoperative debility and physical medicine also evaluated deemed a good candidate for rehab. He was discharged on postoperative day 7. Actimize Architect ID Louis Magana and Xiao Peters present Overall he seems to be doing well in his recovery. He has [facility] is home with home care. Denies any lightheadedness dizziness presyncope or syncope. No chest pain or chest pressure. He is not short of breath or dyspneic with exertion. He denies fluid retentionor edema. Overall he reports feeling much better since his operation. Home Medications: Current Medications[1] Review of Systems: Review of Systems Objective Vitals: 08/11/25 1018 BP: (!) 120/56 BP Location: Right arm Patient Position: Sitting Cuff Size: Medium (Standard) Pulse: 71 Resp: 13 SpO2: 98% Weight: 67.4 kg (148 lb 9.6 oz) Height: 1.727 m (5' 8 ) Physical Exam Constitutional: General: He is not in acute distress. Appearance: Normal appearance. He is well-developed. Eyes: Pupils: Pupils are equal, round, and reactive to light. Neck: Vascular: No JVD. Cardiovascular: Rate and Rhythm: Normal rate and regular rhythm. Pulses: Radial pulses are 2+ on the right side and 0 on the left side. Dorsalis pedis pulses are 2+ on the right side and 2+ on the left side. Heart sounds: S1 normal and S2 normal. No murmur heard. No friction rub. No gallop. Pulmonary: Effort: No respiratory distress. Breath sounds: No decreased breath sounds, wheezing, rhonchi or rales. Abdominal: General: Bowel sounds are normal. Palpations: Abdomen is soft. Tenderness: There is no abdominal tenderness. Musculoskeletal: Cervical back: Neck supple. Right lower leg: No edema. Left lower leg: No edema. Skin: General: Skin is warm and dry. Capillary Refill: Capillary refill takes less than 2 seconds. Comments: MSI: Well approximated, no evidence of cellulitis or drainage. No sternal click. Distal Chest tube sites are healing well, no evidence of cellulitis or drainage. saphenous vein graft site is well approximated no evidence of cellulitis or drainage. Radial artery harvest site is well approximated with no evidence of cellulitis or drainage. Positive ulnar pulse, brisk capillary refill. Neurological: Mental Status: He is alert and oriented to person, place, and time. Psychiatric: Mood and Affect: Mood normal. [1] Current Outpatient Medications: aspirin enteric coated 81 MG EC tablet, Take 1 tablet (81 mg total) by mouth daily., Disp: , Rfl: atorvastatin (LIPITOR) 40 MG tablet, Take 1 tablet (40 mg total) by mouth daily., Disp: , Rfl: empagliflozin-metFORMIN (Synjardy) 12.5-1000 MG per tablet, Take 1 tablet by mouth 2 (two) times a day with breakfast and dinner., Disp: , Rfl: gabapentin (NEURONTIN) 300 MG capsule, Take 2 capsules (600 mg total) by mouth nightly., Disp: , Rfl: insulin aspart (NovoLOG FlexPen) 100 UNIT/ML prefilled pen injection, Inject 6 Units under the skin3 (three) times a day before meals., Disp: , Rfl: insulin glargine (LANtus/SEMGLEE SOLOSTAR) 100 units/mL prefilled pen injection, Inject 16 Units under the skin daily., Disp: , Rfl: multivitamin Tab tablet, Take 1 tablet by mouth daily., Disp: , Rfl: OMEprazole (PriLOSEC) 20 MG capsule, Take 1 capsule (20 mg total) by mouth every morning before breakfast., Disp: , Rfl: PANTOprazole (PROTONIX) 40 MG EC tablet, Take 1 tablet (40 mg total) by mouth daily., Disp: , Rfl: tirzepatide (Mounjaro) 2.5 mg/0.5 mL pen-injector, Inject 1 Pen (2.5 mg total) under the skin once a week., Disp: , Rfl: traZODone (DESYREL) 100 MG tablet, Take 1 tablet (100 mg total) by mouth nightly., Disp: , Rfl: acetaminophen (TYLENOL) 325 MG tablet, Take 2 tablets (650 mg total) by mouth 4 times daily (every 6 hours) as needed for moderate pain., Disp: 90 tablet, Rfl: 3 clopidogrel (PLAVIX) 75 MG tablet, Take 1 tablet (75 mg total) by mouth daily., Disp: 90 tablet, Rfl: 3 [Paused] lisinopril (PRINIVIL,ZeSTRIL) 5 MG tablet, Take 1 tablet (5 mg total) by mouth daily., Disp: , Rfl: metoPROLOL TARTRATE (LOPRESSOR) 25 MG tablet, Take 0.5 tablets (12.5 mg total) by mouth every 12 (twelve) hours around the clock., Disp: 90 tablet, Rfl: 3 senna (SENOKOT) 8.6 MG Tab tablet, Take 2 tablets by mouth nightly., Disp: , Rfl: documented in this encounter Plan of Treatment Not on file documented as of this encounter Visit Diagnoses Diagnosis S/P CABG (coronary artery bypass graft) Postsurgical aortocoronary bypass status documented in this encounter Care Teams Lcac Radar Operator/Navigator Relationship Specialty Start Date End Date Marv Beltran MD [address] [place] [address] [place] [address] PCP - General 07/08/25 Chemo Hernandez MD [address] [facility] [address] [place] [address] Endocrinology 07/08/25 Estee Fontaine MD [address] [place] [address] Medical Oncology 07/08/25 Arturo Copeland MD [address] [place] [phone] Consulting Provider Surgery, Cardiac 07/25/25 Ferdinand Maravilla MD [address] [address] Website Project Manager Cardiovascular Disease 07/31/25 documented as of this encounter
[2025-08-14 09:24] VITALS: BP 122/40; PULSE 89; O2SAT 98; BMI 23.8
--- NOTE | 2025-08-14 09:24 | A.OFFVIS_ITS ---
Vital Signs 08/14/25 09:24 Height 5 ft 6 in Weight 147 lb 11.355 oz BMI 23.8 BP 122/40 L Blood Pressure Location Rt brachial Position Sitting Pulse 89 Pulse Source Pulse Oximeter Pulse Oximetry (%) 98 Oxygen Delivery Method Room Air Intake Visit Reasons: DM Intake Note: Patient present today to follow up on Type 2 Diabetes Mellitus. Last Diabetic Eye exam: a few months ago, next appt next 2025 Last Podiatry Visit: Patient stated on the last appt that he had an appt at [facility] in February, Most Recent HgA1C: 6.7%, 08/14/2025 Random Glucose: 124 mg/dL, Today Paint Mixer Machine Required: Yes Paint Mixer Machine Language: Database Design Analyst Services: Paint Mixer Machine Offered & Declined Paint Mixer Machine Name: UX MANAGER Accompanied by: Self / Same As Patient Allergies No Known Allergies Allergy (Verified 08/14/25 09:43) HPI Comments Details: The patient is a 75 year old male presenting for diabetic follow up Medical history: s/p CABG x 4 06/2025, lymphoma, pancytopenia, insomnia He has DM type 2 diagnosed 01/17/2003. Current meds Lantus 16 (increased from 10 units daily) Humalog 6 units before breakfast, lunch and dinner Synjardy 12.12/999 mg b.i.d. Mounjaro 5.0 mg weekly Previous qbsc-dxlwtdaok-wksxeryohrd No recent hypoglycemia,he has been instructed to carry glucose tablets POC A1C 6.7% from 03/30/25 --8.3% Dexcom reviewed GMI 6.9% Time in ranges: 19 % high (181-250) 81 % in range (70-180] 0 % low (69-55) 0 % very low (below 54) Has retinopathy: Last ophthalmology evaluation UTD he has proliferative retinopathy, he reports he had laser treatment in the past, no recent laser Has neuropathy: He sees a staff sonographer regularly and has diabetic shoes, he has a podiatry appointment scheduled Has nephropathy: CAD: following with cardiology Denies nocturia , - polydipsia, + numbness, tingling, denies polyuria. ROS CONSTITUTIONAL: Denies weight loss, fever and chills. HEENT: Denies changes in vision and hearing. RESPIRATORY: Denies SOB and cough. CV: Denies palpitations and CP GI: Denies abdominal pain, nausea, vomiting and diarrhea. : Denies dysuria and urinary frequency. MSK: Denies new myalgia and joint pain. SKIN: Denies rash and pruritus. NEUROLOGICAL: Denies headache PSYCHIATRIC: Denies recent changes in mood. PHYSICAL EXAM: GENERAL: Alert and oriented x 3. NAD EYES: EOMI. Anicteric. HENT: Moist mucous membranes. No scleral icterus. No cervical lymphadenopathy. LUNGS: Clear to auscultation bilaterally. CARDIOVASCULAR: Regular rate and rhythm. No murmur. No JVD. ABDOMEN: Soft, non-tender +bs EXTREMITIES: No edema. Non-tender. SKIN: No rashes or lesions. Warm. NEUROLOGIC: No focal neurological deficits. CN II-XII grossly intact PSYCHIATRIC: Cooperative. Appropriate mood and affect. [facility] Medical History TSH (thyroid-stimulating hormone deficiency) Colon cancer screening Hypothyroidism Proliferative diabetic retinopathy associated with type 2 diabetes mellitus Hx of lymphoma Peripheral axonal neuropathy Erectile dysfunction Type 2 diabetes mellitus with hyperglycemia, with long-term current use of insulin Dyslipidemia Essential hypertension Diabetic nephropathy associated with type 2 diabetes mellitus Diabetic polyneuropathy associated with type 2 diabetes mellitus Surgical History (Updated 08/14/25 @ 09:36 by CRISTOBAL Tyson) Hx of heart bypass surgery Hx of local excision of skin lesion Hx of colonoscopy Family History Father Cancer Mother Diabetes Social History Household Members: None Housing: Apartment Housing Other:: Has UX MANAGER: Mabeldavon Nelsonoa Are you a primary cattle care worker to a significant other at home: No Do you presently have visiting nurse or other home services: Yes (web analyst) Alcohol intake: never Patient Tobacco Use Status: Never used Tobacco service: No Current occupational status: disabled Physical Exam Vital Signs: Last Vital Signs Pulse 89 08/14/25 09:24 BP 122/40 L 08/14/25 09:24 Pulse Ox 98 08/14/25 09:24 Oxygen Delivery Method Room Air 08/14/25 09:24 BMI result Body Mass Index 23.8 Results AMB Hemoglobin A1c AMB Hemoglobin A1c 6.7 % Last Edit by CRISTOBAL Tyson on 08/14/25 09:41 Results Reviewed Results Reviewed: Laboratory Last Values Glucose (Clinic) 124 mg/dL (60-115) H 08/14/25 09:30 Hgb A1c (Clinic) 6.7 % (4.0-6.0) H 08/14/25 09:36 Assessment & Plan Assessment & Plan (1) Type 2 diabetes mellitus with hyperglycemia, with long-term current use of insulin: Code(s): E11.65 - Type 2 diabetes mellitus with hyperglycemia; Z79.4 - USP (current) use of insulin Category: Medical Plan 75 year old for diabetic follow up Interval control on medications without hypoglycemia. Continue current dosing Med reconciliation post hospital discharge. Upcoming cardiology visit Treat hypoglycemia by rules of 15 Return in 3 months or sooner as needed Orders: Orders AMB Hemoglobin A1c Today E11.65 - Type 2 diabetes mellitus with hyperglycemia, Z79.4 - marine oil terminal superintendent (current) use of insulin Medications: New trazodone 100 mg PO BEDTIME 90 tabs 3RF On Hold lisinopril Hold Comment: Doctor's Order 5 mg PO DAILY 90 tabs 0RF Coding Level of Care Code Est Pt Level 4 (98608) Diagnoses Type 2 diabetes mellitus with hyperglycemia, with long-term current use of insulin E11.65; Z79.4
[2025-08-14 09:36] LABS: Glucose, Whole Blood 124 mg/dL (60-115)
--- OUTSIDE RECORDS SUMMARY | 2025-08-14 10:40 | XMS_ITS | Encounter Summary ---
Author Organization [employer] Address [address] [facility] 7t [place] [address] Care Team Providers Care Machine Stripper Cutter Name Role Phone Marv Ramirez MD Primary Care Provide r Encounter Details Date Type Department Care Team (Late st Contact Info) Description 04/24/2023 Orders Only [facility] MED & PEDS [address] [place], [place] [phone] Lulu Escobar LPN Social History Tobacco Use [...] documented as of this encounter Care Teams Machine Stripper Cutter Relationship Specialty Start Date End Date Marv Ramirez MD [address] [place] [id number] PCP - General Internal Medicine 04/09/14 documented as of this encounter
--- OUTSIDE RECORDS SUMMARY | 2025-08-14 10:40 | XMS_ITS | Encounter Summary ---
Author Organization [employer] Address [address] [facility] 7t [place] [address] [address] Prov[address] Care [address] Man Name Role Phone Marv Ramirez MD Primary Care Provide r Reason for Visit * Reason Onset Date Comments Nurse Triage 12/13/2023 Encounter Details Date Type Department Care Team ([facility] st Contact Info) Description 12/13/2023 Telephone [facility] [address] [place], [place] [phone] Marv Ramirez MD [address] [place], [place] [phone] Nurse Triage Social History Tobacco Use Types [...] 12/13/2023 10:51 AM EDT Triage call with [employer] Coat Examiner ID [id number] Pt reports glass in the right eye. [...] documented as of this encounter Care Teams Drive Man Relationship Specialty Start Date End Date Marv Ramirez MD [address] [place] [address] PCP - General Internal Medicine 04/09/14 documented as of this encounter
--- OUTSIDE RECORDS SUMMARY | 2025-08-14 10:40 | XMS_ITS | Encounter Summary ---
Author Organization [employer] Address [address] [facility] 7t [place] [address] Care Team Providers Care Equipment Specialist Name Role Phone Marv Ramirez MD Primary Care Provide r Reason for Visit * Reason Comments Med Refill Encounter Details Date Type Department Care Team ([facility] Contact Info) Description 07/16/2023 Refill [facility] MED[facility] [address] [place], [place] [phone] Bonita Yousif MD [address] [place], [place] [phone] Social History Tobacco Use Types Packs/Day Years [...] documented as of this encounter Care Teams Equipment Specialist Relationship Specialty Start Date End Date Marv Ramirez MD [address] [place] [address] PCP - General Internal Medicine 04/09/14 documented as of this encounter
--- OUTSIDE RECORDS SUMMARY | 2025-08-14 10:40 | XMS_ITS | Encounter Summary ---
Author Organization [employer] Address [address] [facility] 7t [place] [address] Care Team Providers Care Cigar Making Machine Supervisor Name Role Phone Marv Ramirez MD Primary Care Provide r Reason for Visit * Reason Comments Med Refill Encounter Details Date Type Department Care Team ([facility] Contact Info) Description 08/01/[address] [facility] MEDICINE [address] [place], [place] [phone] Marv Ramirez MD [address] [place] [address] Social History Tobacco Use Types Packs/Day Years [...] documented as of this encounter Care Teams Cigar Making Machine Supervisor Relationship Specialty Start Date End Date Marv Ramirez MD [address] [place] [id number] PCP - General Internal Medicine 04/09/14 documented as of this encounter
--- OUTSIDE RECORDS SUMMARY | 2025-08-14 10:40 | XMS_ITS | Encounter Summary ---
Author Organization [employer] Address [address] [facility] 7[address] [place] [address] Care Team Providers Care Leather Scrubber Name Role Phone Marv Ramirez MD Primary Care Provide r Encounter Details Date Type Department Care Team (Late st Contact Info) Description 08/14/2025 Orders Only GENERIC EXTERNAL DATA DEPARTMENT Provider, [...] on file documented as of this encounter Goals Goal Patient Goal Type Associated Problems Recent Progress Patient-Stated? Author Help patients manage their type 2 diabetes Care Plan Help patients manage their type 2 diabetes No Gregorio, Zack Weekly blood pressure task Care Plan Weekly blood pressure task No Gregorio, Zack Help patients manage their type 2 diabetes Care Plan Help patients manage their type 2 diabetes No Gregorio, Zack Patient has chronic kidney disease Care Plan Patient has chronic kidney disease No Gregorio, Zack Weekly blood pressure task Care Plan Weekly blood pressure task No Gregorio, Zack Patient has chronic kidney disease Care Plan Patient has chronic kidney disease No Gregorio, Zack Weekly blood pressure task Care Plan Weekly blood pressure task No Colon Vásquez, Senait Weekly blood pressure task Care Plan Weekly blood pressure task No Colon Vásquez, Senait Patient has chronic kidney disease Care Plan Patient has chronic kidney disease No Colon Vásquez, Senait Patient has chronic kidney disease Care Plan Patient has chronic kidney disease No Colon Vásquez, Senait documented as of this encounter Procedures Procedure Name Priority Date/Time Associated Diagnosis Comments GLUCOSE, WHOLE BLOOD Routine 08/14/2025 9:30 AM EST documented in this encounter Results * (ABNORMAL) Glucose, Whole Blood (08/14/2025 9:30 AM EST) Glucose, Whole Blood 124(H) 60 - 115 mg/dL [facility] Comment:METER #: [id number] Testing performed in the Endocrinology Department [address] , [address], [facility]. 08/14/2025 9:30 AM EST 08/14/2025 9:36 AM EST us Generic External Data Provider LAB BLOOD ORDERAB LES Final Result [facility] [address] [place] [address] [phone] documented in this encounter Visit Diagnoses Not on filedocumented in this encounter Additional Health Concerns Active Problems Noted Date Diagnosed Date Help patients manage their type 2 diabetes 08/08 Weekly blood pressure task 08/08/2025 Help patients manage their type 2 diabetes 08/08 Patient has chronic kidney disease 08/08/2025 Weekly blood pressure task 08/08/2025 Patient has chronic kidney disease 08/08/2025 Weekly blood pressure task 08/08/2025 Weekly blood pressure task 08/08/2025 Patient has chronic kidney disease 08/08/2025 Patient has chronic kidney disease 08/08/2025 Assessment Noted Time PHQ-9 Depression Total Score: 0 03/06/20 25 10:24 AM EDT documented as of this encounter Care Teams Leather Scrubber Relationship Specialty Start Date End Date Marv Ramirez MD [address] [place] [phone] PCP - General Internal Medicine 04/09/14 documented as of this encounter
--- OUTSIDE RECORDS SUMMARY | 2025-08-14 10:40 | XMS_ITS | Clinical Summary ---
Author Organization [employer] Address [address] [facility] 7t [place] [address] Care Team Providers Care Wood Machine Carver Name Role Phone Marv Ramirez MD Primary Care Provide r Allergies No known active allergies Medications glucose 4 g chewable tablet if needed. 12/30/19 15 Active insulin glargine (Lantus SoloStar) 100 UNIT/ML pen Inject 20 Units under the skin at bedtime. 10/05/19 22 Active FREESTYLE LITE test stripIndications:T ype 2 diabetes mellitus with diabetic polyneuropathy, without long-term current use of insulin ([facility]) TEST BLOOD SUGAR THREE [...] DIRECTED 100 each 11 10/01/19 25 Active B-D UF III MINI PEN NEEDLES 31G X 5 MM miscIndications:Ty pe 2 diabetes mellitus with diabetic polyneuropathy, without long-term current use of insulin (HCC) USE DIRECTED FOR INSULIN THREE TIMES DAILY 100 each 5 01/10/20 25 Active gabapentin (Neurontin) 600 MG tablet [...] MORNING 30 tablet 2 03/27/20 25 Active omeprazole (PriLOSEC) [address] capsule TAKE 1 CAPSULE BY MOUTH EVERY MORNING 90 capsule 1 06/20/20 25 Active Aspirin Low Dose 81 MG EC tablet TAKE 1 TABLET BY MOUTH EVERY MORNING 90 tablet 1 07/15/20 25 Active Active Problems Problem Noted Date [...] and they will contact patient. 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 He is back on a regimen of: Lantus 10 units sc q pm, Novolog Flex pen 6 units in AM Synyardiy XR 12.12/999 BID, and Mounjaro 2.5 mg once a week. He follows with Diabetes and Supervisor Malted Milk educator Hgb A1c 03/06/2025: 7.5 from : [...] a week. He follows with Diabetes and Supervisor Malted Milk educator Hgb A1c 08/20/2024 : 7.8 from [...] Hernandez) . He follows with Diabetes and Supervisor Malted Milk educator Hgb A1c 05/23/2024 : 7.5 from [...] further follow-up in CDTM. Continue care with [facility] Endocrinology office [...] Hernandez) . He follows with Diabetes and Supervisor Malted Milk educator Hgb A1c 09/19/2023 : 10.3 Plan: [...] units sc q pm, ( Today his PUNCHBOARD ASSEMBLER tells me he is not injecting Lantus anymore) Novolog Flex pen 6 units in AM Synyardiy XR 12.12/999 BID, and Trulicity 3 mg /0.5 ml once a week. I contacted the Pharmacy and they confirmed he is picking up his med boxes regularly Pt isunder the care of Endocrinology (Dr Hernandez) . He follows with Diabetes and Supervisor Malted Milk educator Hgb A1c 09/19/2023 : 10.3 Plan: [...] admits that while he was away in [place] for over a month he was not adhering to a diabetic diet. He is also drinking orange juice by the [facility]. Pr counseled and educated about diabetic diet [...] He used to follow with Diabetes and Supervisor Malted Milk educator Hgb A1c 09/19/2023 : 10.3 Plan: [...] 07/05/2022 He also follows with Diabetes and Supervisor Malted Milk educator Hgb A1c 11/24/2022: 7.0 Plan: continue [...] 07/05/2022 He also follows with Diabetes and Supervisor Malted Milk educator Hgb A1c 08/09/2022 was 7.6 today [...] here 4 weeks ago Previous visit Pt's PUNCHBOARD ASSEMBLER told me that she had been taking [...] Encounters Date Type Department Care Team Description 08/14/2025 Orders Only GENERIC EXTERNAL DATA DEPARTMENT Provider, Generic External Data 08/08/2025 Telephone [facility] [address] [facility] [place] [address] Marv Ramirez MD Verbal order 08/08/2025 Telephone [facility] [address] [facility] [place] [address] Marv Ramirez MD med rec 07/15/2025 Refill [facility] [address] [facility] [place] [address] Marv Ramirez MD 07/04/2025 Telephone [facility] [address] [place] [address] Marv Ramirez MD Durable Medical Equipment 06/18/2025 Refill [facility] [address] [facility] [place] [address] Marv Ramirez MD 06/11/2025 Telephone [facility] [address] [place] [address] Marv Ramirez MD Podiatry 06/10/2025 1:00 PM EDT Office Visit [facility] [address] [place] [address] Mary Hamm MD Toe trauma, left, initial encounter (Primary Dx); Type 2 diabetes mellitus with diabetic neuropathy, with long-term current use of insulin (HCC) 06/10/2025 Travel 06/04/2025 Telephone [facility] [address] [facility] [place] [address] Marv Ramirez MD chart prep 06/04/2025 Telephone [facility] [address] [facility] [place] [address] Marv Ramirez MD chartprep 05/15/2025 Orders Only [...] 09/19/2025 09/19/2024 Depression Screening 03/06/2026 03/06/2025, 03/06/20 Diabetes: Urine Protein Screening 03/07/2026 03/07/2025, 12/28/2022, 10/27/2021, Additional history exists Lipid Panel 03/07/2026 03/07/2025, 02/25, 09/19/2023, Additional history exists Tobacco Screening 06/10/2026 [...] age to complete this topic Sigmoidoscopy Discontinued Goals Goal Patient Goal Type Associated Problems Recent Progress Patient-Stated? Author Help patients manage their type 2 diabetes Care Plan Help patients manage their type 2 diabetes Zack Fu Weekly blood pressure task Care Plan Weekly blood pressure task Zack Fu Help patients manage their type 2 diabetes Care Plan Help patients manage their type 2 diabetes Zack Fu Patient has chronic kidney disease Care Plan Patient has chronic kidney disease Zack Fu Weekly blood pressure task Care Plan Weekly blood pressure task Zack Fu Patient has chronic kidney disease Care Plan Patient has chronic kidney disease No Zack Gregorio Weekly blood pressure task Care Plan Weekly blood pressure task No Vishal RegaladoqueSenait bee Weekly blood pressure task Care Plan Weekly blood pressure task No Colon VásquezSenait Patient has chronic kidney disease Care Plan Patient has chronic kidney disease No Colon Fahad Senait Patient has chronic kidney disease Care Plan Patient has chronic kidney disease No Colon Fahad Senait Procedures Procedure Name Priority Date/Time Associated Diagnosis Comments GLUCOSE, WHOLE BLOOD Routine 08/14/2025 9:30 AM EST AMB REFERRAL TO PODIATRY Urgent 06/11/2025 Toe trauma, left, initial encounter Type 2 diabetes mellitus with diabetic neuropathy, with long-term current use of insulin ([facility]) XR TOES 2+ VIEWS LEFT Routine 06/10/2025 2:07 PM EDT Toe trauma, left, initial encounter GLUCOSE, WHOLE BLOOD Routine 05/15/2025 10:05 AM EDT ALBUMIN, RANDOM URINE W/CREATININE Routine 03/07/2025 8:44 AM EDT Type 2 diabetes mellitus with diabetic polyneuropathy, without long-term current use of insulin ([facility]) LIPID PANEL, STANDARD Routine 03/07/2025 8:44 AM EDT Mixed hyperlipidemia POCT GLYCATED HEMOGLOBIN, TOTAL Routine 03/06/2025 10:38 AM EDT Type 2 diabetes mellitus with diabetic polyneuropathy, without long-term current use of insulin ([facility]) ZZZ HISTORICAL HEPATITIS C AB W/REFL TO HCV RNA, QN, PCR Routine 02/01/2022 11:29 AM EDT HM COLONOSCOPY Routine 04/25/2016 from Last 3 Months or Most Recently Relevant to Health Maintenance Results * (ABNORMAL) Glucose, Whole Blood (08/14/2025 9:30 AM EST) Only the most recent of2 resultswithin the time period is included. Glucose, Whole Blood 124(H) 60 - 115 mg/dL [facility] Comment:METER #: [id number] Testing performed in the Endocrinology Department [address] , [address], [facility]. 08/14/2025 9:30 AM EST 08/14/2025 9:36 AM EST us Generic External Data Provider LAB BLOOD ORDERAB LES Final Result [facility] [address] [place] [address] [phone] * Referral to Podiatry (06/11/2025) us Mary Hamm MD OUTPATIENT REFERRAL ORDRaciel VELEZ Final Result * XR Toes 2+ Left (06/10/2025 2:07 PM EDT) Anatomical Region Laterality Modality Lower Extremities, Toes Left Radiogra phic Imaging 06/10/2025 2:07 PM EDT Narrative 06/10/2025 2:31 PM EDT [facility] [address] [place] [address] XRay Report Signed Patient: Matthew Teixeira MR#: [id number] : 1950 Acct:[id number] Age/Sex: 75 / M ADM Date: 06/10/25 Loc: .[facility]X Attending Dr: Mary Hamm MD Ordering Physician: Mary Hamm MD Date of Service: 06/10/25 Procedure(s): XR toe LT min 2V Accession Number(s): [id number] cc: Mary Hamm MD Reason for Exam: [...] Palomino MD in OV> 06/10/25 1428 DD/ 140 TD/TT: 06/10/25 141 Community Recreation Coordinator: Procedure Note Donotuseinterpreter, Image - 06/10/[address] [address] XRay Report Signed Patient: Matthew Teixeira AMR#: [id number] : 9Acct:[id number] Age/Sex: 75 / MADM Date: 06/10/25 [facility] Dr: Mary Hamm MD Ordering Physician: Mary Hamm MD Date of Service: 06/10/25 Procedure(s): XR toe LT min 2V Accession Number(s): [id number] cc: Mary Hamm MD Reason for Exam: [...] Palomino MD in OV> 06/10/25 1428 DD/ 1407 TD/TT: 06/10/25 141 Community Recreation Coordinator: Mary Hamm MD IMG XR PROCEDURES Final Result * Albumin, Random Urine W/Creatinine (03/07/2025 8:44 AM EDT) Creatinine, Urine 76.34 mg/dL [facility] Microalbumin Urine 5.0 mg/L [facility] Microalbum Creatinine Ratio Ur 6.5 <30 ug/mg cr [facility] Comment:Albumin/Creatinine R atio Reference Ranges: Normal: < 30 ug/mg creatinine Microalbuminuria: 30 - 300 ug/mg creatinineClinical Albuminuria: > 300 ug/mg creatinine Urine (Urine, Random) 03/07/2025 8:44 AM EDT 03/07/2025 11:11 AM EDT us Marv Lacy MD LAB URINE ORDERABLES Final Result [facility] [address] [place] [phone] * (ABNORMAL) Lipid Panel, Standard (03/07/2025 8:44 AM EDT) Triglycerides 121 <150 mg/dL [facility] Comment:Desirable Triglyceri de: less than 150 mg/dLBorderline High Triglyceride 150-199 mg/dLHigh Triglyceride: 200-499 mg/dLVery High Triglyceride: greater than or equal to 5OO mg/dL Cholesterol 125 <200 mg/dL [facility] Comment:Desirable Cholestero l: less than 200 mg/dLBorderline High Cholesterol: 200-239 mg/dLHigh Cholesterol: greater than 239 mg/dL LDL Cholesterol Calculated 65 <100 mg/dL [facility] Comment:Desirable LDL: less than 100 mg/dLNear Optimal/Above Optimal LDL: 110- 129 mg/dLBorderline High LDL: 130-159 mg/dLHigh LDL: 160-189 mg/dLVery High LDL: greater than or equal to 190 mg/dL HDL Cholesterol 36(L) >40 mg/dL [facility] Comment:Desirable HDL: great er than 40 mg/dL Note: This HDL assay may give artificially low results in patients with liver disease. Blood Venous blood specimen / Unknown 03/07/2025 8:44 AM EDT 03/07/2025 11:19 AM EDT us Marv Lacy MD LAB BLOOD ORDERABLES Final Result [facility] [address] [place] [address] [phone] * (ABNORMAL) POCT HGB A1C (03/06/2025 10:38 AM EDT) Pathologist [facility] Hemoglobin A1C 7.5(A) 4.0 - 5.7 % QC Media Lot # [id number] Lot# Expiration Date Blood 03/06/2025 10:3 8 AM EDT us Marv Lacy MD POINT OF CARE TEST EN TER/EDIT ORDERABLES Final Result * HEPATITIS C AB W/REFL TO HCV RNA, QN, PCR (02/01/2022 11:29 AM EDT) Pathologist [facility] HEPATITIS C ANTIBODY NON-REACT ZOE NON-REACT ZOE [facility] INDEX <0.02 <1.00 [facility] Comment: HCV antibody was non-reactive. There is no laboratory evidence of HCV infection. In most cases, no further action is required. However, if recent HCV exposure is suspected, a test for HCV RNA (test code 72184) is suggested. For additional information please refer to http://education.[employer]/faq/XWM30t7 (This link is being provided for informational/ educational purposes only.) 02/01/2022 11:2 9 AM EDT us Marv Lacy MD HISTORICAL/NON ORDERA BLE LABS Final Result Performing Organization Address City/[facility]/ZIP Co de Phone Number [facility] [address] [place] [address], * Colonoscopy (04/25/2016) Colonoscopy Tubular Adenoma/Hem orrhoids Comment:Dr Royal Jasso us Historical Provider HEALTH MAINTENANCE Edited Result - Final from Last 3 Months or Most Recently Relevant to Health Maintenance Additional Health Concerns Active Problems Noted Date [...] 08/08/2025 Patient has chronic kidney disease 08/08/2025 Insurance [employer] (O D-SNP) Care Teams Wood Machine Carver Relationship Specialty Start Date End Date Marv Ramirez MD [address] [place] [address] PCP - General Internal Medicine 04/09/14
--- OUTSIDE RECORDS SUMMARY | 2025-08-14 10:41 | XMS_ITS | Encounter Summary ---
Author Organization [employer] Address [address] [facility] 7t [place] [address] Care Team Providers Care Heel Painter Name Role Phone Marv Ramirez MD Primary Care Provide r Reason for Visit * Reason Comments Med Refill Encounter Details Date Type Department Care Team ([facility] Contact Info) Description 01/26/2024 Refill [facility] [address] [place], [place] [phone] Marv Ramirez MD [address] [place] [address] Social History Tobacco Use Types Packs/Day Years [...] documented as of this encounter Care Teams Heel Painter Relationship Specialty Start Date End Date Marv Ramirez MD [address] [place] [phone] PCP - General Internal Medicine 04/09/14 documented as of this encounter
--- OUTSIDE RECORDS SUMMARY | 2025-08-14 10:41 | XMS_ITS | Encounter Summary ---
Author Organization [employer] Address [address] [facility] [address]t [place] [address] Care Team Providers Care Panama Hat Smearer Name Role Phone Marv Ramirez MD Primary Care Provide r Reason for Visit * Reason Comments Med Refill Encounter Details Date Type Department Care Team ([facility] Contact Info) Description 02/01/2024 Refill [facility] [address] [place], [place] [phone] Marv Ramirez MD [address] [place] [address] Social History Tobacco Use Types Packs/Day Years [...] documented as of this encounter Care Teams Panama Hat Smearer Relationship Specialty Start Date End Date Marv Ramirez MD [address] [place] [phone] PCP - General Internal Medicine 04/09/14 documented as of this encounter
--- OUTSIDE RECORDS SUMMARY | 2025-08-14 10:41 | XMS_ITS | Encounter Summary ---
Author Organization [facility] Address [address] [place] [address] Care Team Providers Care Recovery Analyst Name Role Phone Marv Pérez MD Primary Care Provi ben Encounter Details Date Type Department Care Team (Late Contact Info) Description 07/23/2025 Lab Requisition [facility] Main Lab [address] [facility] [place] [address] Sylvia Murillo MD [address] [place] [address] Essential (primary) hypertension; Type 2 diabetes mellitus without complications (CMS/HCC V24, CMS/HCC V28) Social History Tobacco Use Types Packs/Day Years Used Date Smoking Tobacco: Never Alcohol Use Standard Drinks/Week Comments Not Currently 0 (1 standard drink = 0.6 oz pur e alcohol) Sex and Gender Information Value Date Recorded Sex Assigned at Not on file Legal Sex Male 4:47 AM EST Gender Identity Not on file Sexual Orientation Not on file documented as of this encounter Plan of Treatment Upcoming Encounters Date Type Department Care Team (Late Contact Info) Description 09/04/2025 9:15 AM EST Office Visit [facility] [place] [address] [facility] [address] [place] [address] Ezequiel Mattson DPM [address] [facility] [address] [place] [address] documented as of this encounter Procedures Procedure Name Priority Date/Time Associated Diagnosis Comments COMPLETE BLOOD COUNT Routine 07/23/2025 7:45 AM EST Essential (primary) hypertension Type 2 diabetes mellitus without complications (CMS/HCC V24, CMS/HCC V28) THYROID STIMULATING HORMONE Routine 07/23/2025 7:45 AM EST Essential (primary) hypertension Type 2 diabetes mellitus without complications (CMS/HCC V24, CMS/HCC V28) BASIC METABOLIC PANEL Routine 07/23/2025 7:45 AM EST Essential (primary) hypertension Type 2 diabetes mellitus without complications (CMS/HCC V24, CMS/HCC V28) documented in this encounter Results * (ABNORMAL) Thyroid stimulating hormone (07/23/2025 7:45 AM EST) TSH 6.53(H) 0.40 - 4.00 mcIU/mL 07/23/2025 10:44 AM EST [facility] Blood Venous blood specimen / Unknown Venipuncture / Unknown 07/23/2025 7:45 AM EST 07/23/2025 9:13 AM EST us Sylvia Murillo MD LAB BLOOD ORDERABLES Final Resul t [facility] [address] [place] [address], * (ABNORMAL) Basic metabolic panel (07/23/2025 7:45 AM EST) Sodium 136 133 - 145 mmol/L 07/23/2025 10:44 AM EST [facility] Potassium 4.0 3.5 - 5.5 mmol/L 07/23/2025 10:44 AM EST [facility] Chloride 96 96 - 110 mmol/L 07/23/2025 10:44 AM EST [facility] CO2 31 21 - 32 mmol/L 07/23/2025 10:44 AM EST [facility] Anion Gap 9 3 - 11 07/23/2025 10:44 AM [facility] Glucose 112(H) 70 - 100 mg/dL 07/23/2025 10:44 AM [facility] BUN 18 5 - 25 mg/dL 07/23/2025 10:44 AM [facility] Creatinine 0.81 0.70 - 1.30 mg/dL 07/23/2025 10:44 AM [facility] eGFR 91 >=60 mL/min/1. 73m2 07/23/2025 10:44 AM [facility] Comment:Calculation based on the Chronic Kidney Disease Epidemiology Collaboration (CKD-EPI) equation refit without adjustment for race. BUN/Creatinine Ratio 22.2 07/23/2025 10:44 AM [facility] Calcium 7.7(L) 8.5 - 10.5 mg/dL 07/23/2025 10:44 AM [facility] Blood Venous blood specimen / Unknown Venipuncture / Unknown 07/23/2025 7:45 AM EST 07/23/2025 9:13 AM EST us Sylvia Murillo MD LAB BLOOD ORDERABLES Final Resul t [facility] [address] [place] [address], * (ABNORMAL) Complete blood count (07/23/2025 7:45 AM EST) WBC 5.9 4.8 - 10.8 K/mcL LAB HEMETOLOGY METHOD 07/23/2025 10:12 AM [facility] RBC 3.10(L) 4.50 - 5.50 M/mcL LAB HEMETOLOGY METHOD 07/23/2025 10:12 AM [facility] Hemoglobin 8.9(L) 13.5 - 17.5 g/dL LAB HEMETOLOGY METHOD 07/23/2025 10:12 AM [facility] Hematocrit 27.3(L) 42.0 - 54.0 % LAB HEMETOLOGY METHOD 07/23/2025 10:12 AM [facility] MCV 88.6 79.0 - 98.0 FL LAB HEMETOLOGY METHOD 07/23/2025 10:12 AM [facility] MCH 28.9 27.0 - 32.0 pcg LAB HEMETOLOGY METHOD 07/23/2025 10:12 AM [facility] MCHC 32.6 32.0 - 37.0 g/dL LAB HEMETOLOGY METHOD 07/23/2025 10:12 AM [facility] RDW 15.9(H) 11.0 - 15.0 % LAB HEMETOLOGY METHOD 07/23/2025 10:12 AM [facility] Platelets 216 130 - 400 K/mcL LAB HEMETOLOGY METHOD 07/23/2025 10:12 AM [facility] MPV 11.0 7.0 - 11.0 FL LAB HEMETOLOGY METHOD 07/23/2025 10:12 AM [facility] NRBC 0.0 <1.0 % LAB HEMETOLOGY METHOD 07/23/2025 10:12 AM EST [facility] NRBC Absolute 0.00 <0.10 K/mcL LAB HEMETOLOGY METHOD 07/23/2025 10:12 AM [facility] Blood Venous blood specimen / Unknown Venipuncture / Unknown 07/23/2025 7:45 AM EST 07/23/2025 9:13 AM EST us Sylvia Murillo MD LAB BLOOD ORDERABLES Final Resul t [facility] [address] [place] [address], documented in this encounter Visit Diagnoses Diagnosis Essential (primary) hypertension Unspecified essential hypertension Type 2 diabetes mellitus without complications (CMS/HCC V24, CMS/HCC V28) documented in this encounter Care Teams Recovery Analyst Relationship Specialty Start Date End Date Marv Pérez MD [address] [place] [address] PCP - General Internal Medicine 07/05/24 documented as of this encounter
--- OUTSIDE RECORDS SUMMARY | 2025-08-14 10:41 | XMS_ITS | Encounter Summary ---
Author Organization [employer] Address [address] [facility] 7t [place] [address] Care Team Providers Care Agricultural And Forestry Supervisor Name Role Phone Marv Ramirez MD Primary Care Provide r Reason for Visit * Reason Comments Med Refill Encounter Details Date Type Department Care Team ([facility] st Contact Info) Description 03/04/2025 Refill [facility] [address] [place], [place] [phone] Marv Raimrez MD [address] [place], [place] [phone] Insomnia, unspecified type Social History Tobacco Use [...] is your housing situation today? I have daune turcios 09/19/[address] you [...] at all 03/06/2025 10:24 AM EDT [place] Hernandze [place] * Feeling down, depressed, or hopeless [...] documented as of this encounter Care Teams Agricultural And Forestry Supervisor Relationship Specialty Start Date End Date Marv Ramirez MD [address] [place] [phone] PCP - General Internal Medicine 04/09/14 documented as of this encounter
--- OUTSIDE RECORDS SUMMARY | 2025-08-14 10:41 | XMS_ITS | Clinical Summary ---
Author Organization [facility] Address [address] [place] [address] Care Team Providers Care Waistline Joiner Overlock Name Role Phone Marv Beltran MD Primary Care Provider Chemo Hernandez MD Unavailable Estee Fontaine MD Unavailable [phone] Arturo Copeland MD Unavailable [phone] Ferdinand Maravilla MD Unavailable [phone] Allergies No known active allergies Medications aspirin enteric coated 81 MG EC tablet Take 1 tablet (81 mg total) by mouth daily. Active atorvastatin (LIPITOR) 40 MG tablet Take 1 tablet (40 mg total) by mouth daily. Active insulin glargine (LANtus/SEMGLEE SOLOSTAR) 100 units/mL prefilled pen injection Inject 16 Units under the skin daily. Active lisinopril (PRINIVIL,ZeSTR IL) 5 MG tablet Take 1 tablet (5 mg total) by mouth daily. Active tirzepatide (Mounjaro) 2.5 mg/0.5 mL pen-injector Inject 1 Pen (2.5 mg total) under the skin once a week. Active insulin aspart (NovoLOG FlexPen) 100 UNIT/ML prefilled pen injection Inject 6 Units under the skin 3 (three) times a day before meals. Active empagliflozin-m etFORMIN (Synjardy) 12.5-1000 MG per tablet Take 1 tablet by mouth 2 (two) times a day with breakfast and dinner. Active traZODone (DESYREL) 100 MG tablet Take 1 tablet (100 mg total) by mouth nightly. Active gabapentin (NEURONTIN) 300 MG capsule Take 2 capsules (600 mg total) by mouth nightly. Active senna (SENOKOT) 8.6 MG Tab tabletIndicatio ns:S/P CABG (coronary artery bypass graft) Take 2 tablets by mouth nightly. 5 08/21/20 Active PANTOprazole (PROTONIX) 40 MG EC tabletIndicatio ns:S/P CABG (coronary artery bypass graft) Take 1 tablet (40 mg total) by mouth daily. 5 08/22/20 Active multivitamin Tab tablet Take 1 tablet by mouth daily. Active OMEprazole (PriLOSEC) 20 MG capsule Take 1 capsule (20 mg total) by mouth every morning before breakfast. Active clopidogrel (PLAVIX) 75 MG tabletIndicatio ns:S/P CABG (coronary artery bypass graft) Take 1 tablet (75 mg total) by mouth daily. 90 tablet 3 5 Active metoPROLOL TARTRATE (LOPRESSOR) 25 MG tabletIndicatio ns:S/P CABG (coronary artery bypass graft) Take 0.5 tablets (12.5 mg total) by mouth every 12 (twelve) hours around the clock. 90 tablet 3 5 Active acetaminophen (TYLENOL) 325 MG tabletIndicatio ns:S/P CABG (coronary artery bypass graft) Take 2 tablets (650 mg total) by mouth 4 times daily (every 6 hours) as needed for moderate pain. 90 tablet 3 5 Active OMEprazole (PriLOSEC OTC) 20 MG tablet Take 1 tablet (20 mg total) by mouth every morning before breakfast. 07/22/20 Discontinu ed(Stop Taking at Discharge) acetaminophen (TYLENOL) 325 MG tabletIndicatio ns:S/P CABG (coronary artery bypass graft) Take 2 tablets (650 mg total) by mouth 4 times daily (every 6 hours) as needed for moderate pain. 5 08/11/20 Discontinu ed(Reorder ) metoPROLOL TARTRATE (LOPRESSOR) 25 MG tabletIndicatio ns:S/P CABG (coronary artery bypass graft) Take 0.5 tablets (12.5 mg total) by mouth every 12 (twelve) hours around the clock. 08/11/20 Discontinu ed(Reorder ) clopidogrel (PLAVIX) 75 MG tabletIndicatio ns:S/P CABG (coronary artery bypass graft) Take 1 tablet (75 mg total) by mouth daily. 08/11/20 Discontinu ed(Reorder ) Active Problems Problem Noted Date Diagnosed Date S/P CABG (coronary artery bypass graft) 08/11/20 Loose bowel movement 07/13/2025 Assessment & Plan (07/13/2025 5:43 PM EST): Likely due to bowel regimen no fever no abdominal pain no suspect infection Holding bowel regimen try one-time Imodium if persist will consider further workup Delirium 07/09/2025 Assessment & Plan (07/14/2025 1:55 PM EST): Resolved. Continue trazodone 100 mg nightly and 50 mg as needed for agitation episodes. Assessment & Plan (07/13/2025 5:43 PM EST): Resolved AAO x 3 continue monitoring mental state may change after procedure Assessment & Plan (07/12/2025 6:00 PM EST): Improving no focality no indication for head imaging at this point Assessment & Plan (07/11/2025 1:41 PM EST): Currently delirium almost resolved. Patient out of restraints. Has hernan Peters in the room. Oriented to his name and place. Appears back to baseline. --Continue trazodone 100 mg nightly. -- Trazodone 50 as needed for agitation episodes. -- Haldol as needed if patient violent versus nonredirectable. -- Discussed with aide at bedside, at baseline, patient is awake, alert and oriented and is cooperative. -- Appreciate geriatrics input. Assessment & Plan (07/10/2025 2:00 PM EST): Currently delirium much improved. Patient out of restraints. Has aide Lorraine in the room. Oriented to his name and place. --Continue trazodone 100 mg nightly. -- Trazodone 50 as needed for agitation episodes. -- Haldol as needed if patient violent versus nonredirectable. -- Discussed with aide at bedside, at baseline, patient is awake, alert and oriented and is cooperative. -- Appreciate geriatrics input. Assessment & Plan (07/09/2025 9:33 AM EST): Patient currently agitated requiring 4-point restraints. Oriented to his name only. Moving all extremities spontaneously. Presentation appears to be consistent with hyperactive delirium. --Will give IV Haldol 0.5 mg. -- Geriatrics consulted. Hypertension 07/08/2025 Assessment & Plan (07/14/2025 1:55 PM EST): Continue atorvastatin, Toprol-XL. Hold lisinopril. Assessment & Plan (07/13/2025 5:43 PM EST): Continue metoprolol monitor blood pressure and adjust accordingly Assessment & Plan (07/12/2025 5:59 PM EST): Continue to blood pressure and adjust accordingly Assessment & Plan (07/11/2025 1:41 PM EST): -- Continue atorvastatin 40 mg daily. -- Continue metoprolol succinate 25 mg daily. -- Resume lisinopril tomorrow. Will need to be held before OR as per CTS recommendations. Assessment & Plan (07/10/2025 2:00 PM EST): -- Continue atorvastatin 40 mg daily. -- Continue metoprolol succinate 25 mg daily. -- Resume TRISTAN inhibitor after cath if renal function stable. Assessment & Plan (07/09/2025 9:33 AM EST): -- Continue atorvastatin 40 mg daily. -- Continue metoprolol succinate 25 mg daily. -- Resume TRISTAN inhibitor after cath if renal function stable. 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 Will uptitrate insulin regimen and uptitrate lispro at 7 units 3 times daily with meals and intensify sliding scale insulin. --Lantus 10 units nightly. --Hold metformin. --Continue gabapentin and trazodone. Assessment & Plan (07/13/2025 5:43 PM EST): Monitor blood sugar Assessment & Plan (07/12/2025 5:59 PM EST): Continue to blood sugar and adjust insulin accordingly Assessment & Plan (07/11/2025 1:41 PM EST): -- Resume Lantus 10 units nightly.. -- Continue lispro 4 units TID with meals. -- Continue sliding-scale coverage ACHS. -- Hold metformin while inpatient. -- Continue gabapentin 600 mg nightly for neuropathy. -- Continue trazodone nightly for sleep. --Goal fingersticks less than 180. Will check ACHS. Assessment & Plan (07/10/2025 2:00 PM EST): -- Hold Lantus until patient resumes adequate oral intake post-procedure. -- Continue lispro 5 units TID with meals. -- Continue sliding-scale coverage ACHS. -- Hold metformin until post-cath renal function confirmed stable. -- Continue gabapentin 600 mg nightly for neuropathy. -- Continue trazodone nightly for sleep. Assessment & Plan (07/09/2025 9:33 AM EST): -- Hold Lantus until patient resumes adequate oral intake post-procedure. -- Continue lispro 5 units TID with meals. -- Continue sliding-scale coverage ACHS. -- Hold metformin until post-cath renal function confirmed stable. -- Continue gabapentin 600 mg nightly for neuropathy. -- Continue trazodone nightly for sleep. Assessment & Plan (07/08/2025 5:07 PM EST): Hemoglobin A1C 7.9% (07/08/2025) - Lantus 16 units Nightly (Held until eating more PO) - Lispro 5 units TID with meals - ISS for now given reduced diet through today and tomorrow - POCT glucose 114 most recently - Gabapentin 600 mg Nightly Hyperlipidemia 07/08/2025 Assessment & Plan (07/14/2025 1:55 PM EST): Continue atorvastatin, Toprol-XL. Hold lisinopril. Assessment & Plan (07/13/2025 5:43 PM EST): Continue metoprolol monitor blood pressure and adjust accordingly Assessment & Plan (07/12/2025 5:59 PM EST): Continue to blood pressure and adjust accordingly Assessment & Plan (07/11/2025 1:41 PM EST): -- Continue atorvastatin 40 mg daily. -- Continue metoprolol succinate 25 mg daily. -- Resume lisinopril tomorrow. Will need to be held before OR as per CTS recommendations. Assessment & Plan (07/10/2025 2:00 PM EST): -- Continue atorvastatin 40 mg daily. -- Continue metoprolol succinate 25 mg daily. -- Resume TRISTAN inhibitor after cath if renal function stable. Assessment & Plan (07/09/2025 9:33 AM EST): -- Continue atorvastatin 40 mg daily. -- Continue metoprolol succinate 25 mg daily. -- Resume TRISTAN inhibitor after cath if renal function stable. 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 Troponins elevated, cannot rule out type I ACS. -- Cardiac echo done 07/10 with mildly decreased left ventricular systolic function with EF 44%. Hypokinesis of the inferior and inferoseptal haddad. -- Cardiac catheter on 07/11 with multivessel CAD. -- CT surgery team consulted. Plan for CABG tomorrow 07/15. N.p.o. midnight. -- Remains on heparin drip. -- continue ASA 81 mg daily. -- Continue atorvastatin 40 mg daily. -- Continue metoprolol succinate 50 mg daily. -- Hold lisinopril for the procedure. Assessment & Plan (07/13/2025 5:43 PM EST): Will continue heparin drip pending cardiac bypass surgery on July 15 by cardiothoracic surgery patient denies chest pain keep telemetry Assessment & Plan (07/12/2025 5:59 PM EST): Will continue heparin drip for now seen by brick pitcher underwent angiogram showed multivessel disease has been seen by cardiothoracic surgery planning surgical intervention on July 15 acute telemetry continue monitoring closely due to high risk cannot be done as outpatient Assessment & Plan (07/11/2025 1:41 PM EST): Presented with chest pain and transient EKG changes concerning for possible lateral STEMI vs NSTEMI. Troponins elevated, cannot rule out type I ACS. Plan for formal ischemic evaluation with cardiac catheterization. -- Cardiac catheter on 07/11 with multivessel CAD. -- CT surgery team consulted. Plan for CABG on 07/15. -- CT surgery recommends continuing heparin drip. -- CT chest pending. -- continue ASA 81 mg daily. -- Continue atorvastatin 40 mg daily. -- Continue metoprolol succinate 50 mg daily. -- Resume lisinopril tomorrow. -- Cardiac echo done 07/10 with mildly decreased left ventricular systolic function with EF 44%. Hypokinesis of the inferior and inferoseptal haddad. Assessment & Plan (07/10/2025 2:00 PM EST): Presented with chest pain and transient EKG changes concerning for possible lateral STEMI vs NSTEMI. Troponins elevated, cannot rule out type I ACS. Plan for formal ischemic evaluation with cardiac catheterization. -- Cardiology and interventional cardiology consulted; appreciate input. -- Continue heparin drip. -- Received ASA loading dose; continue ASA 81 mg daily. -- Continue atorvastatin 40 mg daily. -- Continue metoprolol succinate 50 mg daily. -- Hold lisinopril and metformin for cardiac cath. -- Discussed with interventional cardiology team, plan for cardiac cath tomorrow given unavailable schedule today. -- Monitor on telemetry; repeat EKG for recurrent chest pain. -- Cardiac echo currently pending. Assessment & Plan (07/09/2025 9:33 AM EST): Presented with chest pain and transient EKG changes concerning for possible lateral STEMI vs NSTEMI. Troponins elevated, cannot rule out type I ACS. Plan for formal ischemic evaluation with cardiac catheterization. -- Cardiology and interventional cardiology consulted; appreciate input. -- Continue heparin drip. -- Received ASA loading dose; continue ASA 81 mg daily. -- Continue atorvastatin 40 mg daily. -- Continue metoprolol succinate 50 mg daily. -- Hold lisinopril and metformin for cardiac cath. -- Initial plans for cardiac catheter today however postponed given ongoing delirium and agitation requiring restraints. -- Monitor on telemetry; repeat EKG for recurrent chest pain. -- Cardiac echo pending. Assessment & Plan (07/08/2025 5:07 PM EST): Patient was transferred from outside hospital overnight with chest pain and EKG changes. EKG changes at outpatient office were concerning for lateral STEMI but have since resolved. Troponins elevated but relatively flat at this point. POCUS suggested reduced LVEF with collapsible IVC. -Cardiology and interventional cards consult -Patient had been on clear liquid diet through today unfortunately, no timing for cath today -Diet advanced to regular for dinner -Clear liquid diet after midnight -Cardiac cath tomorrow -Normal saline at 75 cc an hour after midnight -Patient is [place]-speaking and language line translator/interpreter should be utilized for conversations and encounters with this patient -Patient received heparin bolus today. -Continue heparin drip to therapeutic anti-1Xa per [facility] Protocol -Trazadone nightly for sleep Hypothyroid 07/08/2025 Cardiomyopathy 07/08/2025 Assessment & Plan (07/14/2025 1:55 PM EST): Presented with chest pain and transient EKG changes concerning for possible lateral STEMI vs NSTEMI. Troponins elevated, cannot rule out type I ACS. -- Cardiac echo done 07/10 with mildly decreased left ventricular systolic function with EF 44%. Hypokinesis of the inferior and inferoseptal haddad. -- Cardiac catheter on 07/11 with multivessel CAD. -- CT surgery team consulted. Plan for CABG tomorrow 07/15. N.p.o. midnight. -- Remains on heparin drip. -- continue ASA 81 mg daily. -- Continue atorvastatin 40 mg daily. -- Continue metoprolol succinate 50 mg daily. -- Hold lisinopril for the procedure. Assessment & Plan (07/13/2025 5:43 PM EST): Will continue heparin drip pending cardiac bypass surgery on July 15 by cardiothoracic surgery patient denies chest pain keep telemetry Assessment & Plan (07/12/2025 5:59 PM EST): Will continue heparin drip for now seen by brick pitcher underwent angiogram showed multivessel disease has been seen by cardiothoracic surgery planning surgical intervention on July 15 acute telemetry continue monitoring closely due to high risk cannot be done as outpatient Assessment & Plan (07/11/2025 1:41 PM EST): Presented with chest pain and transient EKG changes concerning for possible lateral STEMI vs NSTEMI. Troponins elevated, cannot rule out type I ACS. Plan for formal ischemic evaluation with cardiac catheterization. -- Cardiac catheter on 07/11 with multivessel CAD. -- CT surgery team consulted. Plan for CABG on 07/15. -- CT surgery recommends continuing heparin drip. -- CT chest pending. -- continue ASA 81 mg daily. -- Continue atorvastatin 40 mg daily. -- Continue metoprolol succinate 50 mg daily. -- Resume lisinopril tomorrow. -- Cardiac echo done 07/10 with mildly decreased left ventricular systolic function with EF 44%. Hypokinesis of the inferior and inferoseptal haddad. Assessment & Plan (07/10/2025 2:00 PM EST): Presented with chest pain and transient EKG changes concerning for possible lateral STEMI vs NSTEMI. Troponins elevated, cannot rule out type I ACS. Plan for formal ischemic evaluation with cardiac catheterization. -- Cardiology and interventional cardiology consulted; appreciate input. -- Continue heparin drip. -- Received ASA loading dose; continue ASA 81 mg daily. -- Continue atorvastatin 40 mg daily. -- Continue metoprolol succinate 50 mg daily. -- Hold lisinopril and metformin for cardiac cath. -- Discussed with interventional cardiology team, plan for cardiac cath tomorrow given unavailable schedule today. -- Monitor on telemetry; repeat EKG for recurrent chest pain. -- Cardiac echo currently pending. Assessment & Plan (07/09/2025 9:33 AM EST): Presented with chest pain and transient EKG changes concerning for possible lateral STEMI vs NSTEMI. Troponins elevated, cannot rule out type I ACS. Plan for formal ischemic evaluation with cardiac catheterization. -- Cardiology and interventional cardiology consulted; appreciate input. -- Continue heparin drip. -- Received ASA loading dose; continue ASA 81 mg daily. -- Continue atorvastatin 40 mg daily. -- Continue metoprolol succinate 50 mg daily. -- Hold lisinopril and metformin for cardiac cath. -- Initial plans for cardiac catheter today however postponed given ongoing delirium and agitation requiring restraints. -- Monitor on telemetry; repeat EKG for recurrent chest pain. -- Cardiac echo pending. Assessment & Plan (07/08/2025 5:07 PM EST): Patient was transferred from outside hospital overnight with chest pain and EKG changes. EKG changes at outpatient office were concerning for lateral STEMI but have since resolved. Troponins elevated but relatively flat at this point. POCUS suggested reduced LVEF with collapsible IVC. -Cardiology and interventional cards consult -Patient had been on clear liquid diet through today unfortunately, no timing for cath today -Diet advanced to regular for dinner -Clear liquid diet after midnight -Cardiac cath tomorrow -Normal saline at 75 cc an hour after midnight -Patient is [place]-speaking and language line translator/interpreter should be utilized for conversations and encounters with this patient -Patient received heparin bolus today. -Continue heparin drip to therapeutic anti-1Xa per [facility] Protocol -Trazadone nightly for sleep Chest pain 07/08/2025 Assessment & Plan (07/14/2025 1:55 PM EST): Presented with chest pain and transient EKG changes concerning for possible lateral STEMI vs NSTEMI. Troponins elevated, cannot rule out type I ACS. -- Cardiac echo done 07/10 with mildly decreased left ventricular systolic function with EF 44%. Hypokinesis of the inferior and inferoseptal haddad. -- Cardiac catheter on 07/11 with multivessel CAD. -- CT surgery team consulted. Plan for CABG tomorrow 07/15. N.p.o. midnight. -- Remains on heparin drip. -- continue ASA 81 mg daily. -- Continue atorvastatin 40 mg daily. -- Continue metoprolol succinate 50 mg daily. -- Hold lisinopril for the procedure. Assessment & Plan (07/13/2025 5:43 PM EST): Will continue heparin drip pending cardiac bypass surgery on July 15 by cardiothoracic surgery patient denies chest pain keep telemetry Assessment & Plan (07/12/2025 5:59 PM EST): Will continue heparin drip for now seen by brick pitcher underwent angiogram showed multivessel disease has been seen by cardiothoracic surgery planning surgical intervention on July 15 acute telemetry continue monitoring closely due to high risk cannot be done as outpatient Assessment & Plan (07/11/2025 1:41 PM EST): Presented with chest pain and transient EKG changes concerning for possible lateral STEMI vs NSTEMI. Troponins elevated, cannot rule out type I ACS. Plan for formal ischemic evaluation with cardiac catheterization. -- Cardiac catheter on 07/11 with multivessel CAD. -- CT surgery team consulted. Plan for CABG on 07/15. -- CT surgery recommends continuing heparin drip. -- CT chest pending. -- continue ASA 81 mg daily. -- Continue atorvastatin 40 mg daily. -- Continue metoprolol succinate 50 mg daily. -- Resume lisinopril tomorrow. -- Cardiac echo done 07/10 with mildly decreased left ventricular systolic function with EF 44%. Hypokinesis of the inferior and inferoseptal haddad. Assessment & Plan (07/10/2025 2:00 PM EST): Presented with chest pain and transient EKG changes concerning for possible lateral STEMI vs NSTEMI. Troponins elevated, cannot rule out type I ACS. Plan for formal ischemic evaluation with cardiac catheterization. -- Cardiology and interventional cardiology consulted; appreciate input. -- Continue heparin drip. -- Received ASA loading dose; continue ASA 81 mg daily. -- Continue atorvastatin 40 mg daily. -- Continue metoprolol succinate 50 mg daily. -- Hold lisinopril and metformin for cardiac cath. -- Discussed with interventional cardiology team, plan for cardiac cath tomorrow given unavailable schedule today. -- Monitor on telemetry; repeat EKG for recurrent chest pain. -- Cardiac echo currently pending. Assessment & Plan (07/09/2025 9:33 AM EST): Presented with chest pain and transient EKG changes concerning for possible lateral STEMI vs NSTEMI. Troponins elevated, cannot rule out type I ACS. Plan for formal ischemic evaluation with cardiac catheterization. -- Cardiology and interventional cardiology consulted; appreciate input. -- Continue heparin drip. -- Received ASA loading dose; continue ASA 81 mg daily. -- Continue atorvastatin 40 mg daily. -- Continue metoprolol succinate 50 mg daily. -- Hold lisinopril and metformin for cardiac cath. -- Initial plans for cardiac catheter today however postponed given ongoing delirium and agitation requiring restraints. -- Monitor on telemetry; repeat EKG for recurrent chest pain. -- Cardiac echo pending. Assessment & Plan (07/08/2025 5:07 PM EST): Patient was transferred from outside hospital overnight with chest pain and EKG changes. EKG changes at outpatient office were concerning for lateral STEMI but have since resolved. Troponins elevated but relatively flat at this point. POCUS suggested reduced LVEF with collapsible IVC. -Cardiology and interventional cards consult -Patient had been on clear liquid diet through today unfortunately, no timing for cath today -Diet advanced to regular for dinner -Clear liquid diet after midnight -Cardiac cath tomorrow -Normal saline at 75 cc an hour after midnight -Patient is [place]-speaking and language line translator/interpreter should be utilized for conversations and encounters with this patient -Patient received heparin bolus today. -Continue heparin drip to therapeutic anti-1Xa per [facility] Protocol -Trazadone nightly for sleep Abnormal EKG 07/08/2025 Assessment & Plan (07/14/2025 1:55 PM EST): Presented with chest pain and transient EKG changes concerning for possible lateral STEMI vs NSTEMI. Troponins elevated, cannot rule out type I ACS. -- Cardiac echo done 07/10 with mildly decreased left ventricular systolic function with EF 44%. Hypokinesis of the inferior and inferoseptal haddad. -- Cardiac catheter on 07/11 with multivessel CAD. -- CT surgery team consulted. Plan for CABG tomorrow 07/15. N.p.o. midnight. -- Remains on heparin drip. -- continue ASA 81 mg daily. -- Continue atorvastatin 40 mg daily. -- Continue metoprolol succinate 50 mg daily. -- Hold lisinopril for the procedure. Assessment & Plan (07/13/2025 5:43 PM EST): Will continue heparin drip pending cardiac bypass surgery on July 15 by cardiothoracic surgery patient denies chest pain keep telemetry Assessment & Plan (07/12/2025 5:59 PM EST): Will continue heparin drip for now seen by brick pitcher underwent angiogram showed multivessel disease has been seen by cardiothoracic surgery planning surgical intervention on July 15 acute telemetry continue monitoring closely due to high risk cannot be done as outpatient Assessment & Plan (07/11/2025 1:41 PM EST): Presented with chest pain and transient EKG changes concerning for possible lateral STEMI vs NSTEMI. Troponins elevated, cannot rule out type I ACS. Plan for formal ischemic evaluation with cardiac catheterization. -- Cardiac catheter on 07/11 with multivessel CAD. -- CT surgery team consulted. Plan for CABG on 07/15. -- CT surgery recommends continuing heparin drip. -- CT chest pending. -- continue ASA 81 mg daily. -- Continue atorvastatin 40 mg daily. -- Continue metoprolol succinate 50 mg daily. -- Resume lisinopril tomorrow. -- Cardiac echo done 07/10 with mildly decreased left ventricular systolic function with EF 44%. Hypokinesis of the inferior and inferoseptal haddad. Assessment & Plan (07/10/2025 2:00 PM EST): Presented with chest pain and transient EKG changes concerning for possible lateral STEMI vs NSTEMI. Troponins elevated, cannot rule out type I ACS. Plan for formal ischemic evaluation with cardiac catheterization. -- Cardiology and interventional cardiology consulted; appreciate input. -- Continue heparin drip. -- Received ASA loading dose; continue ASA 81 mg daily. -- Continue atorvastatin 40 mg daily. -- Continue metoprolol succinate 50 mg daily. -- Hold lisinopril and metformin for cardiac cath. -- Discussed with interventional cardiology team, plan for cardiac cath tomorrow given unavailable schedule today. -- Monitor on telemetry; repeat EKG for recurrent chest pain. -- Cardiac echo currently pending. Assessment & Plan (07/09/2025 9:33 AM EST): Presented with chest pain and transient EKG changes concerning for possible lateral STEMI vs NSTEMI. Troponins elevated, cannot rule out type I ACS. Plan for formal ischemic evaluation with cardiac catheterization. -- Cardiology and interventional cardiology consulted; appreciate input. -- Continue heparin drip. -- Received ASA loading dose; continue ASA 81 mg daily. -- Continue atorvastatin 40 mg daily. -- Continue metoprolol succinate 50 mg daily. -- Hold lisinopril and metformin for cardiac cath. -- Initial plans for cardiac catheter today however postponed given ongoing delirium and agitation requiring restraints. -- Monitor on telemetry; repeat EKG for recurrent chest pain. -- Cardiac echo pending. Assessment & Plan (07/08/2025 5:07 PM EST): Patient was transferred from outside hospital overnight with chest pain and EKG changes. EKG changes at outpatient office were concerning for lateral STEMI but have since resolved. Troponins elevated but relatively flat at this point. POCUS suggested reduced LVEF with collapsible IVC. -Cardiology and interventional cards consult -Patient had been on clear liquid diet through today unfortunately, no timing for cath today -Diet advanced to regular for dinner -Clear liquid diet after midnight -Cardiac cath tomorrow -Normal saline at 75 cc an hour after midnight -Patient is [place] Islander-speaking and language line translator/interpreter should be utilized for conversations and encounters with this patient -Patient received heparin bolus today. -Continue heparin drip to therapeutic anti-1Xa per [facility] Protocol -Trazadone nightly for sleep Resolved Problems Problem Noted Date Diagnosed Date Resolved Date NSTEMI (non-ST elevated myoc ardial infarction) 07/07/2025 07/08/2025 Encounters Date Type Department Care Team Description 08/11/2025 10:00 AM EST Office Visit [facility] Cardiothoracic Surgery [address] [phone] Shyanne Davis APRN S/P CABG (coronary artery bypass graft) 07/18/2025 Documentation [facility] Cardiothoracic Surgery [address] [id number] Shanda Bain RN MSN 07/15/2025 2:56 PM EST Anesthesia Event [facility] Perioperative Surgical Services [address] [phone] Tai Whalen, Jolly Colon, PA-C 07/15/2025 12:44 PM EST - 07/15/2025 6:09 PM EST Surgery [facility] [address] [place] [phone] Arturo Copeland MD [place] CABG X 4 /ESVH RIGHT SAPHENOUS VEIN/ LEFT ANTONIETTA/ LEFT RADIAL ARTERY/ SAJI 07/15/2025 Documentation [facility] Cardiothoracic Surgery [place] [address] [facility] [address] [place] [id number] Shanda Bain, RN MSN 07/11/2025 7:45 AM EST - 07/11/2025 9:00 AM EST Surgery [facility] Heart & V[facility] at [facility] - Cardiac Catheterization Laboratory [address] [place] [address] Lisette Villalta, DO CORONARY ANGIO W/LV 07/07/2025 11:05 PM EST Ancillary Procedure [facility] Emergency Department [address] [place] [address] Jayce Ugalde MD 07/07/2025 3:37 PM EST - 07/22/2025 4:28 PM EST Hospital Encounter [facility] [address] [place] [phone] Jayce Ugalde MD Ogbonna, Rogerio, MD Blue, MD Carlos Blank Sahiljeet, MD Rahman, MD Jani Phillips, MD Hugh De La Torre, MD Tita Hoyt, MD Noemí Andrade, MD Dinorah Gonzalez, Arturo Louis MD [place] ([facility]) (Primary Dx); Chest pain; Chest pain, unspecified; Hyperlipidemia; Hypertension; S/P CABG (coronary artery bypass graft) Discharge Disposition: Alf Facility from Last 3 Months Social History Tobacco [...] any time in the past 12 m [facility], were you homeless or living in a care home (including now)? No 07/08/2025 [facility] Utilities Answer Date Recorded In the past [...] Orientation Heterosexual (straight) 07/07 5:27 PM EST Last Filed Vital Signs Vital Sign Reading Time Taken Comments Blood Pressure 120/56 08/11/2025 10:18 AM EST Pulse 71 08/11/2025 10:18 AM EST Temperature 37 C (98.6 F) 07/22/2025 4:08 PM EST Respiratory Rate 13 08/11/2025 10:18 AM EST Oxygen Saturation 98% 08/11/2025 10:18 AM EST Inhaled Oxygen Concentration - - Weight 67.4 kg (148 lb 9.6 oz) 08/11/2025 10:18 AM EST Height 172.7 cm (5' 8 ) 08/11/2025 10:18 AM EST Body Mass Index 22.59 08/11/2025 10:18 AM EST Plan of Treatment Health Maintenance Due Date Last Done Comments Hepatitis C Virus Screening 1949 Lipid Panel 1959 Ophthalmology Exam 1959 Microalbumin/Creatinine Ratio Urine 1967 DTaP/Tdap/Td Vaccines (1 - Tdap) 1968 Pneumococcal Vaccines 50+ (1 of 2 - PCV) 1968 Zoster (Shingles) Vaccine (1 of 2) 1999 RSV Vaccine 50 years and older and Patients (1 - 1-dose 75+ series) 2024 Influenza Vaccine 03/28/2025 05/23/2024, , 08/02/2018, Additional history exists COVID-19 Vaccine ( - season) 2025 01/01/2021, 12/04/2020 Hemoglobin A1C 01/05/2026 07/08/2025 Creatinine with GFR 07/22/2026 07/22/2025, 07/20/2025, 07/19/2025, Additional history exists Foot Exam 08/11/2026 08/11/2025, 08/11/2025 Advance Care Planning Completed 07/22/2025 Hepatitis B Vaccines Aged Out No long er eligible based on patient's age to complete this topic Procedures Procedure Name Priority Date/Time Associated Diagnosis Comments POCT GLUCOSE, FINGERSTICK (CHARGE) Routine 07/22/2025 12:44 PM EST ECG 12-LEAD Routine 07/22/2025 10:12 AM EST POCT GLUCOSE, FINGERSTICK (CHARGE) Routine 07/22/2025 8:28 AM EST BASIC METABOLIC PANEL Routine 07/22/2025 6:38 AM EST MAGNESIUM Routine 07/22/2025 6:38 AM EST COMPLETE BLOOD COUNT, WITHOUT DIFFERENTIAL Routine 07/22/2025 6:38 AM EST POCT GLUCOSE, FINGERSTICK (CHARGE) Routine 07/21/2025 8:50 PM EST POCT GLUCOSE, FINGERSTICK (CHARGE) Routine 07/21/2025 5:22 PM EST POCT GLUCOSE, FINGERSTICK (CHARGE) Routine 07/21/2025 12:30 PM EST POCT GLUCOSE, FINGERSTICK (CHARGE) Routine 07/21/2025 8:44 AM EST POCT GLUCOSE, FINGERSTICK (CHARGE) Routine 07/20/2025 9:03 PM EST POCT GLUCOSE, FINGERSTICK (CHARGE) Routine 07/20/2025 5:29 PM EST POCT GLUCOSE, FINGERSTICK (CHARGE) Routine 07/20/2025 12:20 PM EST POCT GLUCOSE, FINGERSTICK (CHARGE) Routine 07/20/2025 8:24 AM EST PHOSPHORUS Routine 07/20/2025 6:04 AM EST MAGNESIUM Routine 07/20/2025 6:04 AM EST BASIC METABOLIC PANEL Routine 07/20/2025 6:04 AM EST COMPLETE BLOOD COUNT, WITHOUT DIFFERENTIAL Routine 07/20/2025 6:04 AM EST POCT GLUCOSE, FINGERSTICK (CHARGE) Routine 07/19/2025 8:54 PM EST POCT GLUCOSE, FINGERSTICK (CHARGE) Routine 07/19/2025 5:39 PM EST POCT GLUCOSE, FINGERSTICK (CHARGE) Routine 07/19/2025 12:37 PM EST XR CHEST 2 VIEWS Routine 07/19/2025 9:41 AM EST POCT GLUCOSE, FINGERSTICK (CHARGE) Routine 07/19/2025 8:48 AM EST PHOSPHORUS Routine 07/19/2025 6:54 AM EST MAGNESIUM Routine 07/19/2025 6:54 AM EST COMPLETE BLOOD COUNT, WITHOUT DIFFERENTIAL Routine 07/19/2025 6:54 AM EST BASIC METABOLIC PANEL Routine 07/19/2025 6:54 AM EST ECG 12-LEAD Routine 07/19/2025 5:51 AM EST ECG 12-LEAD Routine 07/19/2025 5:50 AM EST POCT GLUCOSE, FINGERSTICK (CHARGE) Routine 07/18/2025 8:58 PM EST POCT GLUCOSE, FINGERSTICK (CHARGE) Routine 07/18/2025 5:48 PM EST POCT GLUCOSE, FINGERSTICK (CHARGE) Routine 07/18/2025 12:42 PM EST POCT GLUCOSE, FINGERSTICK (CHARGE) Routine 07/18/2025 7:53 AM EST XR CHEST 1 VIEW-PORTABLE Routine 07/18/2025 6:00 AM EST MAGNESIUM Routine 07/18/2025 3:15 AM EST BASIC METABOLIC PANEL Routine 07/18/2025 3:15 AM EST COMPLETE BLOOD COUNT, WITHOUT DIFFERENTIAL Routine 07/18/2025 3:15 AM EST POCT GLUCOSE, FINGERSTICK (CHARGE) Routine 07/17/2025 8:58 PM EST POCT GLUCOSE, FINGERSTICK (CHARGE) Routine 07/17/2025 4:30 PM EST POCT GLUCOSE, FINGERSTICK (CHARGE) Routine 07/17/2025 11:44 AM EST POCT GLUCOSE, FINGERSTICK (CHARGE) Routine 07/17/2025 8:09 AM EST CREATINE KINASE MB FRACTION Routine 07/17/2025 6:07 AM EST CREATINE KINASE, REFLEX TO CKMB Routine 07/17/2025 6:07 AM EST ECG 12-LEAD Routine 07/17/2025 5:59 AM EST XR CHEST 1 VIEW-PORTABLE Routine 07/17/2025 5:45 AM EST POCT GLUCOSE, FINGERSTICK (CHARGE) Routine 07/17/2025 5:01 AM EST POCT GLUCOSE, FINGERSTICK (CHARGE) Routine 07/17/2025 12:09 AM EST MAGNESIUM Routine 07/17/2025 12:05 AM EST COMPLETE BLOOD COUNT, WITHOUT DIFFERENTIAL Routine 07/17/2025 12:05 AM EST BASIC METABOLIC PANEL Routine 07/17/2025 12:05 AM EST POCT GLUCOSE, FINGERSTICK (CHARGE) Routine 07/16/2025 8:39 PM EST POCT GLUCOSE, FINGERSTICK (CHARGE) Routine 07/16/2025 5:01 PM EST POCT GLUCOSE, FINGERSTICK (CHARGE) Routine 07/16/2025 2:17 PM EST POCT GLUCOSE, FINGERSTICK (CHARGE) Routine 07/16/2025 1:25 PM EST EXTUBATION Routine 07/16/2025 12:54 PM EST BLOOD GAS, ARTERIAL Routine 07/16/2025 12:29 PM EST POCT GLUCOSE, FINGERSTICK (CHARGE) Routine 07/16/2025 12:28 PM EST POCT GLUCOSE, FINGERSTICK (CHARGE) Routine 07/16/2025 10:24 AM EST COOXIMETRY, VENOUS Routine 07/16/2025 9:56 AM EST POCT GLUCOSE, FINGERSTICK (CHARGE) Routine 07/16/2025 9:10 AM EST POCT GLUCOSE, FINGERSTICK (CHARGE) Routine 07/16/2025 7:53 AM EST POCT GLUCOSE, FINGERSTICK (CHARGE) Routine 07/16/2025 6:33 AM EST POCT GLUCOSE, FINGERSTICK (CHARGE) Routine 07/16/2025 6:32 AM EST POCT GLUCOSE, FINGERSTICK (CHARGE) Routine 07/16/2025 6:04 AM EST POCT GLUCOSE, FINGERSTICK (CHARGE) Routine 07/16/2025 3:57 AM EST POCT GLUCOSE, FINGERSTICK (CHARGE) Routine 07/16/2025 3:08 AM EST POCT GLUCOSE, FINGERSTICK (CHARGE) Routine 07/16/2025 2:21 AM EST ECG 12-LEAD Routine 07/16/2025 2:06 AM EST POCT GLUCOSE, FINGERSTICK (CHARGE) Routine 07/16/2025 1:19 AM EST MAGNESIUM Routine 07/16/2025 1:17 AM EST COMPLETE BLOOD COUNT, WITHOUT DIFFERENTIAL Routine 07/16/2025 1:17 AM EST BASIC METABOLIC PANEL Routine 07/16/2025 1:17 AM EST POCT GLUCOSE, FINGERSTICK (CHARGE) Routine 07/16/2025 12:13 AM EST COOXIMETRY, VENOUS Routine 07/15/2025 10:33 PM EST XR CHEST 1 VIEW-PORTABLE Routine 07/15/2025 10:18 PM EST POCT GLUCOSE, FINGERSTICK (CHARGE) Routine 07/15/2025 9:37 PM EST BLOOD GAS, ARTERIAL Routine 07/15/2025 9:37 PM EST BASIC METABOLIC PANEL Routine 07/15/2025 9:37 PM EST COMPLETE BLOOD COUNT, WITHOUT DIFFERENTIAL Routine 07/15/2025 9:37 PM EST ECG 12-LEAD Routine 07/15/2025 9:34 PM EST ECG 12-LEAD Routine 07/15/2025 9:27 PM EST TRANSFUSE PLATELETS Routine 07/15/2025 8:45 PM EST TRANSFUSE PLATELETS Routine 07/15/2025 8:45 PM EST ISTAT HEMOGLOBIN (ACTIVE) (NO CHARGE) Routine 07/15/2025 8:42 PM EST ISTAT HEMATOCRIT (ACTIVE) (NO CHARGE) Routine 07/15/2025 8:42 PM EST ISTAT GLUCOSE (NO CHARGE) Routine 07/15/2025 8:42 PM EST ISTAT ACTIVATED CLOTTING TIME, KAOLIN (CHARGE) Routine 07/15/2025 8:42 PM EST ISTAT ARTERIAL BLOOD GAS (ABG) (NO CHARGE) Routine 07/15/2025 8:42 PM EST ISTAT CALCIUM, IONIZED (ICA) (NO CHARGE) Routine 07/15/2025 8:42 PM EST ISTAT POTASSIUM (K) (NO CHARGE) Routine 07/15/2025 8:42 PM EST ISTAT SODIUM (NA) (NO CHARGE) Routine 07/15/2025 8:42 PM EST ISTAT ACTIVATED CLOTTING TIME, KAOLIN (CHARGE) Routine 07/15/2025 8:21 PM EST ISTAT HEMOGLOBIN (ACTIVE) (NO CHARGE) Routine 07/15/2025 8:20 PM EST ISTAT HEMATOCRIT (ACTIVE) (NO CHARGE) Routine 07/15/2025 8:20 PM EST ISTAT GLUCOSE (NO CHARGE) Routine 07/15/2025 8:20 PM EST ISTAT ARTERIAL BLOOD GAS (ABG) (NO CHARGE) Routine 07/15/2025 8:20 PM EST ISTAT CALCIUM, IONIZED (ICA) (NO CHARGE) Routine 07/15/2025 8:20 PM EST ISTAT POTASSIUM (K) (NO CHARGE) Routine 07/15/2025 8:20 PM EST ISTAT SODIUM (NA) (NO CHARGE) Routine 07/15/2025 8:20 PM EST PREPARE PLATELETS STAT 07/15/2025 8:08 PM EST ISTAT ACTIVATED CLOTTING TIME, KAOLIN (CHARGE) Routine 07/15/2025 7:39 PM EST ISTAT HEMOGLOBIN (ACTIVE) (NO CHARGE) Routine 07/15/2025 7:34 PM EST ISTAT HEMATOCRIT (ACTIVE) (NO CHARGE) Routine 07/15/2025 7:34 PM EST ISTAT GLUCOSE (NO CHARGE) Routine 07/15/2025 7:34 PM EST ISTAT ARTERIAL BLOOD GAS (ABG) (NO CHARGE) Routine 07/15/2025 7:34 PM EST ISTAT CALCIUM, IONIZED (ICA) (NO CHARGE) Routine 07/15/2025 7:34 PM EST ISTAT POTASSIUM (K) (NO CHARGE) Routine 07/15/2025 7:34 PM EST ISTAT SODIUM (NA) (NO CHARGE) Routine 07/15/2025 7:34 PM EST THROMBOELASTOGRAPH (TEG) Routine 07/15/2025 7:31 PM EST PLATELET COUNT Routine 07/15/2025 7:31 PM EST HEMATOCRIT Routine 07/15/2025 7:31 PM EST ISTAT ACTIVATED CLOTTING TIME, KAOLIN (CHARGE) Routine 07/15/2025 7:08 PM EST ISTAT HEMOGLOBIN (ACTIVE) (NO CHARGE) Routine 07/15/2025 7:02 PM EST ISTAT HEMATOCRIT (ACTIVE) (NO CHARGE) Routine 07/15/2025 7:02 PM EST ISTAT GLUCOSE (NO CHARGE) Routine 07/15/2025 7:02 PM EST ISTAT ARTERIAL BLOOD GAS (ABG) (NO CHARGE) Routine 07/15/2025 7:02 PM EST ISTAT CALCIUM, IONIZED (ICA) (NO CHARGE) Routine 07/15/2025 7:02 PM EST ISTAT POTASSIUM (K) (NO CHARGE) Routine 07/15/2025 7:02 PM EST ISTAT SODIUM (NA) (NO CHARGE) Routine 07/15/2025 7:02 PM EST ISTAT ACTIVATED CLOTTING TIME, KAOLIN (CHARGE) Routine 07/15/2025 6:38 PM EST ISTAT HEMOGLOBIN (ACTIVE) (NO CHARGE) Routine 07/15/2025 6:32 PM EST ISTAT HEMATOCRIT (ACTIVE) (NO CHARGE) Routine 07/15/2025 6:32 PM EST ISTAT GLUCOSE (NO CHARGE) Routine 07/15/2025 6:32 PM EST ISTAT ARTERIAL BLOOD GAS (ABG) (NO CHARGE) Routine 07/15/2025 6:32 PM EST ISTAT CALCIUM, IONIZED (ICA) (NO CHARGE) Routine 07/15/2025 6:32 PM EST ISTAT POTASSIUM (K) (NO CHARGE) Routine 07/15/2025 6:32 PM EST ISTAT SODIUM (NA) (NO CHARGE) Routine 07/15/2025 6:32 PM EST ISTAT HEMOGLOBIN (ACTIVE) (NO CHARGE) Routine 07/15/2025 6:13 PM EST ISTAT HEMATOCRIT (ACTIVE) (NO CHARGE) Routine 07/15/2025 6:13 PM EST ISTAT GLUCOSE (NO CHARGE) Routine 07/15/2025 6:13 PM EST ISTAT VENOUS BLOOD GAS (VBG) (NO CHARGE) Routine 07/15/2025 6:13 PM EST ISTAT CALCIUM, IONIZED (ICA) (NO CHARGE) Routine 07/15/2025 6:13 PM EST ISTAT POTASSIUM (K) (NO CHARGE) Routine 07/15/2025 6:13 PM EST ISTAT SODIUM (NA) (NO CHARGE) Routine 07/15/2025 6:13 PM EST ISTAT ACTIVATED CLOTTING TIME, KAOLIN (CHARGE) Routine 07/15/2025 6:05 PM EST ISTAT HEMOGLOBIN (ACTIVE) (NO CHARGE) Routine 07/15/2025 6:01 PM EST ISTAT HEMATOCRIT (ACTIVE) (NO CHARGE) Routine 07/15/2025 6:01 PM EST ISTAT GLUCOSE (NO CHARGE) Routine 07/15/2025 6:01 PM EST ISTAT ARTERIAL BLOOD GAS (ABG) (NO CHARGE) Routine 07/15/2025 6:01 PM EST ISTAT CALCIUM, IONIZED (ICA) (NO CHARGE) Routine 07/15/2025 6:01 PM EST ISTAT POTASSIUM (K) (NO CHARGE) Routine 07/15/2025 6:01 PM EST ISTAT SODIUM (NA) (NO CHARGE) Routine 07/15/2025 6:01 PM EST ISTAT ACTIVATED CLOTTING TIME, KAOLIN (CHARGE) Routine 07/15/2025 5:27 PM EST ISTAT HEMOGLOBIN (ACTIVE) (NO CHARGE) Routine 07/15/2025 5:21 PM EST ISTAT HEMATOCRIT (ACTIVE) (NO CHARGE) Routine 07/15/2025 5:21 PM EST ISTAT GLUCOSE (NO CHARGE) Routine 07/15/2025 5:21 PM EST ISTAT ARTERIAL BLOOD GAS (ABG) (NO CHARGE) Routine 07/15/2025 5:21 PM EST ISTAT CALCIUM, IONIZED (ICA) (NO CHARGE) Routine 07/15/2025 5:21 PM EST ISTAT POTASSIUM (K) (NO CHARGE) Routine 07/15/2025 5:21 PM EST ISTAT SODIUM (NA) (NO CHARGE) Routine 07/15/2025 5:21 PM EST ANES LINE - PULMONARY ARTERY, PROFESSOR OF RADIOLOGY/SVO2 Routine 07/15/2025 4:08 PM EST ANES LINE - CENTRAL, DOUBLE LUMEN Routine 07/15/2025 4:08 PM EST ANES SAJI Routine 07/15/2025 4:08 PM EST ANES INTUBATION Routine 07/15/2025 4:08 PM EST ANES LINE - PERIPHERAL, SINGLE LUMEN Routine 07/15/2025 3:52 PM EST ISTAT ACTIVATED CLOTTING TIME, KAOLIN (CHARGE) Routine 07/15/2025 3:08 PM EST ISTAT HEMOGLOBIN (ACTIVE) (NO CHARGE) Routine 07/15/2025 3:07 PM EST ISTAT HEMATOCRIT (ACTIVE) (NO CHARGE) Routine 07/15/2025 3:07 PM EST ISTAT GLUCOSE (NO CHARGE) Routine 07/15/2025 3:07 PM EST ISTAT ARTERIAL BLOOD GAS (ABG) (NO CHARGE) Routine 07/15/2025 3:07 PM EST ISTAT CALCIUM, IONIZED (ICA) (NO CHARGE) Routine 07/15/2025 3:07 PM EST ISTAT POTASSIUM (K) (NO CHARGE) Routine 07/15/2025 3:07 PM EST ISTAT SODIUM (NA) (NO CHARGE) Routine 07/15/2025 3:07 PM EST THROMBOELASTOGRAPH (TEG) Routine 07/15/2025 3:05 PM EST CA NDSC SURG W/VIDEO-ASSISTED HARVEST VEIN CABG 07/15/2025 2:36 PM EST Coronary arteriosclerosis CA CORONARY ARTERY BYP W/VEIN & ARTERY GRAFT 1 VEIN 07/15/2025 2:36 PM EST Coronary arteriosclerosis CA CABG W/ARTERIAL GRAFT TWO ARTERIAL GRAFTS 07/15/2025 2:36 PM EST Coronary arteriosclerosis TRANSESOPHAGEAL ECHO-ANESTHESIA Routine 07/15/2025 2:17 PM EST ANES LINE - ARTERIAL Routine 07/15/2025 2:00 PM EST POCT GLUCOSE, FINGERSTICK (CHARGE) Routine 07/15/2025 11:54 AM EST POCT GLUCOSE, FINGERSTICK (CHARGE) Routine 07/15/2025 8:05 AM EST COMPLETE BLOOD COUNT, WITHOUT DIFFERENTIAL Routine 07/15/2025 3:54 AM EST BASIC METABOLIC PANEL Routine 07/15/2025 3:54 AM EST MAGNESIUM Routine 07/15/2025 3:54 AM EST PHOSPHORUS Routine 07/15/2025 3:54 AM EST HEPARIN ASSAY (ANTI-XA) Routine 07/14/20 11:41 PM EST POCT GLUCOSE, FINGERSTICK (CHARGE) Routine 07/14/2025 9:04 PM EST POCT GLUCOSE, FINGERSTICK (CHARGE) Routine 07/14/2025 5:07 PM EST HEPARIN ASSAY (ANTI-XA) Routine 07/14/20 3:02 PM EST POCT GLUCOSE, FINGERSTICK (CHARGE) Routine 07/14/2025 11:47 AM EST HEPARIN ASSAY (ANTI-XA) Routine 07/14/20 10:08 AM EST POCT GLUCOSE, FINGERSTICK (CHARGE) Routine 07/14/2025 7:47 AM EST HEPARIN ASSAY (ANTI-XA) Routine 07/14/20 7:42 AM EST BASIC METABOLIC PANEL Routine 07/14/2025 4:23 AM EST COMPLETE BLOOD COUNT, WITH DIFFERENTIAL Routine 07/14/2025 4:23 AM EST TYPE AND SCREEN Routine 07/14/2025 4:18 AM EST HEPARIN ASSAY (ANTI-XA) Routine 07/13/20 11:53 PM EST POCT GLUCOSE, FINGERSTICK (CHARGE) Routine 07/13/2025 8:39 PM EST HEPARIN ASSAY (ANTI-XA) Routine 07/13/20 5:55 PM EST POCT GLUCOSE, FINGERSTICK (CHARGE) Routine 07/13/2025 4:53 PM EST POCT GLUCOSE, FINGERSTICK (CHARGE) Routine 07/13/2025 12:03 PM EST POCT GLUCOSE, FINGERSTICK (CHARGE) Routine 07/13/2025 8:13 AM EST HEPARIN ASSAY (ANTI-XA) Routine 07/13/20 7:21 AM EST COMPREHENSIVE METABOLIC PANEL Routine 07/13/2025 7:21 AM EST HEPARIN ASSAY (ANTI-XA) Routine 07/12/20 11:32 PM EST POCT GLUCOSE, FINGERSTICK (CHARGE) Routine 07/12/2025 9:16 PM EST COMPLETE BLOOD COUNT, WITH DIFFERENTIAL Routine 07/12/2025 6:33 PM EST POCT GLUCOSE, FINGERSTICK (CHARGE) Routine 07/12/2025 5:54 PM EST HEPARIN ASSAY (ANTI-XA) Routine 07/12/20 3:37 PM EST POCT GLUCOSE, FINGERSTICK (CHARGE) Routine 07/12/2025 12:42 PM EST XR CHEST 2 VIEWS Routine 07/12/2025 11:32 AM EST POCT GLUCOSE, FINGERSTICK (CHARGE) Routine 07/12/2025 9:55 AM EST HEPARIN ASSAY (ANTI-XA) Routine 07/12/20 6:13 AM EST MAGNESIUM Routine 07/12/2025 6:13 AM EST PHOSPHORUS Routine 07/12/2025 6:13 AM EST COMPREHENSIVE METABOLIC PANEL Routine 07/12/2025 6:13 AM EST COMPLETE BLOOD COUNT, WITH DIFFERENTIAL Routine 07/12/2025 6:13 AM EST HEPARIN ASSAY (ANTI-XA) Routine 07/11/20 9:49 PM EST POCT GLUCOSE, FINGERSTICK (CHARGE) Routine 07/11/2025 9:[address] THORAX W/O CONTRAST Routine 5:52 PM EST POCT GLUCOSE, FINGERSTICK (CHARGE) Routine 07/11/2025 5:14 PM EST HEPARIN ASSAY (ANTI-XA) Routine 07/11/20 2:48 PM EST POCT GLUCOSE, FINGERSTICK (CHARGE) Routine 07/11/2025 11:37 AM EST CARDIAC CATHETERIZATION Routine 07/11/20 8:34 AM EST COMPLETE BLOOD COUNT, WITHOUT DIFFERENTIAL Routine 07/11/2025 5:22 AM EST BASIC METABOLIC PANEL Routine 07/11/2025 5:22 AM EST MAGNESIUM Routine 07/11/2025 5:22 AM EST PHOSPHORUS Routine 07/11/2025 5:22 AM EST POCT GLUCOSE, FINGERSTICK (CHARGE) Routine 07/10/2025 5:21 PM EST ECHOCARDIOGRAM (TTE) COMPREHENSIVE (CONTRAST PRN) Routine 07/10/2025 4:02 PM EST POCT GLUCOSE, FINGERSTICK (CHARGE) Routine 07/10/2025 11:31 AM EST POCT GLUCOSE, FINGERSTICK (CHARGE) Routine 07/10/2025 8:18 AM EST HEPARIN ASSAY (ANTI-XA) Routine 07/10/20 7:00 AM EST POCT GLUCOSE, FINGERSTICK (CHARGE) Routine 07/09/2025 8:51 PM EST POCT GLUCOSE, FINGERSTICK (CHARGE) Routine 07/09/2025 4:34 PM EST POCT GLUCOSE, FINGERSTICK (CHARGE) Routine 07/09/2025 12:44 PM EST COMPLETE BLOOD COUNT, WITHOUT DIFFERENTIAL Routine 07/09/2025 10:37 AM EST PHOSPHORUS Routine 07/09/2025 10:37 AM EST MAGNESIUM Routine 07/09/2025 10:37 AM EST COMPREHENSIVE METABOLIC PANEL Routine 07/09/2025 10:37 AM EST HEPARIN ASSAY (ANTI-XA) Routine 07/09/20 9:21 AM EST HEPARIN ASSAY (ANTI-XA) Routine 07/09/20 12:24 AM EST POCT GLUCOSE, FINGERSTICK (CHARGE) Routine 07/08/2025 10:07 PM EST HEPARIN ASSAY (ANTI-XA) STAT 07/08/20 4:10 PM EST POCT GLUCOSE, FINGERSTICK (CHARGE) Routine 07/08/2025 4:01 PM EST HIGH SENSITIVITY TROPONIN T CARD 07/08/2025 12:16 PM EST POCT GLUCOSE, FINGERSTICK (CHARGE) Routine 07/08/2025 11:43 AM EST POCT GLUCOSE, FINGERSTICK (CHARGE) Routine 07/08/2025 9:53 AM EST COMPLETE BLOOD COUNT, WITHOUT DIFFERENTIAL Routine 07/08/2025 8:53 AM EST HIGH SENSITIVITY TROPONIN T CARD 07/08/2025 8:53 AM EST HEPARIN ASSAY (ANTI-XA) STAT 07/08/20 8:53 AM EST PARTIAL THROMBOPLASTIN TIME (PTT) STAT 07/08/2025 8:53 AM EST PROTIME-INR STAT 07/08/2025 8:53 AM EST COMPREHENSIVE METABOLIC PANEL STAT 07/08/2025 8:53 AM EST HEMOGLOBIN A1C WITH ESTIMATED AVERAGE GLUCOSE STAT 07/08/2025 8:53 AM EST ECG 12-LEAD STAT 07/08/2025 8:34 AM EST POCT GLUCOSE, FINGERSTICK (CHARGE) Routine 07/08/2025 4:52 AM EST HIGH SENSITIVITY TROPONIN T CARD 07/08/2025 2:18 AM EST COMPLETE BLOOD COUNT, WITH DIFFERENTIAL STAT 07/08/2025 12:15 AM EST HIGH SENSITIVITY TROPONIN T CARD 07/08/2025 12:15 AM EST ED PERFORMED US ABDOMINAL Routine 07/07/2025 11:08 PM EST Chest pain, unspecified HIGH SENSITIVITY TROPONIN T Routine 07/07/2025 7:18 PM EST HIGH SENSITIVITY TROPONIN T CARD 07/07/2025 4:48 PM EST BASIC METABOLIC PANEL STAT 07/07/2025 4:48 PM EST COMPLETE BLOOD COUNT, WITH DIFFERENTIAL STAT 07/07/2025 4:48 PM EST ECG 12-LEAD ED Critical 07/07/2025 3:43 PM EST from Last 3 Months Results * (ABNORMAL) POCT Glucose, Fingerstick (07/22/2025 12:44 PM EST) Only the most recent of69 resultswithin the time period is included. POC Glucose 180(H) 65 - 99 mg/dL 07/22/2025 12:45 PM EST Blood specimen / Unknown 07/22/2025 12:44 PM EST 07/22/2025 12:45 PM EST us Jayce Ugalde MD POINT OF CARE TEST ORDERABLES Final Result [facility] See Below * ECG 12 lead (07/22/2025 10:12 AM EST) Only the most recent of9 resultswithin the time period is included. [facility] Ventricular rate 63 BPM EKG [facility] Atrial rate 63 BPM EKG [facility] P-R interval 184 ms EKG [facility] QRS duration 106 ms EKG [facility] Q-T interval 438 ms EKG [facility] QTC calculation (Bazett) 449 ms EKG [facility] P axis 28 degrees EKG [facility] R axis -5 degrees EKG [facility] T axis -25 degrees EKG [facility] 07/22/2025 10:1 2 AM EST Narrative EKG [facility] - 07/22/2025 12:57 PM EST Normal sinus rhythm ST elevation, consider early repolarization, pericarditis, or injury Abnormal ECG When compared with ECG of 19-Jul-2025 05:51, ST less elevated in Septal leads Confirmed by MD Kim Daniel ([id number]) on 07/22/2025 12:57:45 PM Procedure Note Tashi Kim MD - 07/22/[address] elevation, consider early repolarization, pericarditis, or injury Abnormal ECG When compared with ECG of 19-Jul-2025 05:51, ST less elevated in Septalleads Confirmed by MD Kim Daniel ([id number]) on 07/22/2025 12:57:45 PM us John cMdonald PA-C ECG ORDERABLES Final Result EKG [facility] * (ABNORMAL) COMPLETE BLOOD COUNT, WITHOUT DIFFERENTIAL (07/22/2025 6:38 AM EST) Only the most recent of11 resultswithin the time period is included. White Blood Cell Count 6.3 4.0 - 11.0 Thou/uL 07/22/2025 7:47 AM [facility] Platelet Count 181 150 - 450 Thou/uL 07/22/2025 7:47 AM [facility] Hemoglobin 8.4(L) 13.0 - 17.7 g/dL 07/22/2025 7:47 AM [facility] Hematocrit 26.0(L) 39.0 - 54.0 % 07/22/2025 7:47 AM [facility] Red Blood Cell Count 2.93(L) 4.50 - 6.20 Mil/uL 07/22/2025 7:47 AM [facility] MCV 89 80 - 100 fL 07/22/2025 7:47 AM [facility] MCH 28.7 27.0 - 31.0 pg 07/22/2025 7:47 AM [facility] MCHC 32.3 30.0 - 36.0 g/dL 07/22/2025 7:47 AM [facility] RDW 15.5(H) 11.5 - 14.5 % 07/22/2025 7:47 AM [facility] MPV 10.7 7.5 - 12.5 fL 07/22/2025 7:47 AM [facility] Blood Blood specimen / Unknown 07/22/2025 6:38 AM EST 07/22/2025 7:38 AM EST John Mcdonald PA-C LAB BLOOD ORDERABLES Final Re sult [facility] [address] [place] [address], [address] [address] * Magnesium (07/22/2025 6:38 AM EST) Only the most recent of10 resultswithin the time period is included. Pathologist [facility] Magnesium 1.6 1.6 - 2.7 mg/dL 07/22/2025 8:00 AM [facility] Blood Blood specimen / Unknown 07/22/2025 6:38 AM EST 07/22/2025 7:38 AM EST John Mcdonald PA-C LAB BLOOD ORDERABLES [place] [address], [place] [address] * (ABNORMAL) Basic Metabolic Panel (07/22/2025 6:38 AM EST) Only the most recent of11 resultswithin the time period is included. Glucose 116(H) 65 - 99 mg/dL 07/22/2025 8:00 AM [facility] Comment:Fasting: <100 mg/dL, Non-Fasting: <200 mg/dL (ADA 2005) Blood Urea Nitrogen (BUN) 26(H) 8 - 21 mg/dL 07/22/2025 8:00 AM [facility] Creatinine 0.81 0.50 - 1.30 mg/dL 07/22/2025 8:00 AM [facility] eGFR >90 >59 07/22/2025 8:00 AM [facility] Comment:CKD-EPI (2020) in mL /min/1.73 sq meters. Sodium 133(L) 136 - 145 mmol/L 07/22/2025 8:00 AM [facility] Potassium 3.9 3.4 - 5.3 mmol/L 07/22/2025 8:00 AM [facility] Chloride 94(L) 98 - 107 mmol/L 07/22/2025 8:00 AM [facility] CO2 29 22 - 33 mmol/L 07/22/2025 8:00 AM [facility] Anion Gap 10 7 - 17 07/22/2025 8:00 AM [facility] Calcium 8.6(L) 8.7 - 10.5 mg/dL 07/22/2025 8:00 AM [facility] BUN/Creatinine Ratio 32(H) 10.0 - 25.0 Ratio 07/22/2025 8:00 AM [facility] Blood Blood specimen / Unknown 07/22/2025 6:38 AM EST 07/22/2025 7:38 AM EST John Mcdonald PA-C LAB BLOOD ORDERABLES Final Re sult Performing Organization Address [facility] [place] [address], [place] [address] * Phosphorus (07/20/2025 6:04 AM EST) Only the most recent of6 resultswithin the time period is included. Phosphorus 4.2 2.7 - 4.5 mg/dL 07/20/2025 6:43 AM EST [facility] Blood Blood specimen / Unknown 07/20/2025 6:04 AM EST 07/20/2025 6:14 AM EST Tara Sr PA-C LAB BLOOD ORDERABLES Final Result Performing Organization Address City/[facility] [place] [address], [place] [address] * XR Chest 2 views (07/19/2025 9:41 AM EST) Only the most recent of2 resultswithin the time period is included. Anatomical Region Laterality Modality Chest Computed Radiogr aphy 07/19/2025 9:30 AM EST Impressions 07/21/2025 1:15 PM EST 1. Small layering left-sided pleural effusion. 2. Stable mild diffuse interstitial prominence. 3. No focal consolidation or pneumothorax. Narrative 07/21/2025 1:15 PM EST EXAMINATION: XR CHEST CLINICAL INFORMATION: s/p CABG COMPARISON: Chest radiograph 07/18/2025. TECHNIQUE: PA and lateral radiographs of the chest were obtained. FINDINGS: Stable cardiomediastinal silhouette with median sternotomy wires and postsurgical changes from CABG. No dense consolidation. Stable mild diffuse interstitial prominence. Small layering left-sided pleural effusion, better visualized on the lateral view. No pneumothorax. No acute osseous findings. Procedure Note Rebecca Shelton MD - 07/21/2025 EXAMINATION: XR CHEST CLINICAL INFORMATION: s/p CABG COMPARISON: Chest radiograph 07/18/2025. TECHNIQUE: PA and lateral radiographs of the chest were obtained. FINDINGS: Stable cardiomediastinal silhouette with median sternotomy wires and postsurgical changes from CABG. No dense consolidation. Stable mild diffuse interstitial prominence. Small layering left-sided pleural effusion, better visualized on the lateral view. No pneumothorax. No acute osseous findings. IMPRESSION: 1. Small layering left-sided pleural effusion. 2. Stable mild diffuse interstitial prominence. 3. No focal consolidation or pneumothorax. Tara Sr PA-C IMG DIAGNOSTIC IMAGIN G ORDERABLES Final Result * XR Chest 1 view-Portable (07/18/2025 6:00 AM EST) Only the most recent of3 resultswithin the time period is included. Anatomical Region Laterality Modality Chest Computed Radiogr aphy 07/18/2025 5:00 AM EST Impressions 07/18/2025 4:47 PM EST As above. Narrative 07/18/2025 4:47 PM EST EXAMINATION: XR CHEST CLINICAL INFORMATION: effusion COMPARISON: July 17, 2025 TECHNIQUE: Frontal view of the chest was obtained. FINDINGS: Status post removal of apically directed left chest tube with trace pneumothorax. Interval removal of right IJ CVC. Status post cardiac surgery. Cardiomediastinal contour is unchanged. No acute consolidation. No significant pleural effusion. Procedure Note Maykel Thomas MD - 07/18/2025 EXAMINATION: XR CHEST CLINICAL INFORMATION: effusion COMPARISON: July 17, 2025 TECHNIQUE: Frontal view of the chest was obtained. FINDINGS: Status post removal of apically directed left chest tube with trace pneumothorax. Interval removal of right IJ CVC. Status post cardiac surgery. Cardiomediastinal contour is unchanged. No acute consolidation. No significant pleural effusion. IMPRESSION: As above. Jace Nava APRN IMG DIAGNOSTIC IMAGING ORDMaya VELEZ Final Result * Creatine Kinase MB Fraction (07/17/2025 6:07 AM EST) CKMB 6.1 0 - 6.4 ng/mL 07/17/2025 11:04 AM [facility] Relative Index 1.8 0 - 3.4 % 07/17/2025 11:04 AM [facility] 07/17/2025 6:07 AM EST 07/17/2025 7:20 AM EST Comment:Plasma/Serum~Blood Lorna [employer] LAB BLOOD ORDERABLES [place] [address], [place] [address] * (ABNORMAL) Creatine Kinase, Reflex to CKMB (07/17/2025 6:07 AM EST) Creatine Kinase (CK) 333(H) 24 - 204 U/L 07/17/2025 8:14 AM [facility] Blood Blood specimen / Unknown 07/17/2025 6:07 AM EST 07/17/2025 7:20 AM EST Comment:Plasma/Serum~Blood Lorna R [employer] LAB BLOOD ORDERABLES [place] [address], [place] [address] * (ABNORMAL) Blood Gas, Arterial (07/16/2025 12:29 PM EST) Only the most recent of2 resultswithin the time period is included. pH, Arterial 7.42 7.35 - 7.45 07/16/2025 12:38 PM [facility] pCO2, Arterial 40 32 - 45 mmHG 07/16/2025 12:38 PM [facility] pO2, Arterial 190(H) 75 - 95 mmHG 07/16/2025 12:38 PM [facility] CO2, Total 27 22 - 28 mmol/L 07/16/2025 12:38 PM [facility] Respiratory Info VENT 40% 07/16/20 25 12:30 PM [facility] P/F Ratio 475 07/16/2025 12:38 PM [facility] Base Excess 1.3 mmol/L 07/16/2025 12:38 PM [facility] Comment:Reference Range: Neg ative 2 to Positive 3 Blood Blood specimen / Unknown 07/16/2025 12:29 PM EST 07/16/2025 12:34 PM EST Jace Nava TYPEWRITER TESTER LAB BLOOD ORDERABLES [place] [address], [place] [address] * (ABNORMAL) Cooximetry, Venous (07/16/2025 9:56 AM EST) Only the most recent of2 resultswithin the time period is included. Hemogloblin, Total 8.1(L) 13.0 - 17.7 g/dL 07/16/2025 10:07 AM [facility] O2 Saturation, Venous 53.7 % 10:07 AM [facility] Carboxyhemoglobin 1.0 0.0 - 2.0 % 07/16/2025 10:07 AM [facility] Methemoglobin 1.3 0.4 - 1.5 % 07/16/2025 10:07 AM [facility] Venous O2 Content 6.0(L) 7.2 - 17.2 mL/dL 07/16/2025 10:07 AM [facility] Blood Blood specimen / Unknown 07/16/2025 9:56 AM EST 07/16/2025 10:04 AM EST Jace Nava TYPEWRITER TESTER LAB BLOOD ORDERABLES Final Result Performing Organization Address City/[facility]/ZIP [place] [address], [place] [address] * Transfuse Platelets: (07/15/2025 8:45 PM EST) Only the most recent of2 resultswithin the time period is included. us Tai rTevinonamitamaya DO BLOOD TRANSFUSION ORDERAB LES Final Result * ISTAT Activated Clotting Time, Kaolin (07/15/2025 8:42 PM EST) Only the most recent of8 resultswithin the time period is included. Activated Clotting Time (Kaolin, I-STAT 112 74 - 137 seconds 07/15/2025 9:26 PM EST Blood specimen / Unknown 07/15/2025 8:42 PM EST 07/15/2025 9:25 PM EST us Sandra Gonzalez MD POCT ORDERABLES - DEVICE Eulalia l Result HOSPITAL LAB See Below * (ABNORMAL) ISTAT Hemoglobin (07/15/2025 8:42 PM EST) Only the most recent of9 resultswithin the time period is included. Hemoglobin, I-STAT 9.5(L) 13.0 - 17.7 gm/dL 07/15/2025 9:28 PM EST Blood specimen / Unknown 07/15/2025 8:42 PM EST 07/15/2025 9:24 PM EST us Sandra Gonzalez MD POCT ORDERABLES - DEVICE Eulalia l Result HOSPITAL LAB See Below * (ABNORMAL) ISTAT Hematocrit (07/15/2025 8:42 PM EST) Only the most recent of9 resultswithin the time period is included. Hematocrit, I-STAT 28.0(L) 39.0 - 54.0 % 07/15/2025 9:28 PM EST Blood specimen / Unknown 07/15/2025 8:42 PM EST 07/15/2025 9:24 PM EST us Sandra Gonzalez MD POCT ORDERABLES - DEVICE Eulalia l Result Performing Organization Address [facility] Number [facility] LAB See Below * (ABNORMAL) ISTAT Calcium, Ionized (ICA) (07/15/2025 8:42 PM EST) Only the most recent of9 resultswithin the time period is included. Ionized Calcium, I-STAT 1.04(L) 1.17 - 1.33 mmol/L 07/15/2025 9:28 PM EST Blood specimen / Unknown 07/15/2025 8:42 PM EST 07/15/2025 9:24 PM EST us Sandra Gonzalez MD POINT OF CARE TEST ORDERABLES Final Result Performing Organization Address [facility] Number [facility] LAB See Below * (ABNORMAL) ISTAT Potassium (K) (07/15/2025 8:42 PM EST) Only the most recent of9 resultswithin the time period is included. Potassium, I-STAT 3.3(L) 3.4 - 5.3 mmol/L 07/15/2025 9:28 PM EST Blood specimen / Unknown 07/15/2025 8:42 PM EST 07/15/2025 9:24 PM EST us Sandra Gonzalez MD POINT OF CARE TEST ORDERABLES Final Result Performing Organization Address [facility] Number HOSPITAL LAB See Below * ISTAT Sodium (Na) (07/15/2025 8:42 PM EST) Only the most recent of9 resultswithin the time period is included. Sodium, I-STAT 141 136 - 145 mmol/L 07/15/2025 9:28 PM EST Blood specimen / Unknown 07/15/2025 8:42 PM EST 07/15/2025 9:24 PM EST us Sandra Gonzalez MD POINT OF CARE TEST ORDERABLES Final Result Performing Organization Address [facility]/ZIP Co de Phone Number HOSPITAL LAB See Below * (ABNORMAL) ISTAT Glucose (07/15/2025 8:42 PM EST) Only the most recent of9 resultswithin the time period is included. Glucose, I-STAT 114(H) 65 - 99 mg/dL 07/15/2025 9:28 PM EST Blood specimen / Unknown 07/15/2025 8:42 PM EST 07/15/2025 9:24 PM EST us Sandra Gonzalez MD POCT ORDERABLES - DEVICE Eulalia l Result Performing Organization Address [facility] Co de Phone Number [facility] LAB See Below * (ABNORMAL) ISTAT Arterial Blood Gas (ABG) (07/15/2025 8:42 PM EST) Only the most recent of8 resultswithin the time period is included. PH Arterial, I-STAT 7.43 7.35 - 7.45 07/15/2025 9:28 PM EST PCO2 Arterial, I-STAT 32.4 32.0 - 45.0 mmHg 07/15/2025 9:28 PM EST PO2 Arterial, I-STAT 426(H) 75 - 95 mmHg 07/15/2025 9:28 PM EST HCO3 Arterial, I-STAT 21.6(L) 22.0 - 26.0 mmol/L 07/15/2025 9:28 PM EST TCO2 Arterial Calc, I-STAT 23 22 - 28 mmol/L 07/15/2025 9:28 PM EST Base Excess, I-STAT -3 mmol/L 07/15/2025 9:28 PM EST Comment:Reference Range: Neg ative 2 to Positive 3 SO2, I-STAT 100.0(H) 94.0 - 97.0 % 07/15/2025 9:28 PM EST Sample Type, I-STAT Arterial 07/15/2025 9:28 PM EST Blood specimen / Unknown 07/15/2025 8:42 PM EST 07/15/2025 9:24 PM EST us Sandra Gonzalez MD POCT ORDERABLES - DEVICE Eulalia l Result HOSPITAL LAB See Below * Prepare Platelets:Prepare in: Doses; Number of doses: 2; Transfusion Indications: Plt count less than or equal to 50K and Pre or Post surgery or invasive procedure (07/15/2025 8:08 PM EST) Units Ordered 2 07/15/2025 8:07 PM [facility] Unit Number [id number] 07/15/2025 8:11 PM [facility] Blood Component Type Apheresis Platelets (7d) Leukocytes Reduced - 1st container 07/15/2025 8:11 PM [facility] Unit Division 00 07/15/2025 8:11 PM [facility] Unit Status ISSUED,FINAL 07/16/2025 12:10 AM [facility] Transfusion Status OK TO TRANSFUSE 07/15/2025 8:11 PM [facility] Unit Number [id number] 07/15/2025 8:11 PM [facility] Blood Component Type Apheresis Platelets (7d) Leukocytes Reduced - 3rd container 07/15/2025 8:11 PM [facility] Unit Division 00 07/15/2025 8:11 PM [facility] Unit Status ISSUED,FINAL 07/16/2025 12:10 AM [facility] Transfusion Status OK TO TRANSFUSE 07/15/2025 8:11 PM [facility] 07/15/2025 8:08 PM EST 07/15/2025 8:11 PM EST Tai Whalen DO BLOOD BANK PRODUCT ORDERA BLES Final Result HOSPITAL LAB See Below [address] [address] * Thromboelastograph (TEG) (07/15/2025 7:31 PM EST) Only the most recent of2 resultswithin the time period is included. Reaction Time,Heparinized 9.1 5 - 10 minutes 07/15/2025 10:02 PM [facility] Fibrin Function,Heparin ized 2.6 1 - 3 minutes 07/15/2025 10:02 PM [facility] Angle, Heparinized 57.5 53 - 72 degrees 07/15/2025 10:02 PM [facility] Max Amplitude,Hepari nized 60.5 50 - 70 mm 07/15/2025 10:02 PM [facility] %Lysis 30 min,Heparinized 0.3 0 - 8 % 07/15/2025 10:02 PM [facility] Anticoagulant Information not given 07/15/2025 8:07 PM [facility] 07/15/2025 7:31 PM EST 07/15/2025 7:35 PM EST Jayce Ugalde MD LAB BLOOD ORDERABLES [place] [address], [place] [address] * (ABNORMAL) Platelet Count (07/15/2025 7:31 PM EST) Platelet Count 96(L) 150 - 450 Thou/uL 07/15/2025 8:03 PM [facility] Comment: Test ordered from operating room Called to ML/DG 2003 Immature Platelet Fraction 7.9 1.2 - 8.6 % 07/15/2025 8:03 PM [facility] Blood specimen / Unknown 07/15/2025 7:31 PM EST 07/15/2025 7:52 PM EST Jayce Ugalde MD LAB BLOOD ORDERABLES Final Res ult [address] [address], [address] [address] * (ABNORMAL) Hematocrit (07/15/2025 7:31 PM EST) Hematocrit 24.7(L) 39.0 - 54.0 % 07/15/2025 8:03 PM [facility] Comment: Test ordered from operating room Called to ML/DG 2003 Blood specimen / Unknown 07/15/2025 7:31 PM EST 07/15/2025 7:52 PM EST us Jayce Ugalde MD LAB BLOOD ORDERABLES Final Res ult Performing Organization Address City/[facility]/ZIP Co de Phone Number [address] [address], [address] [address] * (ABNORMAL) ISTAT Venous Blood Gas (VBG) (07/15/2025 6:13 PM EST) [facility] PH Venous, I-STAT 7.35 7.33 - 7.43 07/15/2025 9:26 PM EST PCO2 Venous, I-STAT 41.5 35.0 - 50.0 mmHg 07/15/2025 9:26 PM EST PO2 Venous, I-STAT 48 0 - 60 mmHg 07/15/2025 9:26 PM EST HCO3 Venous, I-STAT 23.1 23.0 - 28.0 mmol/L 07/15/2025 9:26 PM EST TCO2 Venous Calc, I-STAT 24 23 - 29 mmol/L 07/15/2025 9:26 PM EST Base Excess, I-STAT -2 mmol/L 07/15/2025 9:26 PM EST Comment:Reference Range: Neg ative 2 to Positive 3 SO2 Venous, I-STAT 82(H) 60 - 75 % 07/15/2025 9:26 PM EST Sample Type, I-STAT VENOUS 07/15/2025 9:26 PM EST Blood specimen / Unknown 07/15/2025 6:13 PM EST 07/15/2025 9:23 PM EST us Sandra Gonzalez MD POCT ORDERABLES - DEVICE Eulalia l Result HOSPITAL LAB See Below * ANES LINE - PULMONARY ARTERY, PROFESSOR OF RADIOLOGY/SVO2 (07/15/2025 4:08 PM EST) Only the most recent of2 resultswithin the time period is included. Narrative Flash Bassett DO - 07/15/2025 4:08 PM EST Flash Bassett DO 07/15/2025 4:09 PM Anesthesia Procedure Note - pulmonary artery catheter Insertion -right internal jugular Patient Name: Matthew Marcelo : 1950 Patient location: OR Indications: vascular access, central pressure monitoring, blood gases, frequent lab draws and hemodynamic monitoring Procedure diagnosis: Anesthesia Performed by: Other anesthesia staff DO Flash Cam DO Preanesthetic Checklist monitors and equipment checked. Patient's pre-procedure mental status: awake The patient was sedated prior to procedure. Current level of sedation: general anesthesia Procedure Preparation Skin prep: 2% chlorhexidine - completely dried prior to procedure Hand hygeine performed prior to needle/catheter insertion Sterile barriers in place: cap, gloves, gown, large sterile sheet and mask No medical exclusion documented for following all elements of maximal sterile barrier technique Procedure Details Local anesthetic: not applicable Patient position: Trendelenburg Pre-procedure landmarks identified, Ultrasound guidance utilized, sterile gel and probe cover used Catheter: 8 FrCCO/SVO2 Number of attempts: 1 Post Procedure Post-procedure care: line sutured, dressing applied and biopatch applied Assessment: blood return through all ports and free fluid flow Guidewire: not needed No complications Tai Whalen DO [place] ANESTHESIA Final Res ult * ANES SAJI (07/15/2025 4:08 PM EST) Flash Benson DO - 07/15/2025 4:08 PM EST Flash Bassett DO 07/15/2025 4:08 PM Anesthesia Procedure Note - Transesophageal Echocardiogram (SAIJ) Procedure Order: Transesophageal Echo-Anesthesia [id number] Patient Name: Matthew Marcelo : 1950 Patient location: OR Indications: ischemia detection, volume assessment, regional and global function and valvular function Procedure diagnosis: Anesthesia Performed by: Other anesthesia staff and Anesthesiologist DO Flash Cam DO Preanesthetic Checklist monitors and equipment checked. Patient's pre-procedure mental status: awake The patient was sedated prior to procedure. Current level of sedation: general anesthesia Procedure Details A transesophageal echocardiogram procedure for diagnostic and monitoring was performed with doppler guidance. Images were stored appropriately on banquet food server. us Tai Whalen DO [place] ANESTHESIA Final Res ult * ANES INTUBATION (07/15/2025 4:08 PM EST) Flash Benson DO - 07/15/2025 4:08 PM EST Flash Bassett DO 07/15/2025 4:08 PM Anesthesia Procedure Note - Elective intubation Patient Name: Matthew Marcelo : 1950 Patient location: OR Procedure indications: airway protection Procedure diagnosis: Anesthesia Performed by: DO Hue Daniels, SRNA Flash Bassett DO Chart Verification Airway: airway not difficult Preanesthetic Checklist monitors and equipment checked. Patient's pre-procedure mental status: awake The patient was sedated prior to procedure. Current level of sedation: general anesthesia Airway not difficult - NPO status: > 8 hours Procedure Details Intubation route: oral Intubation method: direct laryngoscopy Mac 3 Number of attempts: 1 Patient status for intubation: paralyzed, sedated and unresponsive Patient position: supine Preoxygenation: BVM Quality of BVM: easy, 1 person and oral airway Tube size: 8.0 mm Tube: EVAC - cuffed, cuff inflated and minimal leak test Cord visualization: Grade IIb Placement confirmation method: chest rise and ETCO2 monitor Breath sounds: equal bilaterally ETT to lip: 24 cm Dentition: same as baseline Complications: no complications Tai Whalen DO [place] ANESTHESIA Final Res ult * ANES LINE - PERIPHERAL, SINGLE LUMEN (07/15/2025 3:52 PM EST) Tai Duran DO - 07/15/2025 3:52 PM EST Tai Whalen DO 07/15/2025 3:52 PM Anesthesia Procedure Note - Peripheral IV Placement Patient Name: Matthew Marcelo : 1950 Patient location: OR Indication(s): vascular access Performed by: Anesthesiologist Tai Whalen DO Procedure Preparation Skin prep: skin prepped with alcohol - completely dried prior to procedure Hand hygeine performed prior to needle/catheter insertion Sterile barriers in place: cap, gloves and mask Patient pre-procedure mental status: anesthetized Single lumen [id number] catheter system, 14 g, 1 in length, in right antecubital Insertion attempts: 1 us Tai Whalen DO [place] ANESTHESIA Final Res ult * Transesophageal Echo-Anesthesia (07/15/2025 2:17 PM EST) LV fajardo vol 3D 159.5 mL LV Diastolic Volume 93 mL LV sys vol 3D 88.9 mL LV Systolic Volume 37 mL IVS (F:0.6-0.9, M:0.6-1.0) 0.8 cm IVS Mean (F:0.6-0.9, M:0.6-1.0) 0.8 cm LVIDD (F:3.8-5.2, M:4.2-5.8) 5.9 cm LVIDD Mean (F:3.8-5.2, M:4.2-5.8) 5.9 cm LVIDS (F:2.2-3.5, M:2.5-4.0) 4.3 cm LVIDS (F:2.2-3.5, M:2.5-4.0) 4.3 cm LVOT diameter 2.2 cm LVOT diameter mean 2.2 cm LVOT mn grad mean 2.0 mmHg LVOT VTI MEAN 23.9 cm LVOT mn grad 2.0 mmHg LVOT VTI 23.9 cm LVOT peak kuldeep 1.0 m/s LVOT peak kuldeep mean 1.0 m/s PW (F:0.6-0.9, M:0.6-1.0) 0.7 cm PW Mean (F:0.6-0.9, M:0.6-1.0) 0.7 cm MV E' Lateral Velocity 7.72 cm/s MV E' Lateral Velocity Mean 7.72 cm/s AV mean gradient mean 3.0 mmHg Ao VTI Mean 28.7 cm AV mean gradient 3.0 mmHg Ao VTI 28.7 cm Ao peak kuldeep 1.4 m/s Ao peak kuldeep mean 1.4 m/s Ascending aorta 3.4 cm Ascending aorta mean 3.4 cm E wave decelartion time 231 ms E wave decelartion time mean 231 ms MV stenosis pressure 1/2 time mean 68 ms MV stenosis pressure 1/2 time 68 ms MV Peak A-Wave 74.1 cm/s MV Peak A-Wave Mean 74.1 cm/s MV Peak E-Wave 79.6 cm/s MV Peak E-Wave Mean 79.6 cm/s MV mean gradient mean 0.0 mmHg MV VTI MEAN 13.7 cm MV mean gradient 0.0 mmHg MV VTI 13.7 cm MV peak gradient 1.0 mmHg RVID d 3.3 cm RVID d Mean 3.3 cm Tapse 2.2 cm Tapse Mean 2.2 cm Yi BP EF (55-75) 60 % EF - 3D Echo 44 % LVOT stroke volume 91 mL LV mass 166.9 g LV RWT 0.24 E/A ratio 1.07 E/E' Lateral 10.3 AV LVOT peak gradient 4.0 mmHg AV peak gradient 7.8 mmHg AV area by cont VTI 3.2 cm2 LVOT area 3.8 cm2 Dimensionless Index 0.83 MV valve area p 1/2 method 3.24 cm2 MV valve area by continuity eq 6.6 cm2 E/E' ratio 10.31 SVI 52 mL/m2 LV Diastolic Volume Index (F:29-61, M:35-75) 53.8 mL/m2 LV Systolic Volume Index (F:8-24, M:11-31) 21.4 mL/m2 LV Mass Index (F:43-95, M:49-115) 96.5 g/m2 Height 66.0 inches Weight 142.0 lbs BSA 1.73 m2 Valve area - Index 1.8 cm2/m2 Ascending aorta Index 2.0 cm/m2 LVOT SI 52.51 mL/m2 Anatomical Region Laterality Modality Ultrasound Narrative 07/15/2025 9:00 PM EST The left ventricle is moderately dilated. Wall thickness is normal. Left ventricular systolic function is mildly decreased. The quantitative EF by 3D imaging is 44%. There is global hypokinesis without regional variation. There is grade 2 diastolic dysfunction, with elevated left atrial filling pressure. The right ventricle is normal in size. Right ventricular systolic function is normal on inotropic support with epinephrine. Wall thickness is normal. A catheter is present in the right ventricle. The aortic root dimension is normal. There is an atheroma with extensive intimal thickening but no protrusion (Grade 2) in the ascending aorta, aortic arch and descending aorta. There is no evidence for aortic dissection. The aortic valve is tricuspid. The aortic valve leaflets are not thickened and exhibit normal excursion. There is trace aortic regurgitation. There is no aortic valve stenosis. The mitral valve is structurally normal. There is trace mitral regurgitation. There is no mitral valve stenosis. The tricuspid valve is structurally normal. There is mild tricuspid regurgitation. POST PROCEDURE CONCLUSIONS S/p CABG x4 (ERNANDEZ to LAD, SVG to diag, SVG to PDA, RAG to OM) Normal left ventricular systolic function with an LVEF of 60% by Yi's biplane method on mild inotropic support. (0.02 mcg/kg/min epinephrine 2 mcg/min norepinephrine) Normal right ventricular function on above listed support. Aortic, mitral, and tricuspid valves stable from pre bypass findings. No evidence of aortic dissection visualized in the post decannulation aorta. No evidence of pericardial/pleural effusions visualized. Findings discussed with surgeon. Technical Details General anesthesia was given. Overall the study quality was good. Sedation was performed by anesthesiology. Left Ventricle The left ventricle is moderately dilated. Wall thickness is normal. Left ventricular systolic function is mildly decreased. The quantitative EF by 3D imaging is 44%. There is global hypokinesis without regional variation. There is grade 2 diastolic dysfunction, with elevated left atrial filling pressure. Right Ventricle The right ventricle is normal in size. Right ventricular systolic function is normal on inotropic support with epinephrine. Wall thickness is normal. A catheter is present in the right ventricle. Left Atrium Left atrial size is normal. No spontaneous echo contrast present. The left atrial appendage is normal. Appendage velocity is normal at greater than 40 cm/sec. There is no thrombus in the left atrial appendage. Right Atrium Right atrial size is normal. The intra-atrial septum is intact with no evidence of shunt by color Doppler. A catheter is present in the right atrium. Mitral Valve The mitral valve is structurally normal. There is trace mitral regurgitation.There is no mitral valve stenosis. Tricuspid Valve The tricuspid valve is structurally normal. There is mild tricuspid regurgitation. There is no tricuspid valve stenosis. Aortic Valve The aortic valve is tricuspid. The aortic valve leaflets are not thickened and exhibit normal excursion.There is trace aortic regurgitation. There is no aortic valve stenosis. Pulmonic Valve The pulmonic valve is structurally normal. There is no pulmonic regurgitation. The pulmonary artery is normal. Ascending Aorta The aortic root dimension is normal. There is an atheroma with extensive intimal thickening but no protrusion (Grade 2) in the ascending aorta, aortic arch and descending aorta. There is no evidence for aortic dissection. Pericardium There is no pericardial effusion.There is no evidence of pleural effusion. Study Details SAJI was performed at the surgeon's request. Prior the procedure, informed consent was discussed with and obtained from the patient. A time-out was done in the operating room to confirm the patient and procedure. After introduction of general anesthesia, endotracheal intubation, and OG decompression, the SAJI probe was placed atraumatically in the esophagus. SAJI was performed for pre-surgical evaluation of Multivessel coronary artery disease, cardiac structure, and cardiac function, and post-surgical evaluation of CABG and ventricular function. Pre- and post-CPB 2D imaging, Doppler, and color flow evaluation were performed. At the end of the surgical procedure the probe was removed, and no apparent complications were noted. The patient was transported to the ICU with oxygen and full ASA monitoring. All pre- and post-bypass echo findings were discussed with the surgeon intraoperatively. Wall Scoring Baseline Score Index: 2.00 The left ventricular wall motion is globally hypokinetic. Tai Whalen CV ECHO ORDERABLES Final Result * ANES LINE - ARTERIAL (07/15/2025 2:00 PM EST) Narrative Brittany Dunaway PA-C - 07/15/2025 2:00 PM EST Brittany Dunaway PA-C 07/15/2025 2:01 PM Anesthesia Procedure Note - Arterial Line Insertion Patient Name: Matthew Marcelo : 1950 Patient location: pre-op Indications: hemodynamic monitoring and blood gases Procedure diagnosis: Coronary artery disease Procedure Start Time: 07/15/2025 1:45 PM Procedure End Time: 07/15/2025 1:55 PM Performed by: Other anesthesia staff Procedure Preparation Skin prep: 2% chlorhexidine - completely dried prior to procedure Hand hygeine performed prior to needle/catheter insertion Sterile barriers in place: mask, large sterile sheet, gown, gloves and cap Procedure Details Seldinger technique used Post Procedure Post-procedure: stablization device applied (dressing applied) Additional Comments: Attached to pressure bag and transduced Brittany Dunaway PA-C [place] ANESTHESIA Final Resu lt * Heparin Assay (Anti-Xa) (07/14/2025 11:41 PM EST) Only the most recent of17 resultswithin the time period is included. Anti Xa 0.32 IU/mL 07/15/2025 12:49 AM [facility] Comment: (NOTE) Heparin Thromboembolic/Standard/Full Dose Protocol: Therapeutic Range: Age 18+: 0.30 - 0.70 IU/mL Age 0 - 17: 0.35 - 0.70 IU/mL Heparin Cardiac/Low Dose Protocol: Therapeutic Range: 0.30 - 0.50 IU/mL Low Molecular Weight Heparin: Therapeutic Range: Age 18+: 0.50 - 1.09 IU/mL for twice daily dosing (or adjusted to daily for poor renal function) Age 18+: 1.00 - 2.00 IU/mL for once daily dosing Age 0-17: 0.50 - 1.00 IU/mL Anticoagulant IV HEPARIN, UNFRACTIONATED 07/14/2025 5:06 PM [facility] Blood Blood specimen / Unknown 07/14/2025 11:41 PM EST 07/15/2025 12:30 AM EST Raymond Rivers MD LAB BLOOD ORDERABLES [place] [address], [place] [address] * (ABNORMAL) Complete Blood Count, with Differential (07/14/2025 4:23 AM EST) Only the most recent of5 resultswithin the time period is included. White Blood Cell Count 4.2 4.0 - 11.0 Thou/uL 07/14/2025 5:34 AM [facility] Platelet Count 143(L) 150 - 450 Thou/uL 07/14/2025 5:34 AM [facility] Hemoglobin 11.1(L) 13.0 - 17.7 g/dL 07/14/2025 5:34 AM [facility] Hematocrit 34.4(L) 39.0 - 54.0 % 07/14/2025 5:34 AM [facility] Red Blood Cell Count 3.87(L) 4.50 - 6.20 Mil/uL 07/14/2025 5:34 AM [facility] MCV 89 80 - 100 fL 07/14/2025 5:34 AM [facility] MCH 28.7 27.0 - 31.0 pg 07/14/2025 5:34 AM [facility] MCHC 32.3 30.0 - 36.0 g/dL 07/14/2025 5:34 AM [facility] RDW 15.5(H) 11.5 - 14.5 % 07/14/2025 5:34 AM [facility] MPV 12.2 7.5 - 12.5 fL 07/14/2025 5:34 AM [facility] Neutrophils Auto 40.8 % 07/14/20 5:34 AM [facility] Immature Granulocytes 0.2 % 07/14/2025 5:34 AM [facility] Lymphocytes Auto 34.1 % 07/14/20 5:34 AM [facility] Monocytes Auto 10.0 % 07/14/2025 5:34 AM [facility] Eosinophils Auto 14.0 % 07/14/20 5:34 AM [facility] Basophils Auto 0.9 % 07/14/2025 5:34 AM [facility] Abs Neutrophils Auto 1.72(L) 2.00 - 7.50 Thou/uL 07/14/2025 5:34 AM [facility] Abs Immature Granulocytes 0.01 0.00 - 0.10 Thou/uL 07/14/2025 5:34 AM [facility] Abs Lymphocytes Auto 1.44(L) 1.50 - 4.50 Thou/uL 07/14/2025 5:34 AM [facility] Abs Monocytes Auto 0.42 0.20 - 1.50 Thou/uL 07/14/2025 5:34 AM [facility] Abs Eosinophils Auto 0.59 0.00 - 0.70 Thou/uL 07/14/2025 5:34 AM [facility] Abs Basophils Auto 0.04 0.00 - 0.20 Thou/uL 07/14/2025 5:34 AM [facility] Blood Blood specimen / Unknown 07/14/2025 4:23 AM EST 07/14/2025 5:24 AM EST Rogerio Lange MD LAB BLOOD ORDERABLES [place] [address], [address] [address] * Type and Screen (07/14/2025 4:18 AM EST) ABO/Rh O POSITIVE 07/14/2025 5:16 AM [facility] Antibody Screen NEGATIVE 5:16 AM [facility] Specimen Expiration 07/17/2025 07/14/2025 5:16 AM [facility] Unit Number [id number] 07/14/2025 10:44 AM [facility] Blood Component Type LR RBC CONTAINER 2 07/14/2025 10:44 AM [facility] Unit Division 00 07/14/2025 10:44 AM [facility] Unit Status REL FROM ALLOC 5 6:28 PM [facility] Transfusion Status OK TO TRANSFUSE 07/14/2025 10:44 AM [facility] Crossmatch Result COMPATIBLE 07/14/2025 10:44 AM [facility] Unit Number [id number] 07/14/2025 10:44 AM [facility] Blood Component Type LEUKOREDUCED RED CELLS 07/14/2025 10:44 AM [facility] Unit Division 00 07/14/2025 10:44 AM [facility] Unit Status REL FROM ALLOC 5 6:28 PM [facility] Transfusion Status OK TO TRANSFUSE 07/14/2025 10:44 AM [facility] Crossmatch Result COMPATIBLE 07/14/2025 10:44 AM [facility] Blood Blood specimen / Unknown 07/14/2025 4:18 AM EST 07/14/2025 4:38 AM EST Comment:Blood Paola King PA-C BLOOD BANK TEST ORDERABLE S Final Result HOSPITAL LAB See Below [facility] [address] [place] [address] * (ABNORMAL) Comprehensive Metabolic Panel (07/13/2025 7:21 AM EST) Only the most recent of4 resultswithin the time period is included. Glucose 102(H) 65 - 99 mg/dL 07/13/2025 9:09 AM [facility] Comment:Fasting: <100 mg/dL, Non-Fasting: <200 mg/dL (ADA 2004) Blood Urea Nitrogen (BUN) 21 8 - 21 mg/dL 07/13/2025 9:09 AM [facility] Creatinine 0.88 0.50 - 1.30 mg/dL 07/13/2025 9:09 AM [facility] eGFR 89 >59 07/13/2025 9:09 AM [facility] Comment:CKD-EPI (2020) in mL /min/1.73 sq meters. Sodium 139 136 - 145 mmol/L 07/13/2025 9:09 AM [facility] Potassium 3.8 3.4 - 5.3 mmol/L 07/13/2025 9:09 AM [facility] Chloride 102 98 - 107 mmol/L 07/13/2025 9:09 AM [facility] CO2 25 22 - 33 mmol/L 07/13/2025 9:09 AM [facility] Calcium 8.9 8.7 - 10.5 mg/dL 07/13/2025 9:09 AM [facility] Alkaline Phosphatase 61 45 - 128 U/L 07/13/2025 9:09 AM [facility] Aspartate Aminotrans (AST) 60(H) 10 - 55 U/L 07/13/2025 9:09 AM [facility] Alanine Aminotrans (ALT) 56(H) 10 - 55 U/L 07/13/2025 9:09 AM [facility] Bilirubin, Total 0.3 0.2 - 1.0 mg/dL 07/13/2025 9:09 AM [facility] Protein, Total 6.9 6.3 - 8.3 g/dL 07/13/2025 9:09 AM [facility] Albumin 3.7 3.4 - 4.8 g/dL 07/13/2025 9:09 AM [facility] BUN/Creatinine Ratio 24 10.0 - 25.0 Ratio 07/13/2025 9:09 AM [facility] Globulin 3.2 1.5 - 3.9 g/dL 07/13/2025 9:09 AM [facility] Albumin/Globulin Ratio 1.2 1.0 - 3.0 Ratio 07/13/2025 9:09 AM [facility] Anion Gap 12 7 - 17 07/13/2025 9:09 AM [facility] Blood Blood specimen / Unknown 07/13/2025 7:21 AM EST 07/13/2025 8:08 AM EST us Rogerio Lange MD LAB BLOOD ORDERABLES Final Result Performing Organization Address City/State/[facility] Co de Phone Number [address] [address], [address] [address] * CT Thorax w/o contrast (07/11/2025 5:52 PM EST) Anatomical Region Laterality Modality Chest Computed Tomogra phy 07/11/2025 5:40 PM EST Impressions 07/13/2025 8:30 AM EST 1. No suspicious lung mass. No acute infiltrates pneumonia. 2. Severe trivessel coronary calcification. 3. Mild cardiomegaly. Narrative 07/13/2025 8:30 AM EST EXAMINATION: CT CHEST WITHOUT IV CONTRAST. CLINICAL INFORMATION: preop CABG COMPARISON: No prior CT available for comparison. TECHNIQUE: Multidetector volumetric CT imaging of the chest was done. Axial MIP volume rendering provided. Sagittal and coronal reformatted images were obtained. This CT examination was performed using dose optimization techniques as appropriate, variously including the following: *Automated exposure control *Adjustment of mA and/or kV according to patient size (this includes techniques or standardized protocols for targeted exams where dose is matched to indication/reason for exam; i.e. extremities or head) *Use of iterative reconstruction technique CONTRAST: Noncontrasted study. DLP: 438 mGy-cm FINDINGS: LAST MODEL DEPARTMENT SUPERVISOR: LINES/TUBES: Video Effects Editor reviewed, no lines. LUNGS: Lung parenchyma: No evidence of significant interstitial disease. Lung nodules/masses: There are no significant lung nodules. AIRWAYS: Trachea and bronchi are normal. PLEURA: No pleural effusion or pneumothorax. MEDIASTINUM AND AYLA: No mediastinal, hilar or axillary lymphadenopathy. No mediastinal mass. HEART AND PERICARDIUM: Heart mildly enlarged. No pericardial effusion. Severe trivessel coronary calcification. Pulmonary arteries are normal in size. VESSELS: No CT evidence of aortic aneurysm. LOWER NECK, AXILLA: The visualized thyroid gland is unremarkable. No axillary mass or adenopathy. VISUALIZED ABDOMEN: Unremarkable CHEST WALL AND BONES: No chest wall mass. The visualized bony thorax is within normal limits. Procedure Note Ladonna Mccarthy MD - 07/13/2025 EXAMINATION: CT CHEST WITHOUT IV CONTRAST. CLINICAL INFORMATION: preop CABG COMPARISON: No prior CT available for comparison. TECHNIQUE: Multidetector volumetric CT imaging of the chest was done. Axial MIP volume rendering provided. Sagittal and coronal reformatted images were obtained. This CT examination was performed using dose optimization techniques as appropriate, variously including the following: *Automated exposure control *Adjustment of mA and/or kV according to patient size (this includes techniques or standardized protocols for targeted exams where dose is matched to indication/reason for exam; i.e. extremities or head) *Use of iterative reconstruction technique CONTRAST: Noncontrasted study. DLP: 438 mGy-cm FINDINGS: LAST MODEL DEPARTMENT SUPERVISOR: LINES/TUBES: Video Effects Editor reviewed, no lines. LUNGS: Lung parenchyma: No evidence of significant interstitial disease. Lung nodules/masses: There are no significant lung nodules. AIRWAYS: Trachea and bronchi are normal. PLEURA: No pleural effusion or pneumothorax. MEDIASTINUM AND AYLA: No mediastinal, hilar or axillary lymphadenopathy. No mediastinal mass. HEART AND PERICARDIUM: Heart mildly enlarged. No pericardial effusion. Severe trivessel coronary calcification. Pulmonary arteries are normal in size. VESSELS: No CT evidence of aortic aneurysm. LOWER NECK, AXILLA: The visualized thyroid gland is unremarkable. No axillary mass or adenopathy. VISUALIZED ABDOMEN: Unremarkable CHEST WALL AND BONES: No chest wall mass. The visualized bony thorax is within normal limits. IMPRESSION: 1. No suspicious lung mass. No acute infiltrates pneumonia. 2. Severe trivessel coronary calcification. 3. Mild cardiomegaly. Paola King PA-C IMG CT ORDERABLES Final R esult * CC CORONARY ANGIO W/LV (07/11/2025 8:34 AM EST) Anatomical Region Laterality Modality Radiographic Antonietta ging Impressions 07/14/2025 1:06 PM EST CP, LV systolic dysfunction. Multivessel CAD including 100% chronic total occlusion of proximal RCA and severe stenoses of the proximal LCx (followed by a post-stenotic aneurysm) and the proximal and mid LAD. LVEDP 3 mmHg. RECOMMENDATIONS: Routine post-cath care and IVF. CT surgery evaluation for CABG. Findings and recommendations were relayed to the patient, family, and referring physician. 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 Here, trops were relatively flat in the 40s and TTE showed LVEF of 44% with inferior hypokinesis. He was referred for angiography. H/h , Cr 0.83. Course complicated by agitation and delirium, for which geriatric medicine was consulted and is following. PROCEDURE Informed consent was obtained; a procedural timeout was performed, and the patient was prepped and draped in sterile fashion. RADIAL artery access: A 6 Greek slender sheath was placed in the right radial artery. Patient was given 5000 units heparin, no verapamil, and 100 mcg nitroglycerin through the radial sheath. Catheters: RIGHT: JR4 LEFT: JL 3.5 Arterial Hemostasis: TR band PROCEDURE FINDINGS Pressures LV 86 mmHg/0 mmHg 3 mmHg AO 81 mmHg/38 mmHg 55 mmHg CORONARY ANGIOGRAPHY DOMINANCE: RIGHT LEFT MAIN: Large-caliber without significant disease. Bifurcates into the LAD and circumflex arteries. LAD: Moderate Leh large-caliber vessel that has heavy calcification and a 90 to 95% lesion proximally. It then splits into a dual LAD system, with the more anterior LAD having severe proximal disease. This LAD also gives off a prominent septal guest advisor that gives collaterals to the occluded RCA/RPDA. The more lateral LAD (would otherwise be a diagonal branch) gives off 2 moderate caliber branches of its own and has a long segment of moderate diffuse disease throughout its proximal half. Both LAD systems reach the tip of the apex. CIRCUMFLEX: Medium caliber nondominant vessel that gives off 3 obtuse marginal branches before running in the AV groove is a diminutive circumflex. OM1 has a very high takeoff and has no significant disease. After the takeoff of OM1, there is moderate diffuse disease in the proximal circumflex, followed by a 99% proximal lesion. This is followed by a poststenotic aneurysm after which the sizable OM 2 takes off. The mid circumflex after the takeoff of OM 2 has a 50 to 70% lesion. The remainder of the AV groove circumflex and the terminal OM have no significant disease. RCA: Likely large-caliber dominant vessel with severe diffuse calcification. After short segment of patent proximal vessel, the remainder of the RCA is 100% chronically totally occluded. The distal vessel fills via [id number] collaterals. Complications: None Anesthesia: The procedure was performed under moderate conscious sedation by an independent trained observer (RN) and supervised by the under signed attending MD. See meds list. Sedation Time: Contrast Used: Med Administrations and Associated Flowsheet Values (last 24 hours) Date/Time Action Medication Dose 07/11/25 0833 Given iohexol (OMNIPAQUE) 350 mg/mL injection 22 mL Estimated Blood Loss: 5 mL Verbal Orders and Supervisory Attestation: As the attending physician, I verify I was present throughout the entire procedure and provided physician orders as documented in the specialty electronic documentation system. Furthermore I directly supervised all non physicians providers who assisted me during the procedure and I accept delegation of supervisory responsibility for all post procedure patient care activity related to this patient that I request from a [facility] PA/TYPEWRITER TESTER/fellow/staff member. Lisette Villalta DO [facility] Fellow: None 07/11/2025 8:41 AM Narrative 07/14/2025 1:06 PM EST Table formatting from the original result was not included. Images from the original result were not included. [facility] - Cardiac Catheterization Laboratory PATIENT DEMOGRAPHIC INFORMATION Name: Matthew Marcelo : 1950 75 y.o. Sex: male Gender: male Procedure Date: 07/11/2025 Referring: Rogerio Lange Referring Disposal Plant Operator: Shaji Dougherty MD PCP: Marv Beltran MD Procedure(s): Procedures: * CORONARY ANGIO W/LV CONCLUSIONS/RECOMMENDATIONS Cardiac Protocol CAD and heart failure us Lisette Sowel DO CV CARDIAC CATH ORDERABLES Final Result * ECHOCARDIOGRAM COMPREHENSIVE WITH CONTRAST (07/10/2025 4:02 PM EST) Heart Rate 50 bpm BP Systolic 120 mmHg BP Diastolic 56 mmHg Height 66.00 inches Weight 143.00 lbs BSA 1.73 m2 LV Diastolic Volume 124 mL LV Systolic Volume 70 mL IVS (F:0.6-0.9, M:0.6-1.0) 0.8 cm IVS Mean (F:0.6-0.9, M:0.6-1.0) 0.8 cm LVIDD (F:3.8-5.2, M:4.2-5.8) 4.5 cm LVIDD Mean (F:3.8-5.2, M:4.2-5.8) 4.5 cm LVIDS (F:2.2-3.5, M:2.5-4.0) 2.9 cm LVIDS (F:2.2-3.5, M:2.5-4.0) 2.9 cm LVOT diameter 2.1 cm LVOT diameter mean 2.1 cm LVOT mn grad mean 2.0 mmHg LVOT VTI MEAN 19.0 cm LVOT mn grad 1.5 mmHg LVOT VTI 19.0 cm LVOT peak kuldeep 0.9 m/s LVOT peak kuldeep mean 0.9 m/s PW (F:0.6-0.9, M:0.6-1.0) 0.9 cm PW Mean (F:0.6-0.9, M:0.6-1.0) 0.9 cm MV E' Lateral Velocity 9.14 cm/s MV E' Lateral Velocity Mean 9.14 cm/s MV E' Septal Velocity 4.68 cm/s MV E' Septal Velocity Mean 4.68 cm/s LA sup-inf (apical 2-ch view) 6.06 cm LA volume 77.7 mL RA area 19.6 cm2 RA 2D Volume 56.0 mL Sinuses of Valsalva 3.7 cm Sinuses of Valsalva Mean 3.7 cm Ascending aorta 3.6 cm Ascending aorta mean 3.6 cm E wave decelartion time 285 ms E wave decelartion time mean 285 ms MV stenosis pressure 1/2 time mean 84 ms MV stenosis pressure 1/2 time 84 ms MV Peak A-Wave 69.6 cm/s MV Peak A-Wave Mean 69.6 cm/s MV Peak E-Wave 68.9 cm/s MV Peak E-Wave Mean 68.9 cm/s RVID d 4.5 cm RVID d Mean 4.5 cm RV Free wall pk S' 7.9 cm/s RV Free wall pk S' Mean 7.9 cm/s Tapse 1.9 cm Tapse Mean 1.9 cm LA Volume Index (16-34) 44.8 mL/m2 E/A ratio 0.99 E/E' Lateral 7.5 E/E' Septal 14.7 E/E' Average 11.1 LA Volume Index 32.3 mL/m2 LVOT area 3.5 cm2 MV valve area p 1/2 method 2.62 cm2 Sinuses of Valsalva Index 2.1 cm/m2 E/E' ratio 7.54 LV Diastolic Volume Index (F:29-61, M:35-75) 71.5 mL/m2 Yi BP EF (55-75) 44 % LV Systolic Volume Index (F:8-24, M:11-31) 40.4 mL/m2 LV mass 123.1 g LV Mass Index (F:43-95, M:49-115) 71.0 g/m2 LV RWT 0.40 AV LVOT peak gradient 3.2 mmHg LVOT stroke volume 66 mL SVI 38 mL/m2 Left Ventricular Cardiac Index 1.9 L/min/m2 Left Ventricular Cardiac Output 3.3 L/min LVOT SI 37.92 mL/m2 Ascending aorta Index 2.1 cm/m2 TR Peak Kuldeep 2.0 m/s TR Peak Gradient 16 mmHg Anatomical Region Laterality Modality Heart Ultrasound Narrative 07/10/2025 4:18 PM EST The left ventricle is moderately dilated. Left ventricular systolic function is mildly decreased. The quantitative EF by 2D Yi biplane is 44%. There is hypokinesis of the inferior and inferoseptal haddad. There is abnormal relaxation, with normal left atrial filling pressure. The right ventricle is moderately dilated. Right ventricular systolic function is normal. There is no hemodynamically significant valve disease present. The left atrial cavity is moderately dilated. Right atrial cavity is mildly dilated. There is no previous study for comparison in our system. Technical Details Definity contrast was used during the study. Overall the study quality was adequate. The study was technically difficult. Left Ventricle The left ventricle is moderately dilated. Wall thickness is normal. Left ventricular systolic function is mildly decreased. The quantitative EF by 2D Yi biplane is 44%. There is hypokinesis of the inferior and inferoseptal haddad. There is abnormal relaxation, with normal left atrial filling pressure. Right Ventricle The right ventricle is moderately dilated. Right ventricular systolic function is normal. Left Atrium The left atrial cavity is moderately dilated. The pulmonary veins exhibit systolic dominant flow. Right Atrium Right atrial cavity is mildly dilated. IVC is not seen or not well seen. Mitral Valve The mitral leaflets are mildly thickened. There is trace mitral regurgitation. Tricuspid Valve The tricuspid valve is structurally normal. There is mild tricuspid regurgitation. The estimated right ventricular systolic pressure is 16 mmHg plus right atrial pressure. The right atrial pressure could not be obtained. Aortic Valve The aortic valve is tricuspid. The aortic valve leaflets are mildly thickened.There is trace aortic regurgitation. There is no aortic valve stenosis. Pulmonic Valve The pulmonic valve is structurally normal. There is trace pulmonic regurgitation. Ascending Aorta The aortic root and ascending aorta are normal in dimension. Pericardium There is no pericardial effusion. Prior Study There is no previous study for comparison in our system. us Sandra Gonzalez MD CV ECHO ORDERABLES Final Resu lt * (ABNORMAL) High Sensitivity Troponin T (now and in 3 hours) (07/08/2025 12:16 PM EST) Only the most recent of6 resultswithin the time period is included. Pathologist [facility] High Sensitivity Troponin T 22 <23 ng/L 07/08/2025 1:24 PM EST [facility] Delta (Change) 20(H) <3 07/08/2025 1:24 PM [facility] Comment:Decreased Blood Blood specimen / Unknown 07/08/2025 12:16 PM EST 07/08/2025 12:54 PM EST Sydnie Atkinson PA-C LAB BLOOD ORDERABLES Final Result Performing Organization Address [facility] Co de Phone Number [address] [address], [address] [address] * (ABNORMAL) Hemoglobin A1c with Estimated Average Glucose (07/08/2025 8:53 AM EST) Hemoglobin A1C 7.9(H) <5.7 % 07/08/2025 2:05 PM [facility] Comment: A1c% Interpretation 5.7 - 6.0 Increase risk of diabetes 6.1 - 6.4 Higher risk of diabetes > or = 6.5 Consistent with diabetes Diabetes Care, 33(Supp 1):S1-S61, 2010 Estimated Average Glucose 180 mg/dL 07/08/2025 2:05 PM [facility] Blood Blood specimen / Unknown 07/08/2025 8:53 AM EST 07/08/2025 8:58 AM EST Rogerio Lange MD LAB BLOOD ORDERABLES Final Result Performing Organization Address City/[facility] Co de Phone Number [address] [address], [address] [address] * Partial Thromboplastin Time (PTT) (07/08/2025 8:53 AM EST) Anticoagulant IV HEPARIN, UNFRACTIONATED 07/08/2025 7:35 AM [facility] Partial Thromboplastin Time (PTT) 32 25 - 36 seconds 07/08/2025 9:25 AM [facility] Blood Blood specimen / Unknown 07/08/2025 8:53 AM EST 07/08/2025 8:59 AM EST us Sydnie Atkinson PA-C LAB BLOOD ORDERABLES Final Result Performing Organization Address [facility] Co de Phone Number [address] [address], [address] [address] * Protime-INR (07/08/2025 8:53 AM EST) Anticoagulant IV HEPARIN, UNFRACTIONATED 07/08/2025 7:35 AM [facility] Prothrombin Time (PT) 12.1 10.0 - 13.5 seconds 07/08/2025 9:25 AM [facility] INR 1.0 07/08/2025 9:25 AM [facility] Comment:INR Therapeutic Rang es: Standard dose anticoagulant 2.0 to 3.0, High dose anticoagulant 2.5-3.5. Blood Blood specimen / Unknown 07/08/2025 8:53 AM EST 07/08/2025 8:59 AM EST Sydnie Atkinson PA-C LAB BLOOD ORDERABLES Final Result Performing Organization Address [facility] Co de Phone Number [address] [address], [address] [address] * Ed Performed Us Abdominal (07/07/2025 11:08 PM EST) Anatomical Region Laterality Modality Ultrasound 07/07/2025 11:0 2 PM EST Narrative 07/07/2025 11:22 PM EST Cardiac ( ED) Exam Information: Exam Category: Diagnostic (Document Control Supervisor) Exam Occurrence: Initial exam Indication(s) for Exam: Chest Pain, Abnormal ECG Views Obtained: Parasternal long-axis, Parasternal short-axis, Apical 4-chamber, IVC view Findings and Interpretation: Cardiac Activity: Present Pericardium: No pericardial effusion LV function (estimated EF): Decreased (30-50% EF) Regional Wall Motion Abnormality?: No regional wall motion abnormality RV: Normal Aortic Root: <4 cm IVC Size: Normal IVC Respiratory Variation: Normal Medical Decision Making: All focused emergency ultrasounds are limited exams. Comprehensive studies should be obtained for further evaluation as clinically indicated. Attending Signature: I have personally performed or supervised the performance of the ultrasound, reviewed the images as archived, and agree with the findings and impression as documented Electronically signed by Jayce Ugalde on Monday, July 07, 2025 at 11:22 PM Procedure Note Jayce Ugalde MD - 07/07/2025 Cardiac ( ED) Exam Information: Exam Category: Diagnostic (Document Control Supervisor) Exam Occurrence: Initial exam Indication(s) for Exam: Chest Pain, Abnormal ECG Views Obtained: Parasternal long-axis, Parasternal short-axis, Apical 4-chamber,IVC view Findings and Interpretation: Cardiac Activity: Present Pericardium: No pericardial effusion LV function (estimated EF): Decreased (30-50% EF) Regional Wall Motion Abnormality?: No regional wall motionabnormality RV: Normal Aortic Root: <4 cm IVC Size: Normal IVC Respiratory Variation: Normal Medical Decision Making: All focused emergency ultrasounds are limited exams. Comprehensive studies should be obtained for further evaluation asclinically indicated. 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 [facility] Care Representat adalid Care Teams Waistline Joiner Overlock Relationship Specialty Start Date End Date Marv Beltran MD [address] [place] [phone] PCP - General 07/08/25 [place] [address] [place] [address] [address] [place] [address] Endocrinology 07/08/25 Estee Fontaine MD [address] [place] [address] Medical Oncology 07/08/25 Arutro Copeland MD [address] [place] [phone] Consulting Provider Surgery, Cardiac 07/25/25 Ferdinand Maravilla MD [address] [place] [address] Disposal Plant Operator Cardiovascular Disease 07/31/25
--- OUTSIDE RECORDS SUMMARY | 2025-08-14 10:41 | XMS_ITS | Encounter Summary ---
Author Organization [employer] Address [address] [facility] 7t [place] [address] Care Team Providers Care Stratigraphy Teacher Name Role Phone Marv Ramirez MD Primary Care Provide r Reason for Visit * Reason Comments Med Refill Encounter Details Date Type Department Care Team ([facility] Contact Info) Description 01/31/2024 Refill [facility] MEDICINE [address] [place], [place] [phone] Marv Ramirez MD [address] [place] [address] Social History Tobacco Use Types Packs/Day Years [...] documented as of this encounter Care Teams Stratigraphy Teacher Relationship Specialty Start Date End Date Marv Ramirez MD [address] [place] [address] PCP - General Internal Medicine 04/09/14 documented as of this encounter
--- OUTSIDE RECORDS SUMMARY | 2025-08-14 10:41 | XMS_ITS | Encounter Summary ---
Author Organization [facility] Address [address] [place] [address] Care Team Providers Care Pattern Developer Name Role Phone Marv Pérez MD Primary Care Provi ben Encounter Details Date Type Department Care Team (Late Contact Info) Description 07/31/2025 Lab Requisition [facility] - Main Lab [address] [place] [address] Sylvia Murillo MD [address] [place] [address] Type 2 diabetes mellitus without complications (CMS/HCC [...] AM EST Office Visit Orthopedic Surgery - [place] [address] 175 [facility] 250 [place] [address] Ezequiel Mattson DPM [address] [phone] documented as of this encounter Procedures Procedure Name Priority Date/Time Associated Diagnosis Comments VITAMIN B12 AND FOLATE Routine 07/31/2025 5:52 AM EST Type 2 diabetes mellitus without complications ([facility]/HCC V24, [facility] V28) IRON AND TIBC Routine 07/31/2025 5:52 AM EST Type 2 diabetes mellitus without complications ([facility]/HCC V24, [facility] V28) FERRITIN Routine 07/31/2025 5:52 AM EST Type 2 diabetes mellitus without complications ([facility] V24, [facility] V28) documented in this encounter Results * Vitamin B12 and folate (07/31/2025 5:52 AM EST) Vitamin B-12 462 211 - 911 pcg/mL 07/31/2025 9:40 AM EST [facility] Folate 10.9 >=5.4 ng/ml 07/31/2025 9:40 AM EST [facility] Comment:Over the counter sup plements containing high doses of biotin may interfere with this assay. If interference is suspected, patients shoud be retested after refraining from biotin supplements for 72 hours. Blood Venous blood specimen / Unknown Venipuncture / Unknown 07/31/2025 5:52 AM EST 07/31/2025 8:42 AM EST us Sylvia Murillo MD LAB BLOOD ORDERABLES Final Resul t [facility] [address] [place] [address], [place] [phone] * Ferritin (07/31/2025 5:52 AM EST) Ferritin 46 11 - 307 ng/mL 07/31/2025 9:39 AM EST [facility] Blood Venous blood specimen / Unknown Venipuncture / Unknown 07/31/2025 5:52 AM EST 07/31/2025 8:42 AM EST us Fahim A Lidia MD LAB BLOOD ORDERABLES Final Resul t [facility] [address] [place] [address], [place] [phone] * (ABNORMAL) Iron and TIBC (07/31/2025 5:52 AM EST) Iron 18(L) 50 - 160 mcg/dL 07/31/2025 9:37 AM EST [facility] TIBC 272 250 - 450 mcg/dL 07/31/2025 9:37 AM EST [facility] Iron Saturation 7(L) 20 - 50 % 9:37 AM EST [facility] Blood Venous blood specimen / Unknown Venipuncture / Unknown 07/31/2025 5:52 AM EST 07/31/2025 8:42 AM EST Sylvia Murillo MD LAB BLOOD ORDERABLES Final Resul t [facility] [address] [place] [address], [place] [phone] documented in this encounter Visit Diagnoses Diagnosis Type 2 diabetes mellitus without complications (CMS/HCC V24, CMS/HCC V28) documented in this encounter Care Teams Pattern Developer Relationship Specialty Start Date End Date Marv Pérez MD [address] [place] [address] PCP - General Internal Medicine 07/05/24 documented as of this encounter
--- OUTSIDE RECORDS SUMMARY | 2025-08-14 10:41 | XMS_ITS | Encounter Summary ---
Author Organization [employer] Address [address] [facility] 7t [place] [address] Care Team Providers Care Therapy Site Coordinator Name Role Phone Marv Ramirez MD Primary Care Provide r Encounter Details Date Type Department Care Team ([facility] st Contact Info) Description 07/20/2022 Abstract [facility] MEDICINE 230 [place], [place] [phone] Marv Ramirez MD 230 [place] [address] Social History Tobacco Use Types Packs/Day Years [...] on filedocumented in this encounter Care Teams Therapy Site Coordinator Relationship Specialty Start Date End Date Marv Ramirez MD 230 [place] [address] PCP - General Internal Medicine 04/09/14 documented as of this encounter
--- OUTSIDE RECORDS SUMMARY | 2025-08-14 10:41 | XMS_ITS | Clinical Summary ---
Author Organization [address] [facility] Address 175 [place] [address] Phone Care Team Providers Care Heel Emery Buffer Name Role Phone Marv Pérez MD Primary [...] 07/05/2024 T2DM (type 2 diabetes mellitus) 07/05/2024 Encounters Date Type Department Care Team Description 08/02/2025 Lab Requisition [facility] - Main Lab 299 [place] [phone] Sylvia Murillo MD Type 2 diabetes mellitus without complications ([facility] V24, [facility] V28) 07/31/2025 Lab Requisition [facility] Lab [address] [place] [phone] Sylvia Murillo MD Type 2 diabetes mellitus without complications ([facility] V24, [facility] V28) 07/30/2025 Lab Requisition [facility] Lab [address] [place] [phone] Sylvia Murillo MD Type 2 diabetes mellitus without complications ([facility] V24, [facility] V28) 07/23/2025 Lab Requisition [facility] [address] [place] [phone] Sylvia Murillo MD Essential (primary) hypertension; Type 2 diabetes mellitus without complications ([facility] V24, [facility] V28) 06/26/2025 10:15 AM EDT Office Visit Orthopedic [facility] [address] [phone] Ezequiel Mattson DPM Blan[place] (Primary Dx); Dermatophytosis of nail; Diabetic mononeuropathy simplex ([facility] V24, [facility] V28); Type II diabetes mellitus with peripheral circulatory disorder ([facility] V24, [facility] V28); Pain in toe of right foot; Pain in toe of left foot 06/12/2025 2:00 PM EDT Office Visit Orthopedic [facility] [address] [phone] Ezequiel Mattson DPM Blister (Primary Dx) from Last 3 Months Social [...] on file Sexual Orientation Not on file Last Filed Vital Signs Vital Sign Reading [...] AM EST Office Visit Orthopedic Surgery - [place] [address] [address] Ezequiel Mattson, DPM [address] [address] Health Maintenance Due Date Last Done Comments Diabetes: Annual Retina Eye Exam 1960 Zoster Vaccines (1 of 2) 02/23/2015 12/29/2014 Pneumococcal Vaccine: 50+ Years (3 of 3 - PCV20 or PCV21) 06/25/2020 06/25/2015, 09/02/2013 Falls Risk Assessment 07/31/2022 Hepatitis C Screening 07/31/2022 Medicare Annual Wellness Visit 07/31/2022 Social Influencers of Health Screening 07/31/2022 RSV Immunization Adult Patients (1 - 1-dose 75+ series) 2024 Diabetes: Annual Urine Albumin-Creatinine Ratio (uACR) 07/05/2024 Depression Screening 08/28/2024 COVID-19 Vaccine ( season) 2025 07/26/2021, 01/01/2021, 12/04/2020 Influenza Vaccine (#1) 2025 , 05/25/2021, 08/02/2018, Additional history exists Diabetes: Blood Sugar Control Test (HGBA1C) 09/06/2025 03/06/2025, 12/06/2024, 05/23/2024 Diabetes: Annual Foot Exam 06/11/2026 06/11/2025 Diabetes: Annual GFR (Glomerular Filtration Rate) 07/30/2026 07/30/2025, 07/23/2025 Hypertension/CHF/CAD Annual BMP Blood Test 07/30/2026 07/30/2025, 07/23/2025 Cholesterol Screening (Lipid Panel) 03/07/2030 03/07/2025 DTaP,Tdap,and [...] EST Type 2 diabetes mellitus without complications (CMS/HCC V24, CMS/[facility] V28) FERRITIN Routine 07/31/2025 5:52 AM EST Type 2 diabetes mellitus without complications (CMS/HCC V24, CMS/[facility] V28) IRON AND TIBC Routine 07/31/2025 5:52 AM EST Type 2 diabetes mellitus without complications (CMS/HCC V24, CMS/[facility] V28) BASIC METABOLIC PANEL Routine 07/30/2025 7:31 AM EST Type 2 diabetes mellitus without complications (CMS/HCC V24, CMS/HCC V28) COMPLETE BLOOD COUNT Routine 07/30/2025 7:31 AM EST Type 2 diabetes mellitus without complications (CMS/HCC V24, CMS/HCC V28) THYROID STIMULATING HORMONE Routine 07/23/2025 7:45 AM EST Essential (primary) hypertension Type 2 diabetes mellitus without complications (CMS/HCC V24, CMS/HCC V28) BASIC METABOLIC PANEL Routine 07/23/2025 7:45 AM EST Essential (primary) hypertension Type 2 diabetes mellitus without complications (CMS/HCC V24, CMS/HCC V28) COMPLETE BLOOD COUNT Routine 07/23/2025 7:45 AM EST Essential (primary) hypertension Type 2 diabetes mellitus without complications (CMS/HCC V24, CMS/HCC V28) from Last 3 Months Results * Vitamin B12 and folate (07/31/2025 5:52 AM EST) Vitamin B-12 462 211 - 911 pcg/mL 07/31/2025 9:40 AM EST [facility] Folate 10.9 >=5.4 ng/ml 07/31/2025 9:40 AM EST [facility] Comment:Over the counter sup plements containing high doses of biotin may interfere with this assay. If interference is suspected, patients shoud be retested after refraining from biotin supplements for 72 hours. Blood Venous blood specimen / Unknown Venipuncture / Unknown 07/31/2025 5:52 AM EST 07/31/2025 8:42 AM EST us Sylvia uMrillo MD LAB BLOOD ORDERABLES Final Resul t [facility] [address] [place] [address], [place] [phone] * (ABNORMAL) Iron and TIBC (07/31/2025 5:52 AM EST) Iron 18(L) 50 - 160 mcg/dL 07/31/2025 9:37 AM EST [facility] TIBC 272 250 - 450 mcg/dL 07/31/2025 9:37 AM EST [facility] Iron Saturation 7(L) 20 - 50 % 9:37 AM EST [facility] Blood Venous blood specimen / Unknown Venipuncture / Unknown 07/31/2025 5:52 AM EST 07/31/2025 8:42 AM EST us Sylvia Murillo MD LAB BLOOD ORDERABLES Final Resul t Performing Organization Address [facility]/ZIP Co de Phone Number [facility] [address] [place] [address], [place] [phone] * Ferritin (07/31/2025 5:52 AM EST) Ferritin 46 11 - 307 ng/mL 07/31/2025 9:39 AM EST [facility] Blood Venous blood specimen / Unknown Venipuncture / Unknown 07/31/2025 5:52 AM EST 07/31/2025 8:42 AM EST us Sylvia Murillo MD LAB BLOOD ORDERABLES Final Resul t [facility] [address] [place] [address], [place] [phone] * (ABNORMAL) Complete blood count (07/30/2025 7:31 AM EST) Only the most recent of2 resultswithin the time period is included. WBC 4.5(L) 4.8 - 10.8 K/[facility] LAB HEMETOLOGY METHOD 07/30/2025 10:25 AM EST [facility] RBC 2.70(L) 4.50 - 5.50 M/mcL LAB HEMETOLOGY METHOD 07/30/2025 10:25 AM [facility] Hemoglobin 7.7(L) 13.5 - 17.5 g/dL LAB HEMETOLOGY METHOD 07/30/2025 10:25 AM [facility] Hematocrit 24.3(L) 42.0 - 54.0 % LAB HEMETOLOGY METHOD 07/30/2025 10:25 AM [facility] MCV 90.3 79.0 - 98.0 FL LAB HEMETOLOGY METHOD 07/30/2025 10:25 AM [facility] MCH 28.6 27.0 - 32.0 pcg LAB HEMETOLOGY METHOD 07/30/2025 10:25 AM [facility] MCHC 31.7(L) 32.0 - 37.0 g/dL LAB HEMETOLOGY METHOD 07/30/2025 10:25 AM [facility] RDW 15.8(H) 11.0 - 15.0 % LAB HEMETOLOGY METHOD 07/30/2025 10:25 AM [facility] Platelets 319 130 - 400 K/mcL LAB HEMETOLOGY METHOD 07/30/2025 10:25 AM [facility] MPV 9.9 7.0 - 11.0 FL LAB HEMETOLOGY METHOD 07/30/2025 10:25 AM [facility] NRBC 0.0 <1.0 % LAB HEMETOLOGY METHOD 07/30/2025 10:25 AM [facility] NRBC Absolute 0.00 <0.10 K/mcL LAB HEMETOLOGY METHOD 07/30/2025 10:25 AM [facility] Blood Venous blood specimen / Unknown Venipuncture / Unknown 07/30/2025 7:31 AM EST 07/30/2025 10:13 AM EST us Sylvia Murillo MD LAB BLOOD ORDERABLES Final Resul t [facility] [address] [place] [address], [place] [phone] * (ABNORMAL) Basic metabolic panel (07/30/2025 7:31 AM EST) Only the most recent of2 resultswithin the time period is included. Sodium 141 133 - 145 mmol/L 07/30/2025 11:26 AM [facility] Potassium 4.2 3.5 - 5.5 mmol/L 07/30/2025 11:26 AM [facility] Chloride 102 96 - 110 mmol/L 07/30/2025 11:26 AM [facility] CO2 31 21 - 32 mmol/L 07/30/2025 11:26 AM [facility] Anion Gap 8 3 - 11 07/30/2025 11:26 AM [facility] Glucose 121(H) 70 - 100 mg/dL 07/30/2025 11:26 AM [facility] BUN 13 5 - 25 mg/dL 07/30/2025 11:26 AM [facility] Creatinine 0.76 0.70 - 1.30 mg/dL 07/30/2025 11:26 AM [facility] eGFR 93 >=60 mL/min/1. 73m2 07/30/2025 11:26 AM [facility] Comment:Calculation based on the Chronic Kidney Disease Epidemiology Collaboration (CKD-EPI) equation refit without adjustment for race. BUN/Creatinine Ratio 17.1 07/30/2025 11:26 AM [facility] Calcium 8.2(L) 8.5 - 10.5 mg/dL 07/30/2025 11:26 AM [facility] Blood Venous blood specimen / Unknown Venipuncture / Unknown 07/30/2025 7:31 AM EST 07/30/2025 10:13 AM EST Sylvia Murillo MD LAB BLOOD ORDERABLES Final Resul t Performing Organization Address [facility] Co de Phone Number [facility] [address] [place] [address], [place] [phone] * (ABNORMAL) Thyroid stimulating hormone (07/23/2025 7:45 AM EST) TSH 6.53(H) 0.40 - 4.00 mcIU/mL 07/23/2025 10:44 AM EST [facility] Blood Venous blood specimen / Unknown Venipuncture / Unknown 07/23/2025 7:45 AM EST 07/23/2025 9:13 AM EST Sylvia Murillo MD LAB BLOOD ORDERABLES Final Resul t Performing Organization Address [facility] Co de Phone Number [facility] [address] [place] [address], [place] [phone] from Last 3 Months Insurance [facility] Member Subscriber Plan / Payer (Ef fective 2018-Present) Name:Matthew Armstrong Relation to Subscriber:Self Name:Matthew Armstrong Payer ID:[id number] Group ID:[id number] Type:Not on file Address: [place] [address] [place] [address] [facility] MEDICARE Member Subscriber Plan / Payer (Ef fective 2018-Present) Name:Matthew Armstrong Relation to Subscriber:Self Name:Matthew Armstrong Payer ID:[id number] Group ID:[id number] Type:Not on file Address: [place] [address] [place] [address] Care Teams Heel Emery Buffer Relationship Specialty Start Date End Date Marv Pérez MD [address] [place] [phone] PCP - General Internal Medicine 07/05/24
--- OUTSIDE RECORDS SUMMARY | 2025-08-14 10:41 | XMS_ITS | Encounter Summary ---
Author Organization [facility] Address [address] [place] [address] Care Team Providers Care Staff Research Scientist Name Role Phone Marv Pérez MD Primary Care Provi ben Encounter Details Date Type Department Care Team (Late Contact Info) Description 07/30/2025 Lab Requisition [facility] - Main Lab 299 [facility] [place] [address] Sylvia Murillo MD [address] [place] [address] Type 2 diabetes mellitus without complications (CMS/HCC [...] AM EST Office Visit Orthopedic Surgery - [place] 250 175 [facility] 250 [place] [address] Ezequiel Mattson DPM [address] [address] documented as of this encounter Procedures Procedure Name Priority Date/Time Associated Diagnosis Comments COMPLETE BLOOD COUNT Routine 07/30/2025 7:31 AM EST Type 2 diabetes mellitus without complications (CMS/HCC V24, CMS/[facility] V28) BASIC METABOLIC PANEL Routine 07/30/2025 7:31 AM EST Type 2 diabetes mellitus without complications (CMS/HCC V24, CMS/HCC V28) documented in this encounter Results * (ABNORMAL) Basic metabolic panel (07/30/2025 7:31 AM EST) Sodium 141 133 - 145 mmol/L 07/30/2025 11:26 AM [facility] Potassium 4.2 3.5 - 5.5 mmol/L 07/30/2025 11:26 AM [facility] Chloride 102 96 - 110 mmol/L 07/30/2025 11:26 AM [facility] CO2 31 21 - 32 mmol/L 07/30/2025 11:26 AM [facility] Anion Gap 8 3 - 11 07/30/2025 11:26 AM [facility] Glucose 121(H) 70 - 100 mg/dL 07/30/2025 11:26 AM [facility] BUN 13 5 - 25 mg/dL 07/30/2025 11:26 AM [facility] Creatinine 0.76 0.70 - 1.30 mg/dL 07/30/2025 11:26 AM [facility] eGFR 93 >=60 mL/min/1. 73m2 07/30/2025 11:26 AM [facility] Comment:Calculation based on the Chronic Kidney Disease Epidemiology Collaboration (CKD-EPI) equation refit without adjustment for race. BUN/Creatinine Ratio 17.1 07/30/2025 11:26 AM [facility] Calcium 8.2(L) 8.5 - 10.5 mg/dL 07/30/2025 11:26 AM [facility] Blood Venous blood specimen / Unknown Venipuncture / Unknown 07/30/2025 7:31 AM EST 07/30/2025 10:13 AM EST Sylvia Murillo MD LAB BLOOD ORDERABLES Final Resul t [facility] [address] [place] [address], * (ABNORMAL) Complete blood count (07/30/2025 7:31 AM EST) WBC 4.5(L) 4.8 - 10.8 K/mcL LAB HEMETOLOGY METHOD 07/30/2025 10:25 AM [facility] RBC 2.70(L) 4.50 - 5.50 M/mcL LAB HEMETOLOGY METHOD 07/30/2025 10:25 AM [facility] Hemoglobin 7.7(L) 13.5 - 17.5 g/dL LAB HEMETOLOGY METHOD 07/30/2025 10:25 AM [facility] Hematocrit 24.3(L) 42.0 - 54.0 % LAB HEMETOLOGY METHOD 07/30/2025 10:25 AM [facility] MCV 90.3 79.0 - 98.0 FL LAB HEMETOLOGY METHOD 07/30/2025 10:25 AM [facility] MCH 28.6 27.0 - 32.0 pcg LAB HEMETOLOGY METHOD 07/30/2025 10:25 AM [facility] MCHC 31.7(L) 32.0 - 37.0 g/dL LAB HEMETOLOGY METHOD 07/30/2025 10:25 AM [facility] RDW 15.8(H) 11.0 - 15.0 % LAB HEMETOLOGY METHOD 07/30/2025 10:25 AM [facility] Platelets 319 130 - 400 K/mcL LAB HEMETOLOGY METHOD 07/30/2025 10:[address] [facility] MPV 9.9 7.0 - 11.0 FL LAB HEMETOLOGY METHOD 07/30/2025 10:[address] [facility] NRBC 0.0 <1.0 % LAB HEMETOLOGY METHOD 07/30/2025 10:[address] [facility] NRBC Absolute 0.00 <0.10 K/mcL LAB HEMETOLOGY METHOD 07/30/2025 10:[address] [facility] Blood Venous blood specimen / Unknown Venipuncture / Unknown 07/30/2025 7:31 AM EST 07/30/2025 10:13 AM EST us Sylvia Murillo MD LAB BLOOD ORDERABLES Final Resul t [facility] 299 [place] [address], documented in this encounter Visit Diagnoses Diagnosis Type 2 diabetes mellitus without complications (CMS/HCC V24, CMS/HCC V28) documented in this encounter Care Teams Staff Research Scientist Relationship Specialty Start Date End Date Marv Pérez MD [address] [place] [address] PCP - General Internal Medicine 07/05/24 documented as of this encounter
--- OUTSIDE RECORDS SUMMARY | 2025-08-14 10:41 | XMS_ITS | Encounter Summary ---
Author Organization [facility] Address [address] [place] [address] Care Team Providers Care Overlay Operator Name Role Phone Marv Pérez MD Primary Care Provi ben Encounter Details Date Type Department Care Team (Late Contact Info) Description 08/02/2025 Lab Requisition [facility] - Main Lab 299 [facility] [place] [address] Sylvia Murillo MD [address] [place] [address] Type 2 diabetes mellitus without complications (CMS/HCC [...] AM EST Office Visit Orthopedic Surgery - [place] 250 175 [facility] 250 [place] [address] Ezequiel Mattson, DPM [address] [address] documented as of this encounter Visit Diagnoses Diagnosis Type 2 diabetes mellitus without complications (CMS/HCC V24, CMS/HCC V28) documented in this encounter Care Teams Overlay Operator Relationship Specialty Start Date End Date Marv Pérez MD [address] [place] [address] PCP - General Internal Medicine 07/05/24 documented as of this encounter
== END 2025-08-14 10:06 | disposition home or self-care (01) ==
LOC: HO.ENCR 09:18
PROVIDERS: PCP Internal Medicine; Visit Provider Internal Medicine
DX: E11.65 Type 2 diabetes mellitus with hyperglycemia (principal); Z79.4 Long term (current) use of insulin

== ENCOUNTER → 2025-08-14 09:18 | Outpatient (BNVA) | payer OTHER, SELFPAY | PROVIDERS: PCP Internal Medicine; Visit Provider Internal Medicine | DX: E11.65 Type 2 diabetes mellitus with hyperglycemia (principal); Z79.4 Long term (current) use of insulin | CPT/HCPCS: 82947; 83036; 99212 ==

== ENCOUNTER 2025-08-18 12:22 | Outpatient (AMB) | payer OTHER, SELFPAY ==
[2025-08-18 12:39] VITALS: BP 106/60; PULSE 74; BMI 23.1
--- NOTE | 2025-08-18 12:39 | MHC.OFFVIS ---
Vital Signs 08/18/25 12:39 Height 5 ft 6 in Weight 143 lb 4.807 oz BMI 23.1 BP 106/60 Blood Pressure Location Lt brachial Position Sitting Pulse 74 Pulse Source Pulse Oximeter Intake Visit Reasons: ragland f/up Medic Technician Required: Yes Medic Technician Services: Medic Technician Offered & Declined Accompanied by: Family/Other Allergies No Known Allergies Allergy (Verified 08/14/25 09:43) Medication List - Last Reconciled 08/18/25 by Ferdinand Maravilla MD acetaminophen 325 mg PO QID PRN aspirin 81 mg PO BEDTIME atorvastatin 40 mg PO DAILY 30 days blood sugar diagnostic (FreeStyle Lite Strips) 4 times a day blood-glucose meter (FreeStyle Grant Lite kit) As directed clopidogrel 75 mg PO DAILY gabapentin 600 mg PO BEDTIME 30 days insulin aspart U-100 (Novolog FlexPen U-100 Insulin aspart) 6 units (0.06 mL) subcut TID 90 days lancets (TRUEplus Lancets) TEST BLOOD SUGAR FOUR TIMES DAILY Lantus Solostar U-100 Insulin (insulin glargine) 16 units (0.16 mL) subcut DAILY NS metoprolol succinate ER 25 mg PO DAILY pantoprazole 40 mg PO DAILY pen needle, diabetic As directed twice daily sennosides (Senna Lax) 17.2 mg PO BEDTIME Synjardy XR 12.5-1,000 mg (empagliflozin-metformin) 1 tab PO BID NS tirzepatide (Mounjaro) 5 mg subcut TU HPI Comments Details: Matthew returns for follow-up. Last month he was seen in consultation regarding chest pains. Extremely vague history. Upon doing an EKG there was concern for ST-elevation and it was felt to be abnormal and urgently referred to the ER. High sensitivity troponins were abnormal. Subsequently, he was transferred to [facility] very underwent diagnostic catheterization followed by CABG. Currently, he states he feels well. He does not have any cardiac symptoms. 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) Colon cancer screening Hypothyroidism Proliferative diabetic retinopathy associated with type 2 diabetes mellitus Hx of lymphoma Peripheral axonal neuropathy Erectile dysfunction Type 2 diabetes mellitus with hyperglycemia, with long-term current use of insulin Dyslipidemia Essential hypertension Diabetic nephropathy associated with type 2 diabetes mellitus Diabetic polyneuropathy associated with type 2 diabetes mellitus Surgical History (Updated 08/18/25 @ 12:51 by Ferdinand Maravilla MD) Status post aorto-coronary artery bypass graft Hx of heart bypass surgery Hx of local excision of skin lesion Hx of colonoscopy Family History Father Cancer Mother Diabetes Social History Household Members: None Housing: Apartment Housing Other:: Has GENERAL UTILITY MACHINE OPERATOR: Mabel Peres Are you a primary care assistant to a significant other at home: No Do you presently have visiting nurse or other home services: Yes (test fixture designer) Alcohol intake: never Patient Tobacco Use Status: Never used Tobacco service: No Current occupational status: disabled Review of Systems Const Denies weakness ENT Denies dizziness Card Denies chest pain, Denies chest pain with activity, Denies syncope, Denies rapid heart rate, Denies pedal edema, Denies edema, Denies leg edema, Denies lightheadedness, Denies palpitations, Denies dyspnea, Denies dyspnea on exertion and Denies orthopnea Resp Denies cough, Denies dyspnea and Denies dyspnea on exertion GI Denies hematochezia and Denies change in stool character Musc Denies abnormal gait, Denies muscle cramps, Denies muscle weakness, Denies numbness, Denies radiating pain into limb and Denies tingling Neuro Denies abnormal gait, Denies dizziness, Denies syncope, Denies numbness, Denies tingling and Denies weakness Endo Denies palpitations Physical Exam Vital Signs: Last Vital Signs Pulse 74 08/18/25 12:39 BP 106/60 08/18/25 12:39 BMI result Body Mass Index 23.1 Const General: comfortable and no acute distress Orientation/consciousness: patient oriented x3 HEENT Other: Unremarkable Head: Yes normal to inspection Neck Neck: Yes normal visual inspection Chest Chest palpation & inspection: normal inspection of the chest Resp Auscultation: clear to auscultation bilaterally Cardio Palpation: normal PMI Heart sounds: S1 normal heart sound present, S2 normal heart sound present, no gallops, no murmurs and no rubs GI Palpation (GI): Soft to palpation Back/Spine/Pelvis Other: unremarkable Skin General skin exam: no rashes or lesions noted Neuro General: patient oriented x3 Extrem General: Yes normal to inspection Psych Mental Status: mental status grossly normal Assessment & Plan Assessment & Plan (1) Atherosclerotic cardiovascular disease: Code(s): I25.10 - Atherosclerotic heart disease of [place] coronary artery without angina pectoris Category: Medical (2) Status post aorto-coronary artery bypass graft: Code(s): Z95.1 - Presence of aortocoronary bypass graft Category: Surgical (3) Cardiomyopathy: Code(s): I42.9 - Cardiomyopathy, unspecified Category: Medical Plan Per [facility] notes, mild cardiomyopathy with LVEF of 45%; moderately dilated RV. Status post CABG x4. Stable clinically. Continue long-term aspirin. Plavix for the next year. Beta-blockers, statins. Optimal management of diabetes. We will plan on a repeat echocardiogram to look for recovery of LVEF. Follow up in about 3 months or so. 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 Discussion Notes: I discussed with the patient and his family that he is recovering well from his recent heart surgery. I explained that because his heart function was not good before the surgery, I am ordering a heart ultrasound to see if it has improved. I informed them that the hospital's scheduling department will call them to set up this appointment. We also discussed the concern about his low blood pressure, and I reassured them that a review of his records shows this is a long-standing issue and not something to worry about at this time. A follow-up visit will be scheduled after the ultrasound is completed to review the results. Patient was informed and verbally consented to the use of an ambient scribe for clinic note documentation during this visit. Orders: Orders CA echo transthoracic complete Today I42.9 - Cardiomyopathy, unspecified, Z95.1 - Presence of aortocoronary bypass graft Patient Instructions: - You are recovering well from your heart surgery. - Continue with the cardiac rehab exercise program at your home. - We are ordering an ultrasound of your heart to check its function. - The hospital will call you to schedule this test. - Please schedule a follow-up appointment in our office after the ultrasound is done so we can review the results together. Coding Level of Care Code Est Pt Level 4 (44897) Add On Problem Visit Only Diagnoses Atherosclerotic cardiovascular disease I25.10 Status post aorto-coronary artery bypass graft Z95.1 Cardiomyopathy I42.9
--- OUTSIDE RECORDS SUMMARY | 2025-08-18 15:34 | XMS_ITS | Encounter Summary ---
Author Organization [employer] Address 75 [facility] 7t [place] [address] Care Team Providers Care Steam Table Attendant Name Role Phone Marv Ramirez MD Primary [...] Team (Late st Contact Info) Description 09/04/2025 1:30 PM EST Office Visit [facility] MEDICINE 230 [place], [place] [phone] Marv Ramirez MD 230 [place] [address] documented as of this encounter Goals Goal Patient Goal Type Associated Problems Recent Progress Patient-Stated? Author Help patients manage their type 2 diabetes Care Plan Help patients manage their type 2 diabetes No Zack Gregorio Weekly blood pressure task Care Plan Weekly blood pressure task No Gregorio, Zack Help patients manage their type 2 diabetes Care Plan Help patients manage their type 2 diabetes No Gregorio, Zack Patient has chronic kidney disease Care Plan Patient has chronic kidney disease No Gregorio, Zack Weekly blood pressure task Care Plan Weekly blood pressure task No Gregorio Zack Patient has chronic kidney disease Care Plan Patient has chronic kidney disease No Zack Gregorio Weekly blood pressure task Care Plan Weekly blood pressure task No Colon VásquezSenait moreno Weekly blood pressure task Care Plan Weekly blood pressure task No Colon Fahad, Senait Patient has chronic kidney disease Care Plan Patient has chronic kidney disease No Colon Vásquez, Senait Patient has chronic kidney disease Care Plan Patient has chronic kidney disease No Colon Charleen Vásquezla documented as of this encounter Procedures Procedure Name Priority Date/Time Associated Diagnosis Comments GLUCOSE, WHOLE BLOOD Routine 08/14/2025 9:30 AM EST documented in this encounter Results * (ABNORMAL) Glucose, Whole Blood (08/14/2025 9:30 AM EST) Glucose, Whole Blood 124(H) 60 - 115 mg/dL [facility] Comment:METER #: [id number] Testing performed in the Endocrinology Department [address] , [address], [facility]. 08/14/2025 9:30 AM EST 08/14/2025 9:36 AM EST us Generic External Data Provider LAB BLOOD ORDERAB LES Final Result [facility] [address] [place] [address] [phone] documented in this encounter Visit Diagnoses [...] Time PHQ-9 Depression Total Score: 0 03/06/20 10:24 AM EDT documented as of this encounter Care Teams Steam Table Attendant Relationship Specialty Start Date End Date Marv Ramirez MD [address] [place] [address] PCP - General Internal Medicine 04/09/14 [facility] 08/08/25 documented as of this encounter
--- OUTSIDE RECORDS SUMMARY | 2025-08-18 15:34 | XMS_ITS | Encounter Summary ---
Author Organization [employer] Address 75 [facility] 7t [place] [address] Care Team Providers Care Bevel Gear Generator Operator Name Role Phone Marv Ramirez MD Primary Care Provide r Reason for Visit * Reason Comments Med Refill Encounter Details Date Type Department Care Team ([facility] Contact Info) Description 07/16/2023 Refill [facility] MEDICINE 230 [place], [place] [phone] Bonita Yousif MD 230 [place], [place] [phone] Social History Tobacco Use Types Packs/Day Years [...] Description 09/04/2025 1:30 PM EST Office Visit [facility]INE 230 [place] [address] Marv Ramirez MD 230 [place] [address] documented as of this encounter Visit Diagnoses Not on filedocumented in this encounter Additional Health Concerns Assessment Noted Time PHQ-9 Depression Total Score: 0 11/25/19 23 10:31 AM EDT documented as of this encounter Care Teams Bevel Gear Generator Operator Relationship Specialty Start Date End Date Marv Ramirez MD 230 [place] [address] PCP - General Internal Medicine 04/09/14 [facility] 08/08/25 documented as of this encounter
--- OUTSIDE RECORDS SUMMARY | 2025-08-18 15:34 | XMS_ITS | Encounter Summary ---
Author Organization [employer] Address 75 [facility] 7t [place] [address] Care Team Providers Care Design Release Engineer Name Role Phone Marv Ramirez MD Primary Care Provide r Reason for Visit * Reason Comments Med Refill Encounter Details Date Type Department Care Team ([facility] Contact Info) Description 08/01/2024 Refill [facility] MEDICINE 230 [place], [place] [phone] Marv Ramirez MD 230 [place] [address] Social History Tobacco Use Types Packs/Day Years [...] Description 09/04/2025 1:30 PM EST Office Visit [facility] MEDICINE 230 [place] [address] Marv Ramirez MD 230 [place] [address] documented as of this encounter Visit Diagnoses Not on filedocumented in this encounter Additional Health Concerns Assessment Noted Time PHQ-9 Depression Total Score: 0 11/25/19 23 10:31 AM EDT documented as of this encounter Care Teams Design Release Engineer Relationship Specialty Start Date End Date Marv Ramirez MD [address] [place] [address] PCP - General Internal Medicine 04/09/14 [facility] 08/08/25 documented as of this encounter
--- OUTSIDE RECORDS SUMMARY | 2025-08-18 15:34 | XMS_ITS | Encounter Summary ---
Author Organization [employer] Address 75 [facility] 7t [place] [address] Care Team Providers Care Wool Sorter Name Role Phone Marv Ramirez MD Primary Care Provide r Reason for Visit * Reason Onset Date Comments Nurse Triage 12/13/2023 Encounter Details Date Type Department Care Team ([facility] st Contact Info) Description 12/13/2023 Telephone [facility] MEDICINE 230 [place], [place] [phone] Marv Ramirez MD 230 [place], [place] [phone] Nurse Triage Social History Tobacco Use Types [...] 12/13/2023 10:51 AM EDT Triage call with [facility] Food Prep Worker ID [id number] Pt reports glass in the right eye. [...] Description 09/04/2025 1:30 PM EST Office Visit [facility] MEDICINE 230 [place] [address] Marv Ramirez MD 230 [facility] [place] [address] documented as of this encounter Visit Diagnoses Not on filedocumented in this encounter Additional Health Concerns Assessment Noted Time PHQ-9 Depression Total Score: 0 11/25/19 23 10:31 AM EDT documented as of this encounter Care Teams Wool Sorter Relationship Specialty Start Date End Date Marv Ramirez MD 230 [place] [address] PCP - General Internal Medicine 04/09/14 [facility] 08/08/25 documented as of this encounter
--- OUTSIDE RECORDS SUMMARY | 2025-08-18 15:34 | XMS_ITS | Encounter Summary ---
Author Organization [employer] Address 75 [facility] 7t [place] [address] Care Team Providers Care Applied Psychology Professor Name Role Phone Marv Ramirez MD Primary Care Provide r Encounter Details Date Type Department Care Team (Late st Contact Info) Description 04/24/[address] [facility] [address] [place], [place] [phone] Lulu Escobar LPN Social History Tobacco Use [...] Description 09/04/2025 1:30 PM EST Office Visit [facility] 230 [place], [place] [phone] Marv Ramirez MD 230 [place], [place] [phone] documented as of this encounter Visit Diagnoses Not on filedocumented in this encounter Additional Health Concerns Assessment Noted Time PHQ-9 Depression Total Score: 0 11/25/19 23 10:31 AM EDT documented as of this encounter Care Teams Applied Psychology Professor Relationship Specialty Start Date End Date Marv Ramirez MD 230 [place] [address] PCP - General Internal Medicine 04/09/14 [facility] 08/08/25 documented as of this encounter
--- OUTSIDE RECORDS SUMMARY | 2025-08-18 15:35 | XMS_ITS | Encounter Summary ---
Author Organization [facility] Address [address] [place] [address] Care Team Providers Care Latex Ribbon Machine Operator Name Role Phone Marv Pérez MD Primary Care Provi ben Encounter Details Date Type Department Care Team (Late Contact Info) Description 08/02/2025 Lab Requisition [facility] - Main Lab 299 [facility] [place] [address] Sylvia Murillo MD [address] [place] [address] Type 2 diabetes mellitus without complications (CMS/HCC [...] AM EST Office Visit Orthopedic Surgery - [place] 250 175 [facility] 250 [place] [address] Ezequiel Mattson, DPM [address] [address] documented as of this encounter Visit Diagnoses Diagnosis Type 2 diabetes mellitus without complications (CMS/HCC V24, CMS/HCC V28) documented in this encounter Care Teams Latex Ribbon Machine Operator Relationship Specialty Start Date End Date Marv Pérez MD [address] [place] [address] PCP - General Internal Medicine 07/05/24 documented as of this encounter
--- OUTSIDE RECORDS SUMMARY | 2025-08-18 15:35 | XMS_ITS | Encounter Summary ---
Author Organization [employer] Address 75 [facility] 7t [place] [address] Care Team Providers Care Team Foreman Name Role Phone Marv Ramirez MD Primary Care Provide r Reason for Visit * Reason Comments Med Refill Encounter Details Date Type Department Care Team ([facility] st Contact Info) Description 03/04/[address] [facility] MEDICINE 230 [place], [place] [phone] Marv Ramirez MD 230 [place], [place] [phone] Insomnia, unspecified type Social History Tobacco Use [...] 1:30 PM EST Office Visit [facility] MEDICINE 230 [place] [address] Marv Ramirez MD 230 [place] [address] documented as of this encounter Visit Diagnoses Diagnosis Insomnia, unspecified type documented in this encounter Additional Health Concerns Assessment Noted Time PHQ-9 Depression Total Score: 0 11/25/19 23 10:31 AM EDT documented as of this encounter Care Teams Team Foreman Relationship Specialty Start Date End Date Marv Ramirez MD 230 [place] [address] PCP - General Internal Medicine 04/09/14 [facility] 08/08/25 documented as of this encounter
--- OUTSIDE RECORDS SUMMARY | 2025-08-18 15:35 | XMS_ITS | Encounter Summary ---
Author Organization [employer] [facility] Address [address] [place] [address] 7t [place] [address] Care Team Providers Care Fire Control Mechanic Name Role Phone Marv Ramirez MD Primary Care Provide r Encounter Details Date Type Department Care Team (Late st Contact Info) Description 07/20/2022 Abstract [facility] MEDICINE [address] [place] [address] [phone] Marv Ramirez MD [address] [place] [address] [phone] Social History Tobacco Use Types Packs/Day Years [...] Description 09/04/2025 1:30 PM EST Office Visit [facility] MEDICINE [address] [place] [address] [phone] Marv Ramirez MD [address] [place] [address] [phone] documented as of this encounter Procedures Procedure Name Priority Date/Time Associated Diagnosis Comments COLONOSCOPY Routine 04/25/2016 documented in this encounter Results * Colonoscopy (04/25/2016) Colonoscopy Tubular Adenoma/Hem orrhoids Comment:Dr Royal Jasso us Historical Provider [facility] Edited Result - Final documented in this encounter Visit Diagnoses Not on filedocumented in this encounter Care Teams Fire Control Mechanic Relationship Specialty Start Date End Date Marv Ramirez MD [address] [place] [phone] PCP - General Internal Medicine 04/09/14 [facility] 08/08/25 documented as of this encounter
--- OUTSIDE RECORDS SUMMARY | 2025-08-18 15:35 | XMS_ITS | Encounter Summary ---
Author Organization [employer] Address [address] [facility] 7t [place] [address] Care Team Providers Care High [employer] Social Studies Teacher Name Role Phone Marv Ramirez MD Primary Care Provide r Reason for Visit * Reason Comments Med Refill Encounter Details Date Type Department Care Team ([facility] Contact Info) Description 01/26/2024 Refill [facility] [address] [place], [place] [phone] Marv Ramirez MD 230 [place] [address] Social History Tobacco Use Types Packs/Day Years [...] Description 09/04/2025 1:30 PM EST Office Visit [facility] [address] [place] [address] Marv Ramirez MD 230 [place] [address] documented as of this encounter Visit Diagnoses Not on filedocumented in this encounter Additional Health Concerns Assessment Noted Time PHQ-9 Depression Total Score: 0 11/25/19 23 10:31 AM EDT documented as of this encounter Care Teams High School Social Studies Teacher Relationship Specialty Start Date End Date Marv Ramirez MD [address] [place] [phone] PCP - General Internal Medicine 04/09/14 [facility] 08/08/25 documented as of this encounter
--- OUTSIDE RECORDS SUMMARY | 2025-08-18 15:35 | XMS_ITS | Encounter Summary ---
Author Organization [facility] Address [address] [place] [address] Care Team Providers Care X Ray Physician Name Role Phone Marv Pérez MD Primary Care Provi ebn Encounter Details Date Type Department Care Team (Late Contact Info) Description 07/23/2025 Lab Requisition [facility] - Main Lab [address] [facility] [place] [address] Sylvia Murillo MD [address] [place] [address] Essential (primary) hypertension; Type 2 diabetes mellitus [...] AM EST Office Visit Orthopedic Surgery - [place] 250 175 [facility] 250 [place] [address] Ezequiel Mattson DPM 175 [facility] 250 [place] [address] documented as of this encounter [...] - 4.00 mcIU/mL 07/23/2025 10:44 AM EST [facility] Blood Venous blood specimen / Unknown Venipuncture / Unknown 07/23/2025 7:45 AM EST 07/23/2025 9:13 AM EST us Sylvia Murillo MD LAB BLOOD ORDERABLES Final Resul t [facility] [address] [place] [address], * (ABNORMAL) Basic metabolic panel (07/23/2025 7:45 AM EST) Sodium 136 133 - 145 mmol/L 07/23/2025 10:44 AM EST [facility] Potassium 4.0 3.5 - 5.5 mmol/L 07/23/2025 10:44 AM EST [facility] Chloride 96 96 - 110 mmol/L 07/23/2025 10:44 AM EST [facility] CO2 31 21 - 32 mmol/L 07/23/2025 10:44 AM EST [facility] Anion Gap 9 3 - 11 07/23/2025 10:44 AM [facility] Glucose 112(H) 70 - 100 mg/dL 07/23/2025 10:44 AM [facility] BUN 18 5 - 25 mg/dL 07/23/2025 10:44 AM [facility] Creatinine 0.81 0.70 - 1.30 mg/dL 07/23/2025 10:44 AM [facility] eGFR 91 >=60 mL/min/1. 73m2 07/23/2025 10:44 AM [facility] Comment:Calculation based on the Chronic Kidney Disease Epidemiology Collaboration (CKD-EPI) equation refit without adjustment for race. BUN/Creatinine Ratio 22.2 07/23/2025 10:44 AM [facility] Calcium 7.7(L) 8.5 - 10.5 mg/dL 07/23/2025 10:44 AM [facility] Blood Venous blood specimen / Unknown Venipuncture / Unknown 07/23/2025 7:45 AM EST 07/23/2025 9:13 AM EST us Sylvia Murillo MD LAB BLOOD ORDERABLES Final Resul t [facility] [address] [place] [address], * (ABNORMAL) Complete blood count (07/23/2025 7:45 AM EST) WBC 5.9 4.8 - 10.8 K/mcL LAB HEMETOLOGY METHOD 07/23/2025 10:12 AM [facility] RBC 3.10(L) 4.50 - 5.50 M/mcL LAB HEMETOLOGY METHOD 07/23/2025 10:12 AM [facility] Hemoglobin 8.9(L) 13.5 - 17.5 g/dL LAB HEMETOLOGY METHOD 07/23/2025 10:12 AM [facility] Hematocrit 27.3(L) 42.0 - 54.0 % LAB HEMETOLOGY METHOD 07/23/2025 10:12 AM [facility] MCV 88.6 79.0 - 98.0 FL LAB HEMETOLOGY METHOD 07/23/2025 10:12 AM [facility] MCH 28.9 27.0 - 32.0 pcg LAB HEMETOLOGY METHOD 07/23/2025 10:12 AM [facility] MCHC 32.6 32.0 - 37.0 g/dL LAB HEMETOLOGY METHOD 07/23/2025 10:12 AM [facility] RDW 15.9(H) 11.0 - 15.0 % LAB HEMETOLOGY METHOD 07/23/2025 10:12 AM [facility] Platelets 216 130 - 400 K/mcL LAB HEMETOLOGY METHOD 07/23/2025 10:12 AM [facility] MPV 11.0 7.0 - 11.0 FL LAB HEMETOLOGY METHOD 07/23/2025 10:12 AM [facility] NRBC 0.0 <1.0 % LAB HEMETOLOGY METHOD 07/23/2025 10:12 AM EST [facility] NRBC Absolute 0.00 <0.10 K/mcL LAB HEMETOLOGY METHOD 07/23/2025 10:12 AM [facility] Blood Venous blood specimen / Unknown Venipuncture / Unknown 07/23/2025 7:45 AM EST 07/23/2025 9:13 AM EST us Sylvia Murillo MD LAB BLOOD ORDERABLES Final Resul t [facility] 299 [place] [address], documented in this encounter Visit Diagnoses Diagnosis Essential (primary) hypertension Unspecified essential hypertension Type 2 diabetes mellitus without complications (CMS/HCC V24, CMS/HCC V28) documented in this encounter Care Teams X Ray Physician Relationship Specialty Start Date End Date Marv Pérez MD 230 [place] [address] PCP - General Internal Medicine 07/05/24 documented as of this encounter
--- OUTSIDE RECORDS SUMMARY | 2025-08-18 15:35 | XMS_ITS | Encounter Summary ---
Author Organization [employer] Address 75 [facility] 7t [place] [address] Care Team Providers Care Independent Marketing Consultant Name Role Phone Marv Ramirez MD Primary Care Provide r Reason for Visit * Reason Onset Date Comments Hospital Follow-up 08/18/2025 Encounter Details Date Type Department Care Team ([facility] st Contact Info) Description 08/18/2025 Telephone [facility] MED[facility] 230 [place], [place] [phone] Marv Ramirez MD 230 [place], [place] [phone] Hospital Follow-up Social History Tobacco Use Types Packs/Day Years [...] encounter Miscellaneous Notes * Telephone Encounter - Pablo Wayne - 08/18/2025 9:22 AM EST Tc from pt requesting a HDF appt. Hospital: [facility] then transferred to [facility] Date of admission: 07/07/25 Discharge date:07/25/25 Diagnosed: Open Heart Surgery Please contact Estephania at [phone]. documented in this encounter Plan of Treatment Upcoming Encounters Date Type Department Care Team (Late st Contact Info) Description 09/04/2025 1:30 PM EST Office Visit [facility] 230 [place] [address] Marv Ramirez MD [address] [place] [address] documented as of this encounter Goals Goal [...] Care Plan Weekly blood pressure task No Zack Gregorio Patient has chronic kidney disease Care Plan Patient has chronic kidney disease No Zack Gregorio Weekly blood pressure task Care Plan Weekly blood pressure task No Colon Senait Vásquez Weekly blood pressure task Care Plan Weekly blood pressure task No Colon Senait Vásquez Patient has chronic kidney disease Care Plan Patient has chronic kidney disease No Colon Senait Vásquez Patient has chronic kidney disease Care Plan Patient has chronic kidney disease No Colon Senait Vásquez Weekly blood pressure task Care Plan Weekly blood pressure task No VasquezAdanMela, TILE MOLDER HAND Weekly blood pressure task Care Plan Weekly blood pressure task No Vasquez Mela, TILE MOLDER HAND Patient has chronic kidney disease Care Plan Patient has chronic kidney disease No Vasquez Mela, TILE MOLDER HAND Patient has chronic kidney disease Care Plan Patient has chronic kidney disease No VasquezAdan prietoura, TILE MOLDER HAND Weekly blood pressure task Care Plan Weekly blood pressure task No Pablo Wayne Weekly blood pressure task Care Plan Weekly blood pressure task No Pablo Wayne Patient has chronic kidney disease Care Plan Patient has chronic kidney disease No Pablo Wayne Patient has chronic kidney disease Care Plan Patient has chronic kidney disease No Pablo Wayne documented as of this encounter Visit Diagnoses [...] kidney disease 08/08/2025 Weekly blood pressure task 08/15/2025 Weekly blood pressure task 08/15/2025 Patient has chronic kidney disease 08/15/2025 Patient has chronic kidney disease 08/15/2025 Weekly blood pressure task 08/18/2025 Weekly blood pressure task 08/18/2025 Patient has chronic kidney disease 08/18/2025 Patient has chronic kidney disease 08/18/2025 Assessment Noted Time PHQ-9 Depression Total Score: 0 07/10/20 25 10:24 AM EDT documented as of this encounter Care Teams Independent Marketing Consultant Relationship Specialty Start Date End Date Marv Ramirez MD [address] [place] [address] PCP - General Internal Medicine 04/09/14 [facility] 08/08/25 documented as of this encounter
--- OUTSIDE RECORDS SUMMARY | 2025-08-18 15:35 | XMS_ITS ---
[place] [id number] Health Maintenance Due Date Last Done Comments [...] mellitus without complications (CMS/HCC V24, CMS/HCC V28) FERRITIN Routine 07/31/2025 5:52 AM EST Type 2 diabetes mellitus without complications (CMS/HCC V24, CMS/HCC V28) IRON AND TIBC Routine 07/31/2025 5:52 AM EST Type 2 diabetes mellitus without complications (CMS/HCC V24, CMS/HCC V28) BASIC METABOLIC PANEL Routine 07/30/2025 7:31 [...] B12 and folate (07/31/2025 5:52 AM EST) Pathologist [facility] Vitamin B-12 462 211 - 911 pcg/mL 07/31/2025 9:[address] [facility] Folate 10.9 >=5.4 ng/ml 07/31/2025 9:[address] [facility] Comment:Over the counter sup plements containing high doses of biotin may interfere with this assay. If interference is suspected, patients shoud be retested after refraining from biotin supplements for 72 hours. Blood Venous blood specimen / Unknown Venipuncture / Unknown 07/31/2025 5:52 AM EST 07/31/2025 8:42 AM EST Sylvia Murillo MD LAB BLOOD ORDERABLES Final Resul t Performing Organization Address City/[facility]/ZIP Co de Phone Number [facility] [address] [place] [address], [place] [phone] * (ABNORMAL) Iron and TIBC (07/31/2025 5:52 AM EST) Pathologist [facility] Iron 18(L) 50 - 160 mcg/dL 07/31/2025 9:37 AM [facility] TIBC 272 250 - 450 mcg/dL 07/31/2025 9:[address] [facility] Iron Saturation 7(L) 20 - 50 % 9:37 AM [facility] Blood Venous blood specimen / Unknown Venipuncture / Unknown 07/31/2025 5:52 AM EST 07/31/2025 8:42 AM EST us Syliva Murillo MD LAB BLOOD ORDERABLES Final Resul t [facility] [address] [place] [address], [place] [phone] * Ferritin (07/31/2025 5:52 AM EST) Pathologist [facility] Ferritin 46 11 - 307 ng/mL 07/31/2025 9:39 AM [facility] Blood Venous blood specimen / Unknown Venipuncture / Unknown 07/31/2025 5:52 AM EST 07/31/2025 8:42 AM EST Sylvia Murillo MD LAB BLOOD ORDERABLES Final Resul t [facility] [address] [place] [address], * (ABNORMAL) Complete blood count (07/30/2025 7:31 AM EST) Only the most recent of2 resultswithin the time period is included. [facility] WBC 4.5(L) 4.8 - 10.8 K/mcL LAB HEMETOLOGY METHOD 07/30/2025 10:25 AM [facility] RBC 2.70(L) 4.50 - 5.50 M/mcL LAB HEMETOLOGY METHOD 07/30/2025 10:25 AM [facility] Hemoglobin 7.7(L) 13.5 - 17.5 g/dL LAB HEMETOLOGY METHOD 07/30/2025 10:25 AM [facility] Hematocrit 24.3(L) 42.0 - 54.0 % LAB HEMETOLOGY METHOD 07/30/2025 10:25 AM [facility] MCV 90.3 79.0 - 98.0 FL LAB HEMETOLOGY METHOD 07/30/2025 10:25 AM [facility] MCH 28.6 27.0 - 32.0 pcg LAB HEMETOLOGY METHOD 07/30/2025 10:25 AM [facility] MCHC 31.7(L) 32.0 - 37.0 g/dL LAB HEMETOLOGY METHOD 07/30/2025 10:[address] [facility] RDW 15.8(H) 11.0 - 15.0 % LAB HEMETOLOGY METHOD 07/30/2025 10:25 AM [facility] Platelets 319 130 - 400 K/mcL LAB HEMETOLOGY METHOD 07/30/2025 10:[address] [facility] MPV 9.9 7.0 - 11.0 FL LAB HEMETOLOGY METHOD 07/30/2025 10:[address] [facility] NRBC 0.0 <1.0 % LAB HEMETOLOGY METHOD 07/30/2025 10:25 AM [facility] NRBC Absolute 0.00 <0.10 K/mcL LAB HEMETOLOGY METHOD 07/30/2025 10:25 AM [facility] Blood Venous blood specimen / Unknown Venipuncture / Unknown 07/30/2025 7:31 AM EST 07/30/2025 10:13 AM EST us Sylvia Murillo MD LAB BLOOD ORDERABLES Final Resul t [facility] [address] [place] [address], * (ABNORMAL) Basic metabolic panel (07/30/2025 7:31 AM EST) Only the most recent of2 resultswithin the time period is included. Sodium 141 133 - 145 mmol/L 07/30/2025 11:[address] [facility] Potassium 4.2 3.5 - 5.5 mmol/L 07/30/2025 11:26 AM [facility] Chloride 102 96 - 110 mmol/L 07/30/2025 11:26 AM [facility] CO2 31 21 - 32 mmol/L 07/30/2025 11:26 AM [facility] Anion Gap 8 3 - 11 07/30/2025 11:26 AM [facility] Glucose 121(H) 70 - 100 mg/dL 07/30/2025 11:26 AM [facility] BUN 13 5 - 25 mg/dL 07/30/2025 11:26 AM [facility] Creatinine 0.76 0.70 - 1.30 mg/dL 07/30/2025 11:26 AM [facility] eGFR 93 >=60 mL/min/1. 73m2 07/30/2025 11:26 AM [facility] Comment:Calculation based on the Chronic Kidney Disease Epidemiology Collaboration (CKD-EPI) equation refit without adjustment for race. BUN/Creatinine Ratio 17.1 07/30/2025 11:26 AM [facility] Calcium 8.2(L) 8.5 - 10.5 mg/dL 07/30/2025 11:26 AM [facility] Blood Venous blood specimen / Unknown Venipuncture / Unknown 07/30/2025 7:31 AM EST 07/30/2025 10:13 AM EST us Sylvia Murillo MD LAB BLOOD ORDERABLES Final Resul t [facility] [address] [place] [address], * (ABNORMAL) Thyroid stimulating hormone (07/23/2025 7:45 AM EST) TSH 6.53(H) 0.40 - 4.00 mcIU/mL 07/23/2025 10:44 AM [facility] Blood Venous blood specimen / Unknown Venipuncture / Unknown 07/23/2025 7:45 AM EST 07/23/2025 9:13 AM EST us Sylvia Murillo MD LAB BLOOD ORDERABLES Final Resul t [facility] [address] [place] [address], [place] [phone] from Last 3 Months Insurance [facility] Member Subscriber Plan / Payer (Ef fective 2018-Present) Name:ArmstrongMatthew Relation to Subscriber:Self Name:Matthew Armstrong Payer ID:[id number] Group ID:[id number] Type:Not on file Address: [address] [place] [address] [employer] MED[employer] Member Subscriber Plan / Payer (Ef fective 2018-Present) Name:Matthew Armstrong Relation to Subscriber:Self Name:Matthew Armstrong Payer ID:[id number] Group ID:[id number] Type:Not on file Address: [address] [place] [address] Care Teams Laborer Driver Relationship Specialty Start Date End Date Marv Pérez MD [address] [place] [address] PCP - General Internal Medicine 07/05/24
--- OUTSIDE RECORDS SUMMARY | 2025-08-18 15:35 | XMS_ITS | Encounter Summary ---
Author Organization [facility] Address [address] [place] [address] Care Team Providers Care Heel Seam Rubber Name Role Phone Marv Pérez MD Primary Care Provi ben Encounter Details Date Type Department Care Team (Late Contact Info) Description 07/31/2025 Lab Requisition [facility] - Main Lab 299 [facility] [place] [address] Sylvia Murillo MD [address] [place] [address] Type 2 diabetes mellitus without complications (CMS/HCC [...] AM EST Office Visit Orthopedic Surgery - [place] 250 175 [facility] 250 [place] [address] Ezequiel Mattson DPM [address] [address] documented as of this encounter Procedures Procedure Name Priority Date/Time Associated Diagnosis Comments VITAMIN B12 AND FOLATE Routine 07/31/2025 5:52 AM EST Type 2 diabetes mellitus without complications ([facility]/HCC V24, CMS/[facility] V28) IRON AND TIBC Routine 07/31/2025 5:52 AM EST Type 2 diabetes mellitus without complications ([facility]/HCC V24, CMS/[facility] V28) FERRITIN Routine 07/31/2025 5:52 AM EST Type 2 diabetes mellitus without complications ([facility] V24, CMS/[facility] V28) documented in this encounter Results * Vitamin B12 and folate (07/31/2025 5:52 AM EST) Vitamin B-12 462 211 - 911 pcg/mL 07/31/2025 9:40 AM EST [facility] Folate 10.9 >=5.4 ng/ml 07/31/2025 9:40 AM EST [facility] Comment:Over the counter sup plements containing high doses of biotin may interfere with this assay. If interference is suspected, patients shoud be retested after refraining from biotin supplements for 72 hours. Blood Venous blood specimen / Unknown Venipuncture / Unknown 07/31/2025 5:52 AM EST 07/31/2025 8:42 AM EST us Sylvia Murillo MD LAB BLOOD ORDERABLES Final Resul t [facility] [address] [place] [address], [place] [phone] * Ferritin (07/31/2025 5:52 AM EST) Ferritin 46 11 - 307 ng/mL 07/31/2025 9:39 AM EST [facility] Blood Venous blood specimen / Unknown Venipuncture / Unknown 07/31/2025 5:52 AM EST 07/31/2025 8:42 AM EST us Fahim A Lidia MD LAB BLOOD ORDERABLES Final Resul t [facility] [address] [place] [address], [place] [phone] * (ABNORMAL) Iron and TIBC (07/31/2025 5:52 AM EST) Iron 18(L) 50 - 160 mcg/dL 07/31/2025 9:37 AM EST [facility] TIBC 272 250 - 450 mcg/dL 07/31/2025 9:37 AM EST [facility] Iron Saturation 7(L) 20 - 50 % 9:37 AM EST [facility] Blood Venous blood specimen / Unknown Venipuncture / Unknown 07/31/2025 5:52 AM EST 07/31/2025 8:42 AM EST Sylvia Murillo MD LAB BLOOD ORDERABLES Final Resul t [facility] [address] [place] [address], [place] [phone] documented in this encounter Visit Diagnoses Diagnosis Type 2 diabetes mellitus without complications (CMS/HCC V24, CMS/HCC V28) documented in this encounter Care Teams Heel Seam Rubber Relationship Specialty Start Date End Date Marv Pérez MD [address] [place] [id number] PCP - General Internal Medicine 07/05/24 documented as of this encounter
--- OUTSIDE RECORDS SUMMARY | 2025-08-18 15:35 | XMS_ITS | Encounter Summary ---
Author Organization [employer] Address 75 [facility] 7t [place] [address] Care Team Providers Care Light Rail Signal Technician Name Role Phone Marv Ramirez MD Primary Care Provide r Reason for Visit * Reason Comments Med Refill Encounter Details Date Type Department Care Team ([facility] Contact Info) Description 02/01/2024 Refill [facility] MEDICINE 230 [place], [place] [phone] Marv Ramirez MD 230 [place] [address] Social History Tobacco Use Types Packs/Day Years [...] Description 09/04/2025 1:30 PM EST Office Visit [facility]INE 230 [place] [address] Marv Ramirez MD 230 [place] [address] documented as of this encounter Visit Diagnoses Not on filedocumented in this encounter Additional Health Concerns Assessment Noted Time PHQ-9 Depression Total Score: 0 11/25/19 23 10:31 AM EDT documented as of this encounter Care Teams Light Rail Signal Technician Relationship Specialty Start Date End Date Marv Ramirez MD [address] [place] [id number] PCP - General Internal Medicine 04/09/14 [facility] 08/08/25 documented as of this encounter
--- OUTSIDE RECORDS SUMMARY | 2025-08-18 15:35 | XMS_ITS | Encounter Summary ---
Author Organization [employer] Address 75 [facility] 7t [place] [address] Care Team Providers Care Mud Worker Name Role Phone Marv Ramirez MD Primary Care Provide r Reason for Visit * Reason Comments Med Refill Encounter Details Date Type Department Care Team ([facility] Contact Info) Description 01/31/2024 Refill [facility] 230 [place], [place] [phone] Marv Ramirez MD 230 [place] [address] Social History Tobacco Use Types Packs/Day Years [...] Description 09/04/2025 1:30 PM EST Office Visit [facility] 230 [place] [address] Marv Ramirez MD 230 [place] [address] documented as of this encounter Visit Diagnoses Not on filedocumented in this encounter Additional Health Concerns Assessment Noted Time PHQ-9 Depression Total Score: 0 11/25/19 23 10:31 AM EDT documented as of this encounter Care Teams Mud Worker Relationship Specialty Start Date End Date Marv Ramirez MD [address] [place] [id number] PCP - General Internal Medicine 04/09/14 [facility] 08/08/25 documented as of this encounter
--- OUTSIDE RECORDS SUMMARY | 2025-08-18 15:35 | XMS_ITS | Clinical Summary ---
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 Hypokinesis of the inferior and inferoseptal ahddad. Assessment & Plan (07/10/2025 2:00 PM EST): [...] cc an hour after midnight -Patient is [place]-speaking and language line furniture restorer should be utilized for conversations and encounters with this patient -Patient received heparin bolus today. -Continue heparin drip to therapeutic anti-1Xa per [facility] Protocol -Trazadone nightly for sleep [...] continue heparin drip for now seen by blood bank worker underwent angiogram showed multivessel disease has been [...] cc an hour after midnight -Patient is [place]-speaking and language line furniture restorer should be utilized for conversations and encounters with this patient -Patient received heparin bolus today. -Continue heparin drip to therapeutic anti-1Xa per [facility] Protocol -Trazadone nightly for sleep [...] continue heparin drip for now seen by blood bank worker underwent angiogram showed multivessel disease has been [...] cc an hour after midnight -Patient is [place]-speaking and language line furniture restorer should be utilized for conversations and encounters with this patient -Patient received heparin bolus today. -Continue heparin drip to therapeutic anti-1Xa per [facility] Protocol -Trazadone nightly for sleep [...] continue heparin drip for now seen by blood bank worker underwent angiogram showed multivessel disease has been [...] cc an hour after midnight -Patient is [place]-speaking and language line furniture restorer should be utilized for conversations and encounters with this patient -Patient received heparin bolus today. -Continue heparin drip to therapeutic anti-1Xa per [facility] Protocol -Trazadone nightly for sleep Resolved Problems Problem Noted Date Diagnosed Date Resolved Date NSTEMI (non-ST elevated myoc ardial infarction) 07/07/2025 07/08/2025 Encounters Date Type Department Care Team Description 08/11/2025 10:00 AM EST Office Visit [facility] Cardiothoracic Surgery [address] [address] Shyanne Davis APRN S/P CABG (coronary artery bypass graft) 07/18/2025 Documentation [facility] Cardiothoracic Surgery [address] [address] Shanda Bain RN MSN 07/15/2025 2:56 PM EST Anesthesia Event [facility] Perioperative Surgical Services [address] [place] [phone] Tai Whalen, Jolly Colon, PA-C 07/15/2025 12:44 PM EST - 07/15/2025 6:[address] [facility] Perioperative Surgical Services [address] [place] [phone] Arturo Copeland MD [place] CABG X 4 /ESVH RIGHT SAPHENOUS VEIN/ LEFT ANTONIETTA/ LEFT RADIAL ARTERY/ SAJI 07/15/2025 Documentation [facility] Cardiothoracic Surgery [place] [address] [facility] [address] [place] [id number] Shanda Bain, RN MSN 07/11/2025 7:45 AM EST - 07/11/2025 9:00 AM EST Surgery [facility] Heart & Vascular [place] [facility] - Cardiac Catheterization Laboratory [address] [place] [address] Lisette Villalta, DO CORONARY ANGIO W/LV 07/07/2025 11:05 PM EST Ancillary Procedure [facility] Emergency Department [address] [place] [address] Jayce Ugalde MD 07/07/2025 3:37 PM EST - 07/22/2025 4:28 PM EST Hospital Encounter [facility] [address] [place] [phone] Jayce Ugalde MD Ogbonna, Rogerio, MD Blue, MD Carlos Blank Sahiljeet, MD Rahman, MD Jani Phillips, MD Hugh De La Torre, MD Tita Hoyt, MD Noemí Andrade, MD Dinorah Gonzalez, Arturo Louis MD Gangrenmaya ([facility]) (Primary Dx); Chest pain; Chest pain, unspecified; Hyperlipidemia; Hypertension; S/P CABG (coronary artery bypass graft) Discharge Disposition: Halfway Facility from Last 3 Months Social History [...] any time in the past [address] [facility], were you homeless or living in a fci (including now)? No 07/08/2025 [facility] Utilities Answer Date Recorded In the [...] PM EST ANES LINE - PULMONARY ARTERY, MOLD ENGRAVER/SVO2 Routine 07/15/2025 4:08 PM EST ANES LINE [...] THROMBOELASTOGRAPH (TEG) Routine 07/15/2025 3:05 PM EST WI NDSC SURG W/VIDEO-ASSISTED HARVEST VEIN CABG 07/15/2025 2:36 PM EST Coronary arteriosclerosis WI CORONARY ARTERY BYP W/VEIN & ARTERY GRAFT 1 VEIN 07/15/2025 2:36 PM EST Coronary arteriosclerosis [place] CABG W/ARTERIAL GRAFT TWO ARTERIAL GRAFTS 07/15/2025 [...] of9 resultswithin the time period is included. Pathologist [facility] Ventricular rate 63 BPM EKG [facility] Atrial rate 63 BPM EKG [facility] P-R interval 184 ms EKG [facility] QRS duration 106 ms EKG [facility] Q-T interval 438 ms EKG [facility] QTC calculation (Bazett) 449 ms EKG [facility] P axis 28 degrees EKG [facility] R axis -5 degrees EKG [facility] T axis -25 degrees EKG [facility] 07/22/2025 10:1 2 AM EST Narrative EKG [facility] - 07/22/2025 12:57 PM EST Normal sinus rhythm ST elevation, consider early repolarization, pericarditis, or injury Abnormal ECG When compared with ECG of 19-Jul-2025 05:51, ST less elevated in Septal leads Confirmed by MD Kim Daniel ([id number]) on 07/22/2025 12:57:45 PM Procedure Note Tashi Kim MD - 07/22/[address] elevation, consider early repolarization, pericarditis, or injury Abnormal ECG When compared with ECG of 19-Jul-2025 05:51, ST less elevated in Septalleads Confirmed by MD Kim Daniel ([id number]) on 07/22/2025 12:57:45 PM us Varakuta PA-C ECG ORDERABLES Final Result EKG [facility] * (ABNORMAL) COMPLETE BLOOD COUNT, WITHOUT DIFFERENTIAL (07/22/2025 6:38 AM EST) Only the most recent of11 resultswithin the time period is included. White Blood Cell Count 6.3 4.0 - 11.0 Thou/uL 07/22/2025 7:47 AM [facility] Platelet Count 181 150 - 450 Thou/uL 07/22/2025 7:47 AM [facility] Hemoglobin 8.4(L) 13.0 - 17.7 g/dL 07/22/2025 7:47 AM [facility] Hematocrit 26.0(L) 39.0 - 54.0 % 07/22/2025 7:47 AM [facility] Red Blood Cell Count 2.93(L) 4.50 - 6.20 Mil/uL 07/22/2025 7:47 AM [facility] MCV 89 80 - 100 fL 07/22/2025 7:47 AM [facility] MCH 28.7 27.0 - 31.0 pg 07/22/2025 7:47 AM [facility] MCHC 32.3 30.0 - 36.0 g/dL 07/22/2025 7:47 AM [facility] RDW 15.5(H) 11.5 - 14.5 % 07/22/2025 7:47 AM [facility] MPV 10.7 7.5 - 12.5 fL 07/22/2025 7:47 AM [facility] Blood Blood specimen / Unknown 07/22/2025 6:38 AM EST 07/22/2025 7:38 AM EST us John Mcdonald PA-C LAB BLOOD ORDERABLES Final Re sult [facility] [address] [place] [address], [address] [address] * Magnesium (07/22/2025 6:38 AM EST) Only the most recent of10 resultswithin the time period is included. Magnesium 1.6 1.6 - 2.7 mg/dL 07/22/2025 8:00 AM [facility] Blood Blood specimen / Unknown 07/22/2025 6:38 AM EST 07/22/2025 7:38 AM EST John Mcdonald PA-C LAB BLOOD ORDERABLES Final Re sult [address] [address], [address] [address] * (ABNORMAL) Basic Metabolic Panel (07/22/2025 6:38 AM EST) Only the most recent of11 resultswithin the time period is included. Glucose 116(H) 65 - 99 mg/dL 07/22/2025 8:00 AM [facility] Comment:Fasting: <100 mg/dL, Non-Fasting: <200 mg/dL (ADA 2005) Blood Urea Nitrogen (BUN) 26(H) 8 - 21 mg/dL 07/22/2025 8:00 AM [facility] Creatinine 0.81 0.50 - 1.30 mg/dL 07/22/2025 8:00 AM [facility] eGFR >90 >59 07/22/2025 8:00 AM [facility] Comment:CKD-EPI (2020) in mL /min/1.73 sq meters. Sodium 133(L) 136 - 145 mmol/L 07/22/2025 8:00 AM [facility] Potassium 3.9 3.4 - 5.3 mmol/L 07/22/2025 8:00 AM [facility] Chloride 94(L) 98 - 107 mmol/L 07/22/2025 8:00 AM [facility] CO2 29 22 - 33 mmol/L 07/22/2025 8:00 AM [facility] Anion Gap 10 7 - 17 07/22/2025 8:00 AM [facility] Calcium 8.6(L) 8.7 - 10.5 mg/dL 07/22/2025 8:00 AM [facility] BUN/Creatinine Ratio 32(H) 10.0 - 25.0 Ratio 07/22/2025 8:00 AM EST [facility] Blood Blood specimen / Unknown 07/22/2025 6:38 AM EST 07/22/2025 7:38 AM EST John FRANCISCOC LAB BLOOD ORDERABLES Final Re sult Performing Organization Address [facility] [place] [address], [place] [address] * Phosphorus (07/20/2025 6:04 AM EST) Only the most recent of6 resultswithin the time period is included. Phosphorus 4.2 2.7 - 4.5 mg/dL 07/20/2025 6:43 AM EST [facility] Blood Blood specimen / Unknown 07/20/2025 6:04 AM EST 07/20/2025 6:14 AM EST Tara FRANCISCOC LAB BLOOD ORDERABLES Final Result Performing Organization Address [facility] [place] [address], [place] [address] * XR Chest 2 views (07/19/2025 9:41 [...] focal consolidation or pneumothorax. Tara Sr PA-C [facility] G ORDERABLES Final Result * XR Chest 1 view-Portable (07/18/2025 6:00 AM EST) Only the most recent of3 resultswithin the time period is included. Anatomical Region Laterality Modality Chest Computed Radiogr aphy 07/18/2025 5:0 0 AM EST Impressions 07/18/2025 4:47 PM EST [...] effusion. IMPRESSION: As above. Jace Nava APRN [facility] ORDE ROSIE Final Result * Creatine Kinase MB Fraction (07/17/2025 6:07 AM EST) CKMB 6.1 0 - 6.4 ng/mL 07/17/2025 11:04 AM [facility] Relative Index 1.8 0 - 3.4 % 07/17/2025 11:04 AM [facility] 07/17/2025 6:07 AM EST 07/17/2025 7:20 AM EST Comment:Plasma/Serum~Blood [employer] PA-C LAB BLOOD ORDERAB[place] [address], [place] [address] * (ABNORMAL) Creatine Kinase, Reflex to CKMB (07/17/2025 6:07 AM EST) Creatine Kinase (CK) 333(H) 24 - 204 U/L 07/17/2025 8:14 AM [facility] Blood Blood specimen / Unknown 07/17/2025 6:07 AM EST 07/17/2025 7:20 AM EST Comment:Plasma/Serum~Blood Lorna R [employer] PA-C LAB BLOOD ORDERAB[place] [address], [place] [address] * (ABNORMAL) Blood Gas, Arterial (07/16/2025 12:29 PM EST) Only the most recent of2 resultswithin the time period is included. pH, Arterial 7.42 7.35 - 7.45 07/16/2025 12:38 PM [facility] pCO2, Arterial 40 32 - 45 mmHG 07/16/2025 12:38 PM [facility] pO2, Arterial 190(H) 75 - 95 mmHG 07/16/2025 12:38 PM [facility] CO2, Total 27 22 - 28 mmol/L 07/16/2025 12:38 PM [facility] Respiratory Info VENT 40% 07/16/20 12:30 PM [facility] P/F Ratio 475 07/16/2025 12:38 PM [facility] Base Excess 1.3 mmol/L 07/16/2025 12:38 PM [facility] Comment:Reference Range: Neg ative 2 to Positive 3 Blood Blood specimen / Unknown 07/16/2025 12:29 PM EST 07/16/2025 12:34 PM EST Jace aNva APRN LAB BLOOD ORDERABLES Final Result Performing Organization Address [facility]/[place] [address], [place] [address] * (ABNORMAL) Cooximetry, Venous (07/16/2025 9:56 AM EST) Only the most recent of2 resultswithin the time period is included. Hemogloblin, Total 8.1(L) 13.0 - 17.7 g/dL 07/16/2025 10:07 AM [facility] O2 Saturation, Venous 53.7 % 10:07 AM [facility] Carboxyhemoglobin 1.0 0.0 - 2.0 % 07/16/2025 10:07 AM [facility] Methemoglobin 1.3 0.4 - 1.5 % 07/16/2025 10:07 AM [facility] Venous O2 Content 6.0(L) 7.2 - 17.2 mL/dL 07/16/2025 10:07 AM [facility] Blood Blood specimen / Unknown 07/16/2025 9:56 AM EST 07/16/2025 10:04 AM EST Jace Nava APRN LAB BLOOD ORDERABLES Final Result Performing Organization Address [facility]/[place] [address], [place] [address] * Transfuse Platelets: (07/15/2025 8:45 PM EST) Only the most recent of2 resultswithin the time period is included. us Tai Whalen DO BLOOD TRANSFUSION ORDERAB LES Final Result [...] DEVICE Eulalia l Result Performing Organization Address [facility] LAB See Below * (ABNORMAL) ISTAT Hemoglobin (07/15/2025 8:42 PM EST) Only the most recent of9 resultswithin the time period is included. Hemoglobin, I-STAT 9.5(L) 13.0 - 17.7 gm/dL 07/15/2025 9:28 PM EST Blood specimen / Unknown 07/15/2025 8:42 PM EST 07/15/2025 9:24 PM EST us Sandra Gonzalez MD POCT ORDERABLES - DEVICE Eulalia l Result Performing Organization Address [facility] LAB See Below * (ABNORMAL) ISTAT Hematocrit (07/15/2025 8:42 PM EST) Only the most recent of9 resultswithin the time period is included. Hematocrit, I-STAT 28.0(L) 39.0 - 54.0 % 07/15/2025 9:28 PM EST Blood specimen / Unknown 07/15/2025 8:42 PM EST 07/15/2025 9:24 PM EST us Sandra Gonzalez MD POCT ORDERABLES - DEVICE Eulalia l Result Performing Organization Address [facility] Phone Number [facility] LAB See Below * (ABNORMAL) ISTAT Calcium, Ionized (ICA) (07/15/2025 8:42 PM EST) Only the most recent of9 resultswithin the time period is included. Ionized Calcium, I-STAT 1.04(L) 1.17 - 1.33 mmol/L 07/15/2025 9:28 PM EST Blood specimen / Unknown 07/15/2025 8:42 PM EST 07/15/2025 9:24 PM EST us Sandra Gonzalez MD POINT OF CARE TEST ORDERABLES Final Result Performing Organization Address [facility] Phone Number [facility] LAB See Below * (ABNORMAL) ISTAT Potassium (K) (07/15/2025 8:42 PM EST) Only the most recent of9 resultswithin the time period is included. Potassium, I-STAT 3.3(L) 3.4 - 5.3 mmol/L 07/15/2025 9:28 PM EST Blood specimen / Unknown 07/15/2025 8:42 PM EST 07/15/2025 9:24 PM EST us Sandra Gonzalez MD POINT OF CARE TEST ORDERABLES Final Result Performing Organization Address [facility] Phone Number HOSPITAL LAB See Below * ISTAT Sodium (Na) (07/15/2025 8:42 PM EST) Only the most recent of9 resultswithin the time period is included. Sodium, I-STAT 141 136 - 145 mmol/L 07/15/2025 9:28 PM EST Blood specimen / Unknown 07/15/2025 8:42 PM EST 07/15/2025 9:24 PM EST us Sandra Gonzalez MD POINT OF CARE TEST ORDERABLES Final Result Performing Organization Address City/[facility]/ZIP Co de Phone Number HOSPITAL LAB See [...] DEVICE Eulalia l Result Performing Organization Address [facility] Co de Phone Number HOSPITAL LAB See Below * (ABNORMAL) ISTAT Arterial [...] EST) Units Ordered 2 07/15/2025 8:07 PM [facility] Unit Number [id number] 07/15/2025 8:11 PM [facility] Blood Component Type Apheresis Platelets (7d) Leukocytes Reduced - 1st container 07/15/2025 8:11 PM [facility] Unit Division 00 07/15/2025 8:11 PM [facility] Unit Status ISSUED,FINAL 07/16/2025 12:10 AM [facility] Transfusion Status OK TO TRANSFUSE 07/15/2025 8:11 PM [facility] Unit Number [id number] 07/15/2025 8:11 PM [facility] Blood Component Type Apheresis Platelets (7d) Leukocytes Reduced - 3rd container 07/15/2025 8:11 PM [facility] Unit Division 00 07/15/2025 8:11 PM [facility] Unit Status ISSUED,FINAL 07/16/2025 12:10 AM [facility] Transfusion Status OK TO TRANSFUSE 07/15/2025 8:11 PM [facility] 07/15/2025 8:08 PM EST 07/15/2025 8:11 PM EST us Tai Whalen DO BLOOD BANK PRODUCT ORDERA BLES Final Result [place] [address] * Thromboelastograph (TEG) (07/15/2025 7:31 PM EST) Only the most recent of2 resultswithin the time period is included. Reaction Time,Heparinized 9.1 5 - 10 minutes 07/15/2025 10:02 PM [facility] Fibrin Function,Heparin ized 2.6 1 - 3 minutes 07/15/2025 10:02 PM [facility] Angle, Heparinized 57.5 53 - 72 degrees 07/15/2025 10:02 PM [facility] Max Amplitude,Hepari nized 60.5 50 - 70 mm 07/15/2025 10:02 PM [facility] %Lysis 30 min,Heparinized 0.3 0 - 8 % 07/15/2025 10:02 PM [facility] Anticoagulant Information not given 07/15/2025 8:07 PM [facility] 07/15/2025 7:31 PM EST 07/15/2025 7:35 PM EST Jayce Ugalde MD LAB BLOOD ORDERABLES Final Res ult Performing Organization Address City/[facility]/[place] [address], [place] [address] * (ABNORMAL) Platelet Count (07/15/2025 7:31 PM EST) Platelet Count 96(L) 150 - 450 Thou/uL 07/15/2025 8:03 PM [facility] Comment: Test ordered from operating room Called to ML/DG 2003 Immature Platelet Fraction 7.9 1.2 - 8.6 % 07/15/2025 8:03 PM [facility] Blood specimen / Unknown 07/15/2025 7:31 PM EST 07/15/2025 7:52 PM EST Jayce Ugalde MD LAB BLOOD ORDERABLES Final Res ult Performing Organization Address [facility]/[place] [address], [place] [address] * (ABNORMAL) Hematocrit (07/15/2025 7:31 PM EST) Hematocrit 24.7(L) 39.0 - 54.0 % 07/15/2025 8:03 PM [facility] Comment: Test ordered from operating room Called to ML/DG 2004 Blood specimen / Unknown 07/15/2025 7:31 PM EST 07/15/2025 7:52 PM EST us Jayce Ugalde MD LAB BLOOD ORDERABLES Final Res ult Performing Organization Address [facility] [place] [address], [place] [address] * (ABNORMAL) ISTAT Venous Blood Gas (VBG) (07/15/2025 6:13 PM EST) PH Venous, I-STAT 7.35 7.33 - 7.43 [...] Below * ANES LINE - PULMONARY ARTERY, MOLD ENGRAVER/SVO2 (07/15/2025 4:08 PM EST) Only the most recent of2 resultswithin the time period is included. Narrative Flash Bassett DO - 07/15/2025 4:08 PM EST Flash BassettDO 07/15/2025 4:09 PM Anesthesia Procedure Note - [...] not needed No complications Tai Whalen DO [place] ANESTHESIA Final Res ult * ANES SAJI (07/15/2025 4:08 PM EST) Flash Benson DO - 07/15/2025 4:08 PM EST Flash M DO Serjio 07/15/2025 4:08 PM Anesthesia Procedure Note - Transesophageal Echocardiogram (SAJI) Procedure Order: Transesophageal Echo-Anesthesia [id number] Patient Name: Matthew Marcelo : 1950 Patient [...] doppler guidance. Images were stored appropriately on glass or mirror inspector. us Tai Whalen DO [place] ANESTHESIA Final Res ult * ANES INTUBATION (07/15/2025 4:08 PM EST) Flash Benson DO - 07/15/2025 4:08 PM EST Flash David DO Serjio 07/15/2025 4:08 PM Anesthesia Procedure Note - [...] Dentition: same as baseline Complications: no complications us Tai Whalen DO [place] ANESTHESIA Final Res ult * ANES LINE [...] Patient pre-procedure mental status: anesthetized Single lumen [id number] catheter system, 14 g, 1 in length, in right antecubital Insertion attempts: 1 us Tai Whalen DO [place] ANESTHESIA Final Res ult * Transesophageal Echo-Anesthesia [...] left ventricular wall motion is globally hypokinetic. us Tai Whalen DO ECHO ORDERABLES Final Result * ANES LINE - ARTERIAL (07/15/2025 2:00 PM EST) Brittany Morris PA-C - 07/15/2025 2:00 PM EST Brittany [...] Comments: Attached to pressure bag and transduced us Brittany Dunaway PA-C [place] ANESTHESIA Final Resu lt * Heparin Assay (Anti-Xa) (07/14/2025 11:41 PM EST) Only the most recent of17 resultswithin the time period is included. Anti Xa 0.32 IU/mL 07/15/2025 12:49 AM [facility] Comment: (NOTE) Heparin Thromboembolic/Standard/Full Dose Protocol: [...] Anticoagulant IV HEPARIN, UNFRACTIONATED 07/14/2025 5:06 PM [facility] Blood Blood specimen / Unknown 07/14/2025 11:41 PM EST 07/15/2025 12:30 AM EST us Raymond Rivers MD LAB BLOOD [place] [address], [place] [address] * (ABNORMAL) Complete Blood Count, with Differential (07/14/2025 4:23 AM EST) Only the most recent of5 resultswithin the time period is included. White Blood Cell Count 4.2 4.0 - 11.0 Thou/uL 07/14/2025 5:34 AM [facility] Platelet Count 143(L) 150 - 450 Thou/uL 07/14/2025 5:34 AM [facility] Hemoglobin 11.1(L) 13.0 - 17.7 g/dL 07/14/2025 5:34 AM [facility] Hematocrit 34.4(L) 39.0 - 54.0 % 07/14/2025 5:34 AM [facility] Red Blood Cell Count 3.87(L) 4.50 - 6.20 Mil/uL 07/14/2025 5:34 AM [facility] MCV 89 80 - 100 fL 07/14/2025 5:34 AM [facility] MCH 28.7 27.0 - 31.0 pg 07/14/2025 5:34 AM [facility] MCHC 32.3 30.0 - 36.0 g/dL 07/14/2025 5:34 AM [facility] RDW 15.5(H) 11.5 - 14.5 % 07/14/2025 5:34 AM [facility] MPV 12.2 7.5 - 12.5 fL 07/14/2025 5:34 AM [facility] Neutrophils Auto 40.8 % 07/14/20 5:34 AM [facility] Immature Granulocytes 0.2 % 07/14/2025 5:34 AM [facility] Lymphocytes Auto 34.1 % 07/14/20 5:34 AM [facility] Monocytes Auto 10.0 % 07/14/2025 5:34 AM [facility] Eosinophils Auto 14.0 % 07/14/20 5:34 AM [facility] Basophils Auto 0.9 % 07/14/2025 5:34 AM [facility] Abs Neutrophils Auto 1.72(L) 2.00 - 7.50 Thou/uL 07/14/2025 5:34 AM [facility] Abs Immature Granulocytes 0.01 0.00 - 0.10 Thou/uL 07/14/2025 5:34 AM [facility] Abs Lymphocytes Auto 1.44(L) 1.50 - 4.50 Thou/uL 07/14/2025 5:34 AM [facility] Abs Monocytes Auto 0.42 0.20 - 1.50 Thou/uL 07/14/2025 5:34 AM [facility] Abs Eosinophils Auto 0.59 0.00 - 0.70 Thou/uL 07/14/2025 5:34 AM [facility] Abs Basophils Auto 0.04 0.00 - 0.20 Thou/uL 07/14/2025 5:34 AM [facility] Blood Blood specimen / Unknown 07/14/2025 4:23 AM EST 07/14/2025 5:24 AM EST us Rogerio Lange MD LAB BLOOD [place] [address], [place] [address] * Type and Screen (07/14/2025 4:18 AM EST) ABO/Rh O POSITIVE 07/14/2025 5:16 AM [facility] Antibody Screen NEGATIVE 5:16 AM [facility] Specimen Expiration 07/17/2025 07/14/2025 5:16 AM [facility] Unit Number [id number] 07/14/2025 10:44 AM [facility] Blood Component Type LR RBC CONTAINER 2 07/14/2025 10:44 AM [facility] Unit Division 00 07/14/2025 10:44 AM [facility] Unit Status REL FROM ALLOC 5 6:28 PM [facility] Transfusion Status OK TO TRANSFUSE 07/14/2025 10:44 AM [facility] Crossmatch Result COMPATIBLE 07/14/2025 10:44 AM [facility] Unit Number [id number] 07/14/2025 10:44 AM [facility] Blood Component Type LEUKOREDUCED RED CELLS 07/14/2025 10:44 AM [facility] Unit Division 00 07/14/2025 10:44 AM [facility] Unit Status REL FROM ALLOC 5 6:28 PM [facility] Transfusion Status OK TO TRANSFUSE 07/14/2025 10:44 AM [facility] Crossmatch Result COMPATIBLE 07/14/2025 10:44 AM [facility] Blood Blood specimen / Unknown 07/14/2025 4:18 AM EST 07/14/2025 4:38 AM EST Comment:Blood us Paola King PA-C BLOOD BANK TEST ORDERABLE S Final Result HOSPITAL LAB See Below [facility] [address] [place] [address] * (ABNORMAL) Comprehensive Metabolic Panel (07/13/2025 7:21 AM EST) Only the most recent of4 resultswithin the time period is included. Glucose 102(H) 65 - 99 mg/dL 07/13/2025 9:09 AM [facility] Comment:Fasting: <100 mg/dL, Non-Fasting: <200 mg/dL (ADA 2004) Blood Urea Nitrogen (BUN) 21 8 - 21 mg/dL 07/13/2025 9:09 AM [facility] Creatinine 0.88 0.50 - 1.30 mg/dL 07/13/2025 9:09 AM [facility] eGFR 89 >59 07/13/2025 9:09 AM [facility] Comment:CKD-EPI (2020) in mL /min/1.73 sq meters. Sodium 139 136 - 145 mmol/L 07/13/2025 9:09 AM [facility] Potassium 3.8 3.4 - 5.3 mmol/L 07/13/2025 9:09 AM [facility] Chloride 102 98 - 107 mmol/L 07/13/2025 9:09 AM [facility] CO2 25 22 - 33 mmol/L 07/13/2025 9:09 AM [facility] Calcium 8.9 8.7 - 10.5 mg/dL 07/13/2025 9:09 AM [facility] Alkaline Phosphatase 61 45 - 128 U/L 07/13/2025 9:09 AM [facility] Aspartate Aminotrans (AST) 60(H) 10 - 55 U/L 07/13/2025 9:09 AM [facility] Alanine Aminotrans (ALT) 56(H) 10 - 55 U/L 07/13/2025 9:09 AM [facility] Bilirubin, Total 0.3 0.2 - 1.0 mg/dL 07/13/2025 9:09 AM [facility] Protein, Total 6.9 6.3 - 8.3 g/dL 07/13/2025 9:09 AM [facility] Albumin 3.7 3.4 - 4.8 g/dL 07/13/2025 9:09 AM [facility] BUN/Creatinine Ratio 24 10.0 - 25.0 Ratio 07/13/2025 9:09 AM [facility] Globulin 3.2 1.5 - 3.9 g/dL 07/13/2025 9:09 AM [facility] Albumin/Globulin Ratio 1.2 1.0 - 3.0 Ratio 07/13/2025 9:09 AM [facility] Anion Gap 12 7 - 17 07/13/2025 9:09 AM [facility] Blood Blood specimen / Unknown 07/13/2025 7:21 AM EST 07/13/2025 8:08 AM EST us Rogerio Lange MD LAB BLOOD ORDERABLES Final Result Performing Organization Address City/State/[facility] Co de Phone Number [address] [address], [address] [address] * CT Thorax w/o contrast (07/11/2025 5:52 [...] CONTRAST: Noncontrasted study. DLP: 438 mGy-cm FINDINGS: CHIEF ENVIRONMENTAL COMMITMENT OFFICER: LINES/TUBES: Batch Unloader reviewed, no lines. LUNGS: Lung parenchyma: No [...] CONTRAST: Noncontrasted study. DLP: 438 mGy-cm FINDINGS: CHIEF ENVIRONMENTAL COMMITMENT OFFICER: LINES/TUBES: Batch Unloader reviewed, no lines. LUNGS: Lung parenchyma: No [...] patient, family, and referring physician. PROCEDURE DETAILS Engineering Document Control Clerk: Lisette Villalta DO Fellow: None Ehr Trainer(s): None Indications for Procedure: CP, new drop in LVEF CLINICAL HISTORY 75 yo [place]er-speaking male with HTN, HLD, and T2DM presented to his blood bank worker with CP, found on ECG to have [...] sterile fashion. RADIAL artery access: A 6 Kazakh slender sheath was placed in the right [...] LAD also gives off a prominent septal superintendent communications that gives collaterals to the occluded RCA/RPDA. [...] totally occluded. The distal vessel fills via [id number] collaterals. 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 Lisette Villalta DO [facility] [place] Fellow: None 07/11/2025 8:41 AM Narrative 07/14/2025 1:06 PM EST Table formatting from the original result was not included. Images from the original result were not included. [facility] [place] at [facility] - Cardiac Catheterization Laboratory PATIENT DEMOGRAPHIC INFORMATION Name: Matthew Mareclo : 1950 75 y.o. Sex: male Gender: male Procedure Date: 07/11/2025 Referring: Rogerio Lange Referring Convolute Tube Winder: Shaji Dougherty MD PCP: Marv Beltran MD Procedure(s): Procedures: * CORONARY ANGIO W/LV CONCLUSIONS/RECOMMENDATIONS Cardiac Protocol CAD and heart failure us Boskey Villalta DO CV CARDIAC CATH ORDERABLES Final Result [...] resultswithin the time period is included. Pathologist [facility] High Sensitivity Troponin T 22 <23 ng/L 07/08/2025 1:24 PM EST [facility] Delta (Change) 20(H) <3 07/08/2025 1:24 PM [facility] Comment:Decreased Blood Blood specimen / Unknown 07/08/2025 12:16 PM EST 07/08/2025 12:54 PM EST us Sydnie Atkisnon PA-C LAB BLOOD ORDERABLES Final Result Performing Organization Address City/[facility]/[place] [address], [place] [address] * (ABNORMAL) Hemoglobin A1c with Estimated Average Glucose (07/08/2025 8:53 AM EST) Hemoglobin A1C 7.9(H) <5.7 % 07/08/2025 2:05 PM [facility] Comment: A1c% Interpretation 5.7 - 6.0 Increase risk of diabetes 6.1 - 6.4 Higher risk of diabetes > or = 6.5 Consistent with diabetes Diabetes Care, 33(Supp 1):S1-S61, 2010 Estimated Average Glucose 180 mg/dL 07/08/2025 2:05 PM [facility] Blood Blood specimen / Unknown 07/08/2025 8:53 AM EST 07/08/2025 8:58 AM EST us Rogerio Lange MD LAB BLOOD [place] [address], [place] [address] * Partial Thromboplastin Time (PTT) (07/08/2025 8:53 AM EST) Anticoagulant IV HEPARIN, UNFRACTIONATED 07/08/2025 7:35 AM [facility] Partial Thromboplastin Time (PTT) 32 25 - 36 seconds 07/08/2025 9:25 AM [facility] Blood Blood specimen / Unknown 07/08/2025 8:53 AM EST 07/08/2025 8:59 AM EST Sydnie CAMILO-C LAB BLOOD ORDERABLES Final Result Performing Organization Address City/[facility] [place] [address], [place] [address] * Protime-INR (07/08/2025 8:53 AM EST) Anticoagulant IV HEPARIN, UNFRACTIONATED 07/08/2025 7:35 AM [facility] Prothrombin Time (PT) 12.1 10.0 - 13.5 seconds 07/08/2025 9:25 AM [facility] INR 1.0 07/08/2025 9:25 AM [facility] Comment:INR Therapeutic Rang es: Standard dose anticoagulant 2.0 to 3.0, High dose anticoagulant 2.5-3.5. Blood Blood specimen / Unknown 07/08/2025 8:53 AM EST 07/08/2025 8:59 AM EST Sydnie CAMILO-C LAB BLOOD ORDERABLES Final Result Performing Organization Address City/[facility]/[place] [address], [place] [address] * Ed Performed Us Abdominal (07/07/2025 11:08 PM EST) Anatomical Region Laterality Modality Ultrasound 07/07/2025 11:0 2 PM EST Narrative 07/07/2025 11:22 PM EST Cardiac ( ED) Exam Information: Exam Category: Diagnostic (Stone Circular Sawyer) Exam Occurrence: Initial exam Indication(s) for Exam: [...] ( ED) Exam Information: Exam Category: Diagnostic (Jun) Exam Occurrence: Initial exam Indication(s) for Exam: [...] on Monday, July 07, 2025 at11:22 PM us Jayce Ugalde MD [facility] ORDERABLES Final Result from Last 3 Months Insurance MEDICARE PART A & B [facility] Advance Directives Documents on File Type Date Recorded Patient Tearoom Hostess Expl anation Advance Directive-Scan 07/22/2025 1:36 PM 07/22/2025 HH * Full Code (Latest Code Status on File) Date Activated Date Inactivated Comments 07/15/2025 9:36 PM * Full Code Date Activated Date Inactivated Comments 07/07/2025 11:21 PM 07/15/2025 9:36 PM Healthcare Agents on File Name Relationship Healthcare Agent Relationshi p Communication Judi Armstrong Adult child 1. [facility] Care Teams Deputy Chief Magistrate Relationship Specialty Start Date End Date Marv Beltran MD [address] [place] [phone] PCP - General 07/08/25 [place] [address] [place] [address] [address] [place] [address] Endocrinology 07/08/25 Estee Fontaine MD [address] [place] [address] Medical Oncology 07/08/25 Arturo Copeland MD [address] [place] [address] Consulting Provider Surgery, Cardiac 07/25/25 Ferdinand Maravilla MD [address] [address] Convolute Tube Winder Cardiovascular Disease 07/31/25
--- OUTSIDE RECORDS SUMMARY | 2025-08-18 15:35 | XMS_ITS | Encounter Summary ---
Author Organization [facility] Address [address] [place] [address] Care Team Providers Care Education Supervisor Name Role Phone Marv Pérez MD Primary Care Provi ben Encounter Details Date Type Department Care Team (Late Contact Info) Description 07/30/2025 Lab Requisition [facility] - Main Lab [address] [facility] [place] [address] Sylvia Murillo MD [address] [place] [address] Type 2 diabetes mellitus without complications (CMS/HCC [...] AM EST Office Visit Orthopedic Surgery - [place] [address] [facility] [address] [place] [address] Ezequiel Mattson DPM [address] [address] documented as of this encounter Procedures Procedure Name Priority Date/Time Associated Diagnosis Comments COMPLETE BLOOD COUNT Routine 07/30/2025 7:31 AM EST Type 2 diabetes mellitus without complications (CMS/HCC V24, CMS/[facility] V28) BASIC METABOLIC PANEL Routine 07/30/2025 7:31 AM EST Type 2 diabetes mellitus without complications (CMS/HCC V24, CMS/HCC V28) documented in this encounter Results * (ABNORMAL) Basic metabolic panel (07/30/2025 7:31 AM EST) Sodium 141 133 - 145 mmol/L 07/30/2025 11:26 AM [facility] Potassium 4.2 3.5 - 5.5 mmol/L 07/30/2025 11:26 AM [facility] Chloride 102 96 - 110 mmol/L 07/30/2025 11:26 AM [facility] CO2 31 21 - 32 mmol/L 07/30/2025 11:26 AM [facility] Anion Gap 8 3 - 11 07/30/2025 11:26 AM [facility] Glucose 121(H) 70 - 100 mg/dL 07/30/2025 11:26 AM [facility] BUN 13 5 - 25 mg/dL 07/30/2025 11:26 AM [facility] Creatinine 0.76 0.70 - 1.30 mg/dL 07/30/2025 11:26 AM [facility] eGFR 93 >=60 mL/min/1. 73m2 07/30/2025 11:26 AM [facility] Comment:Calculation based on the Chronic Kidney Disease Epidemiology Collaboration (CKD-EPI) equation refit without adjustment for race. BUN/Creatinine Ratio 17.1 07/30/2025 11:26 AM [facility] Calcium 8.2(L) 8.5 - 10.5 mg/dL 07/30/2025 11:26 AM [facility] Blood Venous blood specimen / Unknown Venipuncture / Unknown 07/30/2025 7:31 AM EST 07/30/2025 10:13 AM EST Sylvia Murillo MD LAB BLOOD ORDERABLES Final Resul t [facility] [address] [place] [address], * (ABNORMAL) Complete blood count (07/30/2025 7:31 AM EST) WBC 4.5(L) 4.8 - 10.8 K/mcL LAB HEMETOLOGY METHOD 07/30/2025 10:25 AM [facility] RBC 2.70(L) 4.50 - 5.50 M/mcL LAB HEMETOLOGY METHOD 07/30/2025 10:25 AM [facility] Hemoglobin 7.7(L) 13.5 - 17.5 g/dL LAB HEMETOLOGY METHOD 07/30/2025 10:25 AM [facility] Hematocrit 24.3(L) 42.0 - 54.0 % LAB HEMETOLOGY METHOD 07/30/2025 10:25 AM [facility] MCV 90.3 79.0 - 98.0 FL LAB HEMETOLOGY METHOD 07/30/2025 10:25 AM [facility] MCH 28.6 27.0 - 32.0 pcg LAB HEMETOLOGY METHOD 07/30/2025 10:25 AM [facility] MCHC 31.7(L) 32.0 - 37.0 g/dL LAB HEMETOLOGY METHOD 07/30/2025 10:25 AM [facility] RDW 15.8(H) 11.0 - 15.0 % LAB HEMETOLOGY METHOD 07/30/2025 10:25 AM [facility] Platelets 319 130 - 400 K/mcL LAB HEMETOLOGY METHOD 07/30/2025 10:25 AM EST [facility] MPV 9.9 7.0 - 11.0 FL LAB HEMETOLOGY METHOD 07/30/2025 10:25 AM EST [facility] NRBC 0.0 <1.0 % LAB HEMETOLOGY METHOD 07/30/2025 10:25 AM EST [facility] NRBC Absolute 0.00 <0.10 K/mcL LAB HEMETOLOGY METHOD 07/30/2025 10:25 AM EST [facility] Blood Venous blood specimen / Unknown Venipuncture / Unknown 07/30/2025 7:31 AM EST 07/30/2025 10:13 AM EST us Sylvia Murillo MD LAB BLOOD ORDERABLES Final Resul t [facility] [address] [place] [address], documented in this encounter Visit Diagnoses Diagnosis Type 2 diabetes mellitus without complications (CMS/HCC V24, CMS/HCC V28) documented in this encounter Care Teams Education Supervisor Relationship Specialty Start Date End Date Marv Pérez MD [address] [place] [phone] PCP - General Internal Medicine 07/05/24 documented as of this encounter
--- OUTSIDE RECORDS SUMMARY | 2025-08-18 15:35 | XMS_ITS | Patient Health Record ---
Author Organization [facility] Address [address] [place] [address] Care Team Providers Care Fisher Reef Net Name Role Phone Benedict Metz Jr [phone] Reason For Referral No Information Plan Of Treatment No Information
--- OUTSIDE RECORDS SUMMARY | 2025-08-18 15:35 | XMS_ITS | Encounter Summary ---
Author Organization [employer] Address [address] [place] [address] Care Team Providers Care Personnel Quality Assurance Auditor Name Role Phone Marv Ramirez MD Primary Care Provide r Reason for Visit * Reason Onset Date Comments Care Coordination 08/15/2025 Home Care Util ization Review Encounter Details Date Type Department Care Team ([facility] st Contact Info) Description 08/15/2025 Telephone [facility] MEDICINE [address] [place], [place] [phone] Marv Ramirez MD [address] [place] [address] Care Coordination (Home Care Utilization Review) Social History Tobacco Use Types Packs/Day Years [...] encounter Miscellaneous Notes * Telephone Encounter - Mela Ovalle LPN - 08/15/2025 9:58 AM EST Outgoing call placed to Gena with [facility] in regards to request for face to face documentation received at [facility] on 08/13/25. Patient last PCP appointment was 03/06/25 and more than 90 days prior to SOC date of 08/08/25. Patient had appointment on 06/06/25 but was a no show for that appointment. Patient was since hospitalized with a discharge date of 07/23/25. Gena advised this nurse that patients ICE CREAM DIPPER Estephania books and transports patient for all appts. Estephania called directly and was provided [facility] main number to call and book a HDF appointment for patient prior to 09/04/25 to accommodate face to face guidelines. Estephania took [facility] and all information to book appointment. Face to face documentation pending appointment. documented in this encounter Plan of Treatment Upcoming Encounters Date Type Department Care Team ([facility] st Contact Info) Description 09/04/2025 1:30 PM EST Office Visit [facility] MEDICINE [address] [place] [address] Marv Ramirez MD [address] [place] [address] documented as of this encounter Goals Goal Patient Goal Type Associated Problems Recent Progress Patient-Stated? Author Help patients manage their type 2 diabetes Care Plan Help patients manage their type 2 diabetes No Zack Gregorio Weekly blood pressure task Care Plan Weekly blood pressure task No Gregorio Zack Help patients manage their type 2 diabetes Care Plan Help patients manage their type 2 diabetes No Jg Zack Patient has chronic kidney disease Care Plan Patient has chronic kidney disease No Gregorio, Zack Weekly blood pressure task Care Plan Weekly blood pressure task No Gregorio, Zack Patient has chronic kidney disease Care Plan Patient has chronic kidney disease No Gregorio Zack Weekly blood pressure task Care Plan Weekly blood pressure task No Colon Vásquez, Senait Weekly blood pressure task Care Plan Weekly blood pressure task No Colon Vásquez, Senait Patient has chronic kidney disease Care Plan Patient has chronic kidney disease No Colon Vásquez, Senait Patient has chronic kidney disease Care Plan Patient has chronic kidney disease No Colon Vásquez, Senait Weekly blood pressure task Care Plan Weekly blood pressure task No VasquezMela, WATERWORKS CHIEF ENGINEER Weekly blood pressure task Care Plan Weekly blood pressure task No VasquezAdanMela, WATERWORKS CHIEF ENGINEER Patient has chronic kidney disease Care Plan Patient has chronic kidney disease No VasquezAdanMela, WATERWORKS CHIEF ENGINEER Patient has chronic kidney disease Care Plan Patient has chronic kidney disease No VasquezMela prieto, WATERWORKS CHIEF ENGINEER documented as of this encounter Visit Diagnoses [...] 08/15/2025 Patient has chronic kidney disease 08/15/2025 Assessment Noted Time PHQ-9 Depression Total Score: 0 03/06/20 10:24 AM EDT documented as of this encounter Care Teams Personnel Quality Assurance Auditor Relationship Specialty Start Date End Date Marv Ramirez MD [address] [place] [address] PCP - General Internal Medicine 04/09/14 [facility] 08/08/25 documented as of this encounter
--- OUTSIDE RECORDS SUMMARY | 2025-08-18 15:35 | XMS_ITS | Clinical Summary ---
Author Organization [employer] Address [address] [place] [address] Care Team Providers Care Qualification Engineer Name Role Phone Marv Ramirez MD [...] long-term current use of insulin ([facility]) TEST BLOOD SUGAR THREE TIMES DAILY 100 [...] by mouth at bedtime. 30 tablet 6 5 5:42 PM EST 03/04/20 25 Active traZODone (Desyrel) 100 MG [...] to [facility]. I called Dr. Mtatson's office to set up an appointment follow-up on potentially pre ulcerative condition of the left, OV notes will be faxed at their request and they will contact patient. Patient and TOP CUTTER are aware of POC. Precordial pain 03/06/2025 Assessment & Plan (03/06/2025 10:21 AM EDT): Seen at our [facility] by Dr Fofana who recommended an [...] Connors provided to his during last visit TOP CUTTER The stitches were removed prior to last [...] Connors provided to his during last visit TOP CUTTER The stitches were removed prior to last [...] number of Dr Connors provided to his TOP CUTTER The stitches were removed today I provided [...] to rule out Skin CA Pt and weekend caregiver agreable with plan Cellulitis of right hand [...] a week. He follows with Diabetes and [facility] Lineworker educator Hgb A1c 03/06/2025: 7.5 from : [...] a week. He follows with Diabetes and Electrical Lineworker educator Hgb A1c 08/20/2024 : 7.8 from [...] Hernandez) . He follows with Diabetes and Electrical Lineworker educator Hgb A1c 05/23/2024 : 7.5 from [...] further follow-up in CDTM. Continue care with [facility] Endocrinology office - Medlist updated Monitoring: Hemoglobin [...] Hernandez) . He follows with Diabetes and Electrical Lineworker educator Hgb A1c 09/19/2023 : 10.3 Plan: [...] units sc q pm, ( Today his TOP CUTTER tells me he is not injecting Lantus anymore) Novolog Flex pen 6 units in AM Synyardiy XR 12.12/999 BID, and Trulicity 3 mg /0.5 ml once a week. I contacted the Pharmacy and they confirmed he is picking up his med boxes regularly Pt isunder the care of Endocrinology (Dr Hernandez) . He follows with Diabetes and Electrical Lineworker educator Hgb A1c 09/19/2023 : 10.3 Plan: [...] admits that while he was away in [place] for over a month he was not adhering to a diabetic diet. [facility] is also [facility] Pr counseled and educated about diabetic diet [...] He used to follow with Diabetes and Electrical Lineworker educator Hgb A1c 09/19/2023 : 10.3 Plan: [...] 07/05/2022 He also follows with Diabetes and Electrical Lineworker educator Hgb A1c 11/24/2022: 7.0 Plan: continue [...] 07/05/2022 He also follows with Diabetes and Electrical Lineworker educator Hgb A1c 08/09/2022 was 7.6 today [...] here 4 weeks ago Previous visit Pt's TOP CUTTER told me that she had been taking [...] Encounters Date Type Department Care Team Description 08/18/2025 Telephone [facility] [place] [address] Marv Ramirez MD Hospital Follow-up 08/15/2025 Telephone [facility] [place] [address] Marv Ramirez MD Care Coordination (Home Care Utilization Review) 08/14/2025 Orders Only GENERIC EXTERNAL DATA DEPARTMENT Provider, Generic External Data 08/08/2025 Telephone [facility] [place] [address] Marv Ramirez MD Verbal order 08/08/2025 Telephone [facility] [place] [address] Marv Ramirez MD med rec 07/15/2025 Refill [facility] [place] [address] Marv Ramirez MD 07/04/2025 Telephone [facility] MEDIC[facility] [place], [place] [address] Marv Ramirez MD Durable Medical Equipment 06/18/2025 Refill [facility] [place] [address] Marv Ramirez MD 06/11/2025 Telephone [facility] [place] [address] Marv Ramirez MD Podiatry 06/10/2025 1:00 PM EDT Office Visit [facility] [place] [address] Mary Hamm MD Toe trauma, left, initial encounter (Primary Dx); Type 2 diabetes mellitus with diabetic neuropathy, with long-term current use of insulin (HCC) 06/10/2025 Travel 06/04/2025 Telephone [facility] [address] [place] [address] Marv Ramirez MD chart prep 06/04/2025 Telephone [facility] [address] [place] [address] Marv Ramirez MD chartprep from Last 3 Months Immunizations Immunization Administration [...] 06/10/2025 1:06 PM EDT Plan of Treatment Upcoming Encounters Date Type Department Care Team (Late st Contact Info) Description 09/04/2025 1:30 PM EST Office Visit [facility] [address] [place] [address] Marv Ramirez MD [address] [place] [address] Health Maintenance Due Date Last Done Comments Derm Melanoma Skin Check 1950 Eye Exam 1959 Alcohol/Substance Use Screening 1961 Zoster Vaccines (2 of 3) 02/23/2015 12/29/2014 Pneumococcal Vaccine: 50+ Years (3 of 3 - PCV20 or PCV21) 06/25/2020 06/25/2015, 09/02/2013 RSV Patients and Patients Aged 60 years or older (1 - 1-dose 75+ series) 2024 COVID-19 Vaccine (4 - season) 2025 07/26/2021, 01/01/2021, 12/04/2020 Influenza [...] Weekly blood pressure task No Zack Gregorio Help patients manage their type 2 diabetes Care Plan Help patients manage their type 2 diabetes No Zack Gregorio Patient has chronic kidney [...] Plan Weekly blood pressure task No Colon Fahad Senait Patient has chronic kidney disease Care Plan Patient has chronic kidney disease No Colon Vásquez, Senait Patient has chronic kidney disease Care Plan Patient has chronic kidney disease No Colon Fahad Senait Weekly blood pressure task Care Plan Weekly blood pressure task No Mela Ovalle LPN Weekly blood pressure task Care Plan Weekly blood pressure task No Mela Ovalle LPN Patient has chronic kidney disease Care Plan Patient has chronic kidney disease No Mela Ovalle LPN Patient has chronic kidney disease Care Plan Patient has chronic kidney disease No Mela Ovalle LPN Weekly blood pressure task Care Plan Weekly blood pressure task No Pablo Wayne Weekly blood pressure task Care Plan Weekly blood pressure task No Pablo Wayne Patient has chronic kidney disease Care Plan Patient has chronic kidney disease No Pablo Wayne Patient has chronic kidney disease Care Plan Patient has chronic kidney disease No Pablo Wayne Procedures Procedure Name Priority Date/Time Associated Diagnosis Comments GLUCOSE, WHOLE BLOOD Routine 08/14/2025 9:30 AM EST AMB REFERRAL TO PODIATRY Urgent 06/11/2025 Toe trauma, left, initial encounter Type 2 diabetes mellitus with diabetic neuropathy, with long-term current use of insulin (HCC) XR TOES 2+ VIEWS LEFT Routine 06/10/2025 2:07 PM EDT Toe trauma, left, initial encounter ALBUMIN, RANDOM URINE W/CREATININE Routine 03/07/2025 8:44 [...] Whole Blood 124(H) 60 - 115 mg/dL [facility] Comment:METER #: [id number] Testing performed in the Endocrinology Department [address] , [address], [facility]. 08/14/2025 9:30 AM EST 08/14/2025 9:36 AM EST us Generic External Data Provider LAB BLOOD ORDERAB LES Final Result [facility] [address] [place] [phone] * Referral to Podiatry (06/11/2025) us Mary Hamm MD OUTPATIENT REFERRAL JOHN VELEZ Final Result * XR Toes 2+ Left (06/10/2025 2:07 PM EDT) Anatomical Region Laterality Modality Lower Extremities, Toes Left Radiogra phic Imaging 06/10/2025 2:07 PM EDT Narrative 06/10/2025 2:31 PM EDT [address] [address] XRay Report Signed Patient: Matthew Teixeira MR#: [id number] : 1950 Acct:[id number] Age/Sex: 75 / M ADM Date: 06/10/25 Loc: HO.HHCX Attending Dr: Mary Hamm MD Ordering Physician: Mary Hamm MD Date of Service: 06/10/25 Procedure(s): XR toe LT min 2V Accession Number(s): [id number] cc: Mary Hamm MD Reason for Exam: [...] Uriel Palomino MD 06/10/2025 02:28 PM EDT Dictated By: Uriel Palomino MD Signed By: <Electronically signed by Uriel Palomino MD in OV> 06/10/25 1428 DD/ 1407 TD/TT: 06/10/25 1413 Receiving Distribution Station Operator: Procedure Note Donotuseinterpreter, Image - 06/10/[address] [address] XRay Report Signed Patient: Matthew Teixeira AMR#: [id number] : 1950cct:[id number] Age/Sex: 75 / MADM Date: 06/10/25 Loc: HO.HHCX Attending Dr: Mary Hamm MD Ordering Physician: Mary Hamm MD Date of Service: 06/10/25 Procedure(s): XR toe LT min 2V Accession Number(s): [id number] cc: Mary Hamm MD Reason for Exam: [...] OV> 06/10/25 1428 DD/ 1407 TD/TT: 06/10/25 1413 Receiving Distribution Station Operator: us Mary Hamm MD IMG XR PROCEDURES Final Result * Albumin, Random Urine W/Creatinine (03/07/2025 8:44 AM EDT) Creatinine, Urine 76.34 mg/dL [facility] Microalbumin Urine 5.0 mg/L [facility] Microalbum Creatinine Ratio Ur 6.5 <30 ug/mg cr [facility] Comment:Albumin/Creatinine R atio Reference Ranges: Normal: < 30 ug/mg creatinine Microalbuminuria: 30 - 300 ug/mg creatinineClinical Albuminuria: > 300 ug/mg creatinine Urine (Urine, Random) 03/07/2025 8:44 AM EDT 03/07/2025 11:11 AM EDT us Marv Lacy MD LAB URINE ORDERABLES Final Result [facility] [address] [place] [phone] * (ABNORMAL) Lipid Panel, Standard (03/07/2025 8:44 AM EDT) Triglycerides 121 <150 mg/dL [facility] Comment:Desirable Triglyceri de: less than 150 mg/dLBorderline High Triglyceride 150-199 mg/dLHigh Triglyceride: 200-499 mg/dLVery High Triglyceride: greater than or equal to 5OO mg/dL Cholesterol 125 <200 mg/dL [facility] Comment:Desirable Cholestero l: less than 200 mg/dLBorderline High Cholesterol: 200-239 mg/dLHigh Cholesterol: greater than 239 mg/dL LDL Cholesterol Calculated 65 <100 mg/dL [facility] Comment:Desirable LDL: less than 100 [...] Lacy MD LAB BLOOD ORDERABLES Final Result [facility] [address] [place] [phone] * (ABNORMAL) POCT HGB A1C (03/06/2025 10:38 AM EDT) Hemoglobin A1C 7.5(A) 4.0 - 5.7 % QC Media Lot # [id number] Lot# Expiration Date ,737 Blood 03/06/2025 10:3 8 AM EDT Marv [...] a test for HCV RNA (test code 89281) is suggested. For additional information please refer to http://education.[employer]/faq/LUF28w9 (This link is being provided for informational/ educational purposes only.) 02/01/2022 11:2 9 AM EDT Marv Lacy MD HISTORICAL/NON ORDERA BLE LABS Final Result [facility] [address] * Colonoscopy (04/25/2016) Colonoscopy Tubular Adenoma/Hem [...] 08/18/2025 Patient has chronic kidney disease 08/18/2025 Insurance [facility] [employer] (HMO D-SNP) [place] [id number] Care Teams Qualification Engineer Relationship Specialty Start Date End Date Marv Ramirez MD [address] [place] [phone] PCP - General Internal Medicine 04/09/14 [facility] 08/08/25
== END 2025-08-18 13:00 | disposition home or self-care (01) ==
LOC: HO.HCS 12:22
PROVIDERS: Visit Provider Internal Medicine
DX: I25.10 Atherosclerotic heart disease of native coronary artery without angina pectoris (principal); Z95.1 Presence of aortocoronary bypass graft; I42.9 Cardiomyopathy, unspecified
CPT/HCPCS: 99214; G2211

== ENCOUNTER → 2025-08-18 12:22 | Outpatient (BNVA) | payer OTHER, SELFPAY | PROVIDERS: Visit Provider Internal Medicine | DX: I25.10 Atherosclerotic heart disease of native coronary artery without angina pectoris (principal); I42.9 Cardiomyopathy, unspecified; Z95.1 Presence of aortocoronary bypass graft | CPT/HCPCS: 99212 ==